=== PATIENT | male | born 1955 | race Caucasian/White ===

== ENCOUNTER 2017-12-26 11:41 | Inpatient (IN) | payer OTHER ==
[~2017-12-26] VITALS: Ht 182.9 cm; Wt 98.4 kg
[2017-12-26] MEDS ORDERED: IV NORMAL SALINE 1000 ML BAG IV ONE (12:15)
[2017-12-26] MEDS ORDERED: ACETAMINOPHEN 325 MG TABLET PO ONE (12:15)
[2017-12-26] MEDS ORDERED: ONDANSETRON 4 MG/2 ML VIAL IV ONE (12:15)
[2017-12-26] MEDS ORDERED: HYDROMORPHONE 1 MG/1 ML DISP.SYRIN IV ONE (12:15)
[2017-12-26] MEDS ORDERED: CARV3.122 PO (12:25)
[2017-12-26] MEDS ORDERED: MIDO5TAB PO (12:25)
[2017-12-26] MEDS ORDERED: ACET325T53 PO (12:25)
[2017-12-26] MEDS ORDERED: LEVO100T10 PO (12:25)
[2017-12-26] MEDS ORDERED: MONT10TA22 PO (12:25)
[2017-12-26] MEDS ORDERED: FURO40TA5 PO (12:25)
[2017-12-26] MEDS ORDERED: DIVA500T2 PO (12:25)
[2017-12-26] MEDS ORDERED: DOCU-141 PO (12:25)
[2017-12-26] MEDS ORDERED: HYDR-3326 PO (12:25)
[2017-12-26] MEDS ORDERED: MUPI22OI2 (12:25)
[2017-12-26] MEDS ORDERED: TAMS-3 PO (12:25)
[2017-12-26] MEDS ORDERED: CLOP75TA33 PO (12:25)
[2017-12-26] MEDS ORDERED: INSU100V28 SQ (12:25)
[2017-12-26] MEDS ORDERED: CRAN450T3 PO (12:25)
[2017-12-26] MEDS ORDERED: BLOO-140 IN (12:25)
[2017-12-26] MEDS ORDERED: ASPI-605 PO (12:25)
[2017-12-26] MEDS ORDERED: PREG100C PO (12:25)
[2017-12-26] MEDS ORDERED: TEMA30CA PO (12:25)
[2017-12-26] MEDS ORDERED: SENN-167 PO (12:25)
[2017-12-26] MEDS ORDERED: ASCO500T10 PO (12:25)
[2017-12-26] MEDS ORDERED: MULT-225 PO (12:25)
[2017-12-26] MEDS ORDERED: NA P133E RC (12:25)
[2017-12-26] MEDS ORDERED: ACETAMINOPHEN 325 MG TABLET ONE (12:28)
[2017-12-26] MEDS ORDERED: HYDROMORPHONE 2 MG/1 ML DISP.SYRIN ONE (12:28)
[2017-12-26] MEDS ORDERED: ONDANSETRON 4 MG/2 ML VIAL ONE (12:28)
[2017-12-26 12:29] LABS: BASOPHILS # (AUTO) 0.1 K/uL (0.0-8.0); BASOPHILS % (AUTO) 0.5 % (0.0-2.0); EOSINOPHILS # (AUTO) 0.1 K/uL (0.0-0.7); HEMOGLOBIN 10.6 g/dL (12.5-16.3); LYMPHOCYTES # (AUTO) 1.4 K/uL (20.0-40.0); LYMPHOCYTES % (AUTO) 13.4 % (20.5-51.5); MEAN CORPUSCULAR HEMOGLOBIN 29.5 uug (23.8-33.4); MEAN CORPUSCULAR HGB CONC 33 g/dL (32.5-36.3); MONOCYTES % (AUTO) 9.1 % (0.0-11.0); NEUTROPHILS # (AUTO) 8.1 K/uL (1.8-8.9); PLATELET COUNT (AUTO) 211 K/uL (152-348); WHITE BLOOD COUNT (AUTO) 10.6 K/uL (3.6-10.2)
[2017-12-26 12:40] LABS: CREATININE 1.7 mg/dL (0.6-1.3); POTASSIUM 4.3 mmol/L (3.5-5.1)
[2017-12-26 12:46] LABS: BILIRUBIN,DIRECT 0.1 mg/dL (0.0-0.2); BILIRUBIN,TOTAL 0.4 mg/dL (0.2-1.0); TOTAL PROTEIN, SERUM 7.8 g/dL (6.4-8.2)
[2017-12-26] MEDS ORDERED: VANCOMYCIN IV 1,000 MG in IV DEXTROSE 5% 250 ML IV ONE (13:15)
[2017-12-26] MEDS ORDERED: CEFTRIAXONE 2 G in IV DEXTROSE 5% 100 ML IV ONE (13:15)
[2017-12-26] MEDS ORDERED: CEFTRIAXONE 1 G VIAL ONE (13:21)
[2017-12-26] MEDS ORDERED: MAGNESIUM HYDROXIDE 30 ML LIQUID UDC PO PRN (13:45)
[2017-12-26] MEDS ORDERED: ONDANSETRON 4 MG/2 ML VIAL IV PRN (13:45)
[2017-12-26] MEDS ORDERED: ACETAMINOPHEN 325 MG TABLET PO PRN (13:45)
[2017-12-26] MEDS ORDERED: HYDROCODONE/APAP 10-325 MG TABLET PO PRN (13:45)
[2017-12-26] MEDS ORDERED: TEMAZEPAM 15 MG CAPSULE PO PRN (13:45)
[2017-12-26] MEDS ORDERED: PIPERACILLIN/TAZOBACTAM/D5W 2.25 G in PREMIXED 1 EACH IV SCH (14:00)
[2017-12-26] MEDS ORDERED: DEXTROSE 50% 50 ML DISP.SYRIN IV PRN (14:15)
[2017-12-26 14:58] VITALS: BP 99/61
[2017-12-26] MEDS ORDERED: VANCOMYCIN IV 1,500 MG in IV DEXTROSE 5% 500 ML IV ONE (15:30)
[2017-12-26] MEDS: SENNOSIDES 1 TABLET PO SCH (17:36)
[2017-12-26] MEDS: PREGABALIN 100 MG CAPSULE PO SCH (17:36)
[2017-12-26] MEDS: DIVALPROEX 500 MG TABLET.DR PO SCH (17:36)
[2017-12-26] MEDS: DOCUSATE SODIUM 100 MG CAPSULE PO SCH (17:36)
[2017-12-26] MEDS: CARVEDILOL 3.125 MG TABLET PO SCH (17:38)
[2017-12-26] MEDS: MIDODRINE HCL 5 MG TABLET PO SCH (17:38)
[2017-12-26] MEDS: INSULIN REGULAR, HUMAN 300 UNIT/3 ML VIAL SQ PRN ×2 (17:40→20:34)
[2017-12-26] MEDS: BLOOD SUGAR DIAGNOSTIC 1 EACH STRIP VI SCH ×2 (17:45→20:24)
[2017-12-26] MEDS: PIPERACILLIN/TAZOBACTAM/D5W 3.375 G in PREMIXED 1 EACH IV SCH ×2 (17:45→21:28)
[2017-12-26 18:17] LABS: *BILIRUBIN,URIN NEGATIVE (NEGATIVE); *BLOOD, URINE NEGATIVE (NEGATIVE); *CLARITY,URINE SLIGHTLY CLOUDY (CLEAR); *COLOR,URINE YELLOW (YELLOW); *KETONES,URINE NEGATIVE (NEGATIVE); *PROTEIN,URINE NEGATIVE (NEGATIVE); *UROBILINOGEN,URINE 0.2 E.U./dl (NORMAL); LEUKOCYTE ESTERASE ,URINE NEGATIVE (NEGATIVE); NITRITE, URINE NEGATIVE (NEGATIVE); PH,URINE 5.5 (5.0-8.0); UGLUCOSE NEGATIVE (NEGATIVE)
[2017-12-26 18:30] LABS: BACTERIA,URINE NONE SEEN /HPF (NONE SEEN); RBC,URINE 0-3 /HPF (0-3); WBC,URINE 0-3 /HPF (0-3)
[2017-12-26 18:31] LABS: SQUAMOUS EPITHELIAL CELL,UR NONE SEEN /HPF (NONE SEEN)
[2017-12-26 20:28] LABS: *CREATININE,URINE 53.1 mg/dL (30-125); *CREATININE,URINE 53.5 mg/dL (30-125)
[2017-12-26 20:41] VITALS: BP 107/64
[2017-12-26] MEDS: HYDROCODONE/APAP 5-325MG TABLET PO PRN (21:45)
[2017-12-26] MEDS: TEMAZEPAM 15 MG CAPSULE PO PRN (22:59)
[2017-12-27 04:58] VITALS: BP 118/63
[2017-12-27] MEDS: PIPERACILLIN/TAZOBACTAM/D5W 3.375 G in PREMIXED 1 EACH IV SCH ×3 (05:15→21:18)
[2017-12-27] MEDS: HYDROCODONE/APAP 5-325MG TABLET PO PRN (05:26)
[2017-12-27] MEDS: LEVOTHYROXINE SODIUM 100 MCG TABLET PO SCH (06:11)
[2017-12-27] MEDS: PANTOPRAZOLE SODIUM 40 MG TABLET.DR PO SCH (06:11)
[2017-12-27] MEDS: BLOOD SUGAR DIAGNOSTIC 1 EACH STRIP VI SCH ×4 (06:12→21:01)
[2017-12-27 06:39] LABS: BILIRUBIN,TOTAL 0.4 mg/dL (0.2-1.0); CREATININE 1.8 mg/dL (0.6-1.3); MAGNESIUM 2.2 mg/dL (1.8-2.4); PHOSPHOROUS 3.9 mg/dL (2.5-4.9); POTASSIUM 4.1 mmol/L (3.5-5.1); TOTAL PROTEIN, SERUM 7.2 g/dL (6.4-8.2)
[2017-12-27 06:42] LABS: BASOPHILS # (AUTO) 0.1 K/uL (0.0-8.0); BASOPHILS % (AUTO) 0.9 % (0.0-2.0); EOSINOPHILS # (AUTO) 0.2 K/uL (0.0-0.7); EOSINOPHILS % (AUTO) 2.6 % (0.0-7.0); HEMATOCRIT 29.9 % (36.7-47.1); LYMPHOCYTES # (AUTO) 1.6 K/uL (20.0-40.0); MEAN CORPUSCULAR HEMOGLOBIN 29.4 uug (23.8-33.4); MEAN CORPUSCULAR HGB CONC 33 g/dL (32.5-36.3); MONOCYTES # (AUTO) 0.5 K/uL (2.0-10.0); MONOCYTES % (AUTO) 8.1 % (0.0-11.0); NEUTROPHILS # (AUTO) 3.9 K/uL (1.8-8.9); NEUTROPHILS % (AUTO) 62.4 % (38.5-71.5); PLATELET COUNT (AUTO) 196 K/uL (152-348); RED BLOOD CELL COUNT(AUTO) 3.39 MIL/uL (4.06-5.63)
[2017-12-27 06:59] LABS: VANCOMYCIN,RANDOM 12.2 ug/mL (18.0-26.0)
[2017-12-27 07:05] LABS: WHITE BLOOD COUNT (AUTO) 6.2 K/uL (3.6-10.2)
[2017-12-27] MEDS: DOCUSATE SODIUM 100 MG CAPSULE PO SCH ×2 (08:05→17:44)
[2017-12-27] MEDS: PREGABALIN 100 MG CAPSULE PO SCH ×3 (08:05→17:44)
[2017-12-27] MEDS: MONTELUKAST SODIUM 10 MG TABLET PO SCH (08:05)
[2017-12-27] MEDS: SENNOSIDES 1 TABLET PO SCH ×2 (08:05→17:44)
[2017-12-27] MEDS: DIVALPROEX 500 MG TABLET.DR PO SCH ×3 (08:05→17:44)
[2017-12-27] MEDS: MULTIVITAMINS,THERAPEUTIC TABLET PO SCH (08:05)
[2017-12-27] MEDS: ASCORBIC ACID 500 MG TABLET PO SCH (08:05)
[2017-12-27] MEDS: TAMSULOSIN HCL 0.4 MG CAP.SR.24H PO SCH (08:05)
[2017-12-27] MEDS: CARVEDILOL 3.125 MG TABLET PO SCH ×2 (08:06→17:44)
[2017-12-27] MEDS: CLOPIDOGREL 75 MG TABLET PO SCH (08:06)
[2017-12-27] MEDS: ASPIRIN EC 81 MG TABLET.DR PO SCH (08:06)
[2017-12-27] MEDS: MIDODRINE HCL 5 MG TABLET PO SCH ×4 (08:08→17:46)
[2017-12-27] MEDS: INSULIN REGULAR, HUMAN 300 UNIT/3 ML VIAL SQ PRN ×4 (08:10→21:04)
[2017-12-27] MEDS ORDERED: VANCOMYCIN IV 1,500 MG in IV DEXTROSE 5% 500 ML IV ONE (09:00)
[2017-12-27] MEDS ORDERED: HYDROMORPHONE 2 MG/1 ML DISP.SYRIN IV PRN (10:00)
[2017-12-27] MEDS ORDERED: HYDROCODONE/APAP 10-325 MG TABLET PO PRN (10:00)
[2017-12-27 11:04] VITALS: BP 121/60
[2017-12-27] MEDS: ACETAMINOPHEN 325 MG TABLET PO SCH ×3 (12:34→23:07)
[2017-12-27] MEDS ORDERED: Z GUARD REMEDY PASTE 57 GM TUBE TOP PRN (14:30)
[2017-12-27 15:09] VITALS: BP 130/64
[2017-12-27] MEDS: CLOTRIMAZOLE 1% CREAM 30 GM TUBE TOP SCH (17:43)
[2017-12-27] MEDS: Z GUARD REMEDY PASTE 57 GM TUBE TOP SCH ×2 (17:43→21:01)
[2017-12-27] MEDS: HYDROMORPHONE 2 MG/1 ML DISP.SYRIN IV PRN (19:44)
[2017-12-27 20:00] VITALS: BP 121/66
[2017-12-27] MEDS ORDERED: INSULIN GLARGINE,HUM 300 UNITS/3 ML CARTRIDGE SQ SCH (21:00)
[2017-12-27] MEDS: LACTOBACILLUS RHAMNOSUS GG 1 EACH CAPSULE PO SCH (21:00)
[2017-12-28 04:00] VITALS: BP 102/51
[2017-12-28] MEDS: ACETAMINOPHEN 325 MG TABLET PO SCH ×4 (05:38→23:21)
[2017-12-28] MEDS: PIPERACILLIN/TAZOBACTAM/D5W 3.375 G in PREMIXED 1 EACH IV SCH ×3 (05:38→21:22)
[2017-12-28] MEDS: LEVOTHYROXINE SODIUM 100 MCG TABLET PO SCH (06:05)
[2017-12-28] MEDS: PANTOPRAZOLE SODIUM 40 MG TABLET.DR PO SCH (06:05)
[2017-12-28 06:39] LABS: BASOPHILS # (AUTO) 0.1 K/uL (0.0-8.0); BASOPHILS % (AUTO) 0.9 % (0.0-2.0); EOSINOPHILS # (AUTO) 0.5 K/uL (0.0-0.7); HEMATOCRIT 30.8 % (36.7-47.1); HEMOGLOBIN 10.5 g/dL (12.5-16.3); LYMPHOCYTES # (AUTO) 2.9 K/uL (20.0-40.0); LYMPHOCYTES % (AUTO) 38.3 % (20.5-51.5); MEAN CORPUSCULAR HEMOGLOBIN 30.3 uug (23.8-33.4); MEAN CORPUSCULAR HGB CONC 34 g/dL (32.5-36.3); MEAN CORPUSCULAR VOLUME 88.8 fL (73.0-96.2); MONOCYTES # (AUTO) 0.8 K/uL (2.0-10.0); MONOCYTES % (AUTO) 11.1 % (0.0-11.0); NEUTROPHILS # (AUTO) 3.3 K/uL (1.8-8.9); NEUTROPHILS % (AUTO) 43.7 % (38.5-71.5); PLATELET COUNT (AUTO) 186 K/uL (152-348); RED BLOOD CELL COUNT(AUTO) 3.47 MIL/uL (4.06-5.63); WHITE BLOOD COUNT (AUTO) 7.6 K/uL (3.6-10.2)
[2017-12-28 06:52] LABS: CREATININE 1.7 mg/dL (0.6-1.3)
[2017-12-28] MEDS: BLOOD SUGAR DIAGNOSTIC 1 EACH STRIP VI SCH ×3 (07:21→20:29)
[2017-12-28] MEDS: INSULIN REGULAR, HUMAN 300 UNIT/3 ML VIAL SQ PRN ×3 (07:57→16:42)
[2017-12-28] MEDS: LACTOBACILLUS RHAMNOSUS GG 1 EACH CAPSULE PO SCH ×2 (08:02→20:29)
[2017-12-28] MEDS: DIVALPROEX 500 MG TABLET.DR PO SCH ×3 (08:02→16:42)
[2017-12-28] MEDS: PREGABALIN 100 MG CAPSULE PO SCH ×3 (08:02→16:42)
[2017-12-28] MEDS: ASCORBIC ACID 500 MG TABLET PO SCH (08:02)
[2017-12-28] MEDS: TAMSULOSIN HCL 0.4 MG CAP.SR.24H PO SCH (08:03)
[2017-12-28] MEDS: DOCUSATE SODIUM 100 MG CAPSULE PO SCH ×2 (08:03→16:44)
[2017-12-28] MEDS: SENNOSIDES 1 TABLET PO SCH ×2 (08:03→16:44)
[2017-12-28] MEDS: ASPIRIN EC 81 MG TABLET.DR PO SCH (08:03)
[2017-12-28] MEDS: MULTIVITAMINS,THERAPEUTIC TABLET PO SCH (08:03)
[2017-12-28] MEDS: MONTELUKAST SODIUM 10 MG TABLET PO SCH (08:03)
[2017-12-28] MEDS: CLOTRIMAZOLE 1% CREAM 30 GM TUBE TOP SCH ×2 (08:05→16:44)
[2017-12-28] MEDS: CLOPIDOGREL 75 MG TABLET PO SCH (08:05)
[2017-12-28] MEDS: Z GUARD REMEDY PASTE 57 GM TUBE TOP SCH ×2 (08:05→20:29)
[2017-12-28] MEDS: MIDODRINE HCL 5 MG TABLET PO SCH ×3 (08:09→16:43)
[2017-12-28] MEDS: CARVEDILOL 3.125 MG TABLET PO SCH ×2 (08:09→18:09)
[2017-12-28] MEDS ORDERED: VANCOMYCIN IV 1,500 MG in IV DEXTROSE 5% 500 ML IV ONE (09:00)
[2017-12-28] MEDS: HYDROMORPHONE 2 MG/1 ML DISP.SYRIN IV PRN (10:27)
[2017-12-28 11:45] VITALS: BP 109/59
[2017-12-28] MEDS ORDERED: DEXTROSE 50% 50 ML DISP.SYRIN IV PRN (12:00)
[2017-12-28 15:15] VITALS: BP 110/64
[2017-12-28] MEDS: OXYCODONE HCL 5 MG TABLET PO PRN ×2 (17:03→23:24)
[2017-12-28 20:00] VITALS: BP 100/55
[2017-12-28] MEDS: INSULIN GLARGINE,HUM 300 UNITS/3 ML CARTRIDGE SQ SCH (20:34)
[2017-12-28] MEDS: INSULIN REGULAR, HUMAN 300 UNITS/3 ML VIAL SQ PRN (20:36)
[2017-12-29 04:00] VITALS: BP 110/61
[2017-12-29] MEDS: PIPERACILLIN/TAZOBACTAM/D5W 3.375 G in PREMIXED 1 EACH IV SCH ×2 (05:25→13:32)
[2017-12-29] MEDS: ACETAMINOPHEN 325 MG TABLET PO SCH ×4 (05:26→23:59)
[2017-12-29] MEDS: OXYCODONE HCL 5 MG TABLET PO PRN ×3 (05:27→18:06)
[2017-12-29] MEDS: PANTOPRAZOLE SODIUM 40 MG TABLET.DR PO SCH (06:52)
[2017-12-29] MEDS: LEVOTHYROXINE SODIUM 100 MCG TABLET PO SCH (06:52)
[2017-12-29] MEDS: BLOOD SUGAR DIAGNOSTIC 1 EACH STRIP VI SCH ×4 (06:53→20:28)
[2017-12-29] MEDS: CARVEDILOL 3.125 MG TABLET PO SCH ×2 (08:00→17:09)
[2017-12-29] MEDS: DIVALPROEX 500 MG TABLET.DR PO SCH ×3 (08:03→16:21)
[2017-12-29] MEDS: LACTOBACILLUS RHAMNOSUS GG 1 EACH CAPSULE PO SCH ×2 (08:03→21:15)
[2017-12-29] MEDS: CLOPIDOGREL 75 MG TABLET PO SCH (08:03)
[2017-12-29] MEDS: MULTIVITAMINS,THERAPEUTIC TABLET PO SCH (08:03)
[2017-12-29] MEDS: ASPIRIN EC 81 MG TABLET.DR PO SCH (08:03)
[2017-12-29] MEDS: PREGABALIN 100 MG CAPSULE PO SCH ×3 (08:03→16:21)
[2017-12-29] MEDS: MONTELUKAST SODIUM 10 MG TABLET PO SCH (08:03)
[2017-12-29] MEDS: ASCORBIC ACID 500 MG TABLET PO SCH (08:03)
[2017-12-29] MEDS: MIDODRINE HCL 5 MG TABLET PO SCH ×3 (08:03→16:21)
[2017-12-29] MEDS: TAMSULOSIN HCL 0.4 MG CAP.SR.24H PO SCH (08:03)
[2017-12-29] MEDS: DOCUSATE SODIUM 100 MG CAPSULE PO SCH ×2 (08:04→16:19)
[2017-12-29] MEDS: SENNOSIDES 1 TABLET PO SCH ×2 (08:04→16:19)
[2017-12-29] MEDS: CLOTRIMAZOLE 1% CREAM 30 GM TUBE TOP SCH ×2 (09:09→16:58)
[2017-12-29] MEDS: Z GUARD REMEDY PASTE 57 GM TUBE TOP SCH ×2 (09:10→21:15)
[2017-12-29 11:25] VITALS: BP 106/56
[2017-12-29] MEDS: INSULIN REGULAR, HUMAN 300 UNIT/3 ML VIAL SQ PRN ×2 (11:38→16:28)
[2017-12-29 15:49] VITALS: BP 111/65
[2017-12-29] MEDS ORDERED: MEROPENEM 1 G in IV NORMAL SALINE 100 ML IV SCH ×4 (16:30)
[2017-12-29] MEDS ORDERED: LINEZOLID IV 600 MG in PREMIXED 1 EACH IV SCH ×4 (17:30)
[2017-12-29 20:00] VITALS: BP 106/48
[2017-12-29] MEDS: INSULIN REGULAR, HUMAN 300 UNITS/3 ML VIAL SQ PRN (20:27)
[2017-12-29] MEDS: INSULIN GLARGINE,HUM 300 UNITS/3 ML CARTRIDGE SQ SCH (20:28)
[2017-12-29] MEDS ORDERED: LEVOFLOXACIN 500 MG TABLET PO ONE (21:00)
[2017-12-29] MEDS ORDERED: LEVOFLOXACIN 500 MG TABLET PO SCH (21:00)
[2017-12-29] MEDS ORDERED: AMPICILLIN 1 G VIAL ONE (23:01)
[2017-12-29] MEDS: AMPICILLIN IV 1 G in IV NORMAL SALINE 50 ML IV SCH (23:13)
[2017-12-30] MEDS: OXYCODONE HCL 5 MG TABLET PO PRN ×4 (00:02→20:03)
[2017-12-30 04:24] VITALS: BP 108/66
[2017-12-30] MEDS: AMPICILLIN IV 1 G in IV NORMAL SALINE 50 ML IV SCH ×3 (05:13→22:08)
[2017-12-30] MEDS: ACETAMINOPHEN 325 MG TABLET PO SCH ×4 (05:59→23:15)
[2017-12-30] MEDS: PANTOPRAZOLE SODIUM 40 MG TABLET.DR PO SCH (06:24)
[2017-12-30] MEDS: LEVOTHYROXINE SODIUM 100 MCG TABLET PO SCH (06:24)
[2017-12-30] MEDS: CARVEDILOL 3.125 MG TABLET PO SCH ×2 (08:39→17:31)
[2017-12-30] MEDS: INSULIN REGULAR, HUMAN 300 UNIT/3 ML VIAL SQ PRN ×3 (08:44→17:25)
[2017-12-30] MEDS: BLOOD SUGAR DIAGNOSTIC 1 EACH STRIP VI SCH ×4 (09:39→22:07)
[2017-12-30] MEDS: DOCUSATE SODIUM 100 MG CAPSULE PO SCH ×2 (09:39→17:00)
[2017-12-30] MEDS: LACTOBACILLUS RHAMNOSUS GG 1 EACH CAPSULE PO SCH ×2 (09:39→22:00)
[2017-12-30] MEDS: MONTELUKAST SODIUM 10 MG TABLET PO SCH (09:39)
[2017-12-30] MEDS: TAMSULOSIN HCL 0.4 MG CAP.SR.24H PO SCH (09:39)
[2017-12-30] MEDS: SENNOSIDES 1 TABLET PO SCH ×2 (09:39→17:00)
[2017-12-30] MEDS: ASCORBIC ACID 500 MG TABLET PO SCH (09:40)
[2017-12-30] MEDS: ASPIRIN EC 81 MG TABLET.DR PO SCH (09:40)
[2017-12-30] MEDS: DIVALPROEX 500 MG TABLET.DR PO SCH ×3 (09:40→17:25)
[2017-12-30] MEDS: MULTIVITAMINS,THERAPEUTIC TABLET PO SCH (09:40)
[2017-12-30] MEDS: MIDODRINE HCL 5 MG TABLET PO SCH ×3 (09:40→17:31)
[2017-12-30] MEDS: PREGABALIN 100 MG CAPSULE PO SCH ×3 (09:40→17:25)
[2017-12-30] MEDS: Z GUARD REMEDY PASTE 57 GM TUBE TOP SCH ×2 (09:41→22:00)
[2017-12-30] MEDS: CLOPIDOGREL 75 MG TABLET PO SCH (09:41)
[2017-12-30] MEDS: CLOTRIMAZOLE 1% CREAM 30 GM TUBE TOP SCH ×2 (09:42→17:40)
[2017-12-30 11:54] VITALS: BP 110/58
[2017-12-30 16:16] VITALS: BP 129/66
[2017-12-30 17:32] LABS: BASOPHILS % (AUTO) 0.6 % (0.0-2.0); EOSINOPHILS # (AUTO) 0.3 K/uL (0.0-0.7); EOSINOPHILS % (AUTO) 5.4 % (0.0-7.0); HEMATOCRIT 31.8 % (36.7-47.1); HEMOGLOBIN 10.7 g/dL (12.5-16.3); LYMPHOCYTES # (AUTO) 1.4 K/uL (20.0-40.0); LYMPHOCYTES % (AUTO) 26.2 % (20.5-51.5); MEAN CORPUSCULAR HEMOGLOBIN 29.6 uug (23.8-33.4); MEAN CORPUSCULAR HGB CONC 34 g/dL (32.5-36.3); MEAN CORPUSCULAR VOLUME 88.2 fL (73.0-96.2); MONOCYTES # (AUTO) 0.3 K/uL (2.0-10.0); MONOCYTES % (AUTO) 5.9 % (0.0-11.0); NEUTROPHILS # (AUTO) 3.4 K/uL (1.8-8.9); NEUTROPHILS % (AUTO) 61.9 % (38.5-71.5); PLATELET COUNT (AUTO) 233 K/uL (152-348); WHITE BLOOD COUNT (AUTO) 5.5 K/uL (3.6-10.2)
[2017-12-30 17:40] LABS: CREATININE 1.7 mg/dL (0.6-1.3); POTASSIUM 5.1 mmol/L (3.5-5.1)
[2017-12-30 20:00] VITALS: BP 124/65
[2017-12-30] MEDS ORDERED: LEVOFLOXACIN 250 MG TABLET PO SCH (21:00)
[2017-12-30] MEDS: LEVOFLOXACIN 500 MG TABLET PO SCH (22:00)
[2017-12-30] MEDS: INSULIN GLARGINE,HUM 300 UNITS/3 ML CARTRIDGE SQ SCH (22:13)
[2017-12-30] MEDS: INSULIN REGULAR, HUMAN 300 UNITS/3 ML VIAL SQ PRN (22:15)
[2017-12-30] MEDS: TEMAZEPAM 15 MG CAPSULE PO PRN (23:14)
[2017-12-31 04:00] VITALS: BP 106/59
[2017-12-31] MEDS: ACETAMINOPHEN 325 MG TABLET PO SCH ×3 (06:00→18:59)
[2017-12-31] MEDS: PANTOPRAZOLE SODIUM 40 MG TABLET.DR PO SCH (06:21)
[2017-12-31] MEDS: LEVOTHYROXINE SODIUM 100 MCG TABLET PO SCH (06:21)
[2017-12-31] MEDS: AMPICILLIN IV 1 G in IV NORMAL SALINE 50 ML IV SCH ×3 (06:21→21:12)
[2017-12-31] MEDS: BLOOD SUGAR DIAGNOSTIC 1 EACH STRIP VI SCH ×4 (06:28→20:32)
[2017-12-31] MEDS: CARVEDILOL 3.125 MG TABLET PO SCH ×2 (08:00→19:00)
[2017-12-31] MEDS: SENNOSIDES 1 TABLET PO SCH ×2 (09:00→16:59)
[2017-12-31] MEDS: DOCUSATE SODIUM 100 MG CAPSULE PO SCH ×2 (09:00→16:58)
[2017-12-31] MEDS: LACTOBACILLUS RHAMNOSUS GG 1 EACH CAPSULE PO SCH ×2 (09:42→20:32)
[2017-12-31] MEDS: ASPIRIN EC 81 MG TABLET.DR PO SCH (09:42)
[2017-12-31] MEDS: MIDODRINE HCL 5 MG TABLET PO SCH ×3 (09:42→16:58)
[2017-12-31] MEDS: MONTELUKAST SODIUM 10 MG TABLET PO SCH (09:42)
[2017-12-31] MEDS: PREGABALIN 100 MG CAPSULE PO SCH ×3 (09:42→16:58)
[2017-12-31] MEDS: DIVALPROEX 500 MG TABLET.DR PO SCH ×3 (09:43→16:58)
[2017-12-31] MEDS: TAMSULOSIN HCL 0.4 MG CAP.SR.24H PO SCH (09:43)
[2017-12-31] MEDS: MULTIVITAMINS,THERAPEUTIC TABLET PO SCH (09:43)
[2017-12-31] MEDS: ASCORBIC ACID 500 MG TABLET PO SCH (09:43)
[2017-12-31] MEDS: CLOPIDOGREL 75 MG TABLET PO SCH (09:44)
[2017-12-31] MEDS: Z GUARD REMEDY PASTE 57 GM TUBE TOP SCH ×2 (09:44→20:33)
[2017-12-31] MEDS: CLOTRIMAZOLE 1% CREAM 30 GM TUBE TOP SCH ×2 (09:46→16:59)
[2017-12-31] MEDS: SODIUM HYPOCHLORITE 0.125% 473 ML BOTTLE TP SCH (09:48)
[2017-12-31] MEDS: OXYCODONE HCL 5 MG TABLET PO PRN ×2 (10:31→16:57)
[2017-12-31 11:12] VITALS: BP 105/64
[2017-12-31] MEDS: INSULIN REGULAR, HUMAN 300 UNIT/3 ML VIAL SQ PRN (12:34)
[2017-12-31 15:45] VITALS: BP 113/62
[2017-12-31] MEDS ORDERED: VITAMIN E CREAM 56.7 GM JAR TP PRN (17:15)
[2017-12-31 20:00] VITALS: BP 109/69
[2017-12-31] MEDS: LEVOFLOXACIN 500 MG TABLET PO SCH (20:32)
[2017-12-31] MEDS: INSULIN GLARGINE,HUM 300 UNITS/3 ML CARTRIDGE SQ SCH (20:38)
[2017-12-31] MEDS: INSULIN REGULAR, HUMAN 300 UNITS/3 ML VIAL SQ PRN (20:39)
[2018-01-01 06:00] VITALS: BP_SYST 109; BP_SYST 90; BP_DIAS 49; BP_DIAS 61
[2018-01-01] MEDS: PANTOPRAZOLE SODIUM 40 MG TABLET.DR PO SCH (06:13)
[2018-01-01] MEDS: LEVOTHYROXINE SODIUM 100 MCG TABLET PO SCH (06:13)
[2018-01-01] MEDS: BLOOD SUGAR DIAGNOSTIC 1 EACH STRIP VI SCH ×3 (06:13→17:39)
[2018-01-01] MEDS: ACETAMINOPHEN 325 MG TABLET PO SCH ×4 (06:14→17:22)
[2018-01-01] MEDS: AMPICILLIN IV 1 G in IV NORMAL SALINE 50 ML IV SCH ×2 (06:14→17:12)
[2018-01-01] MEDS: PREGABALIN 100 MG CAPSULE PO SCH ×3 (08:56→17:12)
[2018-01-01] MEDS: LACTOBACILLUS RHAMNOSUS GG 1 EACH CAPSULE PO SCH (08:56)
[2018-01-01] MEDS: ASCORBIC ACID 500 MG TABLET PO SCH (08:56)
[2018-01-01] MEDS: TAMSULOSIN HCL 0.4 MG CAP.SR.24H PO SCH ×2 (08:56→09:04)
[2018-01-01] MEDS: DIVALPROEX 500 MG TABLET.DR PO SCH ×3 (08:57→17:16)
[2018-01-01] MEDS: MULTIVITAMINS,THERAPEUTIC TABLET PO SCH (08:57)
[2018-01-01] MEDS: MIDODRINE HCL 5 MG TABLET PO SCH ×5 (09:00→17:15)
[2018-01-01] MEDS: MONTELUKAST SODIUM 10 MG TABLET PO SCH (09:04)
[2018-01-01] MEDS: DOCUSATE SODIUM 100 MG CAPSULE PO SCH ×2 (09:08→17:16)
[2018-01-01] MEDS: CARVEDILOL 3.125 MG TABLET PO SCH ×2 (09:08→17:23)
[2018-01-01] MEDS: SENNOSIDES 1 TABLET PO SCH ×2 (09:08→17:17)
[2018-01-01] MEDS: Z GUARD REMEDY PASTE 57 GM TUBE TOP SCH (09:09)
[2018-01-01] MEDS: CLOTRIMAZOLE 1% CREAM 30 GM TUBE TOP SCH ×2 (09:11→17:21)
[2018-01-01] MEDS: SODIUM HYPOCHLORITE 0.125% 473 ML BOTTLE TP SCH (09:12)
[2018-01-01] MEDS: CLOPIDOGREL 75 MG TABLET PO SCH (09:12)
[2018-01-01] MEDS: ASPIRIN EC 81 MG TABLET.DR PO SCH (09:15)
[2018-01-01 11:43] VITALS: BP 107/60
[2018-01-01] MEDS: INSULIN REGULAR, HUMAN 300 UNIT/3 ML VIAL SQ PRN ×2 (12:51→17:41)
[2018-01-01] MEDS: LEVOFLOXACIN 500 MG TABLET PO SCH (12:52)
[2018-01-01] MEDS: OXYCODONE HCL 5 MG TABLET PO PRN (12:53)
[2018-01-01 13:06] LABS: VIT D, 25-HYDROXY 21.6 ng/mL (30.0-100.0)
[2018-01-01 15:35] VITALS: BP 124/68
[2018-01-01 17:23] VITALS: BP 112/69
[2018-01-03 11:09] LABS: CALCITRIOL VIT D,1,25 DIHYDROX 8.7 pg/mL (19.9-79.3)
[2018-01-19] MEDS ORDERED: LACT1TAB20 PO (18:34)
[2018-01-19] MEDS ORDERED: LEVO500T2 PO (18:34)
[2018-01-19] MEDS ORDERED: GEL100GE TOP (18:34)
[2018-01-19] MEDS ORDERED: PROT946L PO (18:34)
[2018-01-19] MEDS ORDERED: HYDR-3326 PO (18:34)
[2018-01-19] MEDS ORDERED: AMPICILLIN IV (18:34)
[2018-01-19] MEDS ORDERED: OXYC20TA58 PO (18:34)
[2018-01-24] MEDS ORDERED: LEVO500T2 PO (13:37)
[2018-01-24] MEDS ORDERED: CADE40GE2 TOP (13:37)
[2018-01-24] MEDS ORDERED: NYST5ORA PO (13:37)
[2018-01-24] MEDS ORDERED: MUPI22OI2 NS (13:37)
[2018-01-24] MEDS ORDERED: PANT40TA2 PO ×2 (13:37)
[2018-01-24] MEDS ORDERED: VALA10002 PO (13:37)
[2018-01-24] MEDS ORDERED: HYDR20CR3 TOP (13:37)
[2018-01-24] MEDS ORDERED: CHOL10002 PO (13:37)
[2018-01-24] MEDS ORDERED: PROT30LI PO (13:37)
[2018-01-24] MEDS ORDERED: PRIM50TA10 PO (13:37)
[2018-01-24] MEDS ORDERED: NUT.237L28 PO (13:37)
[2018-01-24] MEDS ORDERED: AMPI1VIA IM (13:37)
[2018-01-24] MEDS ORDERED: INSU100V28 SQ (13:37)
[2018-01-24] MEDS ORDERED: MECL-102 PO (13:37)
[2018-01-24] MEDS ORDERED: FERR325T28 PO (13:40)
[2018-01-24] MEDS ORDERED: AMPI1VIA IV (17:16)
== END 2018-01-01 18:34 | DRG 317 ==
LOC: ER 11:41 → MED 14:20
PROVIDERS: ADMIT Nurse Practitioner Acute Care; ATTEND Nurse Practitioner Acute Care
PROC: B548ZZA Ultrasonography of Superior Vena Cava, Guidance (ICD-10-PCS; principal; 2017-12-30)
PROC: 0KBT0ZZ Excision of Left Lower Leg Muscle, Open Approach (ICD-10-PCS; principal; 2017-12-30)
PROC: 02HV33Z Insertion of Infusion Device into Superior Vena Cava, Percutaneous Approach (ICD-10-PCS; principal; 2017-12-30)
DX: T87.44 Infection of amputation stump, left lower extremity (principal); A41.51 Sepsis due to Escherichia coli [E. coli]; A41.52 Sepsis due to Pseudomonas; A41.81 Sepsis due to Enterococcus; N17.9 Acute kidney failure, unspecified; F11.20 Opioid dependence, uncomplicated; E11.22 Type 2 diabetes mellitus with diabetic chronic kidney disease; I50.9 Heart failure, unspecified; L03.116 Cellulitis of left lower limb; E11.69 Type 2 diabetes mellitus with other specified complication; B95.2 Enterococcus as the cause of diseases classified elsewhere; Z16.21 Resistance to vancomycin; M86.8X6 Other osteomyelitis, lower leg; L89.610 Pressure ulcer of right heel, unstageable; G89.4 Chronic pain syndrome; G40.909 Epilepsy, unspecified, not intractable, without status epilepticus; F95.2 Tourette's disorder; G54.6 Phantom limb syndrome with pain; Z89.512 Acquired absence of left leg below knee; I25.10 Atherosclerotic heart disease of native coronary artery without angina pectoris; Z95.5 Presence of coronary angioplasty implant and graft; E11.65 Type 2 diabetes mellitus with hyperglycemia; N18.9 Chronic kidney disease, unspecified; Z79.4 Long term (current) use of insulin; N40.0 Benign prostatic hyperplasia without lower urinary tract symptoms; F90.9 Attention-deficit hyperactivity disorder, unspecified type; D63.8 Anemia in other chronic diseases classified elsewhere; E11.51 Type 2 diabetes mellitus with diabetic peripheral angiopathy without gangrene; Z86.14 Personal history of Methicillin resistant Staphylococcus aureus infection; Z79.899 Other long term (current) drug therapy; Z79.891 Long term (current) use of opiate analgesic; Z79.82 Long term (current) use of aspirin; Z79.02 Long term (current) use of antithrombotics/antiplatelets; J44.9 Chronic obstructive pulmonary disease, unspecified; K21.9 Gastro-esophageal reflux disease without esophagitis; E78.5 Hyperlipidemia, unspecified; E03.9 Hypothyroidism, unspecified; E11.42 Type 2 diabetes mellitus with diabetic polyneuropathy; Z68.29 Body mass index [BMI] 29.0-29.9, adult; E66.9 Obesity, unspecified; H40.9 Unspecified glaucoma; T87.81 Dehiscence of amputation stump; F32.9 Major depressive disorder, single episode, unspecified; L03.115 Cellulitis of right lower limb; I13.0 Hypertensive heart and chronic kidney disease with heart failure and stage 1 through stage 4 chronic kidney disease, or unspecified chronic kidney disease; E44.0 Moderate protein-calorie malnutrition
CPT/HCPCS: 36415; 36569; 70030-TC; 71045; 76770; 82306; 82652; 83605; 83690; 83735; 83970; 84100; 84156; 84300; 84520; 85025; 85730; 87040; 87070; 87077; 87086; 93005; 93307; 97110; 97112; 97530; A4663; C1751; J0290; J0696; J1170; J1815; J2020; J2185; J2405; J2543; J3370; J3490; J7030; J7040; J7050; J7060

== ENCOUNTER 2018-05-24 12:18 | Inpatient (IN) | payer MEDICARE, MEDICAID ==
[~2018-05-24] VITALS: Ht 182.9 cm; Wt 104.3 kg
[~2018-05-24 12:18] MED LIST: ACET325T53 PO; AMPI1VIA IV; ASCO500T10 PO; ASPI-605 PO; BLOO-140 IN; CADE40GE2 TOP; CARV3.122 PO; CHOL10002 PO; CLOP75TA33 PO; CRAN450T3 PO; DIVA500T2 PO; DOCU-141 PO; FERR325T28 PO; GEL100GE TOP; HYDR20CR3 TOP; INSU100V28 SQ; LACT1TAB20 PO; LEVO100T10 PO; LEVO500T2 PO; MECL-102 PO; MIDO5TAB PO; MONT10TA22 PO; MULT-225 PO; MUPI22OI2 NS; NA P133E RC; NUT.237L28 PO; NYST5ORA PO; OXYC20TA58 PO; PANT40TA2 PO; PREG100C PO; PRIM50TA10 PO; PROT30LI PO; PROT946L PO; SENN-167 PO; TAMS-3 PO; TEMA30CA PO; VALA10002 PO
--- NOTE | 2018-05-24 12:47 | NUR ---
NICOLAS NOVAK at the bedside for MSE.
--- NOTE | 2018-05-24 13:16 | NUR ---
Patient is resting comfortably in bed with eyes closed, NAD noted.
[2018-05-24] MEDS ORDERED: OXYCODONE HCL 5 MG TABLET PO ONE (13:45)
[2018-05-24] MEDS ORDERED: OXYCODONE HCL 5 MG TABLET ONE (13:48)
[2018-05-24 14:00] LABS: BASOPHILS # (AUTO) 0.1 K/uL (0.0-8.0); BASOPHILS % (AUTO) 0.4 % (0.0-2.0); EOSINOPHILS # (AUTO) 0.1 K/uL (0.0-0.7); EOSINOPHILS % (AUTO) 0.7 % (0.0-7.0); HEMATOCRIT 32.6 % (36.7-47.1); HEMOGLOBIN 10.6 g/dL (12.5-16.3); LYMPHOCYTES # (AUTO) 0.7 K/uL (20.0-40.0); LYMPHOCYTES % (AUTO) 5.2 % (20.5-51.5); MEAN CORPUSCULAR HEMOGLOBIN 29.4 uug (23.8-33.4); MEAN CORPUSCULAR HGB CONC 33 g/dL (32.5-36.3); MEAN CORPUSCULAR VOLUME 90.3 fL (73.0-96.2); MONOCYTES % (AUTO) 7.4 % (0.0-11.0); NEUTROPHILS # (AUTO) 11.1 K/uL (1.8-8.9); NEUTROPHILS % (AUTO) 86.3 % (38.5-71.5); PLATELET COUNT (AUTO) 218 K/uL (152-348); RED BLOOD CELL COUNT(AUTO) 3.61 MIL/uL (4.06-5.63); WHITE BLOOD COUNT (AUTO) 12.9 K/uL (3.6-10.2)
[2018-05-24 14:04] LABS: CREATININE 1.6 mg/dL (0.6-1.3)
[2018-05-24 14:16] LABS: BILIRUBIN,DIRECT 0.1 mg/dL (0.0-0.2); BILIRUBIN,TOTAL 0.6 mg/dL (0.2-1.0); TOTAL PROTEIN, SERUM 8.1 g/dL (6.4-8.2)
[2018-05-24] MEDS ORDERED: TRAZ-182 PO (14:38)
[2018-05-24] MEDS ORDERED: OXYC10TA49 PO (14:38)
[2018-05-24] MEDS ORDERED: ATOR40TA PO (14:38)
[2018-05-24] MEDS ORDERED: FURO-152 PO (14:38)
[2018-05-24] MEDS ORDERED: DIPH25CA83 PO (14:38)
[2018-05-24] MEDS ORDERED: GLIM1TAB PO (14:38)
--- NOTE | 2018-05-24 14:56 | NUR ---
Patient is resting comfortably in bed with eyes closed, NAD noted.
[2018-05-24] MEDS ORDERED: CEFEPIME HCL 1 G in IV DEXTROSE 5% 50 ML IV ONE (16:15)
[2018-05-24] MEDS ORDERED: VANCOMYCIN IV 1,000 MG in IV DEXTROSE 5% 250 ML IV ONE (16:15)
[2018-05-24] MEDS ORDERED: CEFEPIME HCL 1 G VIAL ONE (16:16)
[2018-05-24] MEDS ORDERED: VANCOMYCIN IV 200 ML ONE (16:17)
[2018-05-24] MEDS ORDERED: Z GUARD REMEDY PASTE 57 GM TUBE TOP PRN (16:45)
[2018-05-24] MEDS ORDERED: HYDROCODONE/APAP 5-325MG TABLET PO PRN (16:45)
[2018-05-24] MEDS ORDERED: IV NS 1000 ML 1,000 ML IV SCH (16:45)
[2018-05-24] MEDS ORDERED: ACETAMINOPHEN 325 MG TABLET PO PRN ×2 (16:45→17:00)
[2018-05-24] MEDS ORDERED: ONDANSETRON 4 MG/2 ML VIAL IV PRN (16:45)
[2018-05-24] MEDS ORDERED: MAGNESIUM HYDROXIDE 30 ML LIQUID UDC PO PRN (16:45)
[2018-05-24] MEDS ORDERED: MECLIZINE HCL 25 MG TABLET PO PRN (17:00)
[2018-05-24] MEDS ORDERED: FLEET ENEMA 133 ML BOTTLE RC PRN (17:00)
[2018-05-24] MEDS ORDERED: DEXTROSE 50% 50 ML DISP.SYRIN IV PRN (17:00)
[2018-05-24] MEDS ORDERED: Medication Not On Formulary EA (Diphenhydramine Hcl (Benadryl) 25 MG) PO SCH (17:00)
[2018-05-24] MEDS ORDERED: INSULIN REGULAR, HUMAN 300 UNIT/3 ML VIAL SQ PRN (17:00)
[2018-05-24 17:10] LABS: *BILIRUBIN,URIN NEGATIVE (NEGATIVE); *BLOOD, URINE NEGATIVE (NEGATIVE); *CLARITY,URINE CLEAR (CLEAR); *COLOR,URINE DARK YELLOW (YELLOW); *KETONES,URINE 1+ (NEGATIVE); *PROTEIN,URINE 1+ (NEGATIVE); *UROBILINOGEN,URINE 0.2 E.U./dl (NORMAL); LEUKOCYTE ESTERASE ,URINE NEGATIVE (NEGATIVE); NITRITE, URINE NEGATIVE (NEGATIVE); PH,URINE 6.5 (5.0-8.0); UGLUCOSE NEGATIVE (NEGATIVE)
[2018-05-24 17:22] LABS: MUCUS,URINE MODERATE /LPF (0-FEW); RBC,URINE 0-3 /HPF (0-3); WBC,URINE 0-3 /HPF (0-3)
--- NOTE | 2018-05-24 17:41 | NUR ---
CLINICAL PHARMACY NOTE:VANCOMYCIN DOSING Request for vancomycin dosing on 63 y/o male 182.88cm 104.32Kg for pneumonia Temp 98.1 BUN 19 Scr 1.6 WBC 12.9 also receiving cefepime Vancomycin 1gm given in ER. Continue vancomycin 1500mg ivpb q20h estimate trough 14. Will order trough level prior to 4th dose will continue to monitor
[2018-05-24 17:50] VITALS: BP 113/68
[2018-05-24] MEDS: DOCUSATE SODIUM 100 MG CAPSULE PO SCH (18:02)
[2018-05-24] MEDS: SENNOSIDES 1 TABLET PO SCH (18:02)
[2018-05-24] MEDS: DIVALPROEX 500 MG TABLET.DR PO SCH (18:02)
[2018-05-24] MEDS: CARVEDILOL 3.125 MG TABLET PO SCH (18:02)
[2018-05-24] MEDS: OXYCODONE HCL 5 MG TABLET PO PRN (18:17)
[2018-05-24] MEDS: INSULIN REGULAR, HUMAN 300 UNIT/3 ML VIAL SQ PRN ×2 (18:19→21:05)
--- NOTE | 2018-05-24 18:48 | NUR ---
admitted patient a/a/ox4, admission protocol followed, photos taken and in chart. iv in left wrist #20 NS running at 50cc/hr. pain medication given for back pain, dinner provided, call light in reach
[2018-05-24 19:00] VITALS: BP 109/72
--- NOTE | 2018-05-24 20:00 | NUR ---
PT'S ON BED REST,SCRATCHING HIMSELF,STATED THAT"IT'S ITCHING"PT ATE DINNER 100%,C/O PAIN AT HIS BACK AND NECK,PT SAID"I NECK PAIN MEDICATION THAT'S STRONGER THAN THE ONE THAT I TOOK IT EARLIER".ON IVF MD'S ORDER. 20:25:CALLED AND LEFT THE MESSAGE W/EXCHANGE SERVICE. 20:55, CALLED BACK,DISCUSSED W/MD ABOUT PT'S SYMPTOMS AND HIS COMPLAINT.NEW ORDER'S GIVEN TO PT:CARRIED IT OUT AND DISCUSSED THE PLAN OF CARE TO PT;HE VERBALIZED UNDERSTANDING BUT HE STATED THAT"LET'S SEE HOW IT WORK".
[2018-05-24] MEDS: TRAZODONE 50 MG TABLET PO SCH (20:58)
[2018-05-24] MEDS: TAMSULOSIN HCL 0.4 MG CAP.SR.24H PO SCH (20:58)
[2018-05-24] MEDS: ATORVASTATIN 40 MG TABLET PO SCH (20:58)
[2018-05-24] MEDS: BLOOD SUGAR DIAGNOSTIC 1 EACH STRIP VI SCH (21:03)
[2018-05-24] MEDS: diphenhydrAMINE 25 MG CAP PO PRN (21:21)
[2018-05-24] MEDS ORDERED: MORPHINE SULFATE 2 MG/1 ML DISP.SYRIN IV ONE ×2 (21:45→22:45)
[2018-05-24] MEDS ORDERED: CEFEPIME HCL 1 G in IV DEXTROSE 5% 50 ML IV SCH (22:00)
[2018-05-24] MEDS ORDERED: MORPHINE SULFATE 4 MG/1 ML DISP.SYRIN IV ONE (23:00)
[2018-05-25] VITALS: BP 99/57
--- NOTE | 2018-05-25 | NUR ---
PT'S COMFORTABLE ON BED,DENIED OF ANY DISCOMFORT.TELEMETRY'S SR 80/MIN.KEPT CALL-LIGHT WITHIN REACH.MAINTAINED IVF.
[2018-05-25 04:00] VITALS: BP 90/60
[2018-05-25] MEDS: CEFEPIME HCL 1 G in IV DEXTROSE 5% 50 ML IV SCH ×2 (04:25→17:14)
[2018-05-25] MEDS ORDERED: VANCOMYCIN IV 1,500 MG in IV DEXTROSE 5% 500 ML IV SCH (05:00)
--- NOTE | 2018-05-25 05:30 | NUR ---
PER [employer] SPECIALIST REPORTED TO ME,PT REFUSED TO GET BLOOD TEST AT THIS TIME,STATED TO HER THAT"COME BACK LATER ABOUT 8AM,LET'S ME SLEEP".PT DENIED OF PAIN.
[2018-05-25] MEDS: PANTOPRAZOLE SODIUM 40 MG TABLET.DR PO SCH (06:25)
[2018-05-25] MEDS: LEVOTHYROXINE SODIUM 100 MCG TABLET PO SCH (06:25)
[2018-05-25] MEDS: BLOOD SUGAR DIAGNOSTIC 1 EACH STRIP VI SCH ×4 (06:38→20:28)
--- NOTE | 2018-05-25 06:40 | NUR ---
ACCUCHECK 'S PERFORMED AT THIS TIME,PT STATED THAT"YOU GUYS BOTHER ME A LOT,I WANT TO SLEEP.HURRY UP",PT REQUESTED TO GET WARM BLANKET AND REFUSED TO GET AM CARE AT THIS TIME,STATED THAT"I'M CLOD.LEAVE ME ALONE".KEPT COMFORT.CALL-LIGHT WITHIN REACH. NO DISTRESS NOTED IN THE SHIFT.PT'S COMFORTABLE,DENIED OF PAIN AT THIS TIME,TOLERATED WELL WITH TREATMENTS MD'S ORDER.
[2018-05-25] MEDS ORDERED: INSULIN REGULAR, HUMAN 1,000 UNITS/10 ML VIAL SUBCUT SCH (07:30)
--- NOTE | 2018-05-25 08:15 | NUR ---
PT.SLEEPY NAILAOOR APNIKITAE,NO S/S OF DISTRESS.,WAS SEEN BY .
[2018-05-25] MEDS ORDERED: MORPHINE SULFATE 2 MG/1 ML DISP.SYRIN IV PRN (08:30)
[2018-05-25] MEDS: INSULIN REGULAR, HUMAN 300 UNIT/3 ML VIAL SQ SCH ×3 (08:30→17:06)
[2018-05-25] MEDS: INSULIN REGULAR, HUMAN 300 UNIT/3 ML VIAL SQ PRN ×3 (08:32→17:08)
[2018-05-25] MEDS: ASCORBIC ACID 500 MG TABLET PO SCH (08:33)
[2018-05-25] MEDS: SENNOSIDES 1 TABLET PO SCH ×2 (08:33→17:09)
[2018-05-25] MEDS: CLOPIDOGREL 75 MG TABLET PO SCH (08:33)
[2018-05-25] MEDS: DOCUSATE SODIUM 100 MG CAPSULE PO SCH ×2 (08:33→17:10)
[2018-05-25] MEDS: FUROSEMIDE 20 MG TABLET PO SCH (08:34)
[2018-05-25] MEDS: DIVALPROEX 500 MG TABLET.DR PO SCH ×3 (08:34→17:10)
[2018-05-25] MEDS: MULTIVITAMINS,THERAPEUTIC TABLET PO SCH (08:34)
[2018-05-25] MEDS: ASPIRIN EC 81 MG TABLET.DR PO SCH (08:34)
[2018-05-25] MEDS: CHOLECALCIFEROL 1,000 UNIT TABLET PO SCH (08:34)
[2018-05-25] MEDS: MONTELUKAST SODIUM 10 MG TABLET PO SCH (08:34)
[2018-05-25] MEDS: GLIMEPIRIDE 2 MG TABLET PO SCH (08:34)
[2018-05-25] MEDS: PROTEIN SUPPLEMENT (PROSTAT) 30 ML LIQUID PO SCH (08:35)
[2018-05-25] MEDS ORDERED: MORPHINE SULFATE 4 MG/1 ML DISP.SYRIN IV ONE (08:45)
[2018-05-25] MEDS: CARVEDILOL 3.125 MG TABLET PO SCH ×2 (08:46→17:14)
[2018-05-25] MEDS ORDERED: Medication Not On Formulary EA (Multivitamins (Multiple Vitamin) 1 EACH) PO SCH (09:00)
[2018-05-25] MEDS ORDERED: Medication Not On Formulary EA (Glimepiride (Amaryl) 2 MG) PO SCH (09:00)
[2018-05-25] MEDS ORDERED: Medication Not On Formulary EA (Cranberry Extract (Cranberry) 450 MG) PO SCH (09:00)
[2018-05-25] MEDS ORDERED: Medication Not On Formulary EA (Protein Supplement (Promod) 30 ML) PO SCH (09:00)
--- NOTE | 2018-05-25 09:40 | NUR ---
PT.WAS SEEN BY TANVIR HOBSON MD
[2018-05-25] MEDS ORDERED: FUROSEMIDE 40 MG/4 ML VIAL IV ONE (09:45)
[2018-05-25 11:36] LABS: BASOPHILS % (AUTO) 0.2 % (0.0-2.0); EOSINOPHILS # (AUTO) 0.1 K/uL (0.0-0.7); EOSINOPHILS % (AUTO) 1.3 % (0.0-7.0); HEMATOCRIT 28.5 % (36.7-47.1); HEMOGLOBIN 9.4 g/dL (12.5-16.3); LYMPHOCYTES # (AUTO) 0.7 K/uL (20.0-40.0); LYMPHOCYTES % (AUTO) 7.8 % (20.5-51.5); MEAN CORPUSCULAR HEMOGLOBIN 29.9 uug (23.8-33.4); MEAN CORPUSCULAR HGB CONC 33 g/dL (32.5-36.3); MEAN CORPUSCULAR VOLUME 90.3 fL (73.0-96.2); MONOCYTES # (AUTO) 0.7 K/uL (2.0-10.0); NEUTROPHILS # (AUTO) 7.8 K/uL (1.8-8.9); NEUTROPHILS % (AUTO) 82.7 % (38.5-71.5); PLATELET COUNT (AUTO) 179 K/uL (152-348); RED BLOOD CELL COUNT(AUTO) 3.15 MIL/uL (4.06-5.63); WHITE BLOOD COUNT (AUTO) 9.4 K/uL (3.6-10.2)
[2018-05-25 11:49] LABS: CREATININE 2.3 mg/dL (0.6-1.3); MAGNESIUM 1.7 mg/dL (1.8-2.4); PHOSPHOROUS 3.3 mg/dL (2.5-4.9)
[2018-05-25 11:52] VITALS: BP 122/67
--- NOTE | 2018-05-25 12:40 | NUR ---
PT.TEMP WAS REPORTED 101.1 AND Mg+ 1.7,WAS REPORTED TO ,CARE OUT NEW ORDERS.
--- NOTE | 2018-05-25 13:12 | NUR ---
CLINICAL PHARMACY NOTE:VANCOMYCIN DOSING S:Conitnue vancomycin dosing on 63 y/o male 182.88cm 104.32Kg for pneumonia O:Temp 101.1 BUN 33 Scr 2.3 WBC 9.4 also receiving cefepime. A/P:Since renal function changed significantly (scr 2.3 vs 1.6), will discontinue current dose and start dosing by level. Last dose was given today at 0501. Will check random in am for further dosing. Will follow daily.
[2018-05-25] MEDS ORDERED: MAGNESIUM SULFATE 2 GM in IV DEXTROSE 5% 100 ML IV ONE (13:15)
[2018-05-25] MEDS: MAGNESIUM SULFATE/D5W 100 ML IV SCH ×2 (13:28→14:36)
--- NOTE | 2018-05-25 13:45 | NUR ---
Received pt AAO times 4, pt is noted to have the US of kidneys being done at this time.Pt is requesting pain medication and refused both Tylenol and Oxyir, pt states they are like TIC-TACs and is request Morphine IV or Dilaudid PO
--- NOTE | 2018-05-25 14:31 | NUR ---
Per Dr Wilson, pain management contacted for consultation. No morphine IV at this time. AM nurse took over care
--- NOTE | 2018-05-25 15:43 | NUR ---
PT.WATCHING TV,NO S/S OF DISTRESS.
[2018-05-25 15:54] VITALS: BP 97/53
[2018-05-25] MEDS: METHADONE HCL 10 MG TABLET PO SCH (17:09)
[2018-05-25] MEDS: diphenhydrAMINE 25 MG CAP PO PRN (17:43)
[2018-05-25 20:14] VITALS: BP 110/53
[2018-05-25] MEDS: TRAZODONE 50 MG TABLET PO SCH ×2 (20:21→21:35)
[2018-05-25] MEDS: LACTOBACILLUS RHAMNOSUS GG 1 EACH CAPSULE PO SCH (20:21)
[2018-05-25] MEDS: ATORVASTATIN 40 MG TABLET PO SCH (20:21)
[2018-05-25] MEDS: TAMSULOSIN HCL 0.4 MG CAP.SR.24H PO SCH (20:21)
--- NOTE | 2018-05-25 20:30 | NUR ---
Pt observed to be alert and oriented x 3, in no acute distress, but complaining of pruritus throughout the entire body. Pt provided with bed bath and states relief at this time. Safe environment implemented. Call light within reach.
[2018-05-26] MEDS: CEFEPIME HCL 1 G in IV DEXTROSE 5% 50 ML IV SCH ×2 (04:34→17:02)
[2018-05-26 05:00] VITALS: BP 120/65
[2018-05-26] MEDS: PANTOPRAZOLE SODIUM 40 MG TABLET.DR PO SCH (06:33)
[2018-05-26] MEDS: LEVOTHYROXINE SODIUM 100 MCG TABLET PO SCH (06:33)
--- NOTE | 2018-05-26 06:45 | NUR ---
Pt provided with bed bath x 2 to alleviate with pruritus. Per pt, he is unable to void at this time because he is "dry." Bladder scanner done and pt noted to have 250 ml. Per pt, he will be able to void later "when he feels like it because he knows his body more" Made aware of plan of care. Safe environment implemented. Call light within reach.
[2018-05-26] MEDS: BLOOD SUGAR DIAGNOSTIC 1 EACH STRIP VI SCH ×4 (06:47→21:04)
--- NOTE | 2018-05-26 07:15 | NUR ---
received patient on bed no acute distress notedaaox4, no SOB, O2 sat wnl on room air. on contact isolation. IV access on left wrist #20 intact and patent. no pain/discomfort at this time. comfort measures provided. will continue to monitor closely.
[2018-05-26] MEDS: INSULIN REGULAR, HUMAN 300 UNIT/3 ML VIAL SQ SCH ×3 (07:56→16:56)
[2018-05-26] MEDS: CARVEDILOL 3.125 MG TABLET PO SCH ×2 (08:00→17:31)
[2018-05-26] MEDS: SENNOSIDES 1 TABLET PO SCH ×2 (08:01→17:01)
[2018-05-26] MEDS: MULTIVITAMINS,THERAPEUTIC TABLET PO SCH (08:01)
[2018-05-26] MEDS: CHOLECALCIFEROL 1,000 UNIT TABLET PO SCH (08:01)
[2018-05-26] MEDS: MONTELUKAST SODIUM 10 MG TABLET PO SCH (08:01)
[2018-05-26] MEDS: DIVALPROEX 500 MG TABLET.DR PO SCH ×3 (08:01→17:02)
[2018-05-26] MEDS: GLIMEPIRIDE 2 MG TABLET PO SCH (08:01)
[2018-05-26] MEDS: CLOPIDOGREL 75 MG TABLET PO SCH (08:01)
[2018-05-26] MEDS: LACTOBACILLUS RHAMNOSUS GG 1 EACH CAPSULE PO SCH ×2 (08:01→21:00)
[2018-05-26] MEDS: ASCORBIC ACID 500 MG TABLET PO SCH (08:01)
[2018-05-26] MEDS: DOCUSATE SODIUM 100 MG CAPSULE PO SCH ×2 (08:02→17:02)
[2018-05-26] MEDS: ASPIRIN EC 81 MG TABLET.DR PO SCH (08:02)
[2018-05-26] MEDS: FUROSEMIDE 20 MG TABLET PO SCH (08:02)
[2018-05-26] MEDS: METHADONE HCL 10 MG TABLET PO SCH ×2 (08:08→17:02)
[2018-05-26] MEDS: PROTEIN SUPPLEMENT (PROSTAT) 30 ML LIQUID PO SCH (08:09)
[2018-05-26 08:52] LABS: BASOPHILS # (AUTO) 0.1 K/uL (0.0-8.0); BASOPHILS % (AUTO) 0.5 % (0.0-2.0); EOSINOPHILS # (AUTO) 0.4 K/uL (0.0-0.7); EOSINOPHILS % (AUTO) 4.2 % (0.0-7.0); HEMATOCRIT 27.2 % (36.7-47.1); HEMOGLOBIN 9.1 g/dL (12.5-16.3); LYMPHOCYTES # (AUTO) 1.2 K/uL (20.0-40.0); LYMPHOCYTES % (AUTO) 11.3 % (20.5-51.5); MEAN CORPUSCULAR HEMOGLOBIN 30.2 uug (23.8-33.4); MEAN CORPUSCULAR HGB CONC 34 g/dL (32.5-36.3); MEAN CORPUSCULAR VOLUME 90.1 fL (73.0-96.2); MONOCYTES # (AUTO) 0.9 K/uL (2.0-10.0); MONOCYTES % (AUTO) 8.7 % (0.0-11.0); NEUTROPHILS # (AUTO) 7.8 K/uL (1.8-8.9); NEUTROPHILS % (AUTO) 75.3 % (38.5-71.5); PLATELET COUNT (AUTO) 192 K/uL (152-348); RED BLOOD CELL COUNT(AUTO) 3.02 MIL/uL (4.06-5.63); WHITE BLOOD COUNT (AUTO) 10.4 K/uL (3.6-10.2)
[2018-05-26 09:01] LABS: BILIRUBIN,TOTAL 0.7 mg/dL (0.2-1.0); CREATININE 2.7 mg/dL (0.6-1.3); MAGNESIUM 2.4 mg/dL (1.8-2.4); POTASSIUM 4.5 mmol/L (3.5-5.1); TOTAL PROTEIN, SERUM 7.5 g/dL (6.4-8.2); VANCOMYCIN,RANDOM 18.9 ug/mL (18.0-26.0)
--- NOTE | 2018-05-26 09:55 | NUR ---
CLINICAL PHARMACY NOTE:VANCOMYCIN DOSING S:Conitnue vancomycin dosing on 63 y/o male 182.88cm 104.32Kg for pneumonia O:Temp 98.2 BUN 41 Scr 2.7 WBC 10.4 vancomycin random 18.9 today at 0600 Also receiving cefepime. A/P:Since renal function continues to decrease (not on HD yet), will continue to dose by fall-off random level. Will administer Vancomycin 1500mg IV x1 today at 1200 and draw random tomorrow at 1600(on order). Will follow the level tomorrow for further dosing.
[2018-05-26 11:34] VITALS: BP 95/40
[2018-05-26] MEDS ORDERED: VANCOMYCIN IV 1,500 MG in IV DEXTROSE 5% 500 ML IV ONE (12:00)
[2018-05-26 15:02] VITALS: BP 104/50
--- NOTE | 2018-05-26 16:00 | NUR ---
CALLED [facility] SEVERAL TIMES REGARDING IF PATIENT;S MRSA WAS TREATED AND WAS RECEIVING MUPIRUCIN OINTMENT PER ELLEN NOVAK'S REQUEST. BUT UNABLE TO GET HOLD OF THEM
[2018-05-26 16:16] LABS: *BILIRUBIN,URIN NEGATIVE (NEGATIVE); *BLOOD, URINE Trace-lysed (NEGATIVE); *CLARITY,URINE SLIGHTLY CLOUDY (CLEAR); *COLOR,URINE YELLOW (YELLOW); *KETONES,URINE 1+ (NEGATIVE); *PROTEIN,URINE NEGATIVE (NEGATIVE); *UROBILINOGEN,URINE 0.2 E.U./dl (NORMAL); LEUKOCYTE ESTERASE ,URINE TRACE (NEGATIVE); NITRITE, URINE NEGATIVE (NEGATIVE); UGLUCOSE NEGATIVE (NEGATIVE)
[2018-05-26] MEDS ORDERED: diphenhydrAMINE/ZINC ACET CREAM 28 GM TUBE TOP PRN (17:00)
[2018-05-26 17:19] LABS: *CREATININE,URINE 241.7 mg/dL (30-125); *URINE TOTAL PROTEIN RANDOM 37.7 mg/dL (<150/24HR)
[2018-05-26 17:20] LABS: BACTERIA,URINE FEW /HPF (NONE SEEN); SQUAMOUS EPITHELIAL CELL,UR FEW /HPF (NONE SEEN)
--- NOTE | 2018-05-26 18:18 | NUR ---
PATIENT IN BED AWAKE. STABLE CONDITION. W/ NEW ORDERS OF BENADRYL ITCHING CREAM PRN. SCHEDULED COREG HELD TWICE DUE TO DECREASED BLOOD PRESSURE. IV ACCESS ON RIGHT AC #22 INTACT AND PATENT. ALL NEEDS ATTENDED AND ANTICIPATED CALL LIGHT WITHIN REACH
--- NOTE | 2018-05-26 19:25 | NUR ---
RECEIVED PT AWAKE, ALERT AND ORIENTEDX2. PT SHOWS NO SIGNS OF DISTRESS.PT COMPLAINT OF ITCHINESS. PT DOESN'T WANT HIS GOWN. IV INTACT AND PATENT. SAFETY AND COMFORT PROVIDED. WILL CONTINUE TO MONITOR.
[2018-05-26 20:33] VITALS: BP 119/63
[2018-05-26] MEDS: ATORVASTATIN 40 MG TABLET PO SCH (21:00)
[2018-05-26] MEDS: TAMSULOSIN HCL 0.4 MG CAP.SR.24H PO SCH (21:00)
[2018-05-26] MEDS: TRAZODONE 50 MG TABLET PO SCH (21:00)
[2018-05-26] MEDS: OXYCODONE HCL 5 MG TABLET PO PRN (21:10)
[2018-05-27] MEDS ORDERED: diphenhydrAMINE 1% CREAM 28.3 GM TUBE TP ONE (00:13)
[2018-05-27 04:00] VITALS: BP 114/56
[2018-05-27] MEDS: CEFEPIME HCL 1 G in IV DEXTROSE 5% 50 ML IV SCH ×2 (04:24→17:12)
[2018-05-27] MEDS: diphenhydrAMINE/ZINC ACET CREAM 28 GM TUBE TOP PRN ×2 (04:54→20:52)
[2018-05-27] MEDS: LEVOTHYROXINE SODIUM 100 MCG TABLET PO SCH (06:07)
[2018-05-27] MEDS: PANTOPRAZOLE SODIUM 40 MG TABLET.DR PO SCH (06:07)
[2018-05-27] MEDS: BLOOD SUGAR DIAGNOSTIC 1 EACH STRIP VI SCH ×4 (06:30→20:33)
--- NOTE | 2018-05-27 06:34 | NUR ---
PT SLEPT THROUGHOUT THE SHIFT. PT SHOWS NO SIGNS OF DISTRESS. IV INTACT AND PATENT.PRESCRIBED MEDICATION GIVEN AND PT TOLERATED IT WELL.PT REFUSE HIS PAIN MEDICATION OXYIR. CHARGE NURSE AWARE. WASTED THE MEDICATION WITH CHARGE NURSE. PT TURNED AND REPOSITIONED.PT DOESN'T WANT HIS GOWN ON. PT DOESN'T WANT OXYIR AND WANT METHADONE PRN. PT DOESN'T WANT BENADRYL PO BECAUSE HE SAID IT DOESN'T WORK ON HIM. SAFETY AND COMFORT PROVIDED. ALL NEEDS ARE MET. WILL ENDORSE ACCORDINGLY TO INCOMING NURSE FOR CONTINUITY OF CARE.
[2018-05-27 06:45] LABS: BASOPHILS % (AUTO) 0.5 % (0.0-2.0); EOSINOPHILS # (AUTO) 0.6 K/uL (0.0-0.7); EOSINOPHILS % (AUTO) 8.4 % (0.0-7.0); HEMATOCRIT 23.9 % (36.7-47.1); HEMOGLOBIN 8.1 g/dL (12.5-16.3); LYMPHOCYTES # (AUTO) 1.1 K/uL (20.0-40.0); MEAN CORPUSCULAR HEMOGLOBIN 29.9 uug (23.8-33.4); MEAN CORPUSCULAR HGB CONC 34 g/dL (32.5-36.3); MEAN CORPUSCULAR VOLUME 88.6 fL (73.0-96.2); MONOCYTES # (AUTO) 0.6 K/uL (2.0-10.0); MONOCYTES % (AUTO) 9.6 % (0.0-11.0); NEUTROPHILS # (AUTO) 4.2 K/uL (1.8-8.9); NEUTROPHILS % (AUTO) 64.5 % (38.5-71.5); PLATELET COUNT (AUTO) 197 K/uL (152-348); WHITE BLOOD COUNT (AUTO) 6.6 K/uL (3.6-10.2)
--- NOTE | 2018-05-27 07:00 | NUR ---
RN notes: Received patient in bed, awake, alert and oriented x3, in no acute distress. O2 on at 2LPM via NC. IV site on RAC patent, saline locked. Patient noted with generalized rashes, c/o itching, medicated with Benadryl Cream. Fall precaution in place. Will continue to monitor
[2018-05-27 07:23] LABS: CREATININE 2.9 mg/dL (0.6-1.3); POTASSIUM 4.1 mmol/L (3.5-5.1)
[2018-05-27] MEDS: PROTEIN SUPPLEMENT (PROSTAT) 30 ML LIQUID PO SCH (08:00)
--- NOTE | 2018-05-27 08:00 | NUR ---
RN notes: Patient c/o back pain at this time, rate of 10/10, asking for his Methadone. Medicated accordingly. Novolog insulin 10 units SQ was also given at this time. Dr. Wilson here to see patient, per MD, to continue with Benadryl cream and PO Benadryl for itching. Patient made aware. Will continue to monitor
[2018-05-27] MEDS: DOCUSATE SODIUM 100 MG CAPSULE PO SCH ×2 (08:14→17:13)
[2018-05-27] MEDS: CARVEDILOL 3.125 MG TABLET PO SCH ×2 (08:14→17:25)
[2018-05-27] MEDS: INSULIN REGULAR, HUMAN 300 UNIT/3 ML VIAL SQ SCH ×3 (08:14→17:11)
[2018-05-27] MEDS: CHOLECALCIFEROL 1,000 UNIT TABLET PO SCH (08:15)
[2018-05-27] MEDS: LACTOBACILLUS RHAMNOSUS GG 1 EACH CAPSULE PO SCH ×2 (08:15→20:00)
[2018-05-27] MEDS: CLOPIDOGREL 75 MG TABLET PO SCH (08:15)
[2018-05-27] MEDS: FUROSEMIDE 20 MG TABLET PO SCH (08:15)
[2018-05-27] MEDS: ASCORBIC ACID 500 MG TABLET PO SCH (08:15)
[2018-05-27] MEDS: DIVALPROEX 500 MG TABLET.DR PO SCH ×3 (08:15→17:13)
[2018-05-27] MEDS: ASPIRIN EC 81 MG TABLET.DR PO SCH (08:15)
[2018-05-27] MEDS: METHADONE HCL 10 MG TABLET PO SCH ×2 (08:15→17:24)
[2018-05-27] MEDS: GLIMEPIRIDE 2 MG TABLET PO SCH (08:15)
[2018-05-27] MEDS: MONTELUKAST SODIUM 10 MG TABLET PO SCH (08:15)
[2018-05-27] MEDS: MULTIVITAMINS,THERAPEUTIC TABLET PO SCH (08:15)
[2018-05-27] MEDS: SENNOSIDES 1 TABLET PO SCH ×2 (08:15→17:13)
[2018-05-27] MEDS: IV 1/2NS 1000 ML 1,000 ML IV PRN ×2 (10:17→22:15)
--- NOTE | 2018-05-27 10:30 | NUR ---
RN notes: patient c/o pressure on his chest, verbalized, "its like an elephant is sitting on my chest, and I have a hard time breathing". Vital signs were checked, noted WNL. O2 on at 2LPM via NC, saturating at 95-98%. No way sign noted. Skin is warm and dry to touch. Placed a call to Dr. Wilson, received order to do STAT Troponin, noted and carried out. Patient made aware. Will continue to monitor.
--- NOTE | 2018-05-27 10:48 | NUR ---
RN notes: Troponin level noted at 0.020, patient made aware. Dr. Wilson made aware. Patient resting in bed at this time. Will continue to monitor
[2018-05-27 11:22] VITALS: BP 90/58
[2018-05-27] MEDS ORDERED: LORAZEPAM 0.5 MG TABLET PO ONE (12:15)
--- NOTE | 2018-05-27 16:57 | NUR ---
CLINICAL PHARMACY NOTE:VANCOMYCIN DOSING S:Continue vancomycin dosing on 63 y/o male 182.88cm 104.32Kg for pneumonia O:Temp 97.7 BUN 52 Scr 2.9 WBC 6.6 vancomycin random level: pending (ordered for 1600 today) A/P: Since renal function continues to decrease (not on HD yet), will continue to dose by fall-off random level. Pharmacy shall review vanco random level today (pending result) & dose further if appropriate. Will follow daily Addendum: 05/27/18 at 1723 by PETER CARPENTER VANCO RANDOM LEVEL: 25.2 AT 1600 TODAY NO DOSE ANTOINE BE GIVEN SINCE VANCO RANDOM LEVEL IS ABOVE 20 MCG/ML WILL RE-CHECK VANCO RANDOM LEVEL TOMORROW WITH LABS
--- NOTE | 2018-05-27 17:10 | NUR ---
RN notes: Dr. Hendrix here to see patient, notified of patient's low BP at 9167 NE of 80. Per MD, discontinue Coreg, noted and carried out. Patient made aware.
--- NOTE | 2018-05-27 18:32 | NUR ---
RN notes: Patient is alert and oriented x3, in no acute distress. Remains on O2 at 2LPM via NC. Denies chest pain or SOB at this time. Medicated for pain accordingly. Benadryl cream administered as ordered. Iv site on RAC patent, IV 1/2 NS running at 100cc/hr, able to tolerate well. No s/s of hypoglycemia noted. Novolog insulin administered as ordered. All needs attended and met. Will continue to monitor
--- NOTE | 2018-05-27 19:20 | NUR ---
RECEIVED PT AWAKE, ALERT AND ORIENTEDX3. PT SHOWS NO SIGNS OF ACUTE DISTRESS. PT COMPLAINT 0F ITCHINESS. SAFETY AND COMFORT PROVIDED. WILL CONTINUE TO MONITOR.
[2018-05-27] MEDS: ATORVASTATIN 40 MG TABLET PO SCH (20:00)
[2018-05-27] MEDS: TRAZODONE 50 MG TABLET PO SCH (20:00)
[2018-05-27] MEDS: TAMSULOSIN HCL 0.4 MG CAP.SR.24H PO SCH (20:00)
[2018-05-27 21:01] VITALS: BP 101/55
[2018-05-28] MEDS: diphenhydrAMINE 25 MG CAP PO PRN ×2 (00:14→21:53)
[2018-05-28 05:13] VITALS: BP 90/50
[2018-05-28] MEDS: CEFEPIME HCL 1 G in IV DEXTROSE 5% 50 ML IV SCH ×2 (05:22→17:09)
[2018-05-28] MEDS: PANTOPRAZOLE SODIUM 40 MG TABLET.DR PO SCH (06:06)
[2018-05-28] MEDS: LEVOTHYROXINE SODIUM 100 MCG TABLET PO SCH (06:06)
[2018-05-28] MEDS: BLOOD SUGAR DIAGNOSTIC 1 EACH STRIP VI SCH ×4 (06:43→21:46)
--- NOTE | 2018-05-28 06:47 | NUR ---
NOTIFY DR. OLIVARES PT RETAINING URINE. HAS NOT VOIDED FOR THE WHOLE SHIFT. BLADDER SCAN DONE AND NOTED WITH 552ML OF URINE. DR. OLIVARES WITH ORDER TO INSERT SHAH CATH. INFORMED PT OF ORDER TO INSERT SHAH CATH. PT REFUSING STATING " I DON'T WANT SHAH CATHETER, I WILL VOID ON MY OWN WHEN I'M READY FOR IT.I KNOW MY BODY."EDUCATION PROVIDED BUT PT REFUSING TO DECLINE. PT STABLE. NO ACUTE DISTRESS. PRESCRIBED MED GIVEN AND PT TOLERATED IT WELL. SAFETY AND COMFORT PROVIDED. ALL NEEDS ARE MET. PT TURNED AND REPOSITIONED.WILL ENDORSE TO DAYSLAFT NURSE FOR CONTINUITY OF CARE.
[2018-05-28 06:51] LABS: BILIRUBIN,TOTAL 0.4 mg/dL (0.2-1.0); CREATININE 2.8 mg/dL (0.6-1.3); MAGNESIUM 2.6 mg/dL (1.8-2.4); PHOSPHOROUS 5.1 mg/dL (2.5-4.9); POTASSIUM 4.9 mmol/L (3.5-5.1); TOTAL PROTEIN, SERUM 7.3 g/dL (6.4-8.2); VANCOMYCIN,RANDOM 23.4 ug/mL (18.0-26.0)
--- NOTE | 2018-05-28 08:24 | NUR ---
CLINICAL PHARMACY NOTE:VANCOMYCIN DOSING S:Continue vancomycin dosing on 63 y/o male 182.88cm 104.32Kg for pneumonia O:Temp 97.6 BUN 57 Scr 2.8 WBC 6.6 (05/27) vancomycin random level: 23.4 today at 0600 A/P: Since renal function continues to be unstable (not on HD yet), will continue to dose by fall-off random level. No givens will be given today. Pharmacy shall review vanco random level tomorrow at 6am & dose further if appropriate. Will follow daily
[2018-05-28] MEDS: DIVALPROEX 500 MG TABLET.DR PO SCH ×3 (08:30→17:10)
[2018-05-28] MEDS: CLOPIDOGREL 75 MG TABLET PO SCH (08:30)
[2018-05-28] MEDS: LACTOBACILLUS RHAMNOSUS GG 1 EACH CAPSULE PO SCH ×2 (08:30→21:31)
[2018-05-28] MEDS: MONTELUKAST SODIUM 10 MG TABLET PO SCH (08:30)
[2018-05-28] MEDS: INSULIN REGULAR, HUMAN 300 UNIT/3 ML VIAL SQ SCH ×3 (08:30→17:09)
[2018-05-28] MEDS: GLIMEPIRIDE 2 MG TABLET PO SCH (08:30)
[2018-05-28] MEDS: CHOLECALCIFEROL 1,000 UNIT TABLET PO SCH (08:30)
[2018-05-28] MEDS: MULTIVITAMINS,THERAPEUTIC TABLET PO SCH (08:30)
[2018-05-28] MEDS: SENNOSIDES 1 TABLET PO SCH ×2 (08:31→17:10)
[2018-05-28] MEDS: DOCUSATE SODIUM 100 MG CAPSULE PO SCH ×2 (08:31→17:10)
[2018-05-28] MEDS: ASCORBIC ACID 500 MG TABLET PO SCH (08:31)
[2018-05-28] MEDS: ASPIRIN EC 81 MG TABLET.DR PO SCH (08:31)
[2018-05-28] MEDS: METHADONE HCL 10 MG TABLET PO SCH ×2 (08:32→17:12)
[2018-05-28] MEDS: PROTEIN SUPPLEMENT (PROSTAT) 30 ML LIQUID PO SCH (08:51)
--- NOTE | 2018-05-28 09:42 | NUR ---
Patient noted resting in bed, complains back pain 06/06, scheduled methadone given, complaints of generalized itching, scratches noted to all areas of the body, patient washed with wash cloth and benadryl cream applied to entire body, linens changed at this time, call light placed in reach, bed locked and in lowest position, x2 bed rails in place, atook all AM medications, all needs met at this time
[2018-05-28 10:33] LABS: BASOPHILS # (AUTO) 0.1 K/uL (0.0-8.0); BASOPHILS % (AUTO) 0.8 % (0.0-2.0); EOSINOPHILS # (AUTO) 0.8 K/uL (0.0-0.7); EOSINOPHILS % (AUTO) 8.3 % (0.0-7.0); HEMATOCRIT 24.8 % (36.7-47.1); HEMOGLOBIN 8.4 g/dL (12.5-16.3); LYMPHOCYTES # (AUTO) 1.5 K/uL (20.0-40.0); MEAN CORPUSCULAR HEMOGLOBIN 30.6 uug (23.8-33.4); MEAN CORPUSCULAR HGB CONC 34 g/dL (32.5-36.3); MEAN CORPUSCULAR VOLUME 90.2 fL (73.0-96.2); MONOCYTES # (AUTO) 1.1 K/uL (2.0-10.0); MONOCYTES % (AUTO) 10.8 % (0.0-11.0); NEUTROPHILS # (AUTO) 6.4 K/uL (1.8-8.9); NEUTROPHILS % (AUTO) 65.1 % (38.5-71.5); RED BLOOD CELL COUNT(AUTO) 2.75 MIL/uL (4.06-5.63)
[2018-05-28 10:53] LABS: PLATELET COUNT (AUTO) 197 K/uL (152-348)
[2018-05-28 10:56] LABS: WHITE BLOOD COUNT (AUTO) 5.5 K/uL (3.6-10.2)
[2018-05-28 11:09] LABS: EOSINOPHILS % (MANUAL) 7 % (0-8); LYMPHOCYTES % (MANUAL) 18 % (20-40); MONOCYTES % (MANUAL) 13 % (2-10); NEUTROPHILS % (MANUAL) 62 % (42-75)
[2018-05-28 11:39] VITALS: BP 123/60
[2018-05-28 15:10] VITALS: BP 128/64
[2018-05-28 20:18] VITALS: BP 115/55
--- NOTE | 2018-05-28 21:00 | NUR ---
RECEIVED PT AWAKE, ALERT, AND ORIENTEDX2.PT SHOWS NO SIGNS OF DISTRESS. PT IV INTACT. CALL LIGHT WITHIN REACH. SAFETY AND COMFORT PROVIDED..SAFETY AND COMFORT PROVIDED. WILL CONTINUE TO MONITOR.
[2018-05-28] MEDS: TAMSULOSIN HCL 0.4 MG CAP.SR.24H PO SCH (21:31)
[2018-05-28] MEDS: ATORVASTATIN 40 MG TABLET PO SCH (21:31)
[2018-05-28] MEDS: TRAZODONE 50 MG TABLET PO SCH (21:32)
[2018-05-28] MEDS: diphenhydrAMINE/ZINC ACET CREAM 28 GM TUBE TOP PRN (22:24)
[2018-05-29] MEDS: CEFEPIME HCL 1 G in IV DEXTROSE 5% 50 ML IV SCH ×2 (04:53→17:32)
[2018-05-29 06:03] VITALS: BP 165/60
[2018-05-29] MEDS: BLOOD SUGAR DIAGNOSTIC 1 EACH STRIP VI SCH ×4 (06:19→21:11)
[2018-05-29] MEDS: PANTOPRAZOLE SODIUM 40 MG TABLET.DR PO SCH (06:19)
[2018-05-29] MEDS: LEVOTHYROXINE SODIUM 100 MCG TABLET PO SCH (06:19)
--- NOTE | 2018-05-29 06:20 | NUR ---
PT SLEPT THROUGHOUT THE SHIFT. PT SHOWS NO SIGNS OF DISTRESS. PRESCRIBED MEDICATION GIVEN AND PT TOLERATED IT WELL. SAFETY AND COMFORT PROVIDED. PT COMPLAINING OF ITCHINESS. PT IV AND INTACT. WILL ENDORSE TO DAYSHIFT NURSE FOR CONTINUITY OF CARE.
[2018-05-29 06:51] VITALS: BP 138/75
[2018-05-29] MEDS: INSULIN REGULAR, HUMAN 300 UNIT/3 ML VIAL SQ SCH ×3 (07:50→16:57)
[2018-05-29] MEDS: LACTOBACILLUS RHAMNOSUS GG 1 EACH CAPSULE PO SCH ×2 (08:18→20:54)
[2018-05-29] MEDS: SENNOSIDES 1 TABLET PO SCH ×2 (08:18→17:29)
[2018-05-29] MEDS: DIVALPROEX 500 MG TABLET.DR PO SCH ×3 (08:18→17:29)
[2018-05-29] MEDS: DOCUSATE SODIUM 100 MG CAPSULE PO SCH ×2 (08:19→17:29)
[2018-05-29] MEDS: CLOPIDOGREL 75 MG TABLET PO SCH (08:19)
[2018-05-29] MEDS: ASPIRIN EC 81 MG TABLET.DR PO SCH (08:19)
[2018-05-29] MEDS: PROTEIN SUPPLEMENT (PROSTAT) 30 ML LIQUID PO SCH (08:19)
[2018-05-29] MEDS: MULTIVITAMINS,THERAPEUTIC TABLET PO SCH (08:19)
[2018-05-29] MEDS: GLIMEPIRIDE 2 MG TABLET PO SCH (08:19)
[2018-05-29] MEDS: MONTELUKAST SODIUM 10 MG TABLET PO SCH (08:19)
[2018-05-29] MEDS: ASCORBIC ACID 500 MG TABLET PO SCH (08:19)
[2018-05-29] MEDS: CHOLECALCIFEROL 1,000 UNIT TABLET PO SCH (08:19)
[2018-05-29] MEDS: METHADONE HCL 10 MG TABLET PO SCH (08:20)
[2018-05-29] MEDS: INSULIN REGULAR, HUMAN 300 UNIT/3 ML VIAL SQ PRN ×3 (08:26→21:15)
--- NOTE | 2018-05-29 09:00 | NUR ---
Received patient, awake, alert x3. No in any form of distress. No SOB or chest pains noted. On room sating well. Intact G 22 intact patent. With scratches all over body. No itching noted at the moment.
[2018-05-29] MEDS ORDERED: LORAZEPAM 0.5 MG TABLET PO PRN (09:15)
[2018-05-29] MEDS ORDERED: IV NS 1000 ML 1,000 ML IV ONE (09:30)
[2018-05-29 10:50] LABS: BASOPHILS % (AUTO) 0.4 % (0.0-2.0); EOSINOPHILS # (AUTO) 0.3 K/uL (0.0-0.7); HEMATOCRIT 23.3 % (36.7-47.1); HEMOGLOBIN 7.7 g/dL (12.5-16.3); LYMPHOCYTES # (AUTO) 0.8 K/uL (20.0-40.0); LYMPHOCYTES % (AUTO) 13.5 % (20.5-51.5); MEAN CORPUSCULAR HEMOGLOBIN 29.9 uug (23.8-33.4); MEAN CORPUSCULAR HGB CONC 33 g/dL (32.5-36.3); MONOCYTES # (AUTO) 0.5 K/uL (2.0-10.0); MONOCYTES % (AUTO) 9.6 % (0.0-11.0); NEUTROPHILS % (AUTO) 71.5 % (38.5-71.5); PLATELET COUNT (AUTO) 239 K/uL (152-348); RED BLOOD CELL COUNT(AUTO) 2.59 MIL/uL (4.06-5.63); WHITE BLOOD COUNT (AUTO) 5.6 K/uL (3.6-10.2)
[2018-05-29 11:20] VITALS: BP 130/48
[2018-05-29] MEDS ORDERED: FUROSEMIDE 40 MG/4 ML VIAL IV ONE (12:15)
[2018-05-29 12:28] LABS: BILIRUBIN,TOTAL 0.4 mg/dL (0.2-1.0); CREATININE 2.3 mg/dL (0.6-1.3); MAGNESIUM 2.6 mg/dL (1.8-2.4); PHOSPHOROUS 3.4 mg/dL (2.5-4.9); POTASSIUM 4.9 mmol/L (3.5-5.1); TOTAL PROTEIN, SERUM 7.3 g/dL (6.4-8.2); VANCOMYCIN,RANDOM 15.5 ug/mL (18.0-26.0)
--- NOTE | 2018-05-29 13:39 | NUR ---
CLINICAL PHARMACY NOTE:VANCOMYCIN DOSING S:Continue vancomycin dosing on 63 y/o male 182.88cm 104.32Kg for pneumonia O:Temp 98.6 BUN 57 Scr 2.3 WBC 6.6 (05/27) vancomycin random level: 15.5 today (lab released result at 1248) A/P: Since renal function continues to be unstable (not on HD yet), will continue to dose by fall-off random level. Since vanco random level is 15.5 mcg/ml, will give vanco 1500mg IVPB today at 1430. Pharmacy shall review renal function in am & decide when to order next random level for further dosing. Will follow daily
[2018-05-29] MEDS ORDERED: VANCOMYCIN IV 1,500 MG in IV DEXTROSE 5% 500 ML IV ONE (14:30)
[2018-05-29 15:01] VITALS: BP 129/72
[2018-05-29] MEDS ORDERED: HYDROMORPHONE HCL 2 MG TABLET PO PRN (16:00)
[2018-05-29] MEDS: diphenhydrAMINE 25 MG CAP PO PRN ×2 (16:25→23:16)
--- NOTE | 2018-05-29 16:37 | NUR ---
Offered Benadryl PO for itching, patient refused. Said it does note work. Discussed benefits, but patient still refused
[2018-05-29] MEDS ORDERED: HYDROMORPHONE 1 MG/1 ML DISP.SYRIN IV PRN (16:45)
[2018-05-29] MEDS: CARVEDILOL 3.125 MG TABLET PO SCH (17:30)
[2018-05-29] MEDS: diphenhydrAMINE/ZINC ACET CREAM 28 GM TUBE TOP PRN (18:51)
[2018-05-29 20:12] VITALS: BP 126/64
[2018-05-29] MEDS: TRAZODONE 50 MG TABLET PO SCH (20:54)
[2018-05-29] MEDS: TAMSULOSIN HCL 0.4 MG CAP.SR.24H PO SCH (20:54)
[2018-05-29] MEDS: ATORVASTATIN 40 MG TABLET PO SCH (20:54)
[2018-05-30 04:00] VITALS: BP 142/69
[2018-05-30] MEDS: CEFEPIME HCL 1 G in IV DEXTROSE 5% 50 ML IV SCH (04:26)
--- NOTE | 2018-05-30 06:39 | NUR ---
patient received bed bath. Refused protonix and synthroid. States he wants it with is breakfast. Will endorse to AM nurse. pt refusing blood sugar check at this time as well.
[2018-05-30] MEDS: PANTOPRAZOLE SODIUM 40 MG TABLET.DR PO SCH (08:30)
[2018-05-30] MEDS: LEVOTHYROXINE SODIUM 100 MCG TABLET PO SCH (08:30)
--- NOTE | 2018-05-30 08:30 | NUR ---
Synthroid and Protonix given as requested by the patient per orienting RN. Pt had originally refused these meds at regular scheduled time.
[2018-05-30] MEDS: BLOOD SUGAR DIAGNOSTIC 1 EACH STRIP VI SCH ×2 (08:31→11:08)
[2018-05-30] MEDS: GLIMEPIRIDE 2 MG TABLET PO SCH (08:32)
[2018-05-30] MEDS: CARVEDILOL 3.125 MG TABLET PO SCH (08:32)
[2018-05-30] MEDS: PROTEIN SUPPLEMENT (PROSTAT) 30 ML LIQUID PO SCH (08:33)
[2018-05-30] MEDS: INSULIN REGULAR, HUMAN 300 UNIT/3 ML VIAL SQ SCH ×2 (08:34→11:11)
[2018-05-30 08:59] LABS: BASOPHILS # (AUTO) 0.1 K/uL (0.0-8.0); BASOPHILS % (AUTO) 0.8 % (0.0-2.0); EOSINOPHILS # (AUTO) 0.4 K/uL (0.0-0.7); EOSINOPHILS % (AUTO) 5.8 % (0.0-7.0); HEMOGLOBIN 7.7 g/dL (12.5-16.3); LYMPHOCYTES # (AUTO) 0.9 K/uL (20.0-40.0); LYMPHOCYTES % (AUTO) 12.6 % (20.5-51.5); MEAN CORPUSCULAR HEMOGLOBIN 30.4 uug (23.8-33.4); MEAN CORPUSCULAR HGB CONC 34 g/dL (32.5-36.3); MEAN CORPUSCULAR VOLUME 90.4 fL (73.0-96.2); MONOCYTES # (AUTO) 0.8 K/uL (2.0-10.0); MONOCYTES % (AUTO) 11.5 % (0.0-11.0); NEUTROPHILS # (AUTO) 5.1 K/uL (1.8-8.9); NEUTROPHILS % (AUTO) 69.3 % (38.5-71.5); PLATELET COUNT (AUTO) 254 K/uL (152-348); RED BLOOD CELL COUNT(AUTO) 2.55 MIL/uL (4.06-5.63); WHITE BLOOD COUNT (AUTO) 7.3 K/uL (3.6-10.2)
--- NOTE | 2018-05-30 09:00 | NUR ---
Pt was compliant with mornings meds per orienting RN
[2018-05-30 09:05] LABS: BILIRUBIN,TOTAL 0.4 mg/dL (0.2-1.0); CREATININE 2.1 mg/dL (0.6-1.3); MAGNESIUM 2.7 mg/dL (1.8-2.4); PHOSPHOROUS 3.5 mg/dL (2.5-4.9); POTASSIUM 5.1 mmol/L (3.5-5.1); TOTAL PROTEIN, SERUM 7.3 g/dL (6.4-8.2)
[2018-05-30] MEDS: DIVALPROEX 500 MG TABLET.DR PO SCH ×2 (09:19→12:40)
[2018-05-30] MEDS: MONTELUKAST SODIUM 10 MG TABLET PO SCH (09:19)
[2018-05-30] MEDS: LACTOBACILLUS RHAMNOSUS GG 1 EACH CAPSULE PO SCH (09:19)
[2018-05-30] MEDS: CHOLECALCIFEROL 1,000 UNIT TABLET PO SCH (09:20)
[2018-05-30] MEDS: ASCORBIC ACID 500 MG TABLET PO SCH (09:20)
[2018-05-30] MEDS: ASPIRIN EC 81 MG TABLET.DR PO SCH (09:20)
[2018-05-30] MEDS: MULTIVITAMINS,THERAPEUTIC TABLET PO SCH (09:20)
[2018-05-30] MEDS: CLOPIDOGREL 75 MG TABLET PO SCH (09:20)
[2018-05-30] MEDS: SENNOSIDES 1 TABLET PO SCH (09:20)
[2018-05-30] MEDS: DOCUSATE SODIUM 100 MG CAPSULE PO SCH (09:20)
[2018-05-30] MEDS ORDERED: FUROSEMIDE 20 MG TABLET PO SCH (09:45)
[2018-05-30] MEDS ORDERED: FUROSEMIDE 40 MG/4 ML VIAL IV ONE (10:15)
[2018-05-30] MEDS ORDERED: INSU100V7 SQ (10:41)
[2018-05-30 11:01] VITALS: BP 106/70
[2018-05-30] MEDS: INSULIN REGULAR, HUMAN 300 UNIT/3 ML VIAL SQ PRN (11:13)
--- NOTE | 2018-05-30 12:04 | NUR ---
CLINICAL PHARMACY NOTE:VANCOMYCIN DOSING S:Continue vancomycin dosing on 63 y/o male 182.88cm 104.32Kg for pneumonia O:Temp 97.8 BUN 54 Scr 2.1 WBC 7.3 A/P: Since renal function continues to be unstable (not on HD yet), will continue to dose by fall-off random level. vanco 1500mg IVPB X1 was given yesterday at 1430. Next Vancomycin random is on order for tomorrow at 0600. Will follow the level for further dosing.
--- NOTE | 2018-05-30 13:50 | NUR ---
Pt was discharge orders from [employer]IC[employer] back to [facility], report given to Camilla. IV line and ID band removed per orienting RN. Personal belongings accounted for and signed by the patient, discharge paper read and signed by the patient. No immediate s/sx of SOB, pain, distress or discomfort. All documents given to the alto singer. Pt did not want pictures taken
[2018-05-30 14:27] VITALS: BP 79/46
[2018-05-30] MEDS ORDERED: INSULIN GLARGINE,HUM 300 UNITS/3 ML CARTRIDGE SQ SCH (21:00)
[2018-05-31] MEDS ORDERED: FUROSEMIDE 20 MG TABLET PO SCH (09:00)
== END 2018-05-30 13:45 | DRG 177 ==
LOC: ER 12:20 → TELE 16:54 → MED 05-25 09:00
PROVIDERS: ADMIT Family Medicine; ATTEND Family Medicine
DX: J15.6 Pneumonia due to other Gram-negative bacteria (principal); I50.33 Acute on chronic diastolic (congestive) heart failure; N17.0 Acute kidney failure with tubular necrosis; F11.20 Opioid dependence, uncomplicated; J44.0 Chronic obstructive pulmonary disease with (acute) lower respiratory infection; M48.54XA Collapsed vertebra, not elsewhere classified, thoracic region, initial encounter for fracture; I13.0 Hypertensive heart and chronic kidney disease with heart failure and stage 1 through stage 4 chronic kidney disease, or unspecified chronic kidney disease; G93.49 Other encephalopathy; J98.11 Atelectasis; J15.9 Unspecified bacterial pneumonia; Z22.322 Carrier or suspected carrier of Methicillin resistant Staphylococcus aureus; G89.21 Chronic pain due to trauma; F95.2 Tourette's disorder; F90.9 Attention-deficit hyperactivity disorder, unspecified type; Z89.512 Acquired absence of left leg below knee; I25.10 Atherosclerotic heart disease of native coronary artery without angina pectoris; Z95.5 Presence of coronary angioplasty implant and graft; Z79.4 Long term (current) use of insulin; M47.812 Spondylosis without myelopathy or radiculopathy, cervical region; M47.816 Spondylosis without myelopathy or radiculopathy, lumbar region; Z79.891 Long term (current) use of opiate analgesic; E03.9 Hypothyroidism, unspecified; B00.9 Herpesviral infection, unspecified; E78.5 Hyperlipidemia, unspecified; E11.42 Type 2 diabetes mellitus with diabetic polyneuropathy; D63.8 Anemia in other chronic diseases classified elsewhere; G40.909 Epilepsy, unspecified, not intractable, without status epilepticus; I25.2 Old myocardial infarction; E11.22 Type 2 diabetes mellitus with diabetic chronic kidney disease; E11.65 Type 2 diabetes mellitus with hyperglycemia; N18.9 Chronic kidney disease, unspecified; E11.51 Type 2 diabetes mellitus with diabetic peripheral angiopathy without gangrene; I70.1 Atherosclerosis of renal artery; I70.0 Atherosclerosis of aorta; G47.00 Insomnia, unspecified; L21.9 Seborrheic dermatitis, unspecified; G25.0 Essential tremor; M25.78 Osteophyte, vertebrae; L89.619 Pressure ulcer of right heel, unspecified stage; M77.9 Enthesopathy, unspecified; N40.0 Benign prostatic hyperplasia without lower urinary tract symptoms; Z59.0 Homelessness; M48.05 Spinal stenosis, thoracolumbar region; K21.9 Gastro-esophageal reflux disease without esophagitis
CPT/HCPCS: 36415; 70030-TC; 71045; 72125; 72131; 76770; 83605; 83735; 84100; 84156; 84300; 85025; 85651; 85730; 87040; 87086; 93005; A4663; J0692; J1815; J1940; J2270; J2405; J3370; J3475; J3490; J7030; J7060; Q0163

== ENCOUNTER 2018-12-27 16:03 | Inpatient (IN) | payer MEDICAID, MEDICARE ==
[~2018-12-27] VITALS: Ht 182.9 cm; Wt 90.7 kg
[~2018-12-27 16:03] MED LIST changes: -AMPI1VIA IV; +ATOR40TA PO; -CADE40GE2 TOP; +DIPH25CA83 PO; +FURO-152 PO; -GEL100GE TOP; +GLIM1TAB PO; -HYDR20CR3 TOP; +INSU100V7 SQ; -LACT1TAB20 PO; -LEVO500T2 PO; -MIDO5TAB PO; -MUPI22OI2 NS; -NUT.237L28 PO; -NYST5ORA PO; +OXYC10TA49 PO; -OXYC20TA58 PO; -PREG100C PO; -PRIM50TA10 PO; -PROT30LI PO; -SENN-167 PO; +SENN-168 PO; -TEMA30CA PO; +TRAZ-182 PO; -VALA10002 PO
--- NOTE | 2018-12-27 16:10 | NUR ---
Dr Beaulieu at [facility] for MSE.
[2018-12-27] MEDS ORDERED: HYDROMORPHONE 1 MG/1 ML DISP.SYRIN IV ONE (16:15)
[2018-12-27] MEDS ORDERED: IV NORMAL SALINE 1000 ML BAG IV ONE ×2 (16:15→17:00)
[2018-12-27] MEDS ORDERED: ONDANSETRON 4 MG/2 ML VIAL IV ONE (16:15)
--- NOTE | 2018-12-27 16:20 | NUR ---
Wound cx collected and sent to LAB.
[2018-12-27] MEDS ORDERED: HYDROMORPHONE 1 MG/1 ML DISP.SYRIN ONE (16:26)
[2018-12-27] MEDS ORDERED: ONDANSETRON 4 MG/2 ML VIAL ONE (16:26)
[2018-12-27] MEDS ORDERED: ISOS60TA4 PO (16:37)
[2018-12-27] MEDS ORDERED: AMIO200T4 PO (16:37)
[2018-12-27] MEDS ORDERED: POTA10TA15 PO (16:37)
[2018-12-27] MEDS ORDERED: APIX2.5T PO (16:37)
[2018-12-27] MEDS ORDERED: DEXT38GE12 PO (16:37)
[2018-12-27] MEDS ORDERED: HYDR4TAB4 PO (16:37)
[2018-12-27] MEDS ORDERED: CERA453C TP (16:37)
[2018-12-27] MEDS ORDERED: NITR0.4T48 SL (16:37)
[2018-12-27] MEDS ORDERED: CALC-494 PO (16:37)
[2018-12-27] MEDS ORDERED: POLY17PO4 PO (16:37)
[2018-12-27] MEDS ORDERED: HYDR2TAB4 PO (16:37)
[2018-12-27] MEDS ORDERED: GABA-534 PO (16:37)
[2018-12-27] MEDS ORDERED: ALBU8.5H8 IH (16:37)
[2018-12-27] MEDS ORDERED: INSU100V28 SQ (16:37)
[2018-12-27] MEDS ORDERED: ZINC220C8 PO (16:37)
[2018-12-27] MEDS ORDERED: BACL5TAB PO (16:37)
[2018-12-27] MEDS ORDERED: INSU100I19 SQ (16:37)
[2018-12-27] MEDS ORDERED: LOPE2CAP40 PO (16:37)
[2018-12-27] MEDS ORDERED: GLUC1KIT IM (16:37)
[2018-12-27 16:40] LABS: *BILIRUBIN,URIN NEGATIVE (NEGATIVE); *CLARITY,URINE CLOUDY (CLEAR); *COLOR,URINE YELLOW (YELLOW); *KETONES,URINE NEGATIVE (NEGATIVE); *UROBILINOGEN,URINE 0.2 E.U./dl (NORMAL); LEUKOCYTE ESTERASE ,URINE 2+ (NEGATIVE); NITRITE, URINE NEGATIVE (NEGATIVE); PH,URINE 5.5 (5.0-8.0); UGLUCOSE 2+ (NEGATIVE)
[2018-12-27 16:48] LABS: BASOPHILS % (AUTO) 0.4 % (0.0-2.0); CREATININE 1.8 mg/dL (0.6-1.3); EOSINOPHILS # (AUTO) 0.3 K/uL (0.0-0.7); EOSINOPHILS % (AUTO) 2.8 % (0.0-7.0); HEMATOCRIT 26.7 % (36.7-47.1); HEMOGLOBIN 8.7 g/dL (12.5-16.3); LYMPHOCYTES # (AUTO) 1.6 K/uL (20.0-40.0); LYMPHOCYTES % (AUTO) 17.5 % (20.5-51.5); MEAN CORPUSCULAR HEMOGLOBIN 29.2 uug (23.8-33.4); MEAN CORPUSCULAR HGB CONC 33 g/dL (32.5-36.3); MEAN CORPUSCULAR VOLUME 89.9 fL (73.0-96.2); MONOCYTES # (AUTO) 0.6 K/uL (2.0-10.0); NEUTROPHILS # (AUTO) 6.7 K/uL (1.8-8.9); NEUTROPHILS % (AUTO) 72.3 % (38.5-71.5); PLATELET COUNT (AUTO) 281 K/uL (152-348); POTASSIUM 5.3 mmol/L (3.5-5.1); RED BLOOD CELL COUNT(AUTO) 2.97 MIL/uL (4.06-5.63); WHITE BLOOD COUNT (AUTO) 9.3 K/uL (3.6-10.2)
[2018-12-27 16:54] LABS: BILIRUBIN,DIRECT 0.1 mg/dL (0.0-0.2); BILIRUBIN,TOTAL 0.3 mg/dL (0.2-1.0)
[2018-12-27] MEDS ORDERED: VANCOMYCIN IV 1,000 MG in IV DEXTROSE 5% 250 ML IV ONE (17:00)
[2018-12-27] MEDS ORDERED: INSULIN REGULAR, HUMAN 300 UNIT/3 ML VIAL IV ONE (17:00)
[2018-12-27 17:01] LABS: *BLOOD, URINE TRACE (NEGATIVE)
[2018-12-27] MEDS ORDERED: INSULIN REGULAR, HUMAN 300 UNIT/3 ML VIAL ONE (17:01)
[2018-12-27] MEDS ORDERED: VANCOMYCIN IV 200 ML ONE (17:02)
[2018-12-27 17:03] LABS: BACTERIA,URINE MANY /HPF (NONE SEEN); SQUAMOUS EPITHELIAL CELL,UR FEW /HPF (NONE SEEN); WBC,URINE 80-100 /HPF (0-3)
--- NOTE | 2018-12-27 17:10 | NUR ---
Cleaned and redress wound of RT heel.
--- NOTE | 2018-12-27 17:21 | NUR ---
Nurse Notes: report from Emergency Room nurse Samina Sánchez RN.
--- NOTE | 2018-12-27 17:46 | NUR ---
Diabetic dinner provided, Pt ate 100% of tray. Denies pain at this time.
[2018-12-27 18:54] VITALS: BP 115/68
--- NOTE | 2018-12-27 18:54 | NUR ---
Nurse Notes: received patient from emergency room, vital signs were taken, afebrile, BP 115/68, hr 75, surveillance system monitor sinus rhythm, patient was concern with the TV not working and phone not working. Nurse attached the new phone to wall connector, TV repaired by [employer]. right leg with swelling. vancomcycin is finishing, IV bolus from ER is completing.
--- NOTE | 2018-12-27 19:30 | NUR ---
PATIENT RECEIVED LYING IN BED. A/OX3. NO SIGNS OF ACUTE DISTRESS. COMFORT MEASURES PROVIDED. BED IN LOWEST POSITION. SIDE RAILS UP X2.
[2018-12-27] MEDS ORDERED: ONDANSETRON 4 MG/2 ML VIAL IV PRN (20:00)
[2018-12-27] MEDS ORDERED: Medication Not On Formulary EA (Diphenhydramine Hcl (Benadryl) 25 MG) PO SCH (20:00)
[2018-12-27] MEDS ORDERED: MECLIZINE HCL 25 MG TABLET PO PRN (20:00)
[2018-12-27] MEDS ORDERED: MIRALAX 17 GM POWD.PACK PO PRN (20:00)
[2018-12-27] MEDS ORDERED: NITROGLYCERIN 0.4 MG/TAB BOTTLE SL SCH (20:00)
[2018-12-27] MEDS ORDERED: ALBUTEROL SULFATE 2.5 MG/3 ML NEBU NEB PRN (20:00)
[2018-12-27] MEDS ORDERED: HYDROMORPHONE HCL 2 MG TABLET PO PRN (20:00)
[2018-12-27 20:03] VITALS: BP 115/69
[2018-12-27] MEDS ORDERED: diphenhydrAMINE/ZINC ACET CREAM 28 GM TUBE TOP PRN (20:45)
[2018-12-27] MEDS ORDERED: VANCOMYCIN IV 1 G in PREMIXED 0 EACH IV ONE (21:00)
[2018-12-27] MEDS ORDERED: ATORVASTATIN 40 MG TABLET PO SCH (21:00)
[2018-12-27] MEDS ORDERED: INSULIN GLARGINE,HUM 300 UNITS/3 ML CARTRIDGE SQ SCH (21:00)
[2018-12-27] MEDS ORDERED: NITROGLYCERIN 0.4 MG/TAB BOTTLE SL PRN (21:00)
[2018-12-27] MEDS ORDERED: INSULIN DETEMIR 300 UNIT/3 ML CARTRIDGE SQ SCH (21:00)
--- NOTE | 2018-12-27 21:12 | NUR ---
CLINICAL PHARMACY NOTE: VANCOMYCIN PHARMACY TO DOSE SUBJECTIVE: TO START VANCO IN THIS 63 Y/O MALE FOR INDICATION OF SI (NO MD NOTE YET) OBJECTIVE: WEIGHT 90 KG HEIGHT 182CM BUN/SCR 40/1.8 WBC 9.3 TEMP 98.4 RANDOM TOMORROW AT 0600 DOSED 1500MG X 1 VANCOMYCIN TONIGHT AT 2200 D/T RENAL FUNCTION. WILL CHECK RANDOM TOMORROW AND ADJUST NEEDED. WILL FOLLOW
[2018-12-27] MEDS: MONTELUKAST SODIUM 10 MG TABLET PO SCH (21:25)
[2018-12-27] MEDS: TAMSULOSIN HCL 0.4 MG CAP.SR.24H PO SCH (21:25)
--- NOTE | 2018-12-27 21:37 | NUR ---
Vancomycin not given scheduled for 2200; pt had vanco at 1700H; off site pharmacist was asked and agreed not to administer.
[2018-12-27] MEDS ORDERED: VANCOMYCIN IV 1,500 MG in IV DEXTROSE 5% 500 ML IV ONE (22:00)
[2018-12-27] MEDS: PIPERACILLIN/TAZOBACTAM/D5W 2.25 G in PREMIXED 1 EACH IV SCH (23:25)
[2018-12-27] MEDS: IV NS 1000 ML 1,000 ML IV PRN (23:46)
[2018-12-28] MEDS ORDERED: PIPERACILLIN/TAZOBACTAM/D5W 2.25 G in PREMIXED 1 EACH IV SCH ×2
[2018-12-28 00:01] VITALS: BP 103/45
[2018-12-28 04:00] VITALS: BP 118/50
[2018-12-28] MEDS: PANTOPRAZOLE SODIUM 40 MG TABLET.DR PO SCH (06:09)
[2018-12-28] MEDS: LEVOTHYROXINE SODIUM 100 MCG TABLET PO SCH (06:09)
[2018-12-28] MEDS: PIPERACILLIN/TAZOBACTAM/D5W 2.25 G in PREMIXED 1 EACH IV SCH (06:09)
[2018-12-28 06:56] LABS: IRON, SERUM 28 ug/dL (50-175)
[2018-12-28 07:05] LABS: THYROID STIMULATING HORMONE 4.334 mIU/mL (0.358-3.740)
[2018-12-28 07:09] LABS: ALANINE AMINOTRANSFERASE 7 U/L (16-63); ALKALINE PHOSPHATASE 57 U/L (50-136); ASPARTATE AMINOTRANSFERASE < 5 U/L (15-37); BILIRUBIN,TOTAL 0.3 mg/dL (0.2-1.0); CARBON DIOXIDE 28 mmol/L (21-32); CHLORIDE 102 mmol/L (98-107); CREATININE 1.9 mg/dL (0.6-1.3); GLUCOSE 277 mg/dL (74-106); MAGNESIUM 1.6 mg/dL (1.8-2.4); PHOSPHOROUS 3.9 mg/dL (2.5-4.9); TOTAL PROTEIN, SERUM 7.3 g/dL (6.4-8.2); UREA NITROGEN, BLOOD 37 mg/dL (7-18); VANCOMYCIN,RANDOM 10.7 ug/mL (18.0-26.0)
--- NOTE | 2018-12-28 07:24 | NUR ---
SHIFT REPORT GIVEN TO AM SHIFT. PATIENT INTERMITTENTLY SLEEPING. A/O X3. NO SIGNS OF ACUTE DISTRESS. COMFORT MEASURES PROVIDED. BED IN LOWEST POSITION. SIDE RAILS UP X2. DR. CARREON CONTACTED FOR BLOOD GLUCOSE 259 AND INSULIN SLIDING SCALE ORDERED.
[2018-12-28 07:26] LABS: CHOLESTEROL 87 mg/dL (<200); HDL CHOLESTEROL 26 mg/dL (40-60); TRIGLYCERIDES 116 MG/DL (30-150)
[2018-12-28 07:27] LABS: BASOPHILS % (AUTO) 0.5 % (0.0-2.0); EOSINOPHILS # (AUTO) 0.2 K/uL (0.0-0.7); EOSINOPHILS % (AUTO) 2.9 % (0.0-7.0); HEMATOCRIT 25.1 % (36.7-47.1); HEMOGLOBIN 8.3 g/dL (12.5-16.3); LYMPHOCYTES # (AUTO) 1.9 K/uL (20.0-40.0); LYMPHOCYTES % (AUTO) 23.1 % (20.5-51.5); MEAN CORPUSCULAR HEMOGLOBIN 29.5 uug (23.8-33.4); MEAN CORPUSCULAR HGB CONC 33 g/dL (32.5-36.3); MEAN CORPUSCULAR VOLUME 89.2 fL (73.0-96.2); MONOCYTES # (AUTO) 0.6 K/uL (2.0-10.0); MONOCYTES % (AUTO) 7.1 % (0.0-11.0); NEUTROPHILS # (AUTO) 5.5 K/uL (1.8-8.9); NEUTROPHILS % (AUTO) 66.4 % (38.5-71.5); PLATELET COUNT (AUTO) 247 K/uL (152-348); RED BLOOD CELL COUNT(AUTO) 2.81 MIL/uL (4.06-5.63); WHITE BLOOD COUNT (AUTO) 8.2 K/uL (3.6-10.2)
[2018-12-28] MEDS ORDERED: diphenhydrAMINE 25 MG CAP PO PRN (07:30)
[2018-12-28] MEDS ORDERED: BLOOD SUGAR DIAGNOSTIC 1 EACH STRIP VI SCH (07:30)
--- NOTE | 2018-12-28 07:52 | NUR ---
Sleeping, appears comfortable. IVF infusing
[2018-12-28] MEDS: PROTEIN SUPPLEMENT (PROSTAT) 30 ML LIQUID PO SCH ×3 (08:00→17:00)
[2018-12-28] MEDS ORDERED: DEXTROSE 50% 50 ML DISP.SYRIN IV PRN (08:15)
[2018-12-28] MEDS ORDERED: HYDROMORPHONE 1 MG/1 ML DISP.SYRIN IV PRN (08:15)
[2018-12-28] MEDS ORDERED: VANCOMYCIN IV 1,250 MG in IV DEXTROSE 5% 500 ML IV ONE (09:00)
[2018-12-28] MEDS ORDERED: Medication Not On Formulary EA (Protein Supplement (Promod) 30 ML) PO SCH (09:00)
[2018-12-28] MEDS ORDERED: Medication Not On Formulary EA (Multivitamins (Multiple Vitamin) 1 EACH) PO SCH (09:00)
[2018-12-28] MEDS: CARVEDILOL 3.125 MG TABLET PO SCH ×2 (09:06→17:39)
[2018-12-28] MEDS: DOCUSATE SODIUM 100 MG CAPSULE PO SCH ×2 (09:07→17:37)
[2018-12-28] MEDS: AMIODARONE HCL 200 MG TABLET PO SCH (09:08)
[2018-12-28] MEDS: FERROUS SULFATE 325 MG TABEC PO SCH (09:09)
[2018-12-28] MEDS: DIVALPROEX 500 MG TABLET.DR PO SCH ×3 (09:09→17:37)
[2018-12-28] MEDS: MULTIVITAMINS,THERAPEUTIC TABLET PO SCH (09:10)
[2018-12-28] MEDS: BACLOFEN 10 MG TABLET PO SCH ×3 (09:10→17:38)
[2018-12-28] MEDS: ISOSORBIDE MONONITRATE 60 MG TAB.SR.24H PO SCH (09:10)
[2018-12-28] MEDS: GABAPENTIN 300 MG CAPSULE PO SCH ×2 (09:10→17:38)
[2018-12-28] MEDS: CHOLECALCIFEROL 1,000 UNIT TABLET PO SCH (09:11)
[2018-12-28] MEDS: ZINC SULFATE 220 MG CAPSULE PO SCH (09:11)
[2018-12-28] MEDS: ASCORBIC ACID 500 MG TABLET PO SCH (09:11)
[2018-12-28] MEDS: HYDROMORPHONE 1 MG/1 ML DISP.SYRIN IV PRN ×3 (09:19→21:07)
[2018-12-28] MEDS: APIXABAN 5 MG TABLET PO SCH ×2 (09:23→17:44)
[2018-12-28 11:09] VITALS: BP 122/65
--- NOTE | 2018-12-28 11:21 | NUR ---
WOUND CARE CONSULT WOUND CARE RECEIVED CONSULT FOR RIGHT FIRST AND SECOND TOES, AND RIGHT HEEL. WOUND CARE WILL DEFER CONSULT AND TREATMENT PLANS TO PLASTIC SURGICAL TEAM INCLUDING DPM DR CASON WHO HAVE BOTH BEEN NOTIFIED OF THIS CONSULT. PATIENT WITH ADELAIDE AT 15, ALL PRESSURE ULCER PREVENTION MEASURES ARE NOTED TO BE IN PLACE AT THIS TIME. WILL SEE PRN.
[2018-12-28] MEDS ORDERED: PIPERACILLIN/TAZOBACTAM/D5W 3.375 G in PREMIXED 1 EACH IV SCH (12:00)
[2018-12-28] MEDS: PIPERACILLIN/TAZOBACTAM/D5W 3.375 G in PREMIXED 1 EACH IV SCH ×2 (12:01→20:30)
[2018-12-28] MEDS: BLOOD SUGAR DIAGNOSTIC 1 EACH STRIP VI SCH ×3 (12:03→20:31)
[2018-12-28] MEDS: INSULIN REGULAR, HUMAN 300 UNIT/3 ML VIAL SQ PRN ×3 (12:06→20:34)
[2018-12-28] MEDS: MAGNESIUM SULFATE/D5W 100 ML IV SCH ×2 (12:13→13:17)
--- NOTE | 2018-12-28 12:30 | NUR ---
Dr. Phillips seen and examined patient, with orders for wound care. Change of dressing to right heel.
--- NOTE | 2018-12-28 12:54 | NUR ---
Clinical Pharmacy Note: Vancomycin Dosing per Pharmacy Subjective: Vancomycin IV to start on this63 yo male patient for cellulitis Objective: BUN 37/Scr 1.9 WBC 8.2 Temperature 98.6 Vanco random level: 10.7 (with am labs) ht 182.8 cm wt 90.7 kg Assessment/Plan: Patient had vanco 1gm IVPB in ED on 01/06 at 1700. Due to elevated srcr will dose by level. Since vanco random level this am is 10.7, Will give vanco 1250 mg IVPB x1 today at 0900. Will check vanco random level tomorrow with am labs for further dosing. Will monitor renal function and dose routinely, if srcr stabilizes. Will follow daily.
[2018-12-28 15:09] VITALS: BP 120/52
[2018-12-28] MEDS ORDERED: INSULIN REGULAR, HUMAN 300 UNIT/3 ML VIAL SQ ONE (17:30)
--- NOTE | 2018-12-28 18:00 | NUR ---
Noted blood glucose above 400, informed Dr. Barker with orders for extra 10 units of Regular insulin.
--- NOTE | 2018-12-28 18:31 | NUR ---
Placed on air mattress. Repositioned comfortably
--- NOTE | 2018-12-28 19:20 | NUR ---
Received patient lying in bed. AAOX4. In no acute distress. Denies any pain or SOB at this time. IV site on right FA and left wrist intact and patent. IVF infusing. NSR on tele at 90/min. Both LE kept floated with pillows. Dressing on right heel intact. Safety measure initiated and call cortez within reach.
[2018-12-28] MEDS: ATORVASTATIN 10 MG TABLET PO SCH (20:30)
[2018-12-28] MEDS: MONTELUKAST SODIUM 10 MG TABLET PO SCH (20:30)
[2018-12-28] MEDS: TAMSULOSIN HCL 0.4 MG CAP.SR.24H PO SCH (20:30)
[2018-12-28] MEDS: IV NS 1000 ML 1,000 ML IV PRN (20:31)
[2018-12-28] MEDS: INSULIN GLARGINE,HUM 300 UNITS/3 ML CARTRIDGE SQ SCH (20:35)
[2018-12-28 20:58] VITALS: BP 115/57
[2018-12-29 00:25] VITALS: BP 106/46
[2018-12-29] MEDS: PIPERACILLIN/TAZOBACTAM/D5W 3.375 G in PREMIXED 1 EACH IV SCH ×2 (03:07→12:22)
[2018-12-29 05:42] VITALS: BP 109/52
[2018-12-29] MEDS ORDERED: HYDROMORPHONE 1 MG/1 ML DISP.SYRIN ONE (05:50)
[2018-12-29 06:14] LABS: BASOPHILS % (AUTO) 0.6 % (0.0-2.0); EOSINOPHILS # (AUTO) 0.3 K/uL (0.0-0.7); EOSINOPHILS % (AUTO) 3.7 % (0.0-7.0); HEMATOCRIT 23.9 % (36.7-47.1); HEMOGLOBIN 7.8 g/dL (12.5-16.3); LYMPHOCYTES # (AUTO) 1.9 K/uL (20.0-40.0); LYMPHOCYTES % (AUTO) 24.3 % (20.5-51.5); MEAN CORPUSCULAR HEMOGLOBIN 29.1 uug (23.8-33.4); MEAN CORPUSCULAR HGB CONC 33 g/dL (32.5-36.3); MEAN CORPUSCULAR VOLUME 89.6 fL (73.0-96.2); MONOCYTES # (AUTO) 0.6 K/uL (2.0-10.0); MONOCYTES % (AUTO) 7.4 % (0.0-11.0); PLATELET COUNT (AUTO) 222 K/uL (152-348); RED BLOOD CELL COUNT(AUTO) 2.66 MIL/uL (4.06-5.63); WHITE BLOOD COUNT (AUTO) 7.8 K/uL (3.6-10.2)
[2018-12-29] MEDS: LEVOTHYROXINE SODIUM 100 MCG TABLET PO SCH (06:15)
[2018-12-29] MEDS: PANTOPRAZOLE SODIUM 40 MG TABLET.DR PO SCH (06:15)
[2018-12-29] MEDS: HYDROMORPHONE 1 MG/1 ML DISP.SYRIN IV PRN ×3 (06:18→18:57)
--- NOTE | 2018-12-29 06:25 | NUR ---
AAOX4. In no acute distress. Denies any SOB. Hydromorphone 0.5mg IV PRN per order given for complain of generalized pain and with help. IV site on right FA and left wrist intact and patent. IVF infusing. No adverse reaction noted from IV ABX. NSR on tele at 68/min. Both LE kept floated with pillows. Dressing on right heel remains intact. Safety measure maintained and call cortez within reach.
[2018-12-29 06:28] LABS: CREATININE 1.9 mg/dL (0.6-1.3); MAGNESIUM 2.1 mg/dL (1.8-2.4); PHOSPHOROUS 3.5 mg/dL (2.5-4.9); POTASSIUM 4.8 mmol/L (3.5-5.1); VANCOMYCIN,RANDOM 15.6 ug/mL (18.0-26.0)
[2018-12-29] MEDS: BLOOD SUGAR DIAGNOSTIC 1 EACH STRIP VI SCH ×4 (06:31→20:36)
[2018-12-29 08:00] VITALS: BP 121/60
[2018-12-29] MEDS: PROTEIN SUPPLEMENT (PROSTAT) 30 ML LIQUID PO SCH ×2 (08:00→17:00)
--- NOTE | 2018-12-29 08:04 | NUR ---
Sleeping, on moderate high back rest. RLE elevated over pillow, off load. IVF infusing.
[2018-12-29] MEDS ORDERED: VANCOMYCIN IV 1,250 MG in IV DEXTROSE 5% 500 ML IV ONE (09:00)
[2018-12-29] MEDS: DOCUSATE SODIUM 100 MG CAPSULE PO SCH ×2 (09:33→17:10)
[2018-12-29] MEDS: CARVEDILOL 3.125 MG TABLET PO SCH ×2 (09:33→17:14)
[2018-12-29] MEDS: DIVALPROEX 500 MG TABLET.DR PO SCH ×3 (09:34→17:10)
[2018-12-29] MEDS: AMIODARONE HCL 200 MG TABLET PO SCH (09:34)
[2018-12-29] MEDS: APIXABAN 5 MG TABLET PO SCH ×2 (09:35→17:12)
[2018-12-29] MEDS: ISOSORBIDE MONONITRATE 60 MG TAB.SR.24H PO SCH (09:36)
[2018-12-29] MEDS: FERROUS SULFATE 325 MG TABEC PO SCH (09:36)
[2018-12-29] MEDS: MULTIVITAMINS,THERAPEUTIC TABLET PO SCH (09:37)
[2018-12-29] MEDS: CHOLECALCIFEROL 1,000 UNIT TABLET PO SCH (09:37)
[2018-12-29] MEDS: GABAPENTIN 300 MG CAPSULE PO SCH ×2 (09:37→17:14)
[2018-12-29] MEDS: ASCORBIC ACID 500 MG TABLET PO SCH (09:37)
[2018-12-29] MEDS: ZINC SULFATE 220 MG CAPSULE PO SCH (09:37)
[2018-12-29] MEDS: BACLOFEN 10 MG TABLET PO SCH ×3 (09:37→17:14)
[2018-12-29] MEDS: INSULIN REGULAR, HUMAN 300 UNIT/3 ML VIAL SQ PRN ×4 (09:39→20:39)
--- NOTE | 2018-12-29 11:00 | NUR ---
Patient seen by Jeannine Cummings, examined wounds, with orders.
[2018-12-29 12:00] VITALS: BP 109/55
[2018-12-29] MEDS ORDERED: EPOETIN ALFA 20,000 UNIT/ML ML SQ ONE (12:45)
--- NOTE | 2018-12-29 12:52 | NUR ---
Clinical Pharmacy Note: Vancomycin Dosing per Pharmacy Subjective: Vancomycin IV to continue on this63 yo male patient for cellulitis Objective: BUN 29/Scr 1.9 WBC 7.8 Temperature 98.9 Vanco random level: 15.6 (with am labs) ht 182.8 cm wt 90.7 kg Assessment/Plan: Patient had vanco 1gm IVPB yesterday at 0900. Due to elevated srcr will dose by level. Since vanco random level this am is 15.6, Will give vanco 1250 mg IVPB x1 today at 0900. Will check vanco random level tomorrow with am labs for further dosing. Will monitor renal function and dose routinely, if srcr stabilizes. Will follow daily.
--- NOTE | 2018-12-29 15:00 | NUR ---
Sponge bath given. Wound care done as ordered.
[2018-12-29 16:00] VITALS: BP 110/53
[2018-12-29] MEDS: HYDROCORTISONE 2.5% CREAM 20 GM TUBE TOP PRN (17:19)
[2018-12-29] MEDS ORDERED: MEROPENEM 500 MG in IV NORMAL SALINE 50 ML IV SCH (17:30)
--- NOTE | 2018-12-29 18:35 | NUR ---
Noted Wound CS and Urine CS report of ESBL. Contact precaution initiated, will call for cart.
[2018-12-29] MEDS: MONTELUKAST SODIUM 10 MG TABLET PO SCH (20:06)
[2018-12-29] MEDS: ATORVASTATIN 10 MG TABLET PO SCH (20:06)
[2018-12-29] MEDS: TAMSULOSIN HCL 0.4 MG CAP.SR.24H PO SCH (20:06)
[2018-12-29] MEDS: MEROPENEM 0.5 G in IV NORMAL SALINE 50 ML IV SCH (20:06)
[2018-12-29] MEDS: INSULIN GLARGINE,HUM 300 UNITS/3 ML CARTRIDGE SQ SCH (20:40)
[2018-12-29 20:50] VITALS: BP 124/54
--- NOTE | 2018-12-29 21:00 | NUR ---
Received patient awake in bed. AAOx4. No acute distress noted. No SOB. Denies pain. IV on L wrist and R forearm intact and patent. NS running at 70mls/hr. Continue contact precautions. Dressing on right heel noted and intact. Complains of generalized itchiness on body. Hydrocortisone applied. Repositioned. Bilateral lower extremities offloaded. Safety and comfort measures implemented. All needs met. Call light within reach. Will continue to monitor throughout shift.
[2018-12-30] MEDS: HYDROMORPHONE 1 MG/1 ML DISP.SYRIN IV PRN ×4 (00:57→19:49)
[2018-12-30] MEDS: IV NS 1000 ML 1,000 ML IV PRN (01:25)
[2018-12-30] MEDS: HYDROCORTISONE 2.5% CREAM 20 GM TUBE TOP PRN (01:27)
[2018-12-30 04:50] VITALS: BP 117/56
--- NOTE | 2018-12-30 05:52 | NUR ---
Patient received PRN Dilaudid at 0100 for pain of 10/10. Rested well in between care. Comfort and safety measures implemented and effective. No change in status. Call light within reach. COntinue plan of care.
[2018-12-30] MEDS: LEVOTHYROXINE SODIUM 100 MCG TABLET PO SCH (06:41)
[2018-12-30] MEDS: PANTOPRAZOLE SODIUM 40 MG TABLET.DR PO SCH (06:41)
[2018-12-30] MEDS: BLOOD SUGAR DIAGNOSTIC 1 EACH STRIP VI SCH ×4 (06:55→20:01)
--- NOTE | 2018-12-30 07:15 | NUR ---
Received report from electric golf cart repairer nurse, patient in bed awake, no distress noted at this time, bed in low position, side rails up x2, call light in reach.
[2018-12-30] MEDS: PROTEIN SUPPLEMENT (PROSTAT) 30 ML LIQUID PO SCH ×2 (08:00→16:54)
[2018-12-30] MEDS ORDERED: VANCOMYCIN IV 1,250 MG in IV DEXTROSE 5% 500 ML IV ONE (09:00)
[2018-12-30] MEDS: MULTIVITAMINS,THERAPEUTIC TABLET PO SCH (09:19)
[2018-12-30] MEDS: CHOLECALCIFEROL 1,000 UNIT TABLET PO SCH (09:19)
[2018-12-30] MEDS: ZINC SULFATE 220 MG CAPSULE PO SCH (09:19)
[2018-12-30] MEDS: FERROUS SULFATE 325 MG TABEC PO SCH (09:19)
[2018-12-30] MEDS: ISOSORBIDE MONONITRATE 60 MG TAB.SR.24H PO SCH (09:20)
[2018-12-30] MEDS: BACLOFEN 10 MG TABLET PO SCH ×3 (09:20→16:53)
[2018-12-30] MEDS: ASCORBIC ACID 500 MG TABLET PO SCH (09:20)
[2018-12-30] MEDS: DIVALPROEX 500 MG TABLET.DR PO SCH ×3 (09:20→16:53)
[2018-12-30] MEDS: AMIODARONE HCL 200 MG TABLET PO SCH (09:20)
[2018-12-30] MEDS: CARVEDILOL 3.125 MG TABLET PO SCH ×2 (09:20→17:11)
[2018-12-30] MEDS: GABAPENTIN 300 MG CAPSULE PO SCH ×2 (09:20→16:53)
[2018-12-30] MEDS: DOCUSATE SODIUM 100 MG CAPSULE PO SCH ×2 (09:21→16:52)
[2018-12-30] MEDS: MEROPENEM 0.5 G in IV NORMAL SALINE 50 ML IV SCH ×2 (09:23→20:01)
[2018-12-30] MEDS: APIXABAN 5 MG TABLET PO SCH ×2 (09:33→16:58)
[2018-12-30 11:35] VITALS: BP 126/62
[2018-12-30] MEDS: INSULIN REGULAR, HUMAN 300 UNIT/3 ML VIAL SQ PRN ×3 (12:24→20:37)
--- NOTE | 2018-12-30 15:16 | NUR ---
Clinical Pharmacy Note: Vancomycin Dosing per Pharmacy Subjective: Vancomycin IV to continue on this63 yo male patient for cellulitis Objective: BUN 29/Scr 1.9 (12/29) WBC 7.8 (12/29) Temperature 98 Vanco random level: 18.4 (with am labs) ht 182.8 cm wt 90.7 kg Assessment/Plan: Will dose another 1250mg x 1 vanco today at 0900 per random level. Next random ordered with am labs tomorrow. Will check level at that time and re-dose as needed. If renal function were to stabilize will consider scheduled regimen, otherwise will continue per random levels. Will follow
[2018-12-30 16:00] VITALS: BP 116/53
[2018-12-30] MEDS: LOPERAMIDE HCL 2 MG CAPSULE PO PRN ×2 (16:53→21:27)
--- NOTE | 2018-12-30 18:05 | NUR ---
Patient appears to be extremely confused and forgetful as he states that he has called multiple times and has had multiple bowel movements of diarrhea but has not. Patient uses vulgar words and profanity at times, and insists that he has asked for things that he hasn't. Currently patient is in bed, eating dinner, and no distress noted at this time. Bed in low position, side rails up x2, call light in reach.
[2018-12-30] MEDS: TAMSULOSIN HCL 0.4 MG CAP.SR.24H PO SCH (20:01)
[2018-12-30] MEDS: ATORVASTATIN 10 MG TABLET PO SCH (20:01)
[2018-12-30] MEDS: MONTELUKAST SODIUM 10 MG TABLET PO SCH (20:01)
[2018-12-30 20:41] VITALS: BP 120/62
[2018-12-30] MEDS ORDERED: INSULIN GLARGINE,HUM 300 UNITS/3 ML CARTRIDGE SQ SCH (21:00)
[2018-12-31] MEDS: HYDROMORPHONE 1 MG/1 ML DISP.SYRIN IV PRN ×5 (01:20→17:52)
[2018-12-31 05:47] VITALS: BP 115/56
--- NOTE | 2018-12-31 05:48 | NUR ---
Patient slept intermittently throughout the night. VSS. No SOB. Midline GORDON intact and patent. Dressing on RLE intact and offloaded. Benadryl cream applied on upper extremities for itchiness. Patient received PRN Imodium and had one soft and brown BM during my shift. Complains of generalized pain of 10/10. PRN Dilaudid administered. Patient currently sleeping. No acute distress noted at this time. All needs met. Safety and comfort measure implemented and effective. Continue plan of care.
[2018-12-31] MEDS: PANTOPRAZOLE SODIUM 40 MG TABLET.DR PO SCH (06:15)
[2018-12-31] MEDS: LEVOTHYROXINE SODIUM 100 MCG TABLET PO SCH (06:16)
[2018-12-31 06:27] LABS: BASOPHILS # (AUTO) 0.1 K/uL (0.0-8.0); BASOPHILS % (AUTO) 1.1 % (0.0-2.0); EOSINOPHILS # (AUTO) 0.2 K/uL (0.0-0.7); EOSINOPHILS % (AUTO) 3.6 % (0.0-7.0); HEMATOCRIT 24.4 % (36.7-47.1); HEMOGLOBIN 7.9 g/dL (12.5-16.3); LYMPHOCYTES # (AUTO) 1.9 K/uL (20.0-40.0); LYMPHOCYTES % (AUTO) 34.8 % (20.5-51.5); MEAN CORPUSCULAR HGB CONC 33 g/dL (32.5-36.3); MEAN CORPUSCULAR VOLUME 89.1 fL (73.0-96.2); MONOCYTES # (AUTO) 0.4 K/uL (2.0-10.0); MONOCYTES % (AUTO) 8.1 % (0.0-11.0); NEUTROPHILS # (AUTO) 2.9 K/uL (1.8-8.9); NEUTROPHILS % (AUTO) 52.4 % (38.5-71.5); PLATELET COUNT (AUTO) 254 K/uL (152-348); RED BLOOD CELL COUNT(AUTO) 2.74 MIL/uL (4.06-5.63); WHITE BLOOD COUNT (AUTO) 5.5 K/uL (3.6-10.2)
[2018-12-31] MEDS: BLOOD SUGAR DIAGNOSTIC 1 EACH STRIP VI SCH ×3 (06:30→17:46)
[2018-12-31 06:46] LABS: BILIRUBIN,TOTAL 0.3 mg/dL (0.2-1.0); CREATININE 1.8 mg/dL (0.6-1.3); PHOSPHOROUS 3.3 mg/dL (2.5-4.9); POTASSIUM 4.9 mmol/L (3.5-5.1); TOTAL PROTEIN, SERUM 6.9 g/dL (6.4-8.2); VANCOMYCIN,RANDOM 21.3 ug/mL (18.0-26.0)
--- NOTE | 2018-12-31 07:51 | NUR ---
Awake, alert, oriented x 4. Repositioned in bed comfortably.
[2018-12-31] MEDS: PROTEIN SUPPLEMENT (PROSTAT) 30 ML LIQUID PO SCH ×2 (08:00→17:00)
[2018-12-31] MEDS: DOCUSATE SODIUM 100 MG CAPSULE PO SCH ×2 (09:00→17:00)
[2018-12-31] MEDS ORDERED: EPOETIN ALFA 20,000 UNIT/ML ML SQ ONE (09:30)
[2018-12-31] MEDS: REPAGLINIDE 1 MG TABLET PO SCH ×2 (09:33→17:48)
[2018-12-31] MEDS: CARVEDILOL 3.125 MG TABLET PO SCH ×2 (09:33→17:48)
[2018-12-31] MEDS: MEROPENEM 0.5 G in IV NORMAL SALINE 50 ML IV SCH (09:34)
[2018-12-31] MEDS: AMIODARONE HCL 200 MG TABLET PO SCH (09:36)
[2018-12-31] MEDS: DIVALPROEX 500 MG TABLET.DR PO SCH ×3 (09:36→17:46)
[2018-12-31] MEDS: APIXABAN 5 MG TABLET PO SCH ×2 (09:37→17:51)
[2018-12-31] MEDS: ISOSORBIDE MONONITRATE 60 MG TAB.SR.24H PO SCH (09:38)
[2018-12-31] MEDS: FERROUS SULFATE 325 MG TABEC PO SCH (09:38)
[2018-12-31] MEDS: BACLOFEN 10 MG TABLET PO SCH ×3 (09:38→17:47)
[2018-12-31] MEDS: ZINC SULFATE 220 MG CAPSULE PO SCH (09:39)
[2018-12-31] MEDS: CHOLECALCIFEROL 1,000 UNIT TABLET PO SCH (09:39)
[2018-12-31] MEDS: MULTIVITAMINS,THERAPEUTIC TABLET PO SCH (09:39)
[2018-12-31] MEDS: ASCORBIC ACID 500 MG TABLET PO SCH (09:39)
[2018-12-31] MEDS: GABAPENTIN 300 MG CAPSULE PO SCH ×2 (09:39→17:47)
[2018-12-31] MEDS: INSULIN REGULAR, HUMAN 300 UNIT/3 ML VIAL SQ PRN ×3 (09:43→17:50)
[2018-12-31 12:17] VITALS: BP 117/55
[2018-12-31] MEDS ORDERED: HYDROCORTISONE 1% OINT 28.35 GM TUBE TOP SCH (13:00)
[2018-12-31] MEDS ORDERED: HYDR4TAB4 PO (13:33)
[2018-12-31] MEDS ORDERED: HYDR2TAB4 PO (13:33)
[2018-12-31] MEDS ORDERED: HYDR28.34 TOP (13:33)
[2018-12-31] MEDS ORDERED: Insulin Glargine,Hum SQ (13:33)
[2018-12-31] MEDS ORDERED: RXVAN XX (13:33)
[2018-12-31] MEDS ORDERED: MERO500V IV (13:33)
[2018-12-31] MEDS ORDERED: GABA-534 PO (13:33)
[2018-12-31] MEDS ORDERED: REPA1TAB PO (13:33)
[2018-12-31] MEDS ORDERED: ATOR10TA PO (13:33)
[2018-12-31] MEDS ORDERED: DIPH28CR3 TOP (13:33)
[2018-12-31] MEDS ORDERED: FURO-152 PO (13:33)
[2018-12-31] MEDS ORDERED: DEXT50DI8 IV (13:33)
[2018-12-31] MEDS ORDERED: INSU100V28 SQ (13:33)
[2018-12-31 16:00] VITALS: BP 110/62
[2018-12-31] MEDS ORDERED: VANCOMYCIN IV 1,250 MG in IV DEXTROSE 5% 500 ML IV ONE (17:00)
[2018-12-31 17:48] VITALS: BP 110/62
--- NOTE | 2018-12-31 19:30 | NUR ---
With discharge order to SNF. Isolation discontinued. Report given to Jeannie. Discharged with Midline RUE intact and patent, in fair condition, not in distress, afebrile.
== END 2018-12-31 20:45 | DRG 602 ==
LOC: ER 16:03 → MEDSURG3 18:22 → TELE3 18:44 → MEDSURG3 12-29 10:05
PROVIDERS: ADMIT Internal Medicine; ATTEND Internal Medicine
PROC: 05HY33Z Insertion of Infusion Device into Upper Vein, Percutaneous Approach (ICD-10-PCS; principal; 2018-12-30)
DX: L03.115 Cellulitis of right lower limb (principal); N17.0 Acute kidney failure with tubular necrosis; E43 Unspecified severe protein-calorie malnutrition; I13.0 Hypertensive heart and chronic kidney disease with heart failure and stage 1 through stage 4 chronic kidney disease, or unspecified chronic kidney disease; N39.0 Urinary tract infection, site not specified; L97.518 Non-pressure chronic ulcer of other part of right foot with other specified severity; I50.30 Unspecified diastolic (congestive) heart failure; J98.11 Atelectasis; D68.59 Other primary thrombophilia; E87.1 Hypo-osmolality and hyponatremia; J96.11 Chronic respiratory failure with hypoxia; L97.418 Non-pressure chronic ulcer of right heel and midfoot with other specified severity; E11.65 Type 2 diabetes mellitus with hyperglycemia; I70.235 Atherosclerosis of native arteries of right leg with ulceration of other part of foot; E11.51 Type 2 diabetes mellitus with diabetic peripheral angiopathy without gangrene; E11.42 Type 2 diabetes mellitus with diabetic polyneuropathy; L21.9 Seborrheic dermatitis, unspecified; S92.351A Displaced fracture of fifth metatarsal bone, right foot, initial encounter for closed fracture; X58.XXXA Exposure to other specified factors, initial encounter; Y92.129 Unspecified place in nursing home as the place of occurrence of the external cause; B96.20 Unspecified Escherichia coli [E. coli] as the cause of diseases classified elsewhere; B95.1 Streptococcus, group B, as the cause of diseases classified elsewhere; B95.62 Methicillin resistant Staphylococcus aureus infection as the cause of diseases classified elsewhere; G40.909 Epilepsy, unspecified, not intractable, without status epilepticus; I25.10 Atherosclerotic heart disease of native coronary artery without angina pectoris; Z95.5 Presence of coronary angioplasty implant and graft; K21.9 Gastro-esophageal reflux disease without esophagitis; G89.4 Chronic pain syndrome; L72.3 Sebaceous cyst; J44.9 Chronic obstructive pulmonary disease, unspecified; F95.2 Tourette's disorder; F90.9 Attention-deficit hyperactivity disorder, unspecified type; E03.9 Hypothyroidism, unspecified; E11.22 Type 2 diabetes mellitus with diabetic chronic kidney disease; N18.9 Chronic kidney disease, unspecified; D63.1 Anemia in chronic kidney disease; R13.10 Dysphagia, unspecified; E78.5 Hyperlipidemia, unspecified; F32.9 Major depressive disorder, single episode, unspecified; G25.0 Essential tremor; Z16.12 Extended spectrum beta lactamase (ESBL) resistance; E87.5 Hyperkalemia; Z16.11 Resistance to penicillins; Z16.23 Resistance to quinolones and fluoroquinolones; Z89.512 Acquired absence of left leg below knee; H40.9 Unspecified glaucoma; Z79.01 Long term (current) use of anticoagulants; Z79.02 Long term (current) use of antithrombotics/antiplatelets; Z79.890 Hormone replacement therapy; Z79.4 Long term (current) use of insulin; Z79.891 Long term (current) use of opiate analgesic; Z99.3 Dependence on wheelchair; N40.0 Benign prostatic hyperplasia without lower urinary tract symptoms; Z79.899 Other long term (current) drug therapy; M54.10 Radiculopathy, site unspecified
CPT/HCPCS: 36415; 70030-TC; 71045; 73630; 80164; 83550; 83605; 83735; 84100; 84443; 85025; 85730; 87040; 87070; 87077; 87086; 93005; A4663; G0378; J0885; J1170; J1815; J2185; J2405; J2543; J3370; J3475; J3490; J7030; J7060

== ENCOUNTER 2019-01-22 12:59 | Inpatient (IN) | payer MEDICARE, OTHER ==
[~2019-01-22] VITALS: Ht 182.9 cm; Wt 90.7 kg
[~2019-01-22 12:59] MED LIST changes: -ACET325T53 PO; +ALBU8.5H8 IH; +AMIO200T4 PO; +APIX2.5T PO; -ASPI-605 PO; +ATOR10TA PO; -ATOR40TA PO; +BACL5TAB PO; -BLOO-140 IN; +CALC-494 PO; +CERA453C TP; -CLOP75TA33 PO; +DEXT38GE12 PO; +DEXT50DI8 IV; +DIPH28CR3 TOP; -DOCU-141 PO; +GABA-534 PO; -GLIM1TAB PO; +GLUC1KIT IM; +HYDR28.34 TOP; +HYDR2TAB4 PO; +HYDR4TAB4 PO; -INSU100V7 SQ; +ISOS60TA4 PO; +Insulin Glargine,Hum SQ; +LOPE2CAP40 PO; +MERO500V IV; +NITR0.4T48 SL; -OXYC10TA49 PO; +POLY17PO4 PO; +REPA1TAB PO; +RXVAN XX; -SENN-168 PO; -TRAZ-182 PO; +ZINC220C8 PO
[2019-01-22] MEDS ORDERED: HYDROMORPHONE 1 MG/1 ML DISP.SYRIN ONE (13:28)
[2019-01-22] MEDS ORDERED: GENTAMICIN SULFATE 80 MG/2 ML VIAL ONE (13:28)
[2019-01-22] MEDS ORDERED: VANCOMYCIN IV 200 ML ONE (13:29)
[2019-01-22] MEDS ORDERED: HYDROMORPHONE 1 MG/1 ML DISP.SYRIN IV ONE (13:30)
[2019-01-22] MEDS ORDERED: GENTAMICIN SULFATE INJ 80 MG in IV DEXTROSE 5% 100 ML IV ONE (13:30)
[2019-01-22] MEDS ORDERED: VANCOMYCIN IV 1,000 MG in IV DEXTROSE 5% 250 ML IV ONE (13:30)
[2019-01-22 13:46] LABS: BASOPHILS % (AUTO) 0.7 % (0.0-2.0); EOSINOPHILS # (AUTO) 0.4 K/uL (0.0-0.7); EOSINOPHILS % (AUTO) 6.8 % (0.0-7.0); HEMATOCRIT 28.3 % (36.7-47.1); HEMOGLOBIN 9.1 g/dL (12.5-16.3); LYMPHOCYTES # (AUTO) 1.5 K/uL (20.0-40.0); LYMPHOCYTES % (AUTO) 27.6 % (20.5-51.5); MEAN CORPUSCULAR HGB CONC 32 g/dL (32.5-36.3); MONOCYTES # (AUTO) 0.3 K/uL (2.0-10.0); MONOCYTES % (AUTO) 5.7 % (0.0-11.0); NEUTROPHILS # (AUTO) 3.3 K/uL (1.8-8.9); NEUTROPHILS % (AUTO) 59.2 % (38.5-71.5); PLATELET COUNT (AUTO) 267 K/uL (152-348); RED BLOOD CELL COUNT(AUTO) 3.25 MIL/uL (4.06-5.63); WHITE BLOOD COUNT (AUTO) 5.6 K/uL (3.6-10.2)
[2019-01-22 14:05] LABS: CREATININE 1.5 mg/dL (0.6-1.3); POTASSIUM 4.5 mmol/L (3.5-5.1)
[2019-01-22 14:09] LABS: BILIRUBIN,DIRECT 0.1 mg/dL (0.0-0.2); BILIRUBIN,TOTAL 0.4 mg/dL (0.2-1.0); TOTAL PROTEIN, SERUM 8.1 g/dL (6.4-8.2)
[2019-01-22] MEDS ORDERED: DIPH25CA83 PO (15:03)
[2019-01-22] MEDS ORDERED: NITR0.4T48 SL (15:03)
[2019-01-22] MEDS ORDERED: INSU100V7 SQ (15:03)
[2019-01-22] MEDS ORDERED: GABA-534 PO (15:03)
[2019-01-22] MEDS ORDERED: AMIO100T4 PO (15:03)
[2019-01-22] MEDS ORDERED: DIVA-78 PO (15:03)
[2019-01-22] MEDS ORDERED: CRAN450C PO (15:03)
[2019-01-22] MEDS ORDERED: ASCO500C18 PO (15:03)
[2019-01-22] MEDS ORDERED: ZINC220T PO (15:03)
[2019-01-22] MEDS ORDERED: REPA1TAB PO (15:03)
[2019-01-22] MEDS ORDERED: FENT1PAT4 TD (15:03)
[2019-01-22] MEDS ORDERED: BACL5TAB PO (15:03)
[2019-01-22] MEDS ORDERED: PANT40TA4 PO (15:03)
[2019-01-22] MEDS ORDERED: LEVO100T10 PO (15:03)
[2019-01-22] MEDS ORDERED: POLY17PO4 PO (15:03)
[2019-01-22] MEDS ORDERED: BLOO-140 IN (15:03)
[2019-01-22] MEDS ORDERED: DIPH35CR TP (15:03)
[2019-01-22] MEDS ORDERED: CHOL10002 PO (15:03)
[2019-01-22] MEDS ORDERED: LOPE2TAB25 PO (15:03)
[2019-01-22] MEDS ORDERED: MULT1TAB73 PO (15:03)
[2019-01-22] MEDS ORDERED: FURO-152 PO (15:03)
[2019-01-22] MEDS ORDERED: ATOR10TA PO (15:03)
[2019-01-22] MEDS ORDERED: MONT10TA22 PO (15:03)
[2019-01-22] MEDS ORDERED: CARV3.122 PO (15:03)
[2019-01-22] MEDS ORDERED: TAMS-3 PO (15:03)
[2019-01-22] MEDS ORDERED: APIX2.5T PO (15:03)
[2019-01-22] MEDS ORDERED: PROT946L PO (15:03)
[2019-01-22] MEDS ORDERED: MECL-102 PO (15:03)
[2019-01-22] MEDS ORDERED: NA P133E RC (15:03)
[2019-01-22] MEDS ORDERED: ISOS60TA4 PO (15:03)
[2019-01-22] MEDS ORDERED: GLUC1KIT IJ (15:03)
[2019-01-22] MEDS ORDERED: HYDR2TAB4 PO ×2 (15:03)
[2019-01-22 15:59] VITALS: BP 109/55
[2019-01-22 19:39] VITALS: BP 123/60
[2019-01-22] MEDS ORDERED: MIRALAX 17 GM POWD.PACK PO PRN (20:30)
[2019-01-22] MEDS ORDERED: Medication Not On Formulary EA (Diphenhydramine Hcl (Benadryl) 25 MG) PO PRN (20:30)
[2019-01-22] MEDS ORDERED: NITROGLYCERIN 0.4 MG/TAB BOTTLE SL PRN (20:30)
[2019-01-22] MEDS ORDERED: DEXTROSE 50% 50 ML DISP.SYRIN IV PRN (20:45)
[2019-01-22] MEDS ORDERED: diphenhydrAMINE 25 MG CAP PO PRN (21:00)
[2019-01-22] MEDS: HYDROMORPHONE 1 MG/1 ML DISP.SYRIN IV PRN (21:10)
[2019-01-22] MEDS: TAMSULOSIN HCL 0.4 MG CAP.SR.24H PO SCH (21:30)
[2019-01-22] MEDS: MONTELUKAST SODIUM 10 MG TABLET PO SCH (21:31)
[2019-01-22] MEDS: ATORVASTATIN 10 MG TABLET PO SCH (21:31)
[2019-01-22] MEDS: INSULIN GLARGINE,HUM 300 UNITS/3 ML CARTRIDGE SQ SCH (21:33)
[2019-01-22] MEDS: INSULIN REGULAR, HUMAN 300 UNIT/3 ML VIAL SQ PRN (21:35)
[2019-01-22] MEDS: IV D5/ 0.9% NACL 1,000 ML IV PRN (21:36)
[2019-01-22] MEDS: PIPERACILLIN/TAZOBACTAM/D5W 3.375 G in PREMIXED 1 EACH IV SCH (21:42)
[2019-01-22] MEDS: DIVALPROEX 500 MG TABLET.DR PO SCH (22:11)
[2019-01-22 23:53] VITALS: BP 116/50
[2019-01-23 00:53] LABS: *BILIRUBIN,URIN NEGATIVE (NEGATIVE); *BLOOD, URINE NEGATIVE (NEGATIVE); *CLARITY,URINE CLEAR (CLEAR); *COLOR,URINE YELLOW (YELLOW); *KETONES,URINE NEGATIVE (NEGATIVE); *UROBILINOGEN,URINE 0.2 E.U./dl (NORMAL); LEUKOCYTE ESTERASE ,URINE NEGATIVE (NEGATIVE); NITRITE, URINE NEGATIVE (NEGATIVE); PH,URINE 5.5 (5.0-8.0); UGLUCOSE NEGATIVE (NEGATIVE)
[2019-01-23] MEDS: HYDROMORPHONE 1 MG/1 ML DISP.SYRIN IV PRN ×6 (01:13→22:24)
[2019-01-23 01:21] LABS: BACTERIA,URINE NONE SEEN /HPF (NONE SEEN); MUCUS,URINE FEW /LPF (0-FEW); SQUAMOUS EPITHELIAL CELL,UR FEW /HPF (NONE SEEN)
[2019-01-23] MEDS: VANCOMYCIN IV 1,250 MG in IV NORMAL SALINE 500 ML IV SCH ×2 (01:21→19:53)
[2019-01-23 03:41] VITALS: BP 105/54
[2019-01-23] MEDS: PIPERACILLIN/TAZOBACTAM/D5W 3.375 G in PREMIXED 1 EACH IV SCH ×2 (05:13→13:18)
[2019-01-23] MEDS: BLOOD SUGAR DIAGNOSTIC 1 EACH STRIP VI SCH ×5 (05:14→20:17)
[2019-01-23] MEDS: LEVOTHYROXINE SODIUM 100 MCG TABLET PO SCH (06:45)
[2019-01-23 07:09] LABS: EOSINOPHILS # (AUTO) 0.3 K/uL (0.0-0.7); EOSINOPHILS % (AUTO) 8.5 % (0.0-7.0); HEMATOCRIT 26.6 % (36.7-47.1); HEMOGLOBIN 8.7 g/dL (12.5-16.3); LYMPHOCYTES # (AUTO) 1.4 K/uL (20.0-40.0); LYMPHOCYTES % (AUTO) 37.1 % (20.5-51.5); MEAN CORPUSCULAR HEMOGLOBIN 28.2 uug (23.8-33.4); MEAN CORPUSCULAR HGB CONC 33 g/dL (32.5-36.3); MEAN CORPUSCULAR VOLUME 86.4 fL (73.0-96.2); MONOCYTES # (AUTO) 0.3 K/uL (2.0-10.0); MONOCYTES % (AUTO) 8.7 % (0.0-11.0); NEUTROPHILS # (AUTO) 1.7 K/uL (1.8-8.9); NEUTROPHILS % (AUTO) 44.7 % (38.5-71.5); PLATELET COUNT (AUTO) 249 K/uL (152-348); RED BLOOD CELL COUNT(AUTO) 3.08 MIL/uL (4.06-5.63); WHITE BLOOD COUNT (AUTO) 3.8 K/uL (3.6-10.2)
[2019-01-23 07:24] LABS: BILIRUBIN,TOTAL 0.5 mg/dL (0.2-1.0); CREATININE 1.4 mg/dL (0.6-1.3); MAGNESIUM 1.7 mg/dL (1.8-2.4); PHOSPHOROUS 3.9 mg/dL (2.5-4.9); POTASSIUM 4.5 mmol/L (3.5-5.1); TOTAL PROTEIN, SERUM 7.5 g/dL (6.4-8.2)
[2019-01-23] MEDS ORDERED: LIDOCAINE HCL 1% 20 ML VIAL IJ PRN (08:15)
[2019-01-23] MEDS: REPAGLINIDE 1 MG TABLET PO SCH ×2 (08:21→17:05)
[2019-01-23] MEDS: ASCORBIC ACID 500 MG TABLET PO SCH (08:21)
[2019-01-23] MEDS: AMIODARONE HCL 200 MG TABLET PO SCH (08:22)
[2019-01-23] MEDS: BACLOFEN 10 MG TABLET PO SCH ×3 (08:23→17:05)
[2019-01-23] MEDS: ISOSORBIDE MONONITRATE 60 MG TAB.SR.24H PO SCH (08:24)
[2019-01-23] MEDS: CHOLECALCIFEROL 1,000 UNIT TABLET PO SCH (08:24)
[2019-01-23] MEDS: ZINC SULFATE 220 MG CAPSULE PO SCH (08:24)
[2019-01-23] MEDS: CARVEDILOL 3.125 MG TABLET PO SCH ×2 (08:25→17:20)
[2019-01-23] MEDS: PANTOPRAZOLE SODIUM 40 MG TABLET.DR PO SCH (08:25)
[2019-01-23] MEDS: MULTIVITAMINS,THERAPEUTIC TABLET PO SCH (08:25)
[2019-01-23] MEDS: DIVALPROEX 500 MG TABLET.DR PO SCH ×3 (08:25→17:06)
[2019-01-23] MEDS: GABAPENTIN 300 MG CAPSULE PO SCH ×2 (08:32→17:06)
[2019-01-23] MEDS: PROTEIN SUPPLEMENT (PROSTAT) 30 ML LIQUID PO SCH ×2 (08:32→17:06)
[2019-01-23] MEDS ORDERED: Medication Not On Formulary EA (Multivitamins (Multivitamin) 1 EACH) PO SCH (09:00)
[2019-01-23] MEDS ORDERED: Medication Not On Formulary EA (Protein Supplement (Promod) 30 ML) PO SCH (09:00)
[2019-01-23] MEDS ORDERED: BACLOFEN 5 MG PO SCH (09:00)
[2019-01-23] MEDS ORDERED: DIVALPROEX 500 MG TABLET.DR PO SCH (09:00)
[2019-01-23] MEDS ORDERED: Medication Not On Formulary EA (Ascorbic Acid (Vitamin C) 500 MG) PO SCH (09:00)
[2019-01-23 12:07] VITALS: BP 114/57
[2019-01-23] MEDS: INSULIN REGULAR, HUMAN 300 UNIT/3 ML VIAL SQ PRN ×3 (12:11→20:28)
[2019-01-23] MEDS: MAGNESIUM SULFATE/D5W 100 ML IV SCH ×2 (14:34→16:17)
[2019-01-23 16:23] VITALS: BP 118/55
[2019-01-23] MEDS: MECLIZINE HCL 25 MG TABLET PO PRN (17:06)
[2019-01-23] MEDS: diphenhydrAMINE/ZINC ACET CREAM 28 GM TUBE TP PRN (17:06)
[2019-01-23] MEDS: ONDANSETRON 4 MG/2 ML VIAL IV PRN (17:06)
[2019-01-23] MEDS: IV D5/ 0.9% NACL 1,000 ML IV PRN (18:18)
[2019-01-23] MEDS ORDERED: diphenhydrAMINE 1% CREAM 28.3 GM TUBE TP PRN (18:45)
[2019-01-23] MEDS ORDERED: CLOTRIMAZOLE 1% CREAM 30 GM TUBE TOP SCH (18:45)
[2019-01-23] MEDS: Z GUARD REMEDY PASTE 57 GM TUBE TOP SCH ×2 (19:03→20:18)
[2019-01-23] MEDS ORDERED: DEXTROSE 50% 50 ML DISP.SYRIN IV PRN (19:15)
[2019-01-23 19:24] VITALS: BP 121/63
[2019-01-23] MEDS: ATORVASTATIN 10 MG TABLET PO SCH (20:04)
[2019-01-23] MEDS: MONTELUKAST SODIUM 10 MG TABLET PO SCH (20:04)
[2019-01-23] MEDS: CULTURELLE CAPSULE PO SCH (20:04)
[2019-01-23] MEDS: TAMSULOSIN HCL 0.4 MG CAP.SR.24H PO SCH (20:04)
[2019-01-23] MEDS: INSULIN GLARGINE,HUM 300 UNITS/3 ML CARTRIDGE SQ SCH (20:27)
[2019-01-23] MEDS: MEROPENEM 0.5 G in IV NORMAL SALINE 50 ML IV SCH (22:13)
[2019-01-23 23:51] VITALS: BP 103/52
[2019-01-24 03:25] VITALS: BP 118/58
[2019-01-24] MEDS: LEVOTHYROXINE SODIUM 100 MCG TABLET PO SCH (06:02)
[2019-01-24] MEDS: MEROPENEM 0.5 G in IV NORMAL SALINE 50 ML IV SCH ×3 (06:02→22:54)
[2019-01-24] MEDS: BLOOD SUGAR DIAGNOSTIC 1 EACH STRIP VI SCH ×4 (06:20→21:02)
[2019-01-24] MEDS: PROTEIN SUPPLEMENT (PROSTAT) 30 ML LIQUID PO SCH ×2 (09:00→16:51)
[2019-01-24] MEDS: Z GUARD REMEDY PASTE 57 GM TUBE TOP SCH ×2 (09:00→23:10)
[2019-01-24] MEDS: GABAPENTIN 300 MG CAPSULE PO SCH ×2 (09:56→16:44)
[2019-01-24] MEDS: CHOLECALCIFEROL 1,000 UNIT TABLET PO SCH (09:56)
[2019-01-24] MEDS: AMIODARONE HCL 200 MG TABLET PO SCH (09:57)
[2019-01-24] MEDS: CARVEDILOL 3.125 MG TABLET PO SCH ×2 (09:58→18:38)
[2019-01-24] MEDS: ISOSORBIDE MONONITRATE 60 MG TAB.SR.24H PO SCH (09:58)
[2019-01-24] MEDS: BACLOFEN 10 MG TABLET PO SCH ×3 (09:59→16:45)
[2019-01-24] MEDS: ASCORBIC ACID 500 MG TABLET PO SCH (09:59)
[2019-01-24] MEDS: DIVALPROEX 500 MG TABLET.DR PO SCH ×3 (09:59→16:45)
[2019-01-24] MEDS: MULTIVITAMINS,THERAPEUTIC TABLET PO SCH (10:00)
[2019-01-24] MEDS: REPAGLINIDE 1 MG TABLET PO SCH ×2 (10:01→16:45)
[2019-01-24] MEDS: PANTOPRAZOLE SODIUM 40 MG TABLET.DR PO SCH (10:07)
[2019-01-24] MEDS: INSULIN REGULAR, HUMAN 300 UNIT/3 ML VIAL SQ PRN ×3 (10:07→16:50)
[2019-01-24] MEDS: ZINC SULFATE 220 MG CAPSULE PO SCH (10:07)
[2019-01-24] MEDS: CULTURELLE CAPSULE PO SCH ×2 (10:22→20:47)
[2019-01-24] MEDS: HYDROMORPHONE 1 MG/1 ML DISP.SYRIN IV PRN ×4 (10:25→23:09)
[2019-01-24 10:36] LABS: CREATININE 1.5 mg/dL (0.6-1.3); MAGNESIUM 2.2 mg/dL (1.8-2.4); POTASSIUM 4.9 mmol/L (3.5-5.1)
[2019-01-24 11:22] VITALS: BP 133/61
[2019-01-24] MEDS: VANCOMYCIN IV 1,250 MG in IV NORMAL SALINE 500 ML IV SCH (14:48)
[2019-01-24 15:38] VITALS: BP 122/60
[2019-01-24] MEDS ORDERED: BISACODYL 10 MG SUPP.RECT RC PRN (16:45)
[2019-01-24] MEDS: diphenhydrAMINE/ZINC ACET CREAM 28 GM TUBE TP PRN (16:53)
[2019-01-24] MEDS: MUPIROCIN 2% OINT 22 GM TUBE NS SCH ×2 (16:53→20:49)
[2019-01-24 19:28] VITALS: BP 127/63
[2019-01-24] MEDS: MONTELUKAST SODIUM 10 MG TABLET PO SCH (20:47)
[2019-01-24] MEDS: TAMSULOSIN HCL 0.4 MG CAP.SR.24H PO SCH (20:47)
[2019-01-24] MEDS: ATORVASTATIN 10 MG TABLET PO SCH (20:47)
[2019-01-24] MEDS: INSULIN GLARGINE,HUM 300 UNITS/3 ML CARTRIDGE SQ SCH (20:56)
[2019-01-25] MEDS: HYDROMORPHONE 1 MG/1 ML DISP.SYRIN IV PRN ×4 (03:19→18:32)
[2019-01-25 03:25] VITALS: BP 126/62
[2019-01-25] MEDS: MEROPENEM 0.5 G in IV NORMAL SALINE 50 ML IV SCH ×2 (05:10→15:12)
[2019-01-25] MEDS: BLOOD SUGAR DIAGNOSTIC 1 EACH STRIP VI SCH ×4 (05:44→22:45)
[2019-01-25] MEDS: LEVOTHYROXINE SODIUM 100 MCG TABLET PO SCH (05:44)
[2019-01-25] MEDS: FENTANYL 25 MCG/HR PATCH EACH TD SCH (09:00)
[2019-01-25] MEDS: BACLOFEN 10 MG TABLET PO SCH ×3 (09:09→16:54)
[2019-01-25] MEDS: MULTIVITAMINS,THERAPEUTIC TABLET PO SCH (09:10)
[2019-01-25] MEDS: AMIODARONE HCL 200 MG TABLET PO SCH (09:12)
[2019-01-25] MEDS: CHOLECALCIFEROL 1,000 UNIT TABLET PO SCH (09:12)
[2019-01-25] MEDS: ZINC SULFATE 220 MG CAPSULE PO SCH (09:12)
[2019-01-25] MEDS: PANTOPRAZOLE SODIUM 40 MG TABLET.DR PO SCH (09:12)
[2019-01-25] MEDS: ASCORBIC ACID 500 MG TABLET PO SCH (09:14)
[2019-01-25] MEDS: CULTURELLE CAPSULE PO SCH ×2 (09:14→21:32)
[2019-01-25] MEDS: DIVALPROEX 500 MG TABLET.DR PO SCH ×3 (09:14→16:51)
[2019-01-25] MEDS: ISOSORBIDE MONONITRATE 60 MG TAB.SR.24H PO SCH (09:14)
[2019-01-25] MEDS: GABAPENTIN 300 MG CAPSULE PO SCH ×2 (09:14→16:52)
[2019-01-25] MEDS: CARVEDILOL 3.125 MG TABLET PO SCH ×2 (09:16→17:01)
[2019-01-25] MEDS: REPAGLINIDE 1 MG TABLET PO SCH ×2 (09:16→16:53)
[2019-01-25] MEDS: PROTEIN SUPPLEMENT (PROSTAT) 30 ML LIQUID PO SCH ×2 (09:20→16:54)
[2019-01-25] MEDS: MUPIROCIN 2% OINT 22 GM TUBE NS SCH ×2 (09:22→21:31)
[2019-01-25] MEDS: Z GUARD REMEDY PASTE 57 GM TUBE TOP SCH ×2 (09:22→22:40)
[2019-01-25 11:04] VITALS: BP 117/58
[2019-01-25] MEDS: INSULIN REGULAR, HUMAN 300 UNIT/3 ML VIAL SQ PRN ×3 (12:15→22:54)
[2019-01-25 15:00] VITALS: BP 140/61
[2019-01-25] MEDS ORDERED: VANCOMYCIN IV 1,250 MG in IV DEXTROSE 5% 500 ML IV SCH (15:00)
[2019-01-25 20:00] VITALS: BP 111/51
[2019-01-25] MEDS: ATORVASTATIN 10 MG TABLET PO SCH (21:32)
[2019-01-25] MEDS: FERROUS SULFATE 325 MG TABEC PO SCH (21:32)
[2019-01-25] MEDS: TAMSULOSIN HCL 0.4 MG CAP.SR.24H PO SCH (21:32)
[2019-01-25] MEDS: MONTELUKAST SODIUM 10 MG TABLET PO SCH (21:32)
[2019-01-25] MEDS: INSULIN GLARGINE,HUM 300 UNITS/3 ML CARTRIDGE SQ SCH (22:53)
[2019-01-25] MEDS ORDERED: DEXTROSE 5% IV SCH (23:00)
[2019-01-25] MEDS ORDERED: GENTAMICIN SULFATE IV SCH (23:00)
[2019-01-26] MEDS: LINEZOLID 600 MG TABLET PO SCH ×3 (00:30→20:33)
[2019-01-26] MEDS ORDERED: GENTAMICIN SULFATE 80 MG/2 ML VIAL ONE (00:51)
[2019-01-26 05:24] VITALS: BP 145/76
[2019-01-26] MEDS: MECLIZINE HCL 25 MG TABLET PO PRN (05:46)
[2019-01-26] MEDS: LEVOTHYROXINE SODIUM 100 MCG TABLET PO SCH (06:42)
[2019-01-26] MEDS: BLOOD SUGAR DIAGNOSTIC 1 EACH STRIP VI SCH ×4 (07:03→21:33)
[2019-01-26 07:04] LABS: BASOPHILS % (AUTO) 0.6 % (0.0-2.0); EOSINOPHILS # (AUTO) 0.3 K/uL (0.0-0.7); EOSINOPHILS % (AUTO) 5.3 % (0.0-7.0); HEMATOCRIT 26.2 % (36.7-47.1); HEMOGLOBIN 8.5 g/dL (12.5-16.3); LYMPHOCYTES # (AUTO) 1.3 K/uL (20.0-40.0); LYMPHOCYTES % (AUTO) 21.3 % (20.5-51.5); MEAN CORPUSCULAR HEMOGLOBIN 27.9 uug (23.8-33.4); MEAN CORPUSCULAR HGB CONC 32 g/dL (32.5-36.3); MEAN CORPUSCULAR VOLUME 86.1 fL (73.0-96.2); MONOCYTES # (AUTO) 0.6 K/uL (2.0-10.0); MONOCYTES % (AUTO) 8.9 % (0.0-11.0); NEUTROPHILS % (AUTO) 63.9 % (38.5-71.5); PLATELET COUNT (AUTO) 230 K/uL (152-348); RED BLOOD CELL COUNT(AUTO) 3.05 MIL/uL (4.06-5.63); WHITE BLOOD COUNT (AUTO) 6.3 K/uL (3.6-10.2)
[2019-01-26 07:23] LABS: BILIRUBIN,TOTAL 0.3 mg/dL (0.2-1.0); CREATININE 1.4 mg/dL (0.6-1.3); MAGNESIUM 1.9 mg/dL (1.8-2.4); PHOSPHOROUS 2.6 mg/dL (2.5-4.9); POTASSIUM 5.4 mmol/L (3.5-5.1); TOTAL PROTEIN, SERUM 6.9 g/dL (6.4-8.2)
[2019-01-26 07:55] VITALS: BP 142/64
[2019-01-26] MEDS: MUPIROCIN 2% OINT 22 GM TUBE NS SCH ×2 (09:00→20:34)
[2019-01-26] MEDS: PROTEIN SUPPLEMENT (PROSTAT) 30 ML LIQUID PO SCH ×2 (09:00→17:00)
[2019-01-26] MEDS: INSULIN REGULAR, HUMAN 300 UNIT/3 ML VIAL SQ PRN ×3 (09:14→21:47)
[2019-01-26] MEDS: ASCORBIC ACID 500 MG TABLET PO SCH (09:27)
[2019-01-26] MEDS: PANTOPRAZOLE SODIUM 40 MG TABLET.DR PO SCH (09:28)
[2019-01-26] MEDS: CHOLECALCIFEROL 1,000 UNIT TABLET PO SCH (09:29)
[2019-01-26] MEDS: MULTIVITAMINS,THERAPEUTIC TABLET PO SCH (09:29)
[2019-01-26] MEDS: ISOSORBIDE MONONITRATE 60 MG TAB.SR.24H PO SCH (09:29)
[2019-01-26] MEDS: ZINC SULFATE 220 MG CAPSULE PO SCH (09:30)
[2019-01-26] MEDS: AMIODARONE HCL 200 MG TABLET PO SCH (09:30)
[2019-01-26] MEDS: CULTURELLE CAPSULE PO SCH ×2 (09:30→20:33)
[2019-01-26] MEDS: DIVALPROEX 500 MG TABLET.DR PO SCH ×3 (09:31→18:03)
[2019-01-26] MEDS: GABAPENTIN 300 MG CAPSULE PO SCH ×2 (09:31→18:02)
[2019-01-26] MEDS: FERROUS SULFATE 325 MG TABEC PO SCH ×2 (09:31→20:32)
[2019-01-26] MEDS: CARVEDILOL 3.125 MG TABLET PO SCH ×2 (09:54→18:00)
[2019-01-26] MEDS: REPAGLINIDE 1 MG TABLET PO SCH ×2 (09:54→17:43)
[2019-01-26] MEDS: RIFAMPIN 300 MG CAPSULE PO SCH (10:30)
[2019-01-26] MEDS: BACLOFEN 10 MG TABLET PO SCH ×3 (10:31→18:02)
[2019-01-26] MEDS: Z GUARD REMEDY PASTE 57 GM TUBE TOP SCH ×2 (10:35→20:35)
[2019-01-26] MEDS ORDERED: SODIUM POLYSTYRENE SULF POWDER 15 GM UDC PO ONE (11:00)
[2019-01-26 11:34] VITALS: BP 128/59
[2019-01-26 15:06] VITALS: BP 119/56
[2019-01-26] MEDS: HYDROMORPHONE 1 MG/1 ML DISP.SYRIN IV PRN ×2 (16:12→20:41)
[2019-01-26 18:38] VITALS: BP 108/64
[2019-01-26] MEDS ORDERED: FLEET ENEMA 133 ML BOTTLE RC PRN (19:00)
[2019-01-26 20:19] VITALS: BP 115/59
[2019-01-26] MEDS: MONTELUKAST SODIUM 10 MG TABLET PO SCH (20:28)
[2019-01-26] MEDS: ATORVASTATIN 10 MG TABLET PO SCH (20:33)
[2019-01-26] MEDS: TAMSULOSIN HCL 0.4 MG CAP.SR.24H PO SCH (20:33)
[2019-01-26] MEDS: INSULIN GLARGINE,HUM 300 UNITS/3 ML CARTRIDGE SQ SCH (21:46)
[2019-01-27] MEDS: HYDROMORPHONE 1 MG/1 ML DISP.SYRIN IV PRN ×4 (00:57→13:04)
[2019-01-27] MEDS: DEXTROSE 5% IV SCH (01:13)
[2019-01-27] MEDS: GENTAMICIN SULFATE IV SCH (01:13)
[2019-01-27 04:05] VITALS: BP 125/50
[2019-01-27] MEDS: ONDANSETRON 4 MG/2 ML VIAL IV PRN (04:21)
[2019-01-27] MEDS: LEVOTHYROXINE SODIUM 100 MCG TABLET PO SCH (06:33)
[2019-01-27] MEDS: BLOOD SUGAR DIAGNOSTIC 1 EACH STRIP VI SCH ×4 (06:43→21:59)
[2019-01-27] MEDS: CHOLECALCIFEROL 1,000 UNIT TABLET PO SCH (08:54)
[2019-01-27] MEDS: GABAPENTIN 300 MG CAPSULE PO SCH ×2 (08:54→17:14)
[2019-01-27] MEDS: MUPIROCIN 2% OINT 22 GM TUBE NS SCH ×2 (08:54→21:36)
[2019-01-27] MEDS: CARVEDILOL 3.125 MG TABLET PO SCH ×2 (08:54→18:23)
[2019-01-27] MEDS: DIVALPROEX 500 MG TABLET.DR PO SCH ×3 (08:54→17:14)
[2019-01-27] MEDS: ASCORBIC ACID 500 MG TABLET PO SCH (08:54)
[2019-01-27] MEDS: CULTURELLE CAPSULE PO SCH ×2 (08:55→21:38)
[2019-01-27] MEDS: AMIODARONE HCL 200 MG TABLET PO SCH (08:55)
[2019-01-27] MEDS: BACLOFEN 10 MG TABLET PO SCH ×3 (08:55→17:14)
[2019-01-27] MEDS: ISOSORBIDE MONONITRATE 60 MG TAB.SR.24H PO SCH (08:55)
[2019-01-27] MEDS: ZINC SULFATE 220 MG CAPSULE PO SCH (08:56)
[2019-01-27] MEDS: REPAGLINIDE 1 MG TABLET PO SCH ×2 (08:56→17:14)
[2019-01-27] MEDS: FERROUS SULFATE 325 MG TABEC PO SCH ×2 (08:56→21:38)
[2019-01-27] MEDS: MULTIVITAMINS,THERAPEUTIC TABLET PO SCH (08:56)
[2019-01-27] MEDS: RIFAMPIN 300 MG CAPSULE PO SCH (08:57)
[2019-01-27] MEDS: PROTEIN SUPPLEMENT (PROSTAT) 30 ML LIQUID PO SCH ×2 (08:57→17:19)
[2019-01-27] MEDS: LINEZOLID 600 MG TABLET PO SCH ×2 (08:57→21:39)
[2019-01-27] MEDS: PANTOPRAZOLE SODIUM 40 MG TABLET.DR PO SCH (08:57)
[2019-01-27] MEDS: Z GUARD REMEDY PASTE 57 GM TUBE TOP SCH ×2 (08:58→22:00)
[2019-01-27] MEDS ORDERED: SODIUM POLYSTYRENE SULFONATE 15 G/60 ML LIQUID UDC PO ONE (11:30)
[2019-01-27] MEDS: INSULIN REGULAR, HUMAN 300 UNIT/3 ML VIAL SQ PRN ×2 (12:48→21:42)
[2019-01-27 12:55] VITALS: BP 112/75
[2019-01-27 13:04] VITALS: BP 104/55
[2019-01-27 16:45] VITALS: BP 115/61
[2019-01-27] MEDS: HYDROMORPHONE 2 MG/1 ML DISP.SYRIN IV PRN ×2 (17:14→21:08)
[2019-01-27 20:21] VITALS: BP 108/50
[2019-01-27] MEDS: MONTELUKAST SODIUM 10 MG TABLET PO SCH (21:38)
[2019-01-27] MEDS: TAMSULOSIN HCL 0.4 MG CAP.SR.24H PO SCH (21:38)
[2019-01-27] MEDS: ATORVASTATIN 10 MG TABLET PO SCH (21:38)
[2019-01-27] MEDS: INSULIN GLARGINE,HUM 300 UNITS/3 ML CARTRIDGE SQ SCH (21:41)
[2019-01-28] MEDS: DEXTROSE 5% IV SCH (01:28)
[2019-01-28] MEDS: GENTAMICIN SULFATE IV SCH (01:28)
[2019-01-28 06:20] VITALS: BP 110/52
[2019-01-28] MEDS: LEVOTHYROXINE SODIUM 100 MCG TABLET PO SCH ×2 (06:35→06:49)
[2019-01-28 06:39] LABS: BASOPHILS % (AUTO) 0.7 % (0.0-2.0); EOSINOPHILS # (AUTO) 0.3 K/uL (0.0-0.7); EOSINOPHILS % (AUTO) 7.4 % (0.0-7.0); HEMATOCRIT 25.1 % (36.7-47.1); LYMPHOCYTES # (AUTO) 1.4 K/uL (20.0-40.0); LYMPHOCYTES % (AUTO) 30.9 % (20.5-51.5); MEAN CORPUSCULAR HEMOGLOBIN 27.7 uug (23.8-33.4); MEAN CORPUSCULAR HGB CONC 32 g/dL (32.5-36.3); MEAN CORPUSCULAR VOLUME 86.6 fL (73.0-96.2); MONOCYTES # (AUTO) 0.4 K/uL (2.0-10.0); MONOCYTES % (AUTO) 9.2 % (0.0-11.0); NEUTROPHILS # (AUTO) 2.3 K/uL (1.8-8.9); NEUTROPHILS % (AUTO) 51.8 % (38.5-71.5); PLATELET COUNT (AUTO) 230 K/uL (152-348); WHITE BLOOD COUNT (AUTO) 4.5 K/uL (3.6-10.2)
[2019-01-28] MEDS: BLOOD SUGAR DIAGNOSTIC 1 EACH STRIP VI SCH ×4 (07:30→21:41)
[2019-01-28 08:09] LABS: BILIRUBIN,TOTAL 0.5 mg/dL (0.2-1.0); CREATININE 1.4 mg/dL (0.6-1.3); MAGNESIUM 1.9 mg/dL (1.8-2.4); PHOSPHOROUS 4.6 mg/dL (2.5-4.9); POTASSIUM 4.6 mmol/L (3.5-5.1); TOTAL PROTEIN, SERUM 6.8 g/dL (6.4-8.2)
[2019-01-28] MEDS: CARVEDILOL 3.125 MG TABLET PO SCH ×2 (08:53→17:46)
[2019-01-28] MEDS: DIVALPROEX 500 MG TABLET.DR PO SCH ×3 (08:53→17:33)
[2019-01-28] MEDS: CHOLECALCIFEROL 1,000 UNIT TABLET PO SCH (08:53)
[2019-01-28] MEDS: GABAPENTIN 300 MG CAPSULE PO SCH ×2 (08:53→17:33)
[2019-01-28] MEDS: PANTOPRAZOLE SODIUM 40 MG TABLET.DR PO SCH (08:54)
[2019-01-28] MEDS: ZINC SULFATE 220 MG CAPSULE PO SCH (08:54)
[2019-01-28] MEDS: ASCORBIC ACID 500 MG TABLET PO SCH (08:54)
[2019-01-28] MEDS: FERROUS SULFATE 325 MG TABEC PO SCH ×2 (08:54→21:44)
[2019-01-28] MEDS: CULTURELLE CAPSULE PO SCH ×2 (08:54→21:43)
[2019-01-28] MEDS: AMIODARONE HCL 200 MG TABLET PO SCH (08:54)
[2019-01-28] MEDS: RIFAMPIN 300 MG CAPSULE PO SCH (08:55)
[2019-01-28] MEDS: MULTIVITAMINS,THERAPEUTIC TABLET PO SCH (08:55)
[2019-01-28] MEDS: ISOSORBIDE MONONITRATE 60 MG TAB.SR.24H PO SCH (08:55)
[2019-01-28] MEDS: REPAGLINIDE 1 MG TABLET PO SCH ×2 (08:56→17:42)
[2019-01-28] MEDS: FENTANYL 25 MCG/HR PATCH EACH TD SCH (08:56)
[2019-01-28] MEDS: LINEZOLID 600 MG TABLET PO SCH ×2 (08:56→21:44)
[2019-01-28] MEDS: Z GUARD REMEDY PASTE 57 GM TUBE TOP SCH ×2 (08:57→21:45)
[2019-01-28] MEDS: MUPIROCIN 2% OINT 22 GM TUBE NS SCH ×2 (09:02→21:44)
[2019-01-28] MEDS: PROTEIN SUPPLEMENT (PROSTAT) 30 ML LIQUID PO SCH ×2 (09:02→17:42)
[2019-01-28] MEDS: BACLOFEN 10 MG TABLET PO SCH ×3 (09:02→17:33)
[2019-01-28] MEDS: ONDANSETRON 4 MG/2 ML VIAL IV PRN ×2 (11:08→23:18)
[2019-01-28 11:57] VITALS: BP 158/78
[2019-01-28] MEDS ORDERED: RIFA300C2 PO (12:34)
[2019-01-28] MEDS ORDERED: LACT1CAP57 PO (12:34)
[2019-01-28] MEDS: HYDROMORPHONE 2 MG/1 ML DISP.SYRIN IV PRN ×3 (14:54→23:19)
[2019-01-28 16:18] VITALS: BP 105/59
[2019-01-28] MEDS: INSULIN REGULAR, HUMAN 300 UNIT/3 ML VIAL SQ PRN ×2 (17:38→21:46)
[2019-01-28 20:00] VITALS: BP 115/59
[2019-01-28] MEDS: ATORVASTATIN 10 MG TABLET PO SCH (21:43)
[2019-01-28] MEDS: MONTELUKAST SODIUM 10 MG TABLET PO SCH (21:43)
[2019-01-28] MEDS: TAMSULOSIN HCL 0.4 MG CAP.SR.24H PO SCH (21:43)
[2019-01-28] MEDS: INSULIN GLARGINE,HUM 300 UNITS/3 ML CARTRIDGE SQ SCH (21:45)
[2019-01-29] MEDS: GENTAMICIN SULFATE IV SCH (01:51)
[2019-01-29] MEDS: DEXTROSE 5% IV SCH (01:51)
[2019-01-29] MEDS: MECLIZINE HCL 25 MG TABLET PO PRN ×2 (03:26→12:53)
[2019-01-29] MEDS: HYDROMORPHONE 2 MG/1 ML DISP.SYRIN IV PRN ×3 (03:27→12:45)
[2019-01-29] MEDS: ONDANSETRON 4 MG/2 ML VIAL IV PRN ×3 (05:15→15:50)
[2019-01-29 06:27] VITALS: BP 132/60
[2019-01-29] MEDS: LEVOTHYROXINE SODIUM 100 MCG TABLET PO SCH (06:42)
[2019-01-29] MEDS: BLOOD SUGAR DIAGNOSTIC 1 EACH STRIP VI SCH ×3 (06:42→16:30)
[2019-01-29] MEDS: INSULIN REGULAR, HUMAN 300 UNIT/3 ML VIAL SQ PRN ×2 (08:38→12:03)
[2019-01-29] MEDS: ZINC SULFATE 220 MG CAPSULE PO SCH (08:39)
[2019-01-29] MEDS: DIVALPROEX 500 MG TABLET.DR PO SCH ×3 (08:39→17:09)
[2019-01-29] MEDS: GABAPENTIN 300 MG CAPSULE PO SCH ×2 (08:41→17:09)
[2019-01-29] MEDS: BACLOFEN 10 MG TABLET PO SCH ×3 (08:41→17:09)
[2019-01-29] MEDS: ISOSORBIDE MONONITRATE 60 MG TAB.SR.24H PO SCH (08:42)
[2019-01-29] MEDS: ASCORBIC ACID 500 MG TABLET PO SCH (08:42)
[2019-01-29] MEDS: FERROUS SULFATE 325 MG TABEC PO SCH (08:42)
[2019-01-29] MEDS: CHOLECALCIFEROL 1,000 UNIT TABLET PO SCH (08:42)
[2019-01-29] MEDS: CULTURELLE CAPSULE PO SCH (08:42)
[2019-01-29] MEDS: REPAGLINIDE 1 MG TABLET PO SCH ×2 (08:43→17:10)
[2019-01-29] MEDS: MULTIVITAMINS,THERAPEUTIC TABLET PO SCH (08:43)
[2019-01-29] MEDS: AMIODARONE HCL 200 MG TABLET PO SCH (08:43)
[2019-01-29] MEDS: PANTOPRAZOLE SODIUM 40 MG TABLET.DR PO SCH (08:43)
[2019-01-29] MEDS: CARVEDILOL 3.125 MG TABLET PO SCH (08:43)
[2019-01-29] MEDS: PROTEIN SUPPLEMENT (PROSTAT) 30 ML LIQUID PO SCH ×2 (08:44→17:10)
[2019-01-29] MEDS: RIFAMPIN 300 MG CAPSULE PO SCH (08:44)
[2019-01-29] MEDS: MUPIROCIN 2% OINT 22 GM TUBE NS SCH (08:44)
[2019-01-29] MEDS: Z GUARD REMEDY PASTE 57 GM TUBE TOP SCH (08:44)
[2019-01-29] MEDS: LINEZOLID 600 MG TABLET PO SCH (08:44)
[2019-01-29 11:02] VITALS: BP 118/59
[2019-01-29 14:39] VITALS: BP 121/54
[2019-01-29 17:58] VITALS: BP 142/66
== END 2019-01-29 18:08 | DRG 981 ==
LOC: ER 12:59 → TELE3 15:00 → MEDSURG3 01-24 13:15
PROVIDERS: ADMIT Internal Medicine; ATTEND Internal Medicine
PROC: 0QBQ0ZZ Excision of Right Toe Phalanx, Open Approach (ICD-10-PCS; principal; 2019-01-23)
PROC: 02HV33Z Insertion of Infusion Device into Superior Vena Cava, Percutaneous Approach (ICD-10-PCS; 2019-01-28)
PROC: B548ZZA Ultrasonography of Superior Vena Cava, Guidance (ICD-10-PCS; 2019-01-28)
DX: L03.115 Cellulitis of right lower limb (principal); N17.0 Acute kidney failure with tubular necrosis; E43 Unspecified severe protein-calorie malnutrition; M00.071 Staphylococcal arthritis, right ankle and foot; I13.0 Hypertensive heart and chronic kidney disease with heart failure and stage 1 through stage 4 chronic kidney disease, or unspecified chronic kidney disease; M86.8X7 Other osteomyelitis, ankle and foot; I50.32 Chronic diastolic (congestive) heart failure; M00.871 Arthritis due to other bacteria, right ankle and foot; M00.9 Pyogenic arthritis, unspecified; E87.1 Hypo-osmolality and hyponatremia; D68.59 Other primary thrombophilia; J98.11 Atelectasis; M86.9 Osteomyelitis, unspecified; E11.51 Type 2 diabetes mellitus with diabetic peripheral angiopathy without gangrene; E11.42 Type 2 diabetes mellitus with diabetic polyneuropathy; L97.514 Non-pressure chronic ulcer of other part of right foot with necrosis of bone; I70.235 Atherosclerosis of native arteries of right leg with ulceration of other part of foot; L08.9 Local infection of the skin and subcutaneous tissue, unspecified; I12.9 Hypertensive chronic kidney disease with stage 1 through stage 4 chronic kidney disease, or unspecified chronic kidney disease; E11.22 Type 2 diabetes mellitus with diabetic chronic kidney disease; N18.9 Chronic kidney disease, unspecified; Z79.4 Long term (current) use of insulin; G40.909 Epilepsy, unspecified, not intractable, without status epilepticus; I25.10 Atherosclerotic heart disease of native coronary artery without angina pectoris; Z95.5 Presence of coronary angioplasty implant and graft; Z89.512 Acquired absence of left leg below knee; E78.5 Hyperlipidemia, unspecified; K21.9 Gastro-esophageal reflux disease without esophagitis; E11.69 Type 2 diabetes mellitus with other specified complication; B95.62 Methicillin resistant Staphylococcus aureus infection as the cause of diseases classified elsewhere; Z16.24 Resistance to multiple antibiotics; B96.89 Other specified bacterial agents as the cause of diseases classified elsewhere; I48.0 Paroxysmal atrial fibrillation; L30.4 Erythema intertrigo; L21.9 Seborrheic dermatitis, unspecified; J44.9 Chronic obstructive pulmonary disease, unspecified; E11.65 Type 2 diabetes mellitus with hyperglycemia; Z68.27 Body mass index [BMI] 27.0-27.9, adult; E87.5 Hyperkalemia; E11.621 Type 2 diabetes mellitus with foot ulcer; E03.9 Hypothyroidism, unspecified; D63.8 Anemia in other chronic diseases classified elsewhere; D50.9 Iron deficiency anemia, unspecified; F32.9 Major depressive disorder, single episode, unspecified; F95.2 Tourette's disorder; F90.9 Attention-deficit hyperactivity disorder, unspecified type; G25.0 Essential tremor; H40.9 Unspecified glaucoma; G89.4 Chronic pain syndrome; K59.00 Constipation, unspecified; L03.039 Cellulitis of unspecified toe; M89.8X9 Other specified disorders of bone, unspecified site; M54.10 Radiculopathy, site unspecified; M19.071 Primary osteoarthritis, right ankle and foot; N40.0 Benign prostatic hyperplasia without lower urinary tract symptoms; Z79.899 Other long term (current) drug therapy; Z79.891 Long term (current) use of opiate analgesic; Z79.890 Hormone replacement therapy; Z79.01 Long term (current) use of anticoagulants; Z99.3 Dependence on wheelchair
CPT/HCPCS: 36415; 36569; 70030-TC; 71045; 73630; 80164; 83605; 83735; 84100; 85025; 85730; 87040; 87070; 87077; 87086; 93005; A4217; A4663; C1751; G0378; J1170; J1580; J1815; J2185; J2405; J2543; J3370; J3475; J3490; J7040; J7042; J7050; J7060; J8597

== ENCOUNTER 2019-02-20 21:22 | Inpatient (IN) | payer MEDICARE, OTHER ==
[~2019-02-20] VITALS: Ht 180.3 cm; Wt 107.0 kg
[~2019-02-20 21:22] MED LIST changes: -ALBU8.5H8 IH; +AMIO100T4 PO; -AMIO200T4 PO; +ASCO500C18 PO; -ASCO500T10 PO; +BLOO-140 IN; -CALC-494 PO; -CERA453C TP; +CRAN450C PO; -CRAN450T3 PO; -DEXT38GE12 PO; -DEXT50DI8 IV; -DIPH28CR3 TOP; +DIPH35CR TP; +DIVA-78 PO; -DIVA500T2 PO; +FENT1PAT4 TD; -FERR325T28 PO; +GLUC1KIT IJ; -GLUC1KIT IM; -HYDR28.34 TOP; -HYDR4TAB4 PO; -INSU100V28 SQ; +INSU100V7 SQ; -Insulin Glargine,Hum SQ; +LACT1CAP57 PO; -LOPE2CAP40 PO; +LOPE2TAB25 PO; -MERO500V IV; -MULT-225 PO; +MULT1TAB73 PO; -PANT40TA2 PO; +PANT40TA4 PO; +RIFA300C2 PO; -RXVAN XX; -ZINC220C8 PO; +ZINC220T PO
--- NOTE | 2019-02-20 22:00 | NUR ---
Patient bib pvt ambulance from [facility]. Sent by Dr. Blake. Patient came for c/o generalized weakness. Respiratory even and labored, no cough no sob. 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 No GI/ distress. Patient in bed at lowest position, sr upx2, call light within reach. Fall precautions implemented per protocol.
[2019-02-20] MEDS ORDERED: SODIUM CHLORIDE 0.45% (22:21)
[2019-02-20] MEDS ORDERED: BENZ1LOZ58 MM (22:21)
[2019-02-20] MEDS ORDERED: ONDA4TAB5 PO (22:21)
[2019-02-20] MEDS ORDERED: GUAI200T5 PO (22:21)
[2019-02-20] MEDS ORDERED: MELA3TAB PO (22:21)
[2019-02-20] MEDS ORDERED: ALBU6.7H IH (22:21)
[2019-02-20] MEDS ORDERED: INSU100V7 SQ (22:21)
[2019-02-20] MEDS ORDERED: ISOS60TA4 PO (22:21)
[2019-02-20] MEDS ORDERED: CARVEDILOL 6.25 MG (22:21)
[2019-02-20] MEDS ORDERED: HYDR2TAB8 PO (22:21)
[2019-02-20] MEDS ORDERED: COLL30OI TOP (22:21)
[2019-02-20] MEDS ORDERED: LINE600T PO (22:21)
[2019-02-20] MEDS ORDERED: IV NORMAL SALINE 1000 ML BAG IV ONE (22:45)
--- NOTE | 2019-02-20 23:03 | NUR ---
PATIENT OUT OF UNIT FOR CT SCAN VIA GURNY
[2019-02-20 23:07] LABS: BASOPHILS % (AUTO) 0.3 % (0.0-2.0); EOSINOPHILS # (AUTO) 0.6 K/uL (0.0-0.7); EOSINOPHILS % (AUTO) 9.9 % (0.0-7.0); HEMATOCRIT 22.8 % (36.7-47.1); LYMPHOCYTES % (AUTO) 15.8 % (20.5-51.5); MEAN CORPUSCULAR HEMOGLOBIN 27.2 uug (23.8-33.4); MEAN CORPUSCULAR HGB CONC 32 g/dL (32.5-36.3); MEAN CORPUSCULAR VOLUME 85.4 fL (73.0-96.2); MONOCYTES # (AUTO) 0.2 K/uL (2.0-10.0); MONOCYTES % (AUTO) 3.5 % (0.0-11.0); NEUTROPHILS # (AUTO) 4.6 K/uL (1.8-8.9); NEUTROPHILS % (AUTO) 70.5 % (38.5-71.5); PLATELET COUNT (AUTO) 67 K/uL (152-348); RED BLOOD CELL COUNT(AUTO) 2.67 MIL/uL (4.06-5.63); WHITE BLOOD COUNT (AUTO) 6.5 K/uL (3.6-10.2)
[2019-02-20 23:13] LABS: CARBON DIOXIDE 22 mmol/L (21-32); CHLORIDE 101 mmol/L (98-107); CREATININE 4.3 mg/dL (0.6-1.3); GLUCOSE 104 mg/dL (74-106); POTASSIUM 5.4 mmol/L (3.5-5.1); UREA NITROGEN, BLOOD 52 mg/dL (7-18)
--- NOTE | 2019-02-20 23:18 | NUR ---
patient returned back from CT scan
[2019-02-20 23:23] LABS: HEMOGLOBIN 7.3 g/dL (12.5-16.3)
[2019-02-20 23:26] LABS: ALANINE AMINOTRANSFERASE 9 U/L (16-63); ALKALINE PHOSPHATASE 64 U/L (50-136); ASPARTATE AMINOTRANSFERASE 12 U/L (15-37); BILIRUBIN,DIRECT 0.1 mg/dL (0.0-0.2); BILIRUBIN,TOTAL 0.3 mg/dL (0.2-1.0); THYROID STIMULATING HORMONE 4.842 mIU/mL (0.358-3.740); TOTAL PROTEIN, SERUM 7.3 g/dL (6.4-8.2)
[2019-02-20 23:29] LABS: ACETAMINOPHEN < 2.0 ug/mL (10-30)
[2019-02-20 23:42] LABS: ETHANOL 4 MG/DL (0-0)
[2019-02-21] VITALS (9 sets, daily range): BP systolic 97–139; BP diastolic 50–68
[2019-02-21 00:12] LABS: *BILIRUBIN,URIN NEGATIVE (NEGATIVE); *CLARITY,URINE CLEAR (CLEAR); *COLOR,URINE YELLOW (YELLOW); *KETONES,URINE NEGATIVE (NEGATIVE); *UROBILINOGEN,URINE 0.2 E.U./dl (NORMAL); LEUKOCYTE ESTERASE ,URINE NEGATIVE (NEGATIVE); NITRITE, URINE NEGATIVE (NEGATIVE); PH,URINE 5.5 (5.0-8.0); UGLUCOSE NEGATIVE (NEGATIVE)
[2019-02-21 00:13] LABS: *AMPHETAMINE, URINE NEGATIVE (NEGATIVE); *BARBITURATE, URINE NEGATIVE (NEGATIVE); *CANNABINOID, URINE NEGATIVE (NEGATIVE); *COCCAINE, URINE NEGATIVE (NEGATIVE); *OPIATE, URINE POSITIVE (NEGATIVE); *PHENCYCLIDINE SCREEN,URINE NEGATIVE (NEGATIVE)
[2019-02-21] MEDS ORDERED: MAGNESIUM HYDROXIDE 30 ML LIQUID UDC PO PRN (00:15)
[2019-02-21] MEDS ORDERED: ALBUTEROL SULFATE 8 GM HFA.AER.AD IH SCH (00:15)
[2019-02-21] MEDS ORDERED: MECLIZINE HCL 25 MG TABLET PO PRN (00:15)
[2019-02-21] MEDS ORDERED: Z GUARD REMEDY PASTE 57 GM TUBE TOP PRN ×2 (00:15→17:50)
--- NOTE | 2019-02-21 00:15 | NUR ---
report called to Lata STARKEY.
[2019-02-21 00:20] LABS: EOSINOPHILS % (MANUAL) 9 % (0-8); LYMPHOCYTES % (MANUAL) 16 % (20-40); MONOCYTES % (MANUAL) 4 % (2-10); NEUTROPHILS % (MANUAL) 71 % (42-75)
[2019-02-21 00:24] LABS: *BLOOD, URINE TRACE (NEGATIVE)
[2019-02-21 00:27] LABS: BACTERIA,URINE NONE SEEN /HPF (NONE SEEN); RBC,URINE 0-3 /HPF (0-3); SQUAMOUS EPITHELIAL CELL,UR FEW /HPF (NONE SEEN); WBC,URINE 0-3 /HPF (0-3)
--- NOTE | 2019-02-21 00:28 | NUR ---
Received the patient from ER via [facility]. A/O x 4. In no acute distress. Oriented patient safely in his room. Patient is TELE NSR. In room air. PICC like on the right upper arm double lumen. Patient is bed bound with multiple skin issues. Sacral redness, diabetic ulcers on the right toes and heel. Wound care provided.Noted BKA on the left leg. Safety initiated. Call light within reach. Will continue to monitor.
[2019-02-21] MEDS ORDERED: ONDANSETRON 4 MG/2 ML VIAL IV PRN (00:30)
[2019-02-21] MEDS ORDERED: HYDROMORPHONE 1 MG/1 ML DISP.SYRIN IV PRN (00:30)
[2019-02-21] MEDS ORDERED: ONDANSETRON 4 MG/2 ML VIAL ONE (00:34)
[2019-02-21] MEDS ORDERED: HYDROMORPHONE 1 MG/1 ML DISP.SYRIN ONE (00:34)
--- NOTE | 2019-02-21 00:50 | NUR ---
patient transferred to telemetry via [facility]
[2019-02-21] MEDS: MELATONIN 3 MG TABLET PO SCH ×2 (00:55→20:27)
[2019-02-21] MEDS: ISOSORBIDE MONONITRATE 60 MG TAB.SR.24H PO SCH ×2 (00:56→08:36)
[2019-02-21] MEDS: IV NS 1000 ML 1,000 ML IV PRN (03:46)
[2019-02-21] MEDS: HYDROMORPHONE 1 MG/1 ML DISP.SYRIN IV PRN ×6 (03:51→23:49)
[2019-02-21 06:58] LABS: BASOPHILS % (AUTO) 0.4 % (0.0-2.0); EOSINOPHILS # (AUTO) 0.5 K/uL (0.0-0.7); EOSINOPHILS % (AUTO) 10.5 % (0.0-7.0); LYMPHOCYTES # (AUTO) 1.1 K/uL (20.0-40.0); LYMPHOCYTES % (AUTO) 21.3 % (20.5-51.5); MEAN CORPUSCULAR HEMOGLOBIN 27.8 uug (23.8-33.4); MEAN CORPUSCULAR HGB CONC 33 g/dL (32.5-36.3); MEAN CORPUSCULAR VOLUME 85.4 fL (73.0-96.2); MONOCYTES # (AUTO) 0.2 K/uL (2.0-10.0); MONOCYTES % (AUTO) 4.2 % (0.0-11.0); NEUTROPHILS # (AUTO) 3.2 K/uL (1.8-8.9); NEUTROPHILS % (AUTO) 63.6 % (38.5-71.5)
[2019-02-21 07:21] LABS: RED BLOOD CELL COUNT(AUTO) 2.44 MIL/uL (4.06-5.63)
[2019-02-21 07:22] LABS: BILIRUBIN,TOTAL 0.3 mg/dL (0.2-1.0); CREATININE 4.4 mg/dL (0.6-1.3); HEMATOCRIT 20.8 % (36.7-47.1); HEMOGLOBIN 6.8 g/dL (12.5-16.3); PLATELET COUNT (AUTO) 57 K/uL (152-348); POTASSIUM 5.5 mmol/L (3.5-5.1); TOTAL PROTEIN, SERUM 6.8 g/dL (6.4-8.2)
[2019-02-21] MEDS: LEVOTHYROXINE SODIUM 100 MCG TABLET PO SCH (07:50)
[2019-02-21] MEDS: REPAGLINIDE 1 MG TABLET PO SCH ×2 (08:26→17:17)
[2019-02-21] MEDS: AMIODARONE HCL 200 MG TABLET PO SCH (08:28)
[2019-02-21] MEDS: DIVALPROEX 500 MG TABLET.DR PO SCH ×3 (08:28→17:17)
[2019-02-21] MEDS: GABAPENTIN 300 MG CAPSULE PO SCH ×2 (08:29→17:17)
[2019-02-21] MEDS: CHOLECALCIFEROL 1,000 UNIT TABLET PO SCH (08:29)
[2019-02-21] MEDS: TAMSULOSIN HCL 0.4 MG CAP.SR.24H PO SCH (08:36)
[2019-02-21] MEDS ORDERED: Medication Not On Formulary EA (Apixaban (Eliquis) 2.5 MG) PO SCH (09:00)
[2019-02-21] MEDS: LINEZOLID 600 MG TABLET PO SCH ×2 (09:58→20:27)
[2019-02-21] MEDS ORDERED: ALBUTEROL SULFATE 2.5 MG/3 ML NEBU NEB PRN (10:15)
[2019-02-21] MEDS: ONDANSETRON 4 MG/2 ML VIAL IV PRN (11:05)
[2019-02-21] MEDS ORDERED: diphenhydrAMINE 1% CREAM 28.3 GM TUBE TP PRN (16:45)
[2019-02-21 17:36] LABS: *BILIRUBIN,URIN NEGATIVE (NEGATIVE); *BLOOD, URINE 1+ (NEGATIVE); *COLOR,URINE YELLOW (YELLOW); *KETONES,URINE NEGATIVE (NEGATIVE); *UROBILINOGEN,URINE 0.2 E.U./dl (NORMAL); LEUKOCYTE ESTERASE ,URINE 1+ (NEGATIVE); NITRITE, URINE NEGATIVE (NEGATIVE); PH,URINE 5.5 (5.0-8.0); UGLUCOSE NEGATIVE (NEGATIVE)
[2019-02-21 18:18] LABS: *CREATININE,URINE 58.5 mg/dL (30-125); *URINE TOTAL PROTEIN RANDOM 73.2 mg/dL (<150/24HR)
[2019-02-21 18:19] LABS: *CLARITY,URINE HAZY (CLEAR)
[2019-02-21 18:29] LABS: MUCUS,URINE FEW /LPF (0-FEW); SQUAMOUS EPITHELIAL CELL,UR MODERATE /HPF (NONE SEEN)
--- NOTE | 2019-02-21 20:00 | NUR ---
RECEIVED PT. AAO X3. C/O TONGUE PAIN WHEN DRINKING & EATING, WILL NOTIFY DR GALVAN. IVF NS @ 75CC/HR VIA PICC LINE ON GORDON. ON RM AIR W/ O2 SAT OF 98%. R HEEL DRSG DRY & INTACT. AFEBRILE. V/S STABLE.
[2019-02-21] MEDS: ATORVASTATIN 10 MG TABLET PO SCH (20:26)
[2019-02-21] MEDS: MONTELUKAST SODIUM 10 MG TABLET PO SCH (20:26)
[2019-02-21] MEDS: CLOTRIMAZOLE/BETAMET DIPROP CREAM 15 GM TUBE TOP SCH (20:28)
--- NOTE | 2019-02-21 20:50 | NUR ---
DR GALVAN WAS HERE & NOTIFIED RE: TONGUE PAIN W/ ORDER.
[2019-02-21] MEDS ORDERED: INSULIN GLARGINE,HUM 300 UNITS/3 ML CARTRIDGE SQ SCH ×2 (21:00)
[2019-02-21] MEDS: NYSTATIN SUSPENSION 5 ML LIQUID UDC PO SCH ×2 (21:10→23:45)
[2019-02-22 00:03] VITALS: BP 128/60
[2019-02-22] MEDS: ONDANSETRON 4 MG/2 ML VIAL IV PRN (00:52)
--- NOTE | 2019-02-22 01:00 | NUR ---
PT. C/O SHAKING ONLY THE UPPER BODY INTERMITTENTLY, DR OLIVARES NOTIFIED, WILL MONITOR PT.
--- NOTE | 2019-02-22 01:14 | NUR ---
PT IS SLEEPING THIS TIME.
[2019-02-22] MEDS: HYDROMORPHONE 1 MG/1 ML DISP.SYRIN IV PRN ×5 (04:22→23:46)
[2019-02-22 04:33] VITALS: BP 126/53
--- NOTE | 2019-02-22 05:00 | NUR ---
sleeping after medicated w/ dilaudid 1mg ivp for pain.
[2019-02-22] MEDS: NYSTATIN SUSPENSION 5 ML LIQUID UDC PO SCH ×4 (05:56→23:12)
[2019-02-22] MEDS: IV NS 1000 ML 1,000 ML IV PRN ×2 (06:01→15:56)
[2019-02-22 06:53] LABS: BASOPHILS % (AUTO) 0.5 % (0.0-2.0); EOSINOPHILS # (AUTO) 0.5 K/uL (0.0-0.7); EOSINOPHILS % (AUTO) 10.2 % (0.0-7.0); LYMPHOCYTES # (AUTO) 0.9 K/uL (20.0-40.0); LYMPHOCYTES % (AUTO) 18.5 % (20.5-51.5); MEAN CORPUSCULAR HEMOGLOBIN 28.1 uug (23.8-33.4); MEAN CORPUSCULAR HGB CONC 33 g/dL (32.5-36.3); MEAN CORPUSCULAR VOLUME 85.2 fL (73.0-96.2); MONOCYTES # (AUTO) 0.2 K/uL (2.0-10.0); MONOCYTES % (AUTO) 4.7 % (0.0-11.0); NEUTROPHILS # (AUTO) 3.3 K/uL (1.8-8.9); NEUTROPHILS % (AUTO) 66.1 % (38.5-71.5); RED BLOOD CELL COUNT(AUTO) 2.69 MIL/uL (4.06-5.63); WHITE BLOOD COUNT (AUTO) 4.9 K/uL (3.6-10.2)
[2019-02-22 07:00] LABS: HEMATOCRIT 22.9 % (36.7-47.1); HEMOGLOBIN 7.5 g/dL (12.5-16.3); PLATELET COUNT (AUTO) 49 K/uL (152-348)
[2019-02-22 07:02] LABS: BILIRUBIN,TOTAL 0.3 mg/dL (0.2-1.0); CREATININE 4.2 mg/dL (0.6-1.3); MAGNESIUM 2.1 mg/dL (1.8-2.4); PHOSPHOROUS 4.1 mg/dL (2.5-4.9); POTASSIUM 5.4 mmol/L (3.5-5.1); TOTAL PROTEIN, SERUM 6.6 g/dL (6.4-8.2)
--- NOTE | 2019-02-22 07:10 | NUR ---
Received patient laying in bed, awake and alert, no s/s of distress. Bed in lowest position, side rails up x2, call light within reach. Will continue to monitor.
--- NOTE | 2019-02-22 07:14 | NUR ---
CALLED DR GALVAN FOR BS-45. ORANGE JUICE 120CC GIVEN, ALSO FOR PLATELET COUNT-[id number], WILL CALL BACK.
--- NOTE | 2019-02-22 07:19 | NUR ---
DR GALVAN CALLED BACK W/ ORDER TO GIVE OJ & RECHECK BS AFTER 1HR.
[2019-02-22] MEDS: REPAGLINIDE 1 MG TABLET PO SCH ×2 (08:16→16:53)
[2019-02-22] MEDS: LEVOTHYROXINE SODIUM 100 MCG TABLET PO SCH (08:17)
[2019-02-22] MEDS: TAMSULOSIN HCL 0.4 MG CAP.SR.24H PO SCH (08:19)
[2019-02-22] MEDS: AMIODARONE HCL 200 MG TABLET PO SCH (08:19)
[2019-02-22] MEDS: DIVALPROEX 500 MG TABLET.DR PO SCH ×3 (08:19→16:53)
[2019-02-22] MEDS: GABAPENTIN 300 MG CAPSULE PO SCH ×2 (08:21→16:53)
[2019-02-22] MEDS: ISOSORBIDE MONONITRATE 60 MG TAB.SR.24H PO SCH (08:21)
[2019-02-22] MEDS: CHOLECALCIFEROL 1,000 UNIT TABLET PO SCH (08:22)
[2019-02-22] MEDS: ZINC SULFATE 220 MG CAPSULE PO SCH (08:22)
[2019-02-22] MEDS: LINEZOLID 600 MG TABLET PO SCH ×2 (08:22→21:24)
[2019-02-22] MEDS: CLOTRIMAZOLE/BETAMET DIPROP CREAM 15 GM TUBE TOP SCH ×2 (08:22→21:29)
[2019-02-22 08:49] LABS: BAND % (MANUAL) 2 % (0-10); EOSINOPHILS % (MANUAL) 13 % (0-8); LYMPHOCYTES % (MANUAL) 19 % (20-40); MONOCYTES % (MANUAL) 5 % (2-10); NEUTROPHILS % (MANUAL) 61 % (42-75)
[2019-02-22] MEDS ORDERED: FENTANYL 25 MCG/HR PATCH EACH TD SCH (09:00)
--- NOTE | 2019-02-22 09:52 | NUR ---
WOUND CARE CONSULT WOUND CARE RECEIVED CONSULT FOR CELLULITIS ON THE RIGHT TOE AND HEEL. WOUND CARE WILL DEFER CONSULT AND TREATMENT PLANS TO PLASTIC SURGICAL TEAM INCLUDING DPM DR CASON WHO ARE ALL CURRENTLY FOLLOWING THIS PATIENT. PATIENT WITH ADELAIDE AT 15, ALL PRESSURE ULCER PREVENTION MEASURES ARE NOTED TO BE IN PLACE AT THIS TIME. WILL SEE PRN.
[2019-02-22 11:30] VITALS: BP 114/59
[2019-02-22 15:55] VITALS: BP 123/56
--- NOTE | 2019-02-22 18:43 | NUR ---
PATIENT RESTED THROUGHOUT DAY, ALERT AND ORIENTED X4. IV FLUIDS RUNNING THROUGH PICC LINE IN RIGHT UPPER ARM. PAIN MANAGEMENT PROVIDED Q4 HRS. NO DISTRESS NOTED. SAFETY MEASURES PROVIDED. WOUND CARE TREATMENT DONE. BED IN LOWEST POSITION, SIDE RAILS UP X2, CALL LIGHT WITHIN REACH.
[2019-02-22 20:37] VITALS: BP 142/75
[2019-02-22] MEDS: ATORVASTATIN 10 MG TABLET PO SCH (21:24)
[2019-02-22] MEDS: MELATONIN 3 MG TABLET PO SCH (21:28)
[2019-02-22] MEDS: MONTELUKAST SODIUM 10 MG TABLET PO SCH (21:28)
[2019-02-22] MEDS ORDERED: CEFEPIME HCL 1 G in IV DEXTROSE 5% 50 ML IV SCH ×2 (21:30→23:00)
[2019-02-22] MEDS ORDERED: CEFEPIME HCL 1 G VIAL ONE (22:33)
[2019-02-23] VITALS (9 sets, daily range): BP systolic 133–153; BP diastolic 64–77
[2019-02-23] MEDS: IV NS 1000 ML 1,000 ML IV PRN ×2 (06:32→21:14)
[2019-02-23] MEDS: LEVOTHYROXINE SODIUM 100 MCG TABLET PO SCH (06:36)
[2019-02-23] MEDS: NYSTATIN SUSPENSION 5 ML LIQUID UDC PO SCH ×4 (06:36→23:02)
[2019-02-23 07:56] LABS: BASOPHILS % (AUTO) 0.2 % (0.0-2.0); EOSINOPHILS # (AUTO) 0.1 K/uL (0.0-0.7); HEMOGLOBIN 7.5 g/dL (12.5-16.3); LYMPHOCYTES # (AUTO) 0.5 K/uL (20.0-40.0); MONOCYTES # (AUTO) 0.1 K/uL (2.0-10.0)
[2019-02-23 07:58] LABS: EOSINOPHILS % (AUTO) 1.1 % (0.0-7.0); HEMATOCRIT 22.8 % (36.7-47.1); LYMPHOCYTES % (AUTO) 10.2 % (20.5-51.5); MEAN CORPUSCULAR HGB CONC 33 g/dL (32.5-36.3); MEAN CORPUSCULAR VOLUME 84.9 fL (73.0-96.2); MONOCYTES % (AUTO) 1.8 % (0.0-11.0); NEUTROPHILS # (AUTO) 4.5 K/uL (1.8-8.9); NEUTROPHILS % (AUTO) 86.7 % (38.5-71.5); RED BLOOD CELL COUNT(AUTO) 2.68 MIL/uL (4.06-5.63); WHITE BLOOD COUNT (AUTO) 5.2 K/uL (3.6-10.2)
[2019-02-23 08:39] LABS: CREATININE 4.2 mg/dL (0.6-1.3); MAGNESIUM 2.1 mg/dL (1.8-2.4); PHOSPHOROUS 3.9 mg/dL (2.5-4.9)
[2019-02-23 08:56] LABS: POTASSIUM 6.5 mmol/L (3.5-5.1)
[2019-02-23 08:57] LABS: PLATELET COUNT (AUTO) 45 K/uL (152-348)
[2019-02-23] MEDS: REPAGLINIDE 1 MG TABLET PO SCH ×2 (09:05→17:20)
[2019-02-23] MEDS: DIVALPROEX 500 MG TABLET.DR PO SCH ×3 (09:06→17:20)
[2019-02-23] MEDS: AMIODARONE HCL 200 MG TABLET PO SCH (09:06)
[2019-02-23] MEDS: ISOSORBIDE MONONITRATE 60 MG TAB.SR.24H PO SCH (09:07)
[2019-02-23] MEDS: GABAPENTIN 300 MG CAPSULE PO SCH ×2 (09:07→17:21)
[2019-02-23] MEDS: LINEZOLID 600 MG TABLET PO SCH ×2 (09:07→20:53)
[2019-02-23] MEDS: CHOLECALCIFEROL 1,000 UNIT TABLET PO SCH (09:07)
[2019-02-23] MEDS: TAMSULOSIN HCL 0.4 MG CAP.SR.24H PO SCH (09:07)
[2019-02-23] MEDS: ZINC SULFATE 220 MG CAPSULE PO SCH (09:07)
[2019-02-23] MEDS: CLOTRIMAZOLE/BETAMET DIPROP CREAM 15 GM TUBE TOP SCH ×2 (09:12→20:56)
[2019-02-23] MEDS ORDERED: SODIUM POLYSTYRENE SULF POWDER 15 GM UDC PO ONE (09:45)
[2019-02-23] MEDS ORDERED: FUROSEMIDE 40 MG/4 ML VIAL IV ONE (09:45)
[2019-02-23 09:58] LABS: CREATININE 3.8 mg/dL (0.6-1.3); POTASSIUM 5.8 mmol/L (3.5-5.1)
[2019-02-23] MEDS: ONDANSETRON 4 MG/2 ML VIAL IV PRN (12:07)
[2019-02-23] MEDS: HYDROMORPHONE 1 MG/1 ML DISP.SYRIN IV PRN ×3 (12:16→21:11)
[2019-02-23 17:30] LABS: CREATININE 3.8 mg/dL (0.6-1.3); POTASSIUM 5.3 mmol/L (3.5-5.1)
[2019-02-23] MEDS: CEFEPIME HCL 1 G in IV DEXTROSE 5% 50 ML IV SCH (20:53)
[2019-02-23] MEDS: MONTELUKAST SODIUM 10 MG TABLET PO SCH (20:54)
[2019-02-23] MEDS: MELATONIN 3 MG TABLET PO SCH (20:54)
[2019-02-23] MEDS: ATORVASTATIN 10 MG TABLET PO SCH (20:54)
--- NOTE | 2019-02-23 23:10 | NUR ---
Started a transfusion of 1 unit PRBC. patient has stable vitals, denies pain or SOB. AOx4, no distress noted.
[2019-02-24] VITALS (8 sets, daily range): BP systolic 151–162; BP diastolic 77–85
[2019-02-24] MEDS: HYDROMORPHONE 1 MG/1 ML DISP.SYRIN IV PRN ×7 (01:12→20:22)
--- NOTE | 2019-02-24 01:40 | NUR ---
Transfusion of PRBC is complete. patient was comfortable during the transfusion, did not report any pain or discomfort. Vitals were stable with BP trending up gradually. Wound care on the left foot was done with minimal bleeding. Patient reported pain in the right foot 9/10, Dilaudid given. BP at the end of the transfusion is 157/79.
[2019-02-24] MEDS: NYSTATIN SUSPENSION 5 ML LIQUID UDC PO SCH ×4 (05:38→23:58)
[2019-02-24] MEDS: LEVOTHYROXINE SODIUM 100 MCG TABLET PO SCH (06:39)
[2019-02-24] MEDS: REPAGLINIDE 1 MG TABLET PO SCH ×3 (08:30→16:21)
[2019-02-24] MEDS: CLOTRIMAZOLE/BETAMET DIPROP CREAM 15 GM TUBE TOP SCH ×2 (09:00→20:41)
[2019-02-24] MEDS: ISOSORBIDE MONONITRATE 60 MG TAB.SR.24H PO SCH (09:00)
[2019-02-24] MEDS: TAMSULOSIN HCL 0.4 MG CAP.SR.24H PO SCH (09:07)
[2019-02-24] MEDS: CHOLECALCIFEROL 1,000 UNIT TABLET PO SCH (09:07)
[2019-02-24] MEDS: DIVALPROEX 500 MG TABLET.DR PO SCH ×3 (09:07→16:21)
[2019-02-24] MEDS: AMIODARONE HCL 200 MG TABLET PO SCH (09:07)
[2019-02-24] MEDS: ZINC SULFATE 220 MG CAPSULE PO SCH (09:07)
[2019-02-24] MEDS: LINEZOLID 600 MG TABLET PO SCH ×2 (09:07→20:19)
[2019-02-24] MEDS: GABAPENTIN 300 MG CAPSULE PO SCH ×2 (09:07→16:21)
[2019-02-24] MEDS: ONDANSETRON 4 MG/2 ML VIAL IV PRN ×2 (10:35→13:01)
[2019-02-24 12:10] LABS: BASOPHILS % (AUTO) 0.3 % (0.0-2.0); EOSINOPHILS # (AUTO) 0.3 K/uL (0.0-0.7); EOSINOPHILS % (AUTO) 4.2 % (0.0-7.0); LYMPHOCYTES # (AUTO) 1.1 K/uL (20.0-40.0); LYMPHOCYTES % (AUTO) 15.3 % (20.5-51.5); MEAN CORPUSCULAR HGB CONC 33 g/dL (32.5-36.3); MONOCYTES # (AUTO) 0.3 K/uL (2.0-10.0); MONOCYTES % (AUTO) 4.6 % (0.0-11.0); NEUTROPHILS # (AUTO) 5.4 K/uL (1.8-8.9); NEUTROPHILS % (AUTO) 75.6 % (38.5-71.5); WHITE BLOOD COUNT (AUTO) 7.1 K/uL (3.6-10.2)
[2019-02-24 12:25] LABS: HEMATOCRIT 27.1 % (36.7-47.1); MEAN CORPUSCULAR HEMOGLOBIN 27.8 uug (23.8-33.4); MEAN CORPUSCULAR VOLUME 85.3 fL (73.0-96.2); RED BLOOD CELL COUNT(AUTO) 3.17 MIL/uL (4.06-5.63)
[2019-02-24 12:26] LABS: HEMOGLOBIN 8.8 g/dL (12.5-16.3)
[2019-02-24 12:30] LABS: PLATELET COUNT (AUTO) 46 K/uL (152-348)
[2019-02-24 12:31] LABS: BILIRUBIN,TOTAL 0.3 mg/dL (0.2-1.0); MAGNESIUM 1.8 mg/dL (1.8-2.4); PHOSPHOROUS 3.6 mg/dL (2.5-4.9); POTASSIUM 5.1 mmol/L (3.5-5.1); TOTAL PROTEIN, SERUM 7.1 g/dL (6.4-8.2)
[2019-02-24 14:18] LABS: BAND % (MANUAL) 6 % (0-10); EOSINOPHILS % (MANUAL) 5 % (0-8); LYMPHOCYTES % (MANUAL) 16 % (20-40); MONOCYTES % (MANUAL) 4 % (2-10); NEUTROPHILS % (MANUAL) 69 % (42-75)
[2019-02-24] MEDS: IV NS 1000 ML 1,000 ML IV PRN (20:09)
[2019-02-24] MEDS: CEFEPIME HCL 1 G in IV DEXTROSE 5% 50 ML IV SCH (20:19)
[2019-02-24] MEDS: MONTELUKAST SODIUM 10 MG TABLET PO SCH (20:19)
[2019-02-24] MEDS: ATORVASTATIN 10 MG TABLET PO SCH (20:20)
[2019-02-24] MEDS: MELATONIN 3 MG TABLET PO SCH (20:20)
[2019-02-25] MEDS: HYDROMORPHONE 1 MG/1 ML DISP.SYRIN IV PRN ×3 (01:37→12:46)
[2019-02-25 04:31] VITALS: BP 146/75
[2019-02-25] MEDS: NYSTATIN SUSPENSION 5 ML LIQUID UDC PO SCH ×2 (06:03→12:45)
[2019-02-25] MEDS: LEVOTHYROXINE SODIUM 100 MCG TABLET PO SCH (06:32)
[2019-02-25] MEDS: AMIODARONE HCL 200 MG TABLET PO SCH (08:11)
[2019-02-25] MEDS: REPAGLINIDE 1 MG TABLET PO SCH (08:11)
[2019-02-25] MEDS: ISOSORBIDE MONONITRATE 60 MG TAB.SR.24H PO SCH (08:12)
[2019-02-25] MEDS: GABAPENTIN 300 MG CAPSULE PO SCH (08:12)
[2019-02-25] MEDS: ZINC SULFATE 220 MG CAPSULE PO SCH (08:12)
[2019-02-25] MEDS: DIVALPROEX 500 MG TABLET.DR PO SCH ×2 (08:12→12:47)
[2019-02-25] MEDS: TAMSULOSIN HCL 0.4 MG CAP.SR.24H PO SCH (08:12)
[2019-02-25] MEDS: CHOLECALCIFEROL 1,000 UNIT TABLET PO SCH (08:12)
[2019-02-25] MEDS: LINEZOLID 600 MG TABLET PO SCH (08:13)
[2019-02-25] MEDS: CLOTRIMAZOLE/BETAMET DIPROP CREAM 15 GM TUBE TOP SCH (08:14)
[2019-02-25] MEDS: IV NS 1000 ML 1,000 ML IV PRN (09:17)
[2019-02-25 11:40] VITALS: BP 134/71
[2019-02-25] MEDS ORDERED: GUAI5SYR4 PO (14:18)
[2019-02-25] MEDS ORDERED: RXVAN IV (14:18)
[2019-02-25] MEDS ORDERED: FENT1PAT6 TD (14:18)
[2019-02-25] MEDS ORDERED: CARV3.12 PO (14:18)
[2019-02-25] MEDS ORDERED: LACT1CAP57 PO (14:18)
[2019-02-25] MEDS ORDERED: TAMS-3 PO (14:18)
[2019-02-25] MEDS ORDERED: CEFE1PIG3 IV (14:18)
[2019-02-25] MEDS ORDERED: INSU100V7 SQ (14:18)
[2019-02-25] MEDS ORDERED: DIVA500T2 PO (14:18)
[2019-02-25 16:06] VITALS: BP 146/80
--- NOTE | 2019-02-25 16:10 | NUR ---
DISCHARGE PATIENT TO [facility] VIA AMBULANCE, DISCHARGE INSTRUCTION GIVEN TO PATIENT , WITH NEW PRESCRIBE MEDICATION, NO PAIN NOTED AT THIS TIME, IV REMAINS DUE TO CONTINUE IV MEDICATION AT THE FACILITY. BELONGINGS ACCOUNTED FOR AND SIGNED, ID BAND REMOVED, QUESTIONS AND CONCERNS ADDRESSED.
== END 2019-02-25 16:10 | DRG 673 ==
LOC: ER 21:24 → TELE3 23:59 → MEDSURG3 02-23 16:20
PROVIDERS: ADMIT Internal Medicine; ATTEND Internal Medicine
PROC: 0JBQ0ZZ Excision of Right Foot Subcutaneous Tissue and Fascia, Open Approach (ICD-10-PCS; principal; 2019-02-21)
PROC: 30233N1 Transfusion of Nonautologous Red Blood Cells into Peripheral Vein, Percutaneous Approach (ICD-10-PCS; 2019-02-21)
DX: N17.0 Acute kidney failure with tubular necrosis (principal); G92 Toxic encephalopathy; E43 Unspecified severe protein-calorie malnutrition; I13.0 Hypertensive heart and chronic kidney disease with heart failure and stage 1 through stage 4 chronic kidney disease, or unspecified chronic kidney disease; L97.411 Non-pressure chronic ulcer of right heel and midfoot limited to breakdown of skin; J96.11 Chronic respiratory failure with hypoxia; N39.0 Urinary tract infection, site not specified; J98.11 Atelectasis; D68.59 Other primary thrombophilia; I50.32 Chronic diastolic (congestive) heart failure; M86.8X7 Other osteomyelitis, ankle and foot; B37.0 Candidal stomatitis; T36.5X5A Adverse effect of aminoglycosides, initial encounter; Y92.129 Unspecified place in nursing home as the place of occurrence of the external cause; E11.22 Type 2 diabetes mellitus with diabetic chronic kidney disease; N18.3 Chronic kidney disease, stage 3 (moderate); Z79.4 Long term (current) use of insulin; G89.4 Chronic pain syndrome; I25.10 Atherosclerotic heart disease of native coronary artery without angina pectoris; Z95.5 Presence of coronary angioplasty implant and graft; E03.9 Hypothyroidism, unspecified; Z89.512 Acquired absence of left leg below knee; L30.4 Erythema intertrigo; E11.42 Type 2 diabetes mellitus with diabetic polyneuropathy; E11.51 Type 2 diabetes mellitus with diabetic peripheral angiopathy without gangrene; I70.235 Atherosclerosis of native arteries of right leg with ulceration of other part of foot; L97.512 Non-pressure chronic ulcer of other part of right foot with fat layer exposed; I70.234 Atherosclerosis of native arteries of right leg with ulceration of heel and midfoot; L90.5 Scar conditions and fibrosis of skin; L29.9 Pruritus, unspecified; F95.2 Tourette's disorder; R25.3 Fasciculation; J44.9 Chronic obstructive pulmonary disease, unspecified; Z68.32 Body mass index [BMI] 32.0-32.9, adult; L21.9 Seborrheic dermatitis, unspecified; G47.00 Insomnia, unspecified; B96.89 Other specified bacterial agents as the cause of diseases classified elsewhere; Z79.01 Long term (current) use of anticoagulants; Z79.891 Long term (current) use of opiate analgesic; Z86.14 Personal history of Methicillin resistant Staphylococcus aureus infection; Z79.899 Other long term (current) drug therapy; N40.0 Benign prostatic hyperplasia without lower urinary tract symptoms; K21.9 Gastro-esophageal reflux disease without esophagitis; G25.0 Essential tremor; F90.9 Attention-deficit hyperactivity disorder, unspecified type; F32.9 Major depressive disorder, single episode, unspecified; E87.5 Hyperkalemia; G40.909 Epilepsy, unspecified, not intractable, without status epilepticus; E78.5 Hyperlipidemia, unspecified; E66.9 Obesity, unspecified; H40.9 Unspecified glaucoma; D69.6 Thrombocytopenia, unspecified; Z74.09 Other reduced mobility; E11.621 Type 2 diabetes mellitus with foot ulcer; E11.69 Type 2 diabetes mellitus with other specified complication; D64.9 Anemia, unspecified; M54.10 Radiculopathy, site unspecified; K14.0 Glossitis; K05.10 Chronic gingivitis, plaque induced
CPT/HCPCS: 36415; 70030-TC; 70450; 71045; 76770; 80164; 80307; 83605; 83735; 84100; 84156; 84300; 84443; 85025; 85651; 85730; 86850; 86900; 86901; 86920; 87040; 87077; 87086; 93005; A4663; G0378; G0480; G0480-TC; J0692; J1170; J1815; J1940; J2405; J7030; J7040; J7050; J7060; P9016-BL; P9021

== ENCOUNTER 2019-04-30 03:29 | Inpatient (IN) | payer MEDICARE, OTHER ==
[~2019-04-30] VITALS: Ht 182.9 cm; Wt 91.6 kg
[2019-04-30] VITALS (11 sets, daily range): BP systolic 104–144; BP diastolic 50–66
[~2019-04-30 03:29] MED LIST changes: +ALBU6.7H IH; -ATOR10TA PO; -BACL5TAB PO; +CARV3.12 PO; -CARV3.122 PO; +CEFE1PIG3 IV; +COLL30OI TOP; -CRAN450C PO; -DIPH25CA83 PO; -DIPH35CR TP; -DIVA-78 PO; +DIVA500T2 PO; -FENT1PAT4 TD; +FENT1PAT6 TD; -FURO-152 PO; -GLUC1KIT IJ; +GUAI5SYR4 PO; -LOPE2TAB25 PO; +MELA3TAB PO; -NA P133E RC; -PROT946L PO; -RIFA300C2 PO; +RXVAN IV; -ZINC220T PO; +ZINC220T4 PO
--- NOTE | 2019-04-30 03:40 | NUR ---
Pt bib [id number] from [facility] with c/o constant chest pain x 4 hrs. :t was given 1 spray of nitro SL & 325mg aspirin, with no relief. Pt appears in no apparent distress. Vital signs stable. Respirations even + unlabored. Pt placed on monitor technician. Pt has 20 g to right forearm present prior to arrival. AAOX4. Pt has left BKA.
[2019-04-30] MEDS ORDERED: NITROGLYCERIN OINT 1 GM PACKET TP ONE ×2 (03:45→03:46)
[2019-04-30] MEDS ORDERED: IV NORMAL SALINE 500 ML BAG IV ONE (03:45)
[2019-04-30 03:51] LABS: BASOPHILS # (AUTO) 0.1 K/uL (0.0-8.0); BASOPHILS % (AUTO) 1.1 % (0.0-2.0); EOSINOPHILS # (AUTO) 0.4 K/uL (0.0-0.7); EOSINOPHILS % (AUTO) 8.1 % (0.0-7.0); LYMPHOCYTES # (AUTO) 1.2 K/uL (20.0-40.0); LYMPHOCYTES % (AUTO) 26.5 % (20.5-51.5); MEAN CORPUSCULAR HEMOGLOBIN 29.3 uug (23.8-33.4); MEAN CORPUSCULAR HGB CONC 33 g/dL (32.5-36.3); MEAN CORPUSCULAR VOLUME 89.3 fL (73.0-96.2); MONOCYTES # (AUTO) 0.4 K/uL (2.0-10.0); NEUTROPHILS # (AUTO) 2.6 K/uL (1.8-8.9); NEUTROPHILS % (AUTO) 56.3 % (38.5-71.5); PLATELET COUNT (AUTO) 164 K/uL (152-348); WHITE BLOOD COUNT (AUTO) 4.7 K/uL (3.6-10.2)
[2019-04-30 03:56] LABS: CREATININE 2.8 mg/dL (0.6-1.3); POTASSIUM 4.9 mmol/L (3.5-5.1)
[2019-04-30] MEDS ORDERED: MORPHINE SULFATE 4 MG/1 ML DISP.SYRIN IV ONE (04:00)
[2019-04-30] MEDS ORDERED: MORPHINE SULFATE 4 MG/1 ML DISP.SYRIN ONE (04:03)
[2019-04-30 04:08] LABS: BILIRUBIN,DIRECT 0.1 mg/dL (0.0-0.2); BILIRUBIN,TOTAL 0.3 mg/dL (0.2-1.0); RED BLOOD CELL COUNT(AUTO) 2.34 MIL/uL (4.06-5.63); TOTAL PROTEIN, SERUM 6.7 g/dL (6.4-8.2)
[2019-04-30 04:10] LABS: HEMATOCRIT 20.9 % (36.7-47.1); HEMOGLOBIN 6.9 g/dL (12.5-16.3)
[2019-04-30] MEDS ORDERED: FUROSEMIDE 20 MG/2 ML VIAL IV ONE (04:15)
[2019-04-30] MEDS ORDERED: FUROSEMIDE 40 MG/4 ML VIAL ONE (04:21)
--- NOTE | 2019-04-30 04:28 | NUR ---
Pt. admitted to Telemetry under care of Dr. Wilson. Diagnosis: Chest Pain/CHF Belongs List completed. MRSA swab done.
[2019-04-30] MEDS ORDERED: RANO500T3 PO (04:34)
[2019-04-30] MEDS ORDERED: INSULIN GLARGINE SUBCUT (04:34)
[2019-04-30] MEDS ORDERED: DIVA-78 PO (04:34)
[2019-04-30] MEDS ORDERED: METO-295 PO (04:34)
[2019-04-30] MEDS ORDERED: OXYC5TAB3 PO (04:34)
[2019-04-30] MEDS ORDERED: LACT1CAP57 PO (04:34)
[2019-04-30] MEDS ORDERED: CARV6.252 PO (04:34)
[2019-04-30] MEDS ORDERED: DULO20CA PO (04:34)
[2019-04-30] MEDS ORDERED: ATOR40TA PO (04:34)
[2019-04-30] MEDS ORDERED: BISA10SU61 RC (04:34)
[2019-04-30] MEDS ORDERED: MAGN400O6 PO (04:34)
[2019-04-30] MEDS ORDERED: NYST15CR2 TP (04:34)
[2019-04-30] MEDS ORDERED: NA P133E RC (04:34)
[2019-04-30] MEDS ORDERED: ONDA4TAB10 PO (04:34)
[2019-04-30] MEDS ORDERED: NALO4SPR NS (04:34)
[2019-04-30 04:40] LABS: EOSINOPHILS % (MANUAL) 10 % (0-8); LYMPHOCYTES % (MANUAL) 36 % (20-40); METAMYELOCYTES % 1 % (0-1); MONOCYTES % (MANUAL) 5 % (2-10); NEUTROPHILS % (MANUAL) 48 % (42-75)
[2019-04-30] MEDS ORDERED: Z GUARD REMEDY PASTE 57 GM TUBE TOP PRN (04:45)
[2019-04-30] MEDS ORDERED: GUAIFENESIN/CODEINE 5 ML LIQUID UDC PO PRN (04:45)
[2019-04-30] MEDS ORDERED: ACETAMINOPHEN 325 MG TABLET PO PRN (04:45)
[2019-04-30] MEDS ORDERED: DEXTROSE 50% 50 ML DISP.SYRIN IV PRN (04:45)
[2019-04-30] MEDS ORDERED: HYDROCODONE/APAP 5-325MG TABLET PO PRN (04:45)
[2019-04-30] MEDS ORDERED: NITROGLYCERIN 0.4 MG/TAB BOTTLE SL PRN (04:45)
[2019-04-30] MEDS ORDERED: ALBUTEROL SULFATE 8 GM HFA.AER.AD IH PRN (04:45)
[2019-04-30] MEDS ORDERED: BISACODYL 10 MG SUPP.RECT RC PRN (04:45)
[2019-04-30] MEDS ORDERED: METOCLOPRAMIDE HCL 10 MG TABLET PO PRN (04:45)
[2019-04-30] MEDS ORDERED: ZOLPIDEM 5 MG TABLET PO PRN (04:45)
[2019-04-30] MEDS ORDERED: MIRALAX 17 GM POWD.PACK PO PRN (04:45)
[2019-04-30] MEDS ORDERED: MAGNESIUM HYDROXIDE 30 ML LIQUID UDC PO PRN ×2 (04:45)
[2019-04-30] MEDS ORDERED: FLEET ENEMA 133 ML BOTTLE RC PRN (04:45)
[2019-04-30] MEDS ORDERED: MECLIZINE HCL 25 MG TABLET PO PRN (04:45)
--- NOTE | 2019-04-30 05:00 | NUR ---
RECEIVED PT FROM ER VIA [facility]. DX: CHEST PAIN. UNDER THE CARE OF DR. AMINTA HUGHES. PT SHOWS NO SIGNS OF ACUTE DISTRESS. BELONGING LIST DONE. IV INTACT. [facility] ASSESSMENT DONE. ADMISSION PROCESS AND CARE PLAN INITIATED. SAFETY AND COMFORT PROVIDED. WILL CONTINUE TO MONITOR.
--- NOTE | 2019-04-30 07:05 | NUR ---
DR. HOBSON SAW THE PT . ORDERED CARDIAC RENAL DIET FOR THE PT. PT STABLE AND IN NO ACUTE DISTRESS. WILL ENDORSE TO INCOMING NURSE.
--- NOTE | 2019-04-30 07:30 | NUR ---
RECEIVED PT RESTING IN BED. PT AWAKE A+O X 3. NO SIGNS OF ACUTE DISTRESS OR SOB. PT'S CALL LIGHT WITHIN REACH. BED IN LOW POSITION. PT REFUSED RAIL PADDING PRECAUTIONS FOR HX OF SEIZURES, CHARGE NURSE AWARE. AWAITING CALL FROM LAB REGARDING BLOOD TO BE TRANSFUSED TO PT. PT ON TELE MONITOR SINUS RHYTHM. WILL CONTINUE TO MONITOR.
[2019-04-30] MEDS ORDERED: ALBUTEROL SULFATE 2.5 MG/3 ML NEBU NEB PRN (07:45)
[2019-04-30] MEDS: BLOOD SUGAR DIAGNOSTIC 1 EACH STRIP VI SCH ×4 (08:21→20:31)
[2019-04-30] MEDS ORDERED: Medication Not On Formulary EA (Multivitamins (Multivitamin) 1 EACH) PO SCH (09:00)
[2019-04-30] MEDS ORDERED: COLLAGENASE OINT 30 GM TUBE TOP SCH (09:00)
[2019-04-30] MEDS ORDERED: Medication Not On Formulary EA (Ascorbic Acid (Vitamin C) 500 MG) PO SCH (09:00)
[2019-04-30] MEDS: PANTOPRAZOLE SODIUM 40 MG TABLET.DR PO SCH (09:50)
[2019-04-30] MEDS: CHOLECALCIFEROL 1,000 UNIT TABLET PO SCH (09:50)
[2019-04-30] MEDS: RANOLAZINE 500 MG TAB.ER.12H PO SCH ×2 (09:50→17:50)
[2019-04-30] MEDS: DULOXETINE 20 MG CAPSULE.DR PO SCH (09:50)
[2019-04-30] MEDS: ZINC SULFATE 220 MG CAPSULE PO SCH (09:50)
[2019-04-30] MEDS: ASCORBIC ACID 500 MG TABLET PO SCH (09:50)
[2019-04-30] MEDS: MULTIVITAMINS,THERAPEUTIC TABLET PO SCH (09:50)
[2019-04-30] MEDS: CULTURELLE CAPSULE PO SCH (09:50)
[2019-04-30] MEDS: ISOSORBIDE MONONITRATE 60 MG TAB.SR.24H PO SCH (09:51)
[2019-04-30] MEDS: DIVALPROEX 500 MG TABLET.DR PO SCH ×3 (09:51→17:50)
[2019-04-30] MEDS: LEVOTHYROXINE SODIUM 100 MCG TABLET PO SCH (09:51)
[2019-04-30] MEDS: CARVEDILOL 6.25 MG TABLET PO SCH ×2 (09:51→17:55)
[2019-04-30] MEDS: AMIODARONE HCL 200 MG TABLET PO SCH (09:54)
--- NOTE | 2019-04-30 10:15 | NUR ---
PT STATED HAVING PAIN. PRN PAIN MEDICATION GIVEN. PT'S PAIN TO 3 FROM 7
[2019-04-30] MEDS: OXYCODONE HCL 5 MG TABLET PO PRN (10:20)
[2019-04-30] MEDS ORDERED: METOCLOPRAMIDE HCL 5 MG TABLET PO PRN (10:30)
[2019-04-30 11:09] LABS: EOSINOPHILS # (AUTO) 0.4 K/uL (0.0-0.7); LYMPHOCYTES # (AUTO) 1.6 K/uL (20.0-40.0); LYMPHOCYTES % (AUTO) 36.6 % (20.5-51.5); MEAN CORPUSCULAR HEMOGLOBIN 29.7 uug (23.8-33.4); MEAN CORPUSCULAR HGB CONC 33 g/dL (32.5-36.3); MEAN CORPUSCULAR VOLUME 89.6 fL (73.0-96.2); MONOCYTES # (AUTO) 0.3 K/uL (2.0-10.0); MONOCYTES % (AUTO) 7.4 % (0.0-11.0); PLATELET COUNT (AUTO) 148 K/uL (152-348); WHITE BLOOD COUNT (AUTO) 4.5 K/uL (3.6-10.2)
[2019-04-30 11:20] LABS: HEMATOCRIT 19.5 % (36.7-47.1); HEMOGLOBIN 6.5 g/dL (12.5-16.3); RED BLOOD CELL COUNT(AUTO) 2.18 MIL/uL (4.06-5.63)
[2019-04-30] MEDS: ASPIRIN 81 MG TAB.CHEW PO SCH (12:00)
[2019-04-30] MEDS: INSULIN REGULAR, HUMAN 300 UNIT/3 ML VIAL SQ PRN (12:02)
--- NOTE | 2019-04-30 12:40 | NUR ---
PT'S BLOOD TRANSFUSION STARTED. VS STABLE. NO SIGNS OF ACUTE ADVERSE REACTION. NO SIGNS OF SOB NOTED. TELE MONITORING SINUS RHYTHM. WILL CONTINUE TO MONITOR.
--- NOTE | 2019-04-30 13:05 | NUR ---
PT IS TOLERATING BLOOD TRANSFUSION WELL. VS STABLE. NO SIGNS OF ACUTE ADVERSE REACTION. NO SIGNS OF SOB NOTED. TELE MONITORING SINUS RHYTHM. WILL CONTINUE TO MONITOR.
--- NOTE | 2019-04-30 13:40 | NUR ---
PT IS TOLERATING BLOOD TRANSFUSION WELL. VS STABLE. BS CLEAR T/O. NO SIGNS OF ACUTE ADVERSE REACTION. NO SIGNS OF SOB NOTED. TELE MONITORING SINUS RHYTHM. WILL CONTINUE TO MONITOR.
[2019-04-30 14:11] LABS: IRON, SERUM 75 ug/dL (50-175)
--- NOTE | 2019-04-30 16:20 | NUR ---
PT TOLERATED BLOOD TRANSFUSION WELL. VS STABLE. BS CLEAR T/O. NO SIGNS OF ACUTE ADVERSE REACTION. NO SIGNS OF SOB NOTED. TELE MONITORING SINUS RHYTHM. WILL CONTINUE TO MONITOR.
[2019-04-30] MEDS: NYSTATIN/TRIAMCINOLONE CREAM 15 GM TUBE TP SCH ×2 (17:50→20:41)
[2019-04-30] MEDS: REPAGLINIDE 1 MG TABLET PO SCH (17:50)
[2019-04-30] MEDS: MONTELUKAST SODIUM 10 MG TABLET PO SCH (17:55)
--- NOTE | 2019-04-30 18:00 | NUR ---
PT RESTING COMFORTABLY IN BED. NO ACUTE DISTRESS NOTED. NO SOB NOTED. BS CLEAR T/O. ORDER FO OB, FERRITIN AND IRON PANEL RECEIVED. ORDER FOR MORPHINE RECEIVED. WILL GIVE REPORT ACCORDINGLY.
[2019-04-30] MEDS ORDERED: MORPHINE SULFATE 2 MG/1 ML DISP.SYRIN IV ONE (20:00)
--- NOTE | 2019-04-30 20:00 | NUR ---
Received patient laying comfortably in bed. No acute distress noted. Patient is A/O x 4. In room air. Denies chest pain at the moment. On air mattress. TELE SR at 65. Non ambulatory. BKA on the left leg. Patient has a history of seizures but refuse to pad rails. Healed pressure wound on the right heel. Right toe dried wound, left open to air. Right second toe wound, appears swollen. Wound care consult ordered. Safety initiated. Call light within reach. Will closely monitor.
[2019-04-30] MEDS: ATORVASTATIN 40 MG TABLET PO SCH (20:30)
[2019-04-30] MEDS: TAMSULOSIN HCL 0.4 MG CAP.SR.24H PO SCH (20:30)
[2019-04-30] MEDS: MELATONIN 3 MG TABLET PO SCH (20:30)
--- NOTE | 2019-04-30 20:30 | NUR ---
C/O pain in his back. 06/06. Morphine 2 mg given, will continue to monitor.
[2019-04-30] MEDS ORDERED: INSULIN GLARGINE,HUM 300 UNITS/3 ML CARTRIDGE SQ SCH (21:00)
[2019-04-30] MEDS ORDERED: INSULIN GLARGINE 12 UNIT SUBCUT SCH (21:00)
--- NOTE | 2019-04-30 21:05 | NUR ---
Report received. Patient sleeping, easily arouses to name. Able to make needs known. NAD.
[2019-04-30] MEDS: ONDANSETRON 4 MG/2 ML VIAL IV PRN (22:50)
--- NOTE | 2019-04-30 22:50 | NUR ---
Ate some pudding and vomited thereafter. Medicated with Zofran IV.
--- NOTE | 2019-04-30 23:30 | NUR ---
Sleeping after Zofran IV.
[2019-05-01 00:36] VITALS: BP 125/64
[2019-05-01] MEDS ORDERED: METOCLOPRAMIDE HCL 10 MG/2 ML VIAL IV ONE (02:00)
--- NOTE | 2019-05-01 02:00 | NUR ---
Woke up and vomited partially digested food. Nick Perez MOLDED CANDLES WICKER notified; Reglan IV ordered; dose given. R leg with immobilizer/boots; wound to R foot toes cleaned with NS, patted dry. Leg with dry and scaly skin. Lotion applied.
--- NOTE | 2019-05-01 02:45 | NUR ---
Reglan effective; no further vomiting.
[2019-05-01 04:00] VITALS: BP 119/64
[2019-05-01 06:32] LABS: BASOPHILS % (AUTO) 0.9 % (0.0-2.0); EOSINOPHILS # (AUTO) 0.5 K/uL (0.0-0.7); HEMATOCRIT 27.9 % (36.7-47.1); HEMOGLOBIN 9.4 g/dL (12.5-16.3); LYMPHOCYTES # (AUTO) 1.7 K/uL (20.0-40.0); LYMPHOCYTES % (AUTO) 31.3 % (20.5-51.5); MEAN CORPUSCULAR HEMOGLOBIN 29.9 uug (23.8-33.4); MEAN CORPUSCULAR HGB CONC 34 g/dL (32.5-36.3); MEAN CORPUSCULAR VOLUME 88.3 fL (73.0-96.2); MONOCYTES # (AUTO) 0.4 K/uL (2.0-10.0); MONOCYTES % (AUTO) 8.3 % (0.0-11.0); NEUTROPHILS # (AUTO) 2.7 K/uL (1.8-8.9); NEUTROPHILS % (AUTO) 50.5 % (38.5-71.5); PLATELET COUNT (AUTO) 170 K/uL (152-348); RED BLOOD CELL COUNT(AUTO) 3.15 MIL/uL (4.06-5.63); WHITE BLOOD COUNT (AUTO) 5.4 K/uL (3.6-10.2)
[2019-05-01 06:38] LABS: IRON, SERUM 139 ug/dL (50-175)
[2019-05-01 06:44] LABS: CREATININE 2.7 mg/dL (0.6-1.3); MAGNESIUM 1.9 mg/dL (1.8-2.4); PHOSPHOROUS 4.5 mg/dL (2.5-4.9); POTASSIUM 5.3 mmol/L (3.5-5.1)
[2019-05-01] MEDS: PANTOPRAZOLE SODIUM 40 MG TABLET.DR PO SCH (06:44)
[2019-05-01] MEDS: LEVOTHYROXINE SODIUM 100 MCG TABLET PO SCH (06:44)
[2019-05-01] MEDS: BLOOD SUGAR DIAGNOSTIC 1 EACH STRIP VI SCH ×4 (06:45→20:55)
--- NOTE | 2019-05-01 06:45 | NUR ---
Accucheck=51; patient asymptomatic. Doesn't want to be awakened. Leave me alone. Patient advised appropriately. Took half a cup of OJ with 2 packs of sugar. Will monitor.
[2019-05-01 06:54] LABS: FERRITIN 302 ng/mL (26-388)
--- NOTE | 2019-05-01 07:32 | NUR ---
Repeat accucheck=68. Patient sleeping but easily arouses to name. Report given to Gardner.
--- NOTE | 2019-05-01 08:00 | NUR ---
Pt is in no acute distress distress. Call light is within reach. IV patent. Tele SNR. pt is [facility]. Discussed plan of care with patient re: proper pain management and to notify nursing for any chest pain or SOB. Pt agreeable with plan of care.
[2019-05-01] MEDS: ZINC SULFATE 220 MG CAPSULE PO SCH (08:16)
[2019-05-01] MEDS: CULTURELLE CAPSULE PO SCH (08:16)
[2019-05-01] MEDS: DIVALPROEX 500 MG TABLET.DR PO SCH ×3 (08:16→17:21)
[2019-05-01] MEDS: ASCORBIC ACID 500 MG TABLET PO SCH (08:16)
[2019-05-01] MEDS: CHOLECALCIFEROL 1,000 UNIT TABLET PO SCH (08:16)
[2019-05-01] MEDS: DULOXETINE 20 MG CAPSULE.DR PO SCH (08:17)
[2019-05-01] MEDS: RANOLAZINE 500 MG TAB.ER.12H PO SCH ×2 (08:17→17:21)
[2019-05-01] MEDS: CARVEDILOL 6.25 MG TABLET PO SCH ×2 (08:21→17:21)
[2019-05-01] MEDS: AMIODARONE HCL 200 MG TABLET PO SCH (08:21)
[2019-05-01] MEDS: NYSTATIN/TRIAMCINOLONE CREAM 15 GM TUBE TP SCH ×2 (08:22→20:52)
[2019-05-01] MEDS: ISOSORBIDE MONONITRATE 60 MG TAB.SR.24H PO SCH (08:22)
[2019-05-01] MEDS: MULTIVITAMINS,THERAPEUTIC TABLET PO SCH (08:27)
[2019-05-01 11:30] VITALS: BP 158/81
--- NOTE | 2019-05-01 11:30 | NUR ---
Pt BS 56. D50 given per sliding scale. Pt not safe to take anything oral. Pt too lethargic but easily arousable to verbal communications but high risk for aspiration. Will monitor patient blood sugar. Spoke with dr kuhn earlier re: low bs and adjusted lantus 12 units at hs to lantus 8 units per hs.
--- NOTE | 2019-05-01 12:30 | NUR ---
bs 110 pt more awake and alert. Pt has good appetite for lunch. Call light is within reach.
[2019-05-01] MEDS: ASPIRIN 81 MG TAB.CHEW PO SCH (12:31)
[2019-05-01] MEDS: THERAHONEY GEL 1.5 OZ TUBE TOP SCH (12:31)
--- NOTE | 2019-05-01 14:30 | NUR ---
[place] wound BLASTING COAL MINER here to see pt and evaluated right toe wound. [place] ok with mepilex on heels -changed. and nystatin cream on wound. No drainage or discharge noted on wound. Multipodus device on right leg. Groin redness noted - reapply Z guard. Call light is within reach.
[2019-05-01 15:30] VITALS: BP 127/79
--- NOTE | 2019-05-01 16:37 | NUR ---
Spoke with Ivette Durham from [facility] Pt is positive for MRSA nareS. Notified DR MILIAN new orders received and put pt on isolation. Call light is within reach.
[2019-05-01] MEDS: MONTELUKAST SODIUM 10 MG TABLET PO SCH (17:21)
[2019-05-01] MEDS: REPAGLINIDE 1 MG TABLET PO SCH (17:24)
--- NOTE | 2019-05-01 18:30 | NUR ---
Dr josé saw pt for GI eval secondary to low h/h. Put pt on clear liquid. Awaiting further orders from DR josé for EGD plan for tomorrow. Pt is in no acute distress. Call light is within reach.
[2019-05-01 20:00] VITALS: BP 158/74
[2019-05-01] MEDS: MUPIROCIN 2% OINT 22 GM TUBE NS SCH (20:43)
[2019-05-01] MEDS: TAMSULOSIN HCL 0.4 MG CAP.SR.24H PO SCH (20:43)
[2019-05-01] MEDS: MELATONIN 3 MG TABLET PO SCH (20:43)
[2019-05-01] MEDS: ATORVASTATIN 40 MG TABLET PO SCH (20:43)
[2019-05-01] MEDS: NYSTATIN POWDER 15 GM BOTTLE TOP SCH (20:43)
[2019-05-01] MEDS ORDERED: GOLYTELY 4000 ML BOTTLE PO ONE (20:45)
[2019-05-01] MEDS ORDERED: INSULIN GLARGINE,HUM 300 UNITS/3 ML CARTRIDGE SQ SCH (21:00)
--- NOTE | 2019-05-01 21:57 | NUR ---
patient refusing to take PM medications as well as having procedure tomorrow for colonoscopy and EGD. Dr. Ryan contacted and procedure cancelled.
[2019-05-01] MEDS: OXYCODONE HCL 5 MG TABLET PO PRN (23:36)
--- NOTE | 2019-05-01 23:49 | NUR ---
patient was educated again and all medication prescribed for my shift was administered. patient tolerated well. no adverse effects. Lantus held due due to history of hypoglycemia, low BS, and only liquids starting dinner tonight.
--- NOTE | 2019-05-02 04:58 | NUR ---
patient slept intermittently. no signs of acute distress. v/s stable. wound treatment provided 1st and 2nd toe, right heel wound, abdominal and inguinal folds, and Mepilex applied to sacrum. all medications prescribed administered and tolerated well. will endorse care to morning nurse. Addendum: 05/02/19 at 0459 by AYLIN ELY RN one oxycodone administered on my shift.
--- NOTE | 2019-05-02 05:02 | NUR ---
sorbitol not administered due to cancelled colonoscopy procedure.
[2019-05-02 05:24] VITALS: BP 132/61
[2019-05-02] MEDS ORDERED: SORBITOL 70% SOLUTION 30 ML UDC PO ONE (06:00)
[2019-05-02] MEDS: PANTOPRAZOLE SODIUM 40 MG TABLET.DR PO SCH (06:05)
[2019-05-02] MEDS: LEVOTHYROXINE SODIUM 100 MCG TABLET PO SCH (06:05)
[2019-05-02 06:30] LABS: BASOPHILS % (AUTO) 1.1 % (0.0-2.0); EOSINOPHILS # (AUTO) 0.5 K/uL (0.0-0.7); EOSINOPHILS % (AUTO) 10.2 % (0.0-7.0); HEMATOCRIT 26.1 % (36.7-47.1); HEMOGLOBIN 8.9 g/dL (12.5-16.3); LYMPHOCYTES # (AUTO) 1.3 K/uL (20.0-40.0); LYMPHOCYTES % (AUTO) 28.9 % (20.5-51.5); MEAN CORPUSCULAR HGB CONC 34 g/dL (32.5-36.3); MEAN CORPUSCULAR VOLUME 88.5 fL (73.0-96.2); MONOCYTES # (AUTO) 0.3 K/uL (2.0-10.0); MONOCYTES % (AUTO) 6.7 % (0.0-11.0); NEUTROPHILS # (AUTO) 2.5 K/uL (1.8-8.9); NEUTROPHILS % (AUTO) 53.1 % (38.5-71.5); PLATELET COUNT (AUTO) 173 K/uL (152-348); RED BLOOD CELL COUNT(AUTO) 2.95 MIL/uL (4.06-5.63); WHITE BLOOD COUNT (AUTO) 4.7 K/uL (3.6-10.2)
[2019-05-02] MEDS: BLOOD SUGAR DIAGNOSTIC 1 EACH STRIP VI SCH ×2 (06:31→12:14)
[2019-05-02 06:42] LABS: CREATININE 2.7 mg/dL (0.6-1.3); MAGNESIUM 1.9 mg/dL (1.8-2.4); PHOSPHOROUS 4.1 mg/dL (2.5-4.9); POTASSIUM 5.5 mmol/L (3.5-5.1)
--- NOTE | 2019-05-02 07:30 | NUR ---
Received a call from Dr. Escalona, Clarified that patient EGD was Cancelled and may Change Diet to Cardiac Diet. Dietary made aware.
[2019-05-02] MEDS: ASPIRIN 81 MG TAB.CHEW PO SCH (08:20)
[2019-05-02] MEDS: MUPIROCIN 2% OINT 22 GM TUBE NS SCH (08:20)
[2019-05-02] MEDS: CARVEDILOL 6.25 MG TABLET PO SCH (08:20)
[2019-05-02] MEDS: DIVALPROEX 500 MG TABLET.DR PO SCH ×2 (08:21→13:04)
[2019-05-02] MEDS: AMIODARONE HCL 200 MG TABLET PO SCH (08:21)
[2019-05-02] MEDS: DULOXETINE 20 MG CAPSULE.DR PO SCH (08:21)
[2019-05-02] MEDS: CULTURELLE CAPSULE PO SCH (08:21)
[2019-05-02] MEDS: MULTIVITAMINS,THERAPEUTIC TABLET PO SCH (08:22)
[2019-05-02] MEDS: ZINC SULFATE 220 MG CAPSULE PO SCH (08:22)
[2019-05-02] MEDS: CHOLECALCIFEROL 1,000 UNIT TABLET PO SCH (08:22)
[2019-05-02] MEDS: ASCORBIC ACID 500 MG TABLET PO SCH (08:22)
[2019-05-02] MEDS: NYSTATIN POWDER 15 GM BOTTLE TOP SCH (08:22)
[2019-05-02] MEDS: ISOSORBIDE MONONITRATE 60 MG TAB.SR.24H PO SCH (08:22)
[2019-05-02] MEDS: THERAHONEY GEL 1.5 OZ TUBE TOP SCH (08:22)
[2019-05-02] MEDS: RANOLAZINE 500 MG TAB.ER.12H PO SCH (08:22)
[2019-05-02] MEDS: NYSTATIN/TRIAMCINOLONE CREAM 15 GM TUBE TP SCH (08:23)
[2019-05-02] MEDS: INSULIN REGULAR, HUMAN 300 UNIT/3 ML VIAL SQ PRN ×2 (08:32→12:37)
--- NOTE | 2019-05-02 09:53 | NUR ---
patien in bed, awake and verbally responsive. Able to make needs known. On contact isolation for MRSA Nares, Proper PPE strictly Observed at all times. Kept the call light within easy reach. All needs attended and met.
--- NOTE | 2019-05-02 10:00 | NUR ---
patient in bed, awake and verbally responsive. No signs of Respiratory distress, No SOB. All needs attended and met, complains of generalized Body pain, Offered Oxycodone PRN as ordered, but refused to take. Dr. Escalona is aware,and No New Order at this time. Will continue to monitor.
--- NOTE | 2019-05-02 11:00 | NUR ---
Patient with [facility], patient made aware, but patient wasn't happy and insist to have EGD today, that he refused yesterday. Dr. Escalona made aware with order to have EGD Outpatient/ Non emergent once discharge. Patient made aware of Discharge Order, Explained all discharge Instructions. But patient refusing to be discharge, Called wastewater project manager and made aware.
[2019-05-02] MEDS: ONDANSETRON 4 MG/2 ML VIAL IV PRN (11:16)
[2019-05-02 12:16] VITALS: BP 140/70
[2019-05-02 15:15] VITALS: BP 161/73
[2019-05-02] MEDS: OXYCODONE HCL 5 MG TABLET PO PRN (15:44)
--- NOTE | 2019-05-02 15:48 | NUR ---
patient in Bed, awake and verbally responsive. No signs of Respiratory distress noted. No SOB. Denies Chest Pain. Pain medication Oxycodone 10 mg given as ordered for PRN Pain. Patient was Picked up by 2 EMT in stable condition. gave report to Ayaka STARKEY from [facility], All discharge Instructions explained to patient. Patient refused to sign the Discharge Order. Removed IV access site and Wrist band.
[2019-05-03 08:06] LABS: *IMMUNOGLOBULIN G, SERUM 1411 mg/dL (700-1600); IMMUNOGLOBULIN A, SERUM 210 mg/dL (61-437); IMMUNOGLOBULIN M, SERUM 73 mg/dL (20-172)
[2019-05-06 06:07] LABS: ALPHA-1-GLOBULIN 0.2 g/dL (0.0-0.4); ALPHA-2-GLOBULIN 0.8 g/dL (0.4-1.0); BETA GLOBULIN 0.8 g/dL (0.7-1.3); GAMMA GLOBULIN 1.3 g/dL (0.4-1.8); GLOBULIN, TOTAL 3.1 g/dL (2.2-3.9); M-SPIKE Not Observed g/dL (Not Observed)
== END 2019-05-02 16:00 | DRG 812 ==
LOC: ER 03:33 → TELE3 04:16 → MEDSURG3 05-01 14:35
PROVIDERS: ADMIT Family Medicine
PROC: 30233N1 Transfusion of Nonautologous Red Blood Cells into Peripheral Vein, Percutaneous Approach (ICD-10-PCS; principal; 2019-04-30)
DX: D64.9 Anemia, unspecified (principal); M86.8X6 Other osteomyelitis, lower leg; L97.411 Non-pressure chronic ulcer of right heel and midfoot limited to breakdown of skin; S29.011A Strain of muscle and tendon of front wall of thorax, initial encounter; X58.XXXA Exposure to other specified factors, initial encounter; Y92.122 Bedroom in nursing home as the place of occurrence of the external cause; Y93.89 Activity, other specified; E11.51 Type 2 diabetes mellitus with diabetic peripheral angiopathy without gangrene; Z89.512 Acquired absence of left leg below knee; I25.10 Atherosclerotic heart disease of native coronary artery without angina pectoris; Z95.5 Presence of coronary angioplasty implant and graft; Y99.8 Other external cause status; E11.22 Type 2 diabetes mellitus with diabetic chronic kidney disease; I12.9 Hypertensive chronic kidney disease with stage 1 through stage 4 chronic kidney disease, or unspecified chronic kidney disease; N18.3 Chronic kidney disease, stage 3 (moderate); G40.909 Epilepsy, unspecified, not intractable, without status epilepticus; G47.00 Insomnia, unspecified; E11.69 Type 2 diabetes mellitus with other specified complication; Z79.4 Long term (current) use of insulin; F95.2 Tourette's disorder; Z22.322 Carrier or suspected carrier of Methicillin resistant Staphylococcus aureus; L30.4 Erythema intertrigo; I70.234 Atherosclerosis of native arteries of right leg with ulceration of heel and midfoot; I70.235 Atherosclerosis of native arteries of right leg with ulceration of other part of foot; L97.511 Non-pressure chronic ulcer of other part of right foot limited to breakdown of skin; E11.42 Type 2 diabetes mellitus with diabetic polyneuropathy; G89.4 Chronic pain syndrome; F90.9 Attention-deficit hyperactivity disorder, unspecified type; K21.9 Gastro-esophageal reflux disease without esophagitis; J44.9 Chronic obstructive pulmonary disease, unspecified; N40.0 Benign prostatic hyperplasia without lower urinary tract symptoms; Z76.5 Malingerer [conscious simulation]; Z79.01 Long term (current) use of anticoagulants; Z79.890 Hormone replacement therapy; Z79.899 Other long term (current) drug therapy; E11.621 Type 2 diabetes mellitus with foot ulcer; R07.89 Other chest pain
CPT/HCPCS: 36415; 70030-TC; 71045; 82784; 83550; 83735; 84100; 84155; 84165; 84443; 85025; 85730; 86334; 86850; 86900; 86901; 86920; 93005; 93307; G0378; J1815; J1940; J2270; J2405; J2765; J3490; J7040; J7050; P9016-BL; P9021

== ENCOUNTER 2019-05-26 13:47 | Inpatient (IN) | payer MEDICARE, OTHER ==
[~2019-05-26] VITALS: Ht 167.6 cm; Wt 68.0 kg
[~2019-05-26 13:47] MED LIST changes: +ATOR40TA PO; +BISA10SU61 RC; -CARV3.12 PO; +CARV6.252 PO; -CEFE1PIG3 IV; +DIVA-78 PO; -DIVA500T2 PO; +DULO20CA PO; -FENT1PAT6 TD; -GABA-534 PO; -HYDR2TAB4 PO; -INSU100V7 SQ; +INSULIN GLARGINE SUBCUT; +MAGN400O6 PO; +METO-295 PO; +NA P133E RC; +NALO4SPR NS; +NYST15CR2 TP; +ONDA4TAB10 PO; +OXYC5TAB3 PO; +RANO500T3 PO; -RXVAN IV
[2019-05-26] MEDS ORDERED: REPA0.5T4 PO (14:25)
[2019-05-26] MEDS ORDERED: INSU100V7 SQ (14:25)
[2019-05-26] MEDS ORDERED: OXYC5TAB3 PO (14:25)
[2019-05-26] MEDS ORDERED: GLUC1KIT IJ (14:25)
[2019-05-26] MEDS ORDERED: CLON0.1T PO (14:25)
[2019-05-26] MEDS ORDERED: ASPI81TA31 PO (14:25)
[2019-05-26] MEDS ORDERED: ALBU2.5V38 IH (14:25)
[2019-05-26 14:40] LABS: BASOPHILS % (AUTO) 0.3 % (0.0-2.0); EOSINOPHILS # (AUTO) 0.1 K/uL (0.0-0.7); EOSINOPHILS % (AUTO) 1.2 % (0.0-7.0); LYMPHOCYTES # (AUTO) 0.8 K/uL (20.0-40.0); MEAN CORPUSCULAR HEMOGLOBIN 31.6 uug (23.8-33.4); MEAN CORPUSCULAR HGB CONC 34 g/dL (32.5-36.3); MEAN CORPUSCULAR VOLUME 94.3 fL (73.0-96.2); MONOCYTES # (AUTO) 0.8 K/uL (2.0-10.0); MONOCYTES % (AUTO) 7.4 % (0.0-11.0); NEUTROPHILS # (AUTO) 9.1 K/uL (1.8-8.9); NEUTROPHILS % (AUTO) 84.1 % (38.5-71.5); PLATELET COUNT (AUTO) 189 K/uL (152-348); WHITE BLOOD COUNT (AUTO) 10.8 K/uL (3.6-10.2)
[2019-05-26 14:42] LABS: RED BLOOD CELL COUNT(AUTO) 1.99 MIL/uL (4.06-5.63)
[2019-05-26 14:45] LABS: HEMATOCRIT 18.7 % (36.7-47.1); HEMOGLOBIN 6.3 g/dL (12.5-16.3)
[2019-05-26 14:55] LABS: CARBON DIOXIDE 23 mmol/L (21-32); CHLORIDE 94 mmol/L (98-107); GLUCOSE 114 mg/dL (74-106); POTASSIUM 4.8 mmol/L (3.5-5.1); UREA NITROGEN, BLOOD 64 mg/dL (7-18)
[2019-05-26 15:06] LABS: ETHANOL < 3 MG/DL (0-0)
[2019-05-26 15:14] LABS: ALANINE AMINOTRANSFERASE 13 U/L (16-63); ALKALINE PHOSPHATASE 56 U/L (50-136); ASPARTATE AMINOTRANSFERASE 35 U/L (15-37); BILIRUBIN,DIRECT 0.2 mg/dL (0.0-0.2); BILIRUBIN,TOTAL 0.5 mg/dL (0.2-1.0)
[2019-05-26 15:16] LABS: ACETAMINOPHEN < 2.0 ug/mL (10-30)
[2019-05-26] MEDS ORDERED: HYDROMORPHONE 1 MG/1 ML DISP.SYRIN IV ONE (15:45)
[2019-05-26 15:48] LABS: BAND % (MANUAL) 5 % (0-10); EOSINOPHILS % (MANUAL) 2 % (0-8); LYMPHOCYTES % (MANUAL) 9 % (20-40); MONOCYTES % (MANUAL) 7 % (2-10); NEUTROPHILS % (MANUAL) 77 % (42-75)
[2019-05-26] MEDS ORDERED: HYDROMORPHONE 1 MG/1 ML DISP.SYRIN ONE (15:48)
[2019-05-26 16:34] VITALS: BP 108/45
[2019-05-26] MEDS ORDERED: NYSTATIN/TRIAMCINOLONE CREAM 15 GM TUBE TP SCH (17:30)
[2019-05-26] MEDS ORDERED: MIRALAX 17 GM POWD.PACK PO PRN (17:30)
[2019-05-26] MEDS ORDERED: CLONIDINE HCL 0.1 MG TABLET PO PRN (17:30)
[2019-05-26] MEDS ORDERED: ALBUTEROL SULFATE 2.5 MG/3 ML NEBU IH PRN (17:30)
[2019-05-26] MEDS ORDERED: NITROGLYCERIN 0.4 MG/TAB BOTTLE SL PRN (17:30)
[2019-05-26] MEDS ORDERED: BISACODYL 10 MG SUPP.RECT RC PRN (17:30)
[2019-05-26] MEDS ORDERED: GUAIFENESIN/CODEINE 5 ML LIQUID UDC PO PRN (17:30)
[2019-05-26] MEDS ORDERED: FLEET ENEMA 133 ML BOTTLE RC PRN (17:30)
[2019-05-26] MEDS ORDERED: DEXTROSE 50% 50 ML DISP.SYRIN IV PRN (17:45)
[2019-05-26] MEDS ORDERED: ACETAMINOPHEN 325 MG TABLET PO PRN (17:45)
[2019-05-26 17:49] LABS: IRON, SERUM 19 ug/dL (50-175)
[2019-05-26 19:39] VITALS: BP 99/43
[2019-05-26] MEDS: MONTELUKAST SODIUM 10 MG TABLET PO SCH (20:51)
[2019-05-26] MEDS: ATORVASTATIN 40 MG TABLET PO SCH (20:51)
[2019-05-26] MEDS: MELATONIN 3 MG TABLET PO SCH (20:51)
[2019-05-26] MEDS: TAMSULOSIN HCL 0.4 MG CAP.SR.24H PO SCH (20:51)
[2019-05-26] MEDS: BLOOD SUGAR DIAGNOSTIC 1 EACH STRIP VI SCH (21:03)
[2019-05-26] MEDS: HYDROMORPHONE 1 MG/1 ML DISP.SYRIN IV PRN (21:09)
[2019-05-26 23:06] VITALS: BP 98/44
[2019-05-26 23:21] VITALS: BP 104/42
[2019-05-26 23:39] VITALS: BP 109/44
[2019-05-27] VITALS (14 sets, daily range): BP systolic 96–145; BP diastolic 41–57
[2019-05-27] MEDS: LEVOTHYROXINE SODIUM 100 MCG TABLET PO SCH (06:01)
[2019-05-27] MEDS: PANTOPRAZOLE SODIUM 40 MG TABLET.DR PO SCH ×2 (06:01→16:43)
[2019-05-27] MEDS: BLOOD SUGAR DIAGNOSTIC 1 EACH STRIP VI SCH ×4 (06:02→21:08)
[2019-05-27 07:27] LABS: BASOPHILS % (AUTO) 0.1 % (0.0-2.0); EOSINOPHILS # (AUTO) 0.1 K/uL (0.0-0.7); EOSINOPHILS % (AUTO) 0.6 % (0.0-7.0); LYMPHOCYTES # (AUTO) 0.3 K/uL (20.0-40.0); LYMPHOCYTES % (AUTO) 2.5 % (20.5-51.5); MEAN CORPUSCULAR HEMOGLOBIN 31.2 uug (23.8-33.4); MEAN CORPUSCULAR HGB CONC 34 g/dL (32.5-36.3); MEAN CORPUSCULAR VOLUME 92.2 fL (73.0-96.2); MONOCYTES # (AUTO) 0.5 K/uL (2.0-10.0); MONOCYTES % (AUTO) 4.5 % (0.0-11.0); NEUTROPHILS % (AUTO) 92.3 % (38.5-71.5); WHITE BLOOD COUNT (AUTO) 11.9 K/uL (3.6-10.2)
[2019-05-27 07:34] LABS: HEMATOCRIT 22.1 % (36.7-47.1); HEMOGLOBIN 7.5 g/dL (12.5-16.3); RED BLOOD CELL COUNT(AUTO) 2.39 MIL/uL (4.06-5.63)
[2019-05-27 07:35] LABS: PLATELET COUNT (AUTO) 240 K/uL (152-348)
[2019-05-27 07:39] LABS: BILIRUBIN,TOTAL 0.8 mg/dL (0.2-1.0); CREATININE 3.8 mg/dL (0.6-1.3); MAGNESIUM 1.9 mg/dL (1.8-2.4); PHOSPHOROUS 4.3 mg/dL (2.5-4.9); POTASSIUM 5.2 mmol/L (3.5-5.1)
[2019-05-27] MEDS: HYDROMORPHONE 1 MG/1 ML DISP.SYRIN IV PRN ×4 (08:30→21:26)
[2019-05-27] MEDS: REPAGLINIDE 1 MG TABLET PO SCH (08:35)
[2019-05-27] MEDS: CULTURELLE CAPSULE PO SCH (08:36)
[2019-05-27] MEDS: DULOXETINE 20 MG CAPSULE.DR PO SCH (08:36)
[2019-05-27] MEDS: DIVALPROEX 500 MG TABLET.DR PO SCH ×3 (08:36→16:43)
[2019-05-27] MEDS: AMIODARONE HCL 200 MG TABLET PO SCH (08:36)
[2019-05-27] MEDS: ISOSORBIDE MONONITRATE 60 MG TAB.SR.24H PO SCH (08:37)
[2019-05-27] MEDS: CHOLECALCIFEROL 1,000 UNIT TABLET PO SCH (08:37)
[2019-05-27] MEDS: RANOLAZINE 500 MG TAB.ER.12H PO SCH ×2 (08:37→16:43)
[2019-05-27] MEDS ORDERED: REPAGLINIDE 0.5 MG PO SCH (09:00)
[2019-05-27] MEDS ORDERED: EPOETIN ALFA 10,000 UNITS/ML VIAL SQ ONE (11:45)
[2019-05-27] MEDS: INSULIN REGULAR, HUMAN 300 UNIT/3 ML VIAL SQ PRN ×2 (12:36→21:12)
[2019-05-27] MEDS: CARVEDILOL 6.25 MG TABLET PO SCH (17:16)
[2019-05-27] MEDS: MELATONIN 3 MG TABLET PO SCH (20:58)
[2019-05-27] MEDS: MONTELUKAST SODIUM 10 MG TABLET PO SCH (20:58)
[2019-05-27] MEDS: TAMSULOSIN HCL 0.4 MG CAP.SR.24H PO SCH (20:58)
[2019-05-27] MEDS: ATORVASTATIN 40 MG TABLET PO SCH (20:58)
[2019-05-28 04:54] VITALS: BP 96/42
[2019-05-28] MEDS: LEVOTHYROXINE SODIUM 100 MCG TABLET PO SCH (06:38)
[2019-05-28] MEDS: PANTOPRAZOLE SODIUM 40 MG TABLET.DR PO SCH ×2 (06:38→19:26)
[2019-05-28] MEDS: REPAGLINIDE 1 MG TABLET PO SCH (06:38)
[2019-05-28 06:42] LABS: BASOPHILS % (AUTO) 0.3 % (0.0-2.0); EOSINOPHILS # (AUTO) 0.3 K/uL (0.0-0.7); EOSINOPHILS % (AUTO) 1.9 % (0.0-7.0); LYMPHOCYTES # (AUTO) 1.4 K/uL (20.0-40.0); LYMPHOCYTES % (AUTO) 10.1 % (20.5-51.5); MEAN CORPUSCULAR HEMOGLOBIN 30.4 uug (23.8-33.4); MEAN CORPUSCULAR HGB CONC 34 g/dL (32.5-36.3); MEAN CORPUSCULAR VOLUME 89.9 fL (73.0-96.2); MONOCYTES % (AUTO) 7.4 % (0.0-11.0); NEUTROPHILS # (AUTO) 11.1 K/uL (1.8-8.9); NEUTROPHILS % (AUTO) 80.3 % (38.5-71.5); PLATELET COUNT (AUTO) 246 K/uL (152-348); WHITE BLOOD COUNT (AUTO) 13.9 K/uL (3.6-10.2)
[2019-05-28 06:43] LABS: CREATININE 3.6 mg/dL (0.6-1.3); MAGNESIUM 1.9 mg/dL (1.8-2.4); PHOSPHOROUS 4.1 mg/dL (2.5-4.9); POTASSIUM 4.5 mmol/L (3.5-5.1)
[2019-05-28] MEDS: BLOOD SUGAR DIAGNOSTIC 1 EACH STRIP VI SCH ×4 (06:43→22:00)
[2019-05-28 07:22] LABS: HEMOGLOBIN 6.4 g/dL (12.5-16.3); RED BLOOD CELL COUNT(AUTO) 2.11 MIL/uL (4.06-5.63)
[2019-05-28 07:32] LABS: *BILIRUBIN,URIN NEGATIVE (NEGATIVE); *BLOOD, URINE NEGATIVE (NEGATIVE); *CLARITY,URINE CLEAR (CLEAR); *COLOR,URINE YELLOW (YELLOW); *KETONES,URINE NEGATIVE (NEGATIVE); *UROBILINOGEN,URINE 0.2 E.U./dl (NORMAL); LEUKOCYTE ESTERASE ,URINE NEGATIVE (NEGATIVE); NITRITE, URINE NEGATIVE (NEGATIVE); PH,URINE 5.5 (5.0-8.0); UGLUCOSE NEGATIVE (NEGATIVE)
[2019-05-28 07:59] LABS: BAND % (MANUAL) 3 % (0-10); EOSINOPHILS % (MANUAL) 1 % (0-8); LYMPHOCYTES % (MANUAL) 15 % (20-40); MONOCYTES % (MANUAL) 5 % (2-10); NEUTROPHILS % (MANUAL) 76 % (42-75)
[2019-05-28] MEDS: CARVEDILOL 6.25 MG TABLET PO SCH ×2 (08:00→18:00)
[2019-05-28 08:01] LABS: BACTERIA,URINE FEW /HPF (NONE SEEN); RBC,URINE 0-3 /HPF (0-3); SQUAMOUS EPITHELIAL CELL,UR FEW /HPF (NONE SEEN); WBC,URINE 0-3 /HPF (0-3)
[2019-05-28] MEDS: DULOXETINE 20 MG CAPSULE.DR PO SCH (09:01)
[2019-05-28] MEDS: CULTURELLE CAPSULE PO SCH (09:01)
[2019-05-28] MEDS: DIVALPROEX 500 MG TABLET.DR PO SCH ×3 (09:02→19:26)
[2019-05-28] MEDS: CHOLECALCIFEROL 1,000 UNIT TABLET PO SCH (09:02)
[2019-05-28] MEDS: RANOLAZINE 500 MG TAB.ER.12H PO SCH ×2 (09:02→17:00)
[2019-05-28] MEDS: MUPIROCIN 2% OINT 22 GM TUBE TP SCH ×2 (09:37→22:05)
[2019-05-28] MEDS: ISOSORBIDE MONONITRATE 60 MG TAB.SR.24H PO SCH (10:07)
[2019-05-28] MEDS: AMIODARONE HCL 200 MG TABLET PO SCH (10:08)
[2019-05-28 12:00] VITALS: BP 96/46
[2019-05-28 15:52] VITALS: BP 103/48
[2019-05-28] MEDS: HYDROMORPHONE 1 MG/1 ML DISP.SYRIN IV PRN (18:50)
[2019-05-28] MEDS ORDERED: CEFEPIME HCL 1 G in IV DEXTROSE 5% 50 ML IV SCH (19:30)
[2019-05-28 20:00] VITALS: BP 122/55
[2019-05-28] MEDS: CEFEPIME HCL 1 G in IV DEXTROSE 5% 50 ML IV SCH (20:51)
[2019-05-28] MEDS: MONTELUKAST SODIUM 10 MG TABLET PO SCH (21:55)
[2019-05-28] MEDS: TAMSULOSIN HCL 0.4 MG CAP.SR.24H PO SCH (21:55)
[2019-05-28] MEDS: ATORVASTATIN 40 MG TABLET PO SCH (21:55)
[2019-05-28] MEDS: DOXYCYCLINE HYCLATE IV 100 MG in IV DEXTROSE 5% 100 ML IV SCH (21:55)
[2019-05-28] MEDS: MELATONIN 3 MG TABLET PO SCH (21:55)
[2019-05-29] VITALS (10 sets, daily range): BP systolic 104–131; BP diastolic 47–84
[2019-05-29] MEDS: HYDROMORPHONE 1 MG/1 ML DISP.SYRIN IV PRN ×5 (01:09→22:16)
[2019-05-29] MEDS: BLOOD SUGAR DIAGNOSTIC 1 EACH STRIP VI SCH ×4 (06:05→21:43)
[2019-05-29] MEDS: LEVOTHYROXINE SODIUM 100 MCG TABLET PO SCH (06:05)
[2019-05-29] MEDS: PANTOPRAZOLE SODIUM 40 MG TABLET.DR PO SCH ×2 (06:05→17:40)
[2019-05-29 07:02] LABS: BASOPHILS % (AUTO) 0.3 % (0.0-2.0); EOSINOPHILS # (AUTO) 0.1 K/uL (0.0-0.7); EOSINOPHILS % (AUTO) 0.7 % (0.0-7.0); HEMATOCRIT 25.5 % (36.7-47.1); HEMOGLOBIN 8.8 g/dL (12.5-16.3); LYMPHOCYTES # (AUTO) 0.5 K/uL (20.0-40.0); LYMPHOCYTES % (AUTO) 3.5 % (20.5-51.5); MEAN CORPUSCULAR HEMOGLOBIN 30.8 uug (23.8-33.4); MEAN CORPUSCULAR HGB CONC 35 g/dL (32.5-36.3); MEAN CORPUSCULAR VOLUME 89.3 fL (73.0-96.2); MONOCYTES # (AUTO) 0.5 K/uL (2.0-10.0); MONOCYTES % (AUTO) 3.6 % (0.0-11.0); NEUTROPHILS # (AUTO) 13.4 K/uL (1.8-8.9); NEUTROPHILS % (AUTO) 91.9 % (38.5-71.5); PLATELET COUNT (AUTO) 269 K/uL (152-348); RED BLOOD CELL COUNT(AUTO) 2.85 MIL/uL (4.06-5.63); WHITE BLOOD COUNT (AUTO) 14.5 K/uL (3.6-10.2)
[2019-05-29 07:06] LABS: HEPATITIS A AB, IgM Negative (Negative); HEPATITIS A AB, TOTAL Negative (Negative); HEPATITIS B SURFACE AB Non Reactive (.)
[2019-05-29 07:24] LABS: CREATININE 3.4 mg/dL (0.6-1.3); MAGNESIUM 1.8 mg/dL (1.8-2.4); PHOSPHOROUS 3.8 mg/dL (2.5-4.9); POTASSIUM 5.1 mmol/L (3.5-5.1)
[2019-05-29] MEDS: DIVALPROEX 500 MG TABLET.DR PO SCH ×3 (08:18→17:40)
[2019-05-29] MEDS: DULOXETINE 20 MG CAPSULE.DR PO SCH (08:18)
[2019-05-29] MEDS: CHOLECALCIFEROL 1,000 UNIT TABLET PO SCH (08:19)
[2019-05-29] MEDS: ISOSORBIDE MONONITRATE 60 MG TAB.SR.24H PO SCH (08:19)
[2019-05-29] MEDS: RANOLAZINE 500 MG TAB.ER.12H PO SCH ×2 (08:20→17:40)
[2019-05-29] MEDS: AMIODARONE HCL 200 MG TABLET PO SCH (08:20)
[2019-05-29] MEDS: CULTURELLE CAPSULE PO SCH (08:20)
[2019-05-29] MEDS: CARVEDILOL 6.25 MG TABLET PO SCH ×2 (08:20→17:41)
[2019-05-29] MEDS: MUPIROCIN 2% OINT 22 GM TUBE TP SCH ×2 (09:07→21:37)
[2019-05-29] MEDS: REPAGLINIDE 1 MG TABLET PO SCH (09:07)
[2019-05-29] MEDS: DOXYCYCLINE HYCLATE IV 100 MG in IV DEXTROSE 5% 100 ML IV SCH ×2 (09:07→23:36)
[2019-05-29] MEDS: INSULIN REGULAR, HUMAN 300 UNIT/3 ML VIAL SQ PRN ×2 (13:03→21:45)
[2019-05-29] MEDS: MONTELUKAST SODIUM 10 MG TABLET PO SCH (21:36)
[2019-05-29] MEDS: TAMSULOSIN HCL 0.4 MG CAP.SR.24H PO SCH (21:36)
[2019-05-29] MEDS: MELATONIN 3 MG TABLET PO SCH (21:36)
[2019-05-29] MEDS: CEFEPIME HCL 1 G in IV DEXTROSE 5% 50 ML IV SCH (21:36)
[2019-05-29] MEDS: ATORVASTATIN 40 MG TABLET PO SCH (21:36)
[2019-05-30 00:03] VITALS: BP 98/46
[2019-05-30 05:31] VITALS: BP 106/51
[2019-05-30] MEDS: PANTOPRAZOLE SODIUM 40 MG TABLET.DR PO SCH ×2 (06:11→16:27)
[2019-05-30] MEDS: LEVOTHYROXINE SODIUM 100 MCG TABLET PO SCH (06:11)
[2019-05-30] MEDS: BLOOD SUGAR DIAGNOSTIC 1 EACH STRIP VI SCH ×3 (06:35→17:50)
[2019-05-30 07:37] LABS: BASOPHILS % (AUTO) 0.2 % (0.0-2.0); EOSINOPHILS # (AUTO) 0.4 K/uL (0.0-0.7); EOSINOPHILS % (AUTO) 3.2 % (0.0-7.0); HEMOGLOBIN 8.1 g/dL (12.5-16.3); LYMPHOCYTES # (AUTO) 1.2 K/uL (20.0-40.0); LYMPHOCYTES % (AUTO) 9.5 % (20.5-51.5); MEAN CORPUSCULAR HEMOGLOBIN 30.5 uug (23.8-33.4); MEAN CORPUSCULAR HGB CONC 34 g/dL (32.5-36.3); MEAN CORPUSCULAR VOLUME 90.4 fL (73.0-96.2); MONOCYTES # (AUTO) 0.8 K/uL (2.0-10.0); MONOCYTES % (AUTO) 6.3 % (0.0-11.0); NEUTROPHILS # (AUTO) 9.8 K/uL (1.8-8.9); NEUTROPHILS % (AUTO) 80.8 % (38.5-71.5); PLATELET COUNT (AUTO) 230 K/uL (152-348); RED BLOOD CELL COUNT(AUTO) 2.65 MIL/uL (4.06-5.63); WHITE BLOOD COUNT (AUTO) 12.1 K/uL (3.6-10.2)
[2019-05-30 07:52] LABS: CREATININE 3.5 mg/dL (0.6-1.3); MAGNESIUM 1.8 mg/dL (1.8-2.4); PHOSPHOROUS 3.8 mg/dL (2.5-4.9); POTASSIUM 4.6 mmol/L (3.5-5.1)
[2019-05-30] MEDS: HYDROMORPHONE 1 MG/1 ML DISP.SYRIN IV PRN (08:00)
[2019-05-30] MEDS: CARVEDILOL 6.25 MG TABLET PO SCH ×2 (08:00→17:06)
[2019-05-30] MEDS: AMIODARONE HCL 200 MG TABLET PO SCH (08:12)
[2019-05-30] MEDS: CULTURELLE CAPSULE PO SCH (08:12)
[2019-05-30] MEDS: RANOLAZINE 500 MG TAB.ER.12H PO SCH ×2 (08:12→16:27)
[2019-05-30] MEDS: REPAGLINIDE 1 MG TABLET PO SCH (08:12)
[2019-05-30] MEDS: DULOXETINE 20 MG CAPSULE.DR PO SCH (08:13)
[2019-05-30] MEDS: CHOLECALCIFEROL 1,000 UNIT TABLET PO SCH (08:13)
[2019-05-30] MEDS: ISOSORBIDE MONONITRATE 60 MG TAB.SR.24H PO SCH (08:13)
[2019-05-30] MEDS: DIVALPROEX 500 MG TABLET.DR PO SCH ×3 (08:13→16:27)
[2019-05-30] MEDS: MUPIROCIN 2% OINT 22 GM TUBE TP SCH (08:14)
[2019-05-30] MEDS: DOXYCYCLINE HYCLATE IV 100 MG in IV DEXTROSE 5% 100 ML IV SCH (08:19)
[2019-05-30 11:37] VITALS: BP 110/48
[2019-05-30 15:47] VITALS: BP 150/45
== END 2019-05-30 19:20 | DRG 637 ==
LOC: ER 13:54 → TELE3 15:55
PROVIDERS: ADMIT Internal Medicine; ATTEND Internal Medicine
PROC: 30233N1 Transfusion of Nonautologous Red Blood Cells into Peripheral Vein, Percutaneous Approach (ICD-10-PCS; principal; 2019-05-26)
PROC: 05HY33Z Insertion of Infusion Device into Upper Vein, Percutaneous Approach (ICD-10-PCS; 2019-05-30)
DX: E11.69 Type 2 diabetes mellitus with other specified complication (principal); E43 Unspecified severe protein-calorie malnutrition; M86.171 Other acute osteomyelitis, right ankle and foot; J96.11 Chronic respiratory failure with hypoxia; D62 Acute posthemorrhagic anemia; F11.20 Opioid dependence, uncomplicated; L97.516 Non-pressure chronic ulcer of other part of right foot with bone involvement without evidence of necrosis; L97.418 Non-pressure chronic ulcer of right heel and midfoot with other specified severity; J98.11 Atelectasis; E87.1 Hypo-osmolality and hyponatremia; I13.0 Hypertensive heart and chronic kidney disease with heart failure and stage 1 through stage 4 chronic kidney disease, or unspecified chronic kidney disease; I50.32 Chronic diastolic (congestive) heart failure; D68.59 Other primary thrombophilia; K92.2 Gastrointestinal hemorrhage, unspecified; G92 Toxic encephalopathy; N17.0 Acute kidney failure with tubular necrosis; E11.65 Type 2 diabetes mellitus with hyperglycemia; E11.51 Type 2 diabetes mellitus with diabetic peripheral angiopathy without gangrene; E11.42 Type 2 diabetes mellitus with diabetic polyneuropathy; G40.909 Epilepsy, unspecified, not intractable, without status epilepticus; F95.2 Tourette's disorder; G89.4 Chronic pain syndrome; Z79.4 Long term (current) use of insulin; Z89.512 Acquired absence of left leg below knee; E11.621 Type 2 diabetes mellitus with foot ulcer; Z22.322 Carrier or suspected carrier of Methicillin resistant Staphylococcus aureus; E11.22 Type 2 diabetes mellitus with diabetic chronic kidney disease; I13.10 Hypertensive heart and chronic kidney disease without heart failure, with stage 1 through stage 4 chronic kidney disease, or unspecified chronic kidney disease; N18.3 Chronic kidney disease, stage 3 (moderate); R25.3 Fasciculation; K21.9 Gastro-esophageal reflux disease without esophagitis; L82.1 Other seborrheic keratosis; J44.9 Chronic obstructive pulmonary disease, unspecified; M48.02 Spinal stenosis, cervical region; N40.0 Benign prostatic hyperplasia without lower urinary tract symptoms; Z79.891 Long term (current) use of opiate analgesic; Z79.890 Hormone replacement therapy; Z95.5 Presence of coronary angioplasty implant and graft; I25.10 Atherosclerotic heart disease of native coronary artery without angina pectoris; I67.2 Cerebral atherosclerosis; F32.9 Major depressive disorder, single episode, unspecified; F90.9 Attention-deficit hyperactivity disorder, unspecified type; Z79.899 Other long term (current) drug therapy; E78.5 Hyperlipidemia, unspecified; E86.0 Dehydration; E66.9 Obesity, unspecified; H40.9 Unspecified glaucoma; E03.9 Hypothyroidism, unspecified; Z79.01 Long term (current) use of anticoagulants; G25.0 Essential tremor; M54.10 Radiculopathy, site unspecified; Z87.438 Personal history of other diseases of male genital organs
CPT/HCPCS: 36415; 70030-TC; 70450; 71045; 72125; 73630; 73721; 80164; 83550; 83605; 83735; 84100; 84443; 85025; 85730; 86705; 86706; 86708; 86709; 86803; 86850; 86900; 86901; 86920; 87040; 87086; 93005; A4663; G0378; G0480; G0480-TC; J0692; J0885; J1170; J1815; J3490; J7050; J7060; P9016-BL; P9021

== ENCOUNTER 2019-08-03 00:34 | Inpatient (IN) | payer MEDICARE, OTHER ==
[~2019-08-03] VITALS: Ht 182.9 cm; Wt 97.1 kg
[~2019-08-03 00:34] MED LIST changes: +ALBU2.5V38 IH; -ALBU6.7H IH; -APIX2.5T PO; +ASPI81TA31 PO; +CLON0.1T PO; -COLL30OI TOP; +GLUC1KIT IJ; +INSU100V7 SQ; -INSULIN GLARGINE SUBCUT; -MAGN400O6 PO; -MECL-102 PO; -MELA3TAB PO; +MELA3TAB63 PO; -METO-295 PO; -NALO4SPR NS; -ONDA4TAB10 PO; +REPA0.5T6 PO
[2019-08-03 00:55] LABS: BASOPHILS # (AUTO) 0.1 K/uL (0.0-8.0); BASOPHILS % (AUTO) 0.9 % (0.0-2.0); EOSINOPHILS # (AUTO) 0.4 K/uL (0.0-0.7); EOSINOPHILS % (AUTO) 6.2 % (0.0-7.0); HEMATOCRIT 23.5 % (36.7-47.1); HEMOGLOBIN 7.9 g/dL (12.5-16.3); LYMPHOCYTES # (AUTO) 1.3 K/uL (20.0-40.0); MEAN CORPUSCULAR HEMOGLOBIN 31.8 uug (23.8-33.4); MEAN CORPUSCULAR HGB CONC 34 g/dL (32.5-36.3); MEAN CORPUSCULAR VOLUME 94.9 fL (73.0-96.2); MONOCYTES # (AUTO) 0.5 K/uL (2.0-10.0); NEUTROPHILS # (AUTO) 4.4 K/uL (1.8-8.9); NEUTROPHILS % (AUTO) 65.9 % (38.5-71.5); PLATELET COUNT (AUTO) 234 K/uL (152-348); WHITE BLOOD COUNT (AUTO) 6.6 K/uL (3.6-10.2)
[2019-08-03 01:00] LABS: RED BLOOD CELL COUNT(AUTO) 2.48 MIL/uL (4.06-5.63)
[2019-08-03] MEDS ORDERED: NITROGLYCERIN OINT 1 GM PACKET TP ONE ×2 (01:00)
[2019-08-03] MEDS ORDERED: ASPIRIN 81 MG TAB.CHEW PO ONE (01:00)
[2019-08-03] MEDS ORDERED: ASPIRIN 81 MG TAB.CHEW ONE (01:00)
[2019-08-03] MEDS ORDERED: HYDROMORPHONE HCL 2 MG TABLET PO ONE ×2 (01:00→03:00)
[2019-08-03] MEDS ORDERED: HYDROMORPHONE HCL 2 MG TABLET ONE ×2 (01:01→02:49)
[2019-08-03 01:05] LABS: CREATININE 3.1 mg/dL (0.6-1.3)
[2019-08-03 01:17] LABS: BILIRUBIN,DIRECT 0.1 mg/dL (0.0-0.2); BILIRUBIN,TOTAL 0.4 mg/dL (0.2-1.0); TOTAL PROTEIN, SERUM 7.1 g/dL (6.4-8.2)
[2019-08-03] MEDS ORDERED: CLOP75TA33 PO (01:38)
[2019-08-03] MEDS ORDERED: FURO-152 PO (01:38)
[2019-08-03] MEDS ORDERED: [UNRECOGNIZED DRUG - OTHER] (01:38)
[2019-08-03] MEDS ORDERED: ASCO500C18 PO (01:38)
[2019-08-03] MEDS ORDERED: GABA-534 PO (01:38)
[2019-08-03] MEDS ORDERED: ATOR10TA33 PO (01:49)
[2019-08-03] MEDS ORDERED: CHOL10005 PO (01:49)
[2019-08-03] MEDS ORDERED: APIX5TAB PO (01:49)
[2019-08-03] MEDS ORDERED: DEXT50DI8 IV (01:49)
[2019-08-03] MEDS ORDERED: DULO20CA19 PO (01:49)
[2019-08-03] MEDS ORDERED: GLUC1KIT IJ (01:49)
[2019-08-03] MEDS ORDERED: CARV6.25 PO (01:49)
[2019-08-03] MEDS ORDERED: FOLI0.8T2 PO (01:49)
[2019-08-03] MEDS ORDERED: ZINC1CAP2 PO (01:49)
[2019-08-03] MEDS ORDERED: ALBU2.5V38 IH (01:49)
[2019-08-03] MEDS ORDERED: MONT10TA25 PO (01:49)
[2019-08-03] MEDS ORDERED: TAMS-3 PO (01:49)
[2019-08-03] MEDS ORDERED: ENOXAPARIN SODIUM 100 MG/ML DISP.SYRIN SQ ONE ×2 (02:00→02:06)
--- NOTE | 2019-08-03 02:17 | NUR ---
Pt. admitted to Telemetry, under care of Rula Perez NP. Diagnosis: Chest Pain. Belongs List completed.
[2019-08-03] MEDS ORDERED: HYDROMORPHONE HCL 2 MG TABLET PO PRN (02:30)
[2019-08-03] MEDS ORDERED: DOCUSATE SODIUM 100 MG CAPSULE PO PRN (02:30)
[2019-08-03] MEDS ORDERED: MAG HYDROX/AL HYDROX/SIMETH 30 ML LIQUID UDC PO PRN (02:30)
[2019-08-03] MEDS ORDERED: NITROGLYCERIN 0.4 MG/TAB BOTTLE SL PRN (02:30)
--- NOTE | 2019-08-03 03:45 | NUR ---
dental technician at bedside.
--- NOTE | 2019-08-03 04:39 | NUR ---
Pending results of CT scan prior to inpatient admission. Pt appears in no distress. Pt is resting comfortably in bed reading a book. Vital signs stable. Will continue to montior
--- NOTE | 2019-08-03 05:04 | NUR ---
Pt admitted to Telemetry. All belongings with patient.
[2019-08-03 05:42] VITALS: BP 139/61
[2019-08-03 06:23] LABS: BASOPHILS # (AUTO) 0.1 K/uL (0.0-8.0); EOSINOPHILS # (AUTO) 0.4 K/uL (0.0-0.7); EOSINOPHILS % (AUTO) 5.5 % (0.0-7.0); LYMPHOCYTES # (AUTO) 2.4 K/uL (20.0-40.0); MEAN CORPUSCULAR VOLUME 93.6 fL (73.0-96.2); MONOCYTES # (AUTO) 0.5 K/uL (2.0-10.0)
[2019-08-03 06:26] LABS: HEMATOCRIT 21.4 % (36.7-47.1); LYMPHOCYTES % (AUTO) 29.8 % (20.5-51.5); MEAN CORPUSCULAR HEMOGLOBIN 31.9 uug (23.8-33.4); MEAN CORPUSCULAR HGB CONC 34 g/dL (32.5-36.3); MONOCYTES % (AUTO) 6.8 % (0.0-11.0); NEUTROPHILS # (AUTO) 4.5 K/uL (1.8-8.9); NEUTROPHILS % (AUTO) 56.9 % (38.5-71.5); PLATELET COUNT (AUTO) 249 K/uL (152-348); WHITE BLOOD COUNT (AUTO) 7.9 K/uL (3.6-10.2)
[2019-08-03 06:29] LABS: HEMOGLOBIN 7.3 g/dL (12.5-16.3); RED BLOOD CELL COUNT(AUTO) 2.28 MIL/uL (4.06-5.63)
[2019-08-03 06:52] LABS: THYROID STIMULATING HORMONE 9.039 mIU/mL (0.358-3.740)
[2019-08-03 06:53] LABS: CREATININE 3.1 mg/dL (0.6-1.3); POTASSIUM 4.7 mmol/L (3.5-5.1)
[2019-08-03 06:59] LABS: BILIRUBIN,TOTAL 0.5 mg/dL (0.2-1.0); MAGNESIUM 1.7 mg/dL (1.8-2.4); PHOSPHOROUS 4.2 mg/dL (2.5-4.9); TOTAL PROTEIN, SERUM 6.9 g/dL (6.4-8.2)
--- NOTE | 2019-08-03 07:30 | NUR ---
Patient resting in bed with no signs upon initial assessment ; patient will continue to be monitored.
[2019-08-03] MEDS ORDERED: ENOXAPARIN SODIUM 60 MG/0.6 ML DISP.SYRIN SQ SCH (09:00)
[2019-08-03] MEDS ORDERED: ASPIRIN 325 MG TABLET PO SCH (09:00)
[2019-08-03 11:40] VITALS: BP 124/62
[2019-08-03 16:00] VITALS: BP 149/72
[2019-08-03] MEDS: CARVEDILOL 6.25 MG TABLET PO SCH (18:29)
[2019-08-03] MEDS: HYDROMORPHONE 1 MG/1 ML DISP.SYRIN IV PRN ×2 (18:29→22:15)
--- NOTE | 2019-08-03 18:52 | NUR ---
Patient with stable vital signs through out shift; patient with no signs of distress; patient at baseline mental status; Report given to oncoming nurse.
[2019-08-03 19:53] VITALS: BP 163/81
[2019-08-03] MEDS: MONTELUKAST SODIUM 10 MG TABLET PO SCH (20:11)
[2019-08-03] MEDS: TAMSULOSIN HCL 0.4 MG CAP.SR.24H PO SCH (20:11)
[2019-08-03] MEDS: ATORVASTATIN 10 MG TABLET PO SCH (20:11)
[2019-08-03] MEDS ORDERED: ENOXAPARIN SODIUM 100 MG/ML DISP.SYRIN SQ SCH (21:00)
[2019-08-03] MEDS ORDERED: HYDROCORTISONE 1% CREAM 30 GM TUBE TP PRN (21:00)
[2019-08-03] MEDS ORDERED: SIMVASTATIN 20 MG TABLET PO SCH (21:00)
[2019-08-03] MEDS ORDERED: HYDROCORTISONE 1% CREAM 30 GM TUBE TP ONE (21:07)
[2019-08-04] VITALS: BP 146/73
[2019-08-04] MEDS: HYDROMORPHONE 1 MG/1 ML DISP.SYRIN IV PRN ×6 (02:31→22:11)
[2019-08-04 04:00] VITALS: BP 130/62
[2019-08-04] MEDS ORDERED: HYDROCORTISONE 1% CREAM 30 GM TUBE TP PRN (06:15)
[2019-08-04] MEDS: LEVOTHYROXINE SODIUM 100 MCG TABLET PO SCH (06:15)
[2019-08-04] MEDS: PANTOPRAZOLE SODIUM 40 MG TABLET.DR PO SCH (06:15)
--- NOTE | 2019-08-04 06:29 | NUR ---
Pt rested well in between care; c/o pain and addressed accordingly; needs attended; safety maintained. continue to monitor; continue plan of care.
[2019-08-04] MEDS ORDERED: MAGNESIUM CITRATE 296 ML BOTTLE PO ONE (07:00)
[2019-08-04 08:27] LABS: BASOPHILS # (AUTO) 0.1 K/uL (0.0-8.0); BASOPHILS % (AUTO) 1.3 % (0.0-2.0); EOSINOPHILS # (AUTO) 0.4 K/uL (0.0-0.7); EOSINOPHILS % (AUTO) 7.5 % (0.0-7.0); HEMATOCRIT 23.2 % (36.7-47.1); HEMOGLOBIN 7.8 g/dL (12.5-16.3); LYMPHOCYTES # (AUTO) 1.1 K/uL (20.0-40.0); LYMPHOCYTES % (AUTO) 23.1 % (20.5-51.5); MEAN CORPUSCULAR HEMOGLOBIN 31.6 uug (23.8-33.4); MEAN CORPUSCULAR HGB CONC 34 g/dL (32.5-36.3); MEAN CORPUSCULAR VOLUME 94.1 fL (73.0-96.2); MONOCYTES # (AUTO) 0.3 K/uL (2.0-10.0); MONOCYTES % (AUTO) 6.7 % (0.0-11.0); NEUTROPHILS # (AUTO) 2.9 K/uL (1.8-8.9); NEUTROPHILS % (AUTO) 61.4 % (38.5-71.5); PLATELET COUNT (AUTO) 233 K/uL (152-348); WHITE BLOOD COUNT (AUTO) 4.7 K/uL (3.6-10.2)
[2019-08-04 08:29] LABS: RED BLOOD CELL COUNT(AUTO) 2.47 MIL/uL (4.06-5.63)
[2019-08-04 08:42] LABS: MAGNESIUM 1.8 mg/dL (1.8-2.4); PHOSPHOROUS 4.7 mg/dL (2.5-4.9); POTASSIUM 4.8 mmol/L (3.5-5.1)
[2019-08-04] MEDS ORDERED: Medication Not On Formulary EA (Ascorbic Acid (Vitamin C) 500 MG) PO SCH (09:00)
[2019-08-04] MEDS ORDERED: AMIODARONE HCL 200 MG TABLET PO SCH (09:00)
[2019-08-04] MEDS ORDERED: APIXABAN 5 MG TABLET PO ONE (09:00)
[2019-08-04] MEDS ORDERED: DIVALPROEX 500 MG TABLET.DR PO SCH (09:00)
[2019-08-04] MEDS: DULOXETINE 20 MG CAPSULE.DR PO SCH (09:04)
[2019-08-04] MEDS: CARVEDILOL 6.25 MG TABLET PO SCH ×2 (09:04→17:04)
[2019-08-04] MEDS: ISOSORBIDE MONONITRATE 60 MG TAB.SR.24H PO SCH (09:06)
[2019-08-04] MEDS: CHOLECALCIFEROL 1,000 UNIT TABLET PO SCH (09:06)
[2019-08-04] MEDS: ZINC SULFATE 220 MG CAPSULE PO SCH (09:06)
[2019-08-04] MEDS: ASCORBIC ACID 500 MG TABLET PO SCH (09:06)
[2019-08-04] MEDS: FOLIC ACID/VITAMIN B COMP W-C TABLET PO SCH (09:06)
[2019-08-04] MEDS: RANOLAZINE 500 MG TAB.ER.12H PO SCH ×2 (09:15→16:44)
[2019-08-04] MEDS: GABAPENTIN 300 MG CAPSULE PO SCH ×3 (09:17→16:44)
[2019-08-04] MEDS: DIVALPROEX 500 MG TABLET.DR PO SCH ×3 (10:22→16:44)
[2019-08-04] MEDS ORDERED: FUROSEMIDE 40 MG/4 ML VIAL IV ONE (11:00)
[2019-08-04 11:10] VITALS: BP 130/59
[2019-08-04 15:40] VITALS: BP 123/60
[2019-08-04] MEDS: APIXABAN 5 MG TABLET PO SCH (16:46)
--- NOTE | 2019-08-04 18:58 | NUR ---
Patient awake in bed with HOB elevated watching TV, able to make needs known., No shortness of breath noted, prn pain meds given as ordered. Safety measures maintained, Siderails up with bed alarm on, call light within reach. will continue to monitor
[2019-08-04] MEDS: ACETAMINOPHEN 325 MG TABLET PO PRN (20:01)
[2019-08-04 20:11] VITALS: BP 144/72
[2019-08-04] MEDS: ONDANSETRON 4 MG/2 ML VIAL IV PRN (20:28)
[2019-08-04] MEDS: ATORVASTATIN 10 MG TABLET PO SCH (21:20)
[2019-08-04] MEDS: TAMSULOSIN HCL 0.4 MG CAP.SR.24H PO SCH (21:20)
[2019-08-04] MEDS: MONTELUKAST SODIUM 10 MG TABLET PO SCH (21:20)
[2019-08-04] MEDS: NYSTATIN SUSPENSION 5 ML LIQUID UDC PO SCH (22:54)
[2019-08-05] MEDS: HYDROMORPHONE 1 MG/1 ML DISP.SYRIN IV PRN ×6 (01:43→21:22)
[2019-08-05] MEDS: ACETAMINOPHEN 325 MG TABLET PO PRN ×3 (04:05→22:49)
[2019-08-05 04:30] VITALS: BP 120/60
--- NOTE | 2019-08-05 05:40 | NUR ---
PT RESTED WELL IN BETWEEN CARE; C/O PAIN AND MEDICATED ACCORDINGLY; PT HAS LOW GRADE FEVER AND TYLENOL GIVEN; TEMP 101.5 TYLENOL GIVEN AND COOLING MEASURES DONE AND REFERRED TO CATRINA BLACKMON ; NO NEW ORDERS GIVEN JUST OBSERVE; NO ACUTE DISTRESS. CONTINUE TO MONITOR; CONTINUE PLAN OF CARE.
[2019-08-05 05:45] VITALS: BP 125/65
[2019-08-05] MEDS: LEVOTHYROXINE SODIUM 100 MCG TABLET PO SCH (06:29)
[2019-08-05] MEDS: PANTOPRAZOLE SODIUM 40 MG TABLET.DR PO SCH (06:29)
[2019-08-05 06:38] LABS: BASOPHILS # (AUTO) 0.1 K/uL (0.0-8.0); BASOPHILS % (AUTO) 1.2 % (0.0-2.0); EOSINOPHILS # (AUTO) 0.4 K/uL (0.0-0.7); EOSINOPHILS % (AUTO) 6.9 % (0.0-7.0); HEMATOCRIT 22.1 % (36.7-47.1); HEMOGLOBIN 7.5 g/dL (12.5-16.3); LYMPHOCYTES # (AUTO) 0.9 K/uL (20.0-40.0); LYMPHOCYTES % (AUTO) 18.2 % (20.5-51.5); MEAN CORPUSCULAR HEMOGLOBIN 32.7 uug (23.8-33.4); MEAN CORPUSCULAR HGB CONC 34 g/dL (32.5-36.3); MEAN CORPUSCULAR VOLUME 96.2 fL (73.0-96.2); MONOCYTES # (AUTO) 0.4 K/uL (2.0-10.0); MONOCYTES % (AUTO) 8.4 % (0.0-11.0); NEUTROPHILS # (AUTO) 3.3 K/uL (1.8-8.9); NEUTROPHILS % (AUTO) 65.3 % (38.5-71.5); PLATELET COUNT (AUTO) 210 K/uL (152-348); WHITE BLOOD COUNT (AUTO) 5.1 K/uL (3.6-10.2)
[2019-08-05 06:54] LABS: BILIRUBIN,TOTAL 0.5 mg/dL (0.2-1.0); CREATININE 3.3 mg/dL (0.6-1.3); POTASSIUM 5.7 mmol/L (3.5-5.1); TOTAL PROTEIN, SERUM 6.9 g/dL (6.4-8.2)
[2019-08-05 07:51] LABS: THYROID STIMULATING HORMONE 6.128 mIU/mL (0.358-3.740)
[2019-08-05] MEDS ORDERED: EPOETIN ALFA 20,000 UNIT/ML ML SQ ONE ×2 (08:00→09:00)
[2019-08-05] MEDS: CARVEDILOL 6.25 MG TABLET PO SCH ×2 (08:00→18:00)
[2019-08-05] MEDS ORDERED: SODIUM POLYSTYRENE SULFONATE 15 G/60 ML LIQUID UDC PO ONE (08:15)
[2019-08-05] MEDS: ZINC SULFATE 220 MG CAPSULE PO SCH (08:53)
[2019-08-05] MEDS: GABAPENTIN 300 MG CAPSULE PO SCH (08:53)
[2019-08-05] MEDS: CHOLECALCIFEROL 1,000 UNIT TABLET PO SCH (08:53)
[2019-08-05] MEDS: ASCORBIC ACID 500 MG TABLET PO SCH (08:53)
[2019-08-05] MEDS: FOLIC ACID/VITAMIN B COMP W-C TABLET PO SCH (08:54)
[2019-08-05] MEDS: DIVALPROEX 500 MG TABLET.DR PO SCH ×3 (08:54→16:07)
[2019-08-05] MEDS: RANOLAZINE 500 MG TAB.ER.12H PO SCH ×2 (08:54→16:07)
[2019-08-05] MEDS: DULOXETINE 20 MG CAPSULE.DR PO SCH (08:55)
[2019-08-05] MEDS: NYSTATIN SUSPENSION 5 ML LIQUID UDC PO SCH ×4 (08:57→20:35)
[2019-08-05] MEDS: ISOSORBIDE MONONITRATE 60 MG TAB.SR.24H PO SCH (09:00)
[2019-08-05 09:19] LABS: *BILIRUBIN,URIN NEGATIVE (NEGATIVE); *CLARITY,URINE SLIGHTLY CLOUDY (CLEAR); *COLOR,URINE YELLOW (YELLOW); *KETONES,URINE NEGATIVE (NEGATIVE); *UROBILINOGEN,URINE 0.2 E.U./dl (NORMAL); LEUKOCYTE ESTERASE ,URINE NEGATIVE (NEGATIVE); NITRITE, URINE NEGATIVE (NEGATIVE); UGLUCOSE NEGATIVE (NEGATIVE)
[2019-08-05 09:36] LABS: *BLOOD, URINE TRACE (NEGATIVE)
[2019-08-05 09:40] LABS: BACTERIA,URINE NONE SEEN /HPF (NONE SEEN); SQUAMOUS EPITHELIAL CELL,UR FEW /HPF (NONE SEEN); WBC,URINE 0-3 /HPF (0-3)
[2019-08-05] MEDS: APIXABAN 5 MG TABLET PO SCH ×2 (09:45→16:14)
--- NOTE | 2019-08-05 09:47 | NUR ---
Pt received. AOx3, able to make needs known. Pt c/o pain 05/07. Left AC IV pulled out by Pt. New IV 20 josh insterted to right hand, flushed, patent, and IV PRN pain medication administered along with routine medications. No acute distress. Pt dislodged most recent IV access. Lab called re abnormal UA with protein >3. MD notified. New orders received to begin Rocephin 1 gm IV daily following Midline insertion. Midline insertion approved by supervisor molding and team notified. Tylenol administered PRN for temp of 100.8. Will continue to monitor and follow up accordingly.
[2019-08-05 11:23] VITALS: BP 114/52
[2019-08-05] MEDS ORDERED: CEFTRIAXONE 1 G VIAL IM SCH (11:30)
[2019-08-05] MEDS ORDERED: CEFTRIAXONE 1 G in IV DEXTROSE 5% 50 ML IV SCH (12:00)
[2019-08-05] MEDS ORDERED: CEFTRIAXONE 1 G VIAL IV SCH (12:00)
--- NOTE | 2019-08-05 14:14 | NUR ---
Midline to right upper arm placed. Pt complaint with routine medications. Consult provided. All needs attended to at this time. Will continue to monitor.
[2019-08-05 15:30] VITALS: BP 90/41
[2019-08-05] MEDS: GABAPENTIN 100 MG CAPSULE PO SCH (16:07)
--- NOTE | 2019-08-05 19:00 | NUR ---
RECEIVED PATIENT IN BED RESTING. NO ACUTE DISTRESS AT THE MOMENT. MIDLINE IN [place]ON PATENT AND INTACT, FLUSHING. IMMEDIATE NEEDS ATTENDED. SAFETY PROTOCOLS IN PLACE. WILL CONTINUE TO MONITOR.
[2019-08-05 20:22] VITALS: BP 118/56
[2019-08-05] MEDS: TAMSULOSIN HCL 0.4 MG CAP.SR.24H PO SCH (20:35)
[2019-08-05] MEDS: ATORVASTATIN 10 MG TABLET PO SCH (20:35)
[2019-08-05] MEDS: MONTELUKAST SODIUM 10 MG TABLET PO SCH (20:35)
[2019-08-05] MEDS ORDERED: VANCOMYCIN IV 2,000 MG in IV DEXTROSE 5% 500 ML IV ONE (21:00)
--- NOTE | 2019-08-05 21:00 | NUR ---
PHARMACY CLINICAL NOTES: VANCOMYCIN DOSING S: 64 yo male with dx of sepsis, HCAP. ID ordered Vancomycin and Merrem. O: BUN/SCR: 52/3.3, WBC 5.1, TEMP 101, DOSING WT 215 LBS, T 1/2 = 28.8 HRS A/P: Due to elevated scr will dose Vanco by fall of level. Will administer a Vancomycin dose of 2000 mg IVPB x 1. plan to order a level in 36h if renal fxn remains stable and dose by level. Will continue to monitor and adjust dose as it becomes necessary
[2019-08-05] MEDS: MEROPENEM 500 MG in IV NORMAL SALINE 50 ML IV SCH (21:33)
--- NOTE | 2019-08-05 22:27 | NUR ---
Explained to patient the need for catheterized urine sample, per MD order; however patient refuses to be catheterized.
--- NOTE | 2019-08-05 22:54 | NUR ---
Patient's temperature is 100.4, given Tylenol for fever.
[2019-08-06] VITALS (12 sets, daily range): BP systolic 101–131; BP diastolic 39–74
[2019-08-06] MEDS: HYDROMORPHONE 1 MG/1 ML DISP.SYRIN IV PRN ×6 (01:19→23:09)
[2019-08-06 04:57] LABS: *CREATININE,URINE 54.7 mg/dL (30-125); *URINE TOTAL PROTEIN RANDOM 138.5 mg/dL (<150/24HR)
[2019-08-06] MEDS: ACETAMINOPHEN 325 MG TABLET PO PRN ×2 (04:59→11:36)
[2019-08-06] MEDS: LEVOTHYROXINE SODIUM 100 MCG TABLET PO SCH (06:16)
[2019-08-06] MEDS: PANTOPRAZOLE SODIUM 40 MG TABLET.DR PO SCH (06:16)
[2019-08-06 06:42] LABS: BASOPHILS # (AUTO) 0.1 K/uL (0.0-8.0); BASOPHILS % (AUTO) 0.9 % (0.0-2.0); EOSINOPHILS # (AUTO) 0.3 K/uL (0.0-0.7); EOSINOPHILS % (AUTO) 3.5 % (0.0-7.0); LYMPHOCYTES # (AUTO) 0.8 K/uL (20.0-40.0); LYMPHOCYTES % (AUTO) 11.6 % (20.5-51.5); MEAN CORPUSCULAR HEMOGLOBIN 32.2 uug (23.8-33.4); MEAN CORPUSCULAR HGB CONC 34 g/dL (32.5-36.3); MEAN CORPUSCULAR VOLUME 96.3 fL (73.0-96.2); MONOCYTES # (AUTO) 0.7 K/uL (2.0-10.0); MONOCYTES % (AUTO) 10.5 % (0.0-11.0); NEUTROPHILS # (AUTO) 5.2 K/uL (1.8-8.9); NEUTROPHILS % (AUTO) 73.5 % (38.5-71.5); PLATELET COUNT (AUTO) 167 K/uL (152-348); WHITE BLOOD COUNT (AUTO) 7.1 K/uL (3.6-10.2)
--- NOTE | 2019-08-06 06:49 | NUR ---
Patient slept intermittently. c/o generalized body pain, PRN Dilaudid 1mg IV given. Patient agreed to be catheterized, urine sample sent to lab. Patient still noted w/ elevated Temp 100.8, PRN Tylenol 650mg PO given and cooling measures done. All needs attended. Will endorse accordingly
[2019-08-06 06:52] LABS: MAGNESIUM 2.2 mg/dL (1.8-2.4); PHOSPHOROUS 4.1 mg/dL (2.5-4.9); POTASSIUM 5.8 mmol/L (3.5-5.1)
[2019-08-06 06:54] LABS: RED BLOOD CELL COUNT(AUTO) 2.18 MIL/uL (4.06-5.63)
--- NOTE | 2019-08-06 07:15 | NUR ---
RECEIVED PATIENT AWAKE AND ALERT IN BED. NO ACUTE DISTRESS NOTED, PATIENT REPORTING PAIN. BED IN LOWEST POSITION, SIDE RAILS UP X2, CALL LIGHT WITHIN REACH. WILL CONTINUE TO MONITOR.
[2019-08-06] MEDS: MEROPENEM 500 MG in IV NORMAL SALINE 50 ML IV SCH ×2 (08:36→20:14)
[2019-08-06] MEDS: CARVEDILOL 6.25 MG TABLET PO SCH ×2 (08:36→17:45)
[2019-08-06] MEDS: ISOSORBIDE MONONITRATE 60 MG TAB.SR.24H PO SCH (08:36)
[2019-08-06] MEDS: DIVALPROEX 500 MG TABLET.DR PO SCH ×3 (08:36→17:45)
[2019-08-06] MEDS: DULOXETINE 20 MG CAPSULE.DR PO SCH (08:36)
[2019-08-06] MEDS: NYSTATIN SUSPENSION 5 ML LIQUID UDC PO SCH ×4 (08:37→20:15)
[2019-08-06] MEDS: FOLIC ACID/VITAMIN B COMP W-C TABLET PO SCH (08:37)
[2019-08-06] MEDS: CHOLECALCIFEROL 1,000 UNIT TABLET PO SCH (08:38)
[2019-08-06] MEDS: RANOLAZINE 500 MG TAB.ER.12H PO SCH ×2 (08:38→17:45)
[2019-08-06] MEDS: ZINC SULFATE 220 MG CAPSULE PO SCH (08:38)
[2019-08-06] MEDS: ASCORBIC ACID 500 MG TABLET PO SCH (08:38)
[2019-08-06] MEDS: GABAPENTIN 100 MG CAPSULE PO SCH ×3 (08:38→17:44)
[2019-08-06] MEDS: APIXABAN 5 MG TABLET PO SCH ×2 (08:40→17:44)
[2019-08-06] MEDS: NEOMY/BACITRAC/POLYMI OINT 28.35 GM TUBE TOP SCH (08:41)
[2019-08-06] MEDS ORDERED: SODIUM POLYSTYRENE SULFONATE 15 G/60 ML LIQUID UDC PO ONE (08:45)
--- NOTE | 2019-08-06 11:51 | NUR ---
PHARMACY CLINICAL NOTES: VANCOMYCIN DOSING S: 64 yo male with dx of sepsis, HCAP. ID ordered Vancomycin and Merrem. O: BUN/SCR: 60/4.0, WBC 7.1, TEMP 100.8, DOSING WT 215 LBS, Not on HD yet. A/P: Due to elevated scr will continue to dose Vanco by fall of level. vancomycin 2 grams was given last night at 2200. Will check random level tomorrow am at 0600. RX will follow the level for further dosing.
[2019-08-06 12:06] LABS: A/G RATIO 0.8 (0.7-1.7); ALBUMIN 2.8 g/dL (2.9-4.4); ALPHA-1-GLOBULIN 0.2 g/dL (0.0-0.4); ALPHA-2-GLOBULIN 0.8 g/dL (0.4-1.0); GAMMA GLOBULIN 1.3 g/dL (0.4-1.8); GLOBULIN, TOTAL 3.3 g/dL (2.2-3.9); M-SPIKE Not Observed g/dL (Not Observed)
[2019-08-06] MEDS ORDERED: Z GUARD REMEDY PASTE 57 GM TUBE TOP PRN (12:15)
--- NOTE | 2019-08-06 12:15 | NUR ---
WOUND CARE CONSULT: PT FOLLOWED BY PLASTIC SURGERY AND PODIATRY TEAMS FOR WOUND CARE. DEFER TO SURGICAL TEAMS FOR WOUND TREATMENT PLAN. ALL SKIN PROTECTION RECOMMENDATIONS DISCUSSED WITH NURSING STAFF. WILL SEE PRN.
--- NOTE | 2019-08-06 15:34 | NUR ---
PATIENT RECEIVED 1 UNIT OF PACKED RED BLOOD CELLS. PATIENT TOLERATED TRANSFUSION WELL WITH NO REACTIONS. NO ACUTE DISTRESS NOTED THROUGHOUT TRANSFUSION. WILL CONTINUE TO MONITOR.
--- NOTE | 2019-08-06 18:14 | NUR ---
PATIENT SLEPT FOR MOST PART OF THE DAY. PATIENT RECEIVED BLOOD TRANSFUSION WITHOUT AND COMPLICATIONS OR REACTIONS. PATIENT HAD A LOW GRADE FEVER BEFORE TRANSFUSION, TYLENOL ADMINISTERED AND COOLING MEASURES PROVIDED. PATIENT SEEN BY WOUND CARE NURSE, WOUND TREATMENT PROVIDED. SAFETY MEASURES PROVIDED. WILL ENDORSE TO ONCOMING NURSE.
[2019-08-06] MEDS ORDERED: MIRALAX 17 GM POWD.PACK PO PRN (19:00)
[2019-08-06] MEDS: MONTELUKAST SODIUM 10 MG TABLET PO SCH (20:15)
[2019-08-06] MEDS: TAMSULOSIN HCL 0.4 MG CAP.SR.24H PO SCH (20:16)
[2019-08-06] MEDS: ATORVASTATIN 10 MG TABLET PO SCH (20:16)
[2019-08-07] MEDS: HYDROMORPHONE 1 MG/1 ML DISP.SYRIN IV PRN ×5 (04:34→22:29)
[2019-08-07] MEDS: IV NS 1000 ML 1,000 ML IV PRN ×2 (05:25→19:36)
--- NOTE | 2019-08-07 05:42 | NUR ---
patient received in bed and sleeping. a/o x3. no signs of acute distress and v/s stable throughout shift. continued to monitor for fever, afebrile throughout shift. safety and comfort measures provided at all times. bed in lowest position, side rails up x2, bed alarm on. c/o of pain, Dilaudid administered x2. tolerated well. midline patent and intact. IVF NS running at 75cc/hr. will continue plan of care and endorse care accordingly to morning nurse.
[2019-08-07] MEDS: PANTOPRAZOLE SODIUM 40 MG TABLET.DR PO SCH (06:03)
[2019-08-07] MEDS: LEVOTHYROXINE SODIUM 100 MCG TABLET PO SCH (06:07)
[2019-08-07 06:19] VITALS: BP 128/56
[2019-08-07 06:44] LABS: BASOPHILS % (AUTO) 0.6 % (0.0-2.0); EOSINOPHILS # (AUTO) 0.1 K/uL (0.0-0.7); EOSINOPHILS % (AUTO) 1.8 % (0.0-7.0); LYMPHOCYTES # (AUTO) 1.4 K/uL (20.0-40.0); LYMPHOCYTES % (AUTO) 18.7 % (20.5-51.5); MEAN CORPUSCULAR HEMOGLOBIN 31.9 uug (23.8-33.4); MEAN CORPUSCULAR HGB CONC 34 g/dL (32.5-36.3); MONOCYTES # (AUTO) 0.7 K/uL (2.0-10.0); MONOCYTES % (AUTO) 9.7 % (0.0-11.0); NEUTROPHILS # (AUTO) 5.1 K/uL (1.8-8.9); NEUTROPHILS % (AUTO) 69.2 % (38.5-71.5); PLATELET COUNT (AUTO) 137 K/uL (152-348); WHITE BLOOD COUNT (AUTO) 7.4 K/uL (3.6-10.2)
[2019-08-07 06:51] LABS: HEMATOCRIT 20.8 % (36.7-47.1); HEMOGLOBIN 7.1 g/dL (12.5-16.3); RED BLOOD CELL COUNT(AUTO) 2.21 MIL/uL (4.06-5.63)
[2019-08-07 06:57] LABS: CREATININE 4.6 mg/dL (0.6-1.3); MAGNESIUM 2.2 mg/dL (1.8-2.4); PHOSPHOROUS 4.3 mg/dL (2.5-4.9); POTASSIUM 5.2 mmol/L (3.5-5.1); VANCOMYCIN,RANDOM 19.5 ug/mL (18.0-26.0)
--- NOTE | 2019-08-07 07:30 | NUR ---
Patient calm and comfortable resting in bed with no signs of distress; patient will continue to be monitored.
[2019-08-07] MEDS: DIVALPROEX 500 MG TABLET.DR PO SCH ×3 (08:25→17:44)
[2019-08-07] MEDS: ASCORBIC ACID 500 MG TABLET PO SCH (08:25)
[2019-08-07] MEDS: GABAPENTIN 100 MG CAPSULE PO SCH ×3 (08:25→17:43)
[2019-08-07] MEDS: CHOLECALCIFEROL 1,000 UNIT TABLET PO SCH (08:26)
[2019-08-07] MEDS: DULOXETINE 20 MG CAPSULE.DR PO SCH (08:26)
[2019-08-07] MEDS: ISOSORBIDE MONONITRATE 60 MG TAB.SR.24H PO SCH (08:26)
[2019-08-07] MEDS: CARVEDILOL 6.25 MG TABLET PO SCH ×2 (08:27→17:48)
[2019-08-07] MEDS: APIXABAN 5 MG TABLET PO SCH ×2 (08:30→17:45)
[2019-08-07] MEDS: NYSTATIN SUSPENSION 5 ML LIQUID UDC PO SCH ×4 (08:31→20:17)
[2019-08-07] MEDS: FOLIC ACID/VITAMIN B COMP W-C TABLET PO SCH (08:38)
[2019-08-07] MEDS: RANOLAZINE 500 MG TAB.ER.12H PO SCH ×2 (08:38→17:43)
[2019-08-07] MEDS: ZINC SULFATE 220 MG CAPSULE PO SCH (08:39)
[2019-08-07] MEDS: MEROPENEM 500 MG in IV NORMAL SALINE 50 ML IV SCH ×2 (08:39→20:16)
[2019-08-07] MEDS: NEOMY/BACITRAC/POLYMI OINT 28.35 GM TUBE TOP SCH (08:39)
--- NOTE | 2019-08-07 11:04 | NUR ---
PHARMACY CLINICAL NOTES: VANCOMYCIN DOSING S: 64 yo male with dx of sepsis, HCAP. ID ordered Vancomycin and Merrem. O: BUN/SCR: 68/4.6, WBC 7.4, TEMP 98.8, DOSING WT 215 LBS, Not on HD yet. Random today with am labs: 19.5 A/P: Due to elevated scr will continue to dose Vanco by fall of level. Per today's level, will dose a 1500mg one time vanco for 2100 tonight. Will check renal function in am and decide when to order next random for further dosing. Will continue to follow
[2019-08-07 11:26] VITALS: BP 126/63
[2019-08-07 16:15] VITALS: BP 145/55
--- NOTE | 2019-08-07 18:25 | NUR ---
Patient calm and compliant through out shift; patient with no signs off distress; Patient medication compliant with stable vital sings ; Report given to oncoming shift.
[2019-08-07] MEDS: TAMSULOSIN HCL 0.4 MG CAP.SR.24H PO SCH (20:16)
[2019-08-07] MEDS: MONTELUKAST SODIUM 10 MG TABLET PO SCH (20:17)
[2019-08-07] MEDS: ATORVASTATIN 10 MG TABLET PO SCH (20:17)
[2019-08-07 20:20] VITALS: BP 132/68
[2019-08-07] MEDS ORDERED: VANCOMYCIN IV 1,500 MG in IV DEXTROSE 5% 500 ML IV ONE (21:00)
[2019-08-07] MEDS: ACETAMINOPHEN 325 MG TABLET PO PRN (22:29)
[2019-08-08] VITALS (12 sets, daily range): BP systolic 101–130; BP diastolic 50–68
[2019-08-08] MEDS: LEVOTHYROXINE SODIUM 100 MCG TABLET PO SCH (06:07)
[2019-08-08] MEDS: PANTOPRAZOLE SODIUM 40 MG TABLET.DR PO SCH (06:07)
[2019-08-08 06:38] LABS: BASOPHILS % (AUTO) 0.4 % (0.0-2.0); EOSINOPHILS # (AUTO) 0.1 K/uL (0.0-0.7); LYMPHOCYTES # (AUTO) 0.8 K/uL (20.0-40.0); MEAN CORPUSCULAR HEMOGLOBIN 31.3 uug (23.8-33.4); MONOCYTES # (AUTO) 0.6 K/uL (2.0-10.0)
[2019-08-08 06:40] LABS: EOSINOPHILS % (AUTO) 1.3 % (0.0-7.0); LYMPHOCYTES % (AUTO) 12.3 % (20.5-51.5); MEAN CORPUSCULAR HGB CONC 34 g/dL (32.5-36.3); MEAN CORPUSCULAR VOLUME 92.7 fL (73.0-96.2); MONOCYTES % (AUTO) 9.1 % (0.0-11.0); NEUTROPHILS # (AUTO) 4.8 K/uL (1.8-8.9); NEUTROPHILS % (AUTO) 76.9 % (38.5-71.5); PLATELET COUNT (AUTO) 130 K/uL (152-348); WHITE BLOOD COUNT (AUTO) 6.2 K/uL (3.6-10.2)
[2019-08-08 06:45] LABS: CREATININE 4.7 mg/dL (0.6-1.3); MAGNESIUM 2.2 mg/dL (1.8-2.4); POTASSIUM 5.2 mmol/L (3.5-5.1)
[2019-08-08] MEDS: HYDROMORPHONE 1 MG/1 ML DISP.SYRIN IV PRN ×2 (06:45→23:02)
[2019-08-08 06:55] LABS: RED BLOOD CELL COUNT(AUTO) 2.07 MIL/uL (4.06-5.63)
[2019-08-08 07:00] LABS: HEMATOCRIT 19.2 % (36.7-47.1); HEMOGLOBIN 6.5 g/dL (12.5-16.3)
--- NOTE | 2019-08-08 07:00 | NUR ---
patient received lying in bed and sleeping. no signs of acute distress and v/s stable throughout shift. fever noted at 100.1 and Tylenol administered. rechecked temperature, patient afebrile at 98.7. safety and comfort measure provided at all times, bed in lowest position, side rails upx2, bed alarm on. will continue to monitor and endorse accordingly.
--- NOTE | 2019-08-08 07:04 | NUR ---
critical lab value reported to me for h/h 6.5/19.[address] de la cruz and f/u
--- NOTE | 2019-08-08 07:35 | NUR ---
Dr. Heller ordered 1 unit of blood. will endorse to morning nurse.
--- NOTE | 2019-08-08 08:00 | NUR ---
RECEIVED PT RESTING COMFORTABLY IN BED. NO SIGNS OF ACUTE DISTRESS OR SOB NOTED. CALL LIGHT WITHIN REACH. BED LOCKED AND IN LOW POSITION. ORDER TO GIVE 1 UNIT OF BLOOD RECEIVED. AWAITING FOR LAB TO HAVE BLOOD READY. WILL CONTINUE TO MONITOR FOR COMFORT AND SAFETY.
[2019-08-08] MEDS: RANOLAZINE 500 MG TAB.ER.12H PO SCH ×2 (08:56→17:16)
[2019-08-08] MEDS: ASCORBIC ACID 500 MG TABLET PO SCH (08:56)
[2019-08-08] MEDS: CHOLECALCIFEROL 1,000 UNIT TABLET PO SCH (08:56)
[2019-08-08] MEDS: ZINC SULFATE 220 MG CAPSULE PO SCH (08:56)
[2019-08-08] MEDS: MEROPENEM 500 MG in IV NORMAL SALINE 50 ML IV SCH ×2 (08:56→21:04)
[2019-08-08] MEDS: FOLIC ACID/VITAMIN B COMP W-C TABLET PO SCH (08:59)
[2019-08-08] MEDS: GABAPENTIN 100 MG CAPSULE PO SCH ×3 (08:59→17:16)
[2019-08-08] MEDS: DULOXETINE 20 MG CAPSULE.DR PO SCH (08:59)
[2019-08-08] MEDS: DIVALPROEX 500 MG TABLET.DR PO SCH ×3 (09:00→17:16)
[2019-08-08] MEDS: CARVEDILOL 6.25 MG TABLET PO SCH ×2 (09:01→17:22)
[2019-08-08] MEDS: ISOSORBIDE MONONITRATE 60 MG TAB.SR.24H PO SCH (09:03)
[2019-08-08] MEDS: NYSTATIN SUSPENSION 5 ML LIQUID UDC PO SCH ×4 (09:04→21:04)
[2019-08-08] MEDS: APIXABAN 5 MG TABLET PO SCH ×2 (09:06→17:17)
[2019-08-08] MEDS: NEOMY/BACITRAC/POLYMI OINT 28.35 GM TUBE TOP SCH (09:08)
[2019-08-08] MEDS: ONDANSETRON 4 MG/2 ML VIAL IV PRN (09:41)
--- NOTE | 2019-08-08 09:59 | NUR ---
PHARMACY CLINICAL NOTES: VANCOMYCIN DOSING S: 64 yo male with dx of sepsis, HCAP. ID ordered Vancomycin and Merrem. O: BUN/SCR: 77/4.7, WBC 6.2, TEMP 98, DOSING WT 215 LBS, Not on HD yet. Vancomycin random on 08/07 @0600: 19.5 A/P: Due to elevated scr will continue to dose Vanco by fall of level. Vancomycin 1500mg one time was given last night at 2100 . Next Vancomycin level is on order for tomorrow at 0600. Will follow the level for further dosing.
[2019-08-08] MEDS: ALBUTEROL SULFATE 2.5 MG/3 ML NEBU IH PRN (10:47)
[2019-08-08] MEDS ORDERED: DEXTROSE 50% 50 ML DISP.SYRIN IV PRN (13:30)
[2019-08-08] MEDS ORDERED: EPOETIN ALFA 10,000 UNITS/ML VIAL SQ ONE (14:00)
[2019-08-08] MEDS: BLOOD SUGAR DIAGNOSTIC 1 EACH STRIP VI SCH ×2 (17:06→21:24)
[2019-08-08] MEDS: INSULIN REGULAR, HUMAN 300 UNIT/3 ML VIAL SQ PRN (17:19)
--- NOTE | 2019-08-08 18:00 | NUR ---
PT RESTING IN BED. NO SIGNS OF ACUTE DISTRESS OR SOB NOTED. PT DENIES PAIN AT THIS TIME. BED LOCKED AND IN LOW POSITION. PT IS MEDICATION COMPLIANT. PT REFUSED LUNCH AND DINNER. PT USED URINAL X1. WILL GIVE REPORT ACCORDINGLY.
[2019-08-08] MEDS: MONTELUKAST SODIUM 10 MG TABLET PO SCH (21:04)
[2019-08-08] MEDS: TAMSULOSIN HCL 0.4 MG CAP.SR.24H PO SCH (21:04)
[2019-08-08] MEDS: ATORVASTATIN 10 MG TABLET PO SCH (21:04)
[2019-08-08] MEDS: IV NS 1000 ML 1,000 ML IV PRN (21:24)
[2019-08-09] MEDS: ALBUTEROL SULFATE 2.5 MG/3 ML NEBU IH PRN ×2 (00:14→16:44)
[2019-08-09] MEDS: HYDROMORPHONE 1 MG/1 ML DISP.SYRIN IV PRN ×5 (03:13→23:40)
--- NOTE | 2019-08-09 05:49 | NUR ---
patient received lying in bed. a/o x3. no signs of acute distress and v/s stable throughout shift . safety and comfort measures provided at all times. bed in lowest position, side rails up x2, and bed alarm on. all medications administered and need met. orders to inés gaviria by Rosy vallejo NP. BS ACHS sliding scale not covered at beginning of shift. patient did not have anything to eat for dinner accordingly to report from morning nurse. ACHS sliding scale orders just placed today after 6 days of admission by morning nurse as well. Midline patent and intact. IVF NS running at 75cc/hr. dilaudid administered x2. tolerated well. will continue plan of care and endorse to morning shift accordingly.
[2019-08-09 05:54] VITALS: BP 114/43
[2019-08-09] MEDS: LEVOTHYROXINE SODIUM 100 MCG TABLET PO SCH (06:05)
[2019-08-09] MEDS: PANTOPRAZOLE SODIUM 40 MG TABLET.DR PO SCH (06:05)
[2019-08-09 06:52] LABS: BASOPHILS % (AUTO) 0.3 % (0.0-2.0); EOSINOPHILS # (AUTO) 0.3 K/uL (0.0-0.7); EOSINOPHILS % (AUTO) 6.8 % (0.0-7.0); LYMPHOCYTES % (AUTO) 20.4 % (20.5-51.5); MEAN CORPUSCULAR HEMOGLOBIN 31.6 uug (23.8-33.4); MEAN CORPUSCULAR HGB CONC 34 g/dL (32.5-36.3); MEAN CORPUSCULAR VOLUME 93.4 fL (73.0-96.2); MONOCYTES # (AUTO) 0.4 K/uL (2.0-10.0); NEUTROPHILS % (AUTO) 64.5 % (38.5-71.5); PLATELET COUNT (AUTO) 132 K/uL (152-348); WHITE BLOOD COUNT (AUTO) 4.7 K/uL (3.6-10.2)
[2019-08-09 06:54] LABS: BILIRUBIN,TOTAL 0.5 mg/dL (0.2-1.0); CREATININE 4.4 mg/dL (0.6-1.3); MAGNESIUM 2.4 mg/dL (1.8-2.4); PHOSPHOROUS 5.4 mg/dL (2.5-4.9); POTASSIUM 4.6 mmol/L (3.5-5.1); TOTAL PROTEIN, SERUM 6.2 g/dL (6.4-8.2)
[2019-08-09] MEDS: BLOOD SUGAR DIAGNOSTIC 1 EACH STRIP VI SCH ×4 (06:54→21:32)
[2019-08-09 07:06] LABS: HEMATOCRIT 23.3 % (36.7-47.1); HEMOGLOBIN 7.9 g/dL (12.5-16.3); RED BLOOD CELL COUNT(AUTO) 2.49 MIL/uL (4.06-5.63)
--- NOTE | 2019-08-09 08:00 | NUR ---
Patient received lying in bed. a/o x3. no signs of acute distress or sob. safety and comfort measures provided at all times. bed in lowest position, side rails up x2, and bed alarm on. Midline patent and intact. IVF NS running at 75cc/hr. will continue plan of care and to monitor for safety and comfort.
[2019-08-09] MEDS: MEROPENEM 500 MG in IV NORMAL SALINE 50 ML IV SCH ×2 (08:19→21:31)
[2019-08-09] MEDS: CHOLECALCIFEROL 1,000 UNIT TABLET PO SCH (08:23)
[2019-08-09] MEDS: GABAPENTIN 100 MG CAPSULE PO SCH ×3 (08:23→18:09)
[2019-08-09] MEDS: RANOLAZINE 500 MG TAB.ER.12H PO SCH ×2 (08:23→18:09)
[2019-08-09] MEDS: FOLIC ACID/VITAMIN B COMP W-C TABLET PO SCH (08:24)
[2019-08-09] MEDS: ZINC SULFATE 220 MG CAPSULE PO SCH (08:25)
[2019-08-09] MEDS: NYSTATIN SUSPENSION 5 ML LIQUID UDC PO SCH ×4 (08:25→21:31)
[2019-08-09] MEDS: ASCORBIC ACID 500 MG TABLET PO SCH (08:25)
[2019-08-09] MEDS: DULOXETINE 20 MG CAPSULE.DR PO SCH (08:25)
[2019-08-09] MEDS: DOCUSATE SODIUM 100 MG CAPSULE PO SCH ×2 (08:25→18:09)
[2019-08-09] MEDS: DIVALPROEX 500 MG TABLET.DR PO SCH ×3 (08:25→18:09)
[2019-08-09] MEDS: INSULIN REGULAR, HUMAN 300 UNIT/3 ML VIAL SQ PRN ×4 (08:27→21:34)
[2019-08-09] MEDS: APIXABAN 5 MG TABLET PO SCH ×2 (08:28→18:13)
[2019-08-09] MEDS: CARVEDILOL 6.25 MG TABLET PO SCH ×2 (08:40→18:09)
[2019-08-09] MEDS: ISOSORBIDE MONONITRATE 60 MG TAB.SR.24H PO SCH (08:40)
[2019-08-09] MEDS: NEOMY/BACITRAC/POLYMI OINT 28.35 GM TUBE TOP SCH (09:23)
[2019-08-09 10:40] VITALS: BP 139/58
[2019-08-09] MEDS: IV NS 1000 ML 1,000 ML IV PRN (11:42)
--- NOTE | 2019-08-09 12:00 | NUR ---
PT RESTING COMFORTABLY IN BED. PT IS MEDICATION AND DIET COMPLIANT. NO SIGNS OF ACUTE DISTRESS OR SOB NOTED AT THIS TIME. PT ALERT AND ORIENTED X3. PLEASANT AND COOPERATIVE. BED LOCKED AND IN LOW POSITION. CALL LIGHT WITHIN REACH. PT HAD A BM. SPECIMEN SENT TO LAB FOR OB STUDY. WILL CONTINUE TO MONITOR FOR SAFETY AND COMFORT.
[2019-08-09 13:59] LABS: *OCCULT BLOOD STOOL NEGATIVE (NEGATIVE)
[2019-08-09 15:03] VITALS: BP 115/60
[2019-08-09 16:46] VITALS: BP 112/52
--- NOTE | 2019-08-09 18:01 | NUR ---
PT RESTING COMFORTABLY IN BED. PT IS MEDICATION AND DIET COMPLIANT. NO SIGNS OF ACUTE DISTRESS OR SOB NOTED AT THIS TIME. PT ALERT AND ORIENTED X3. PLEASANT AND COOPERATIVE. BED LOCKED AND IN LOW POSITION. CALL LIGHT WITHIN REACH. PT HAD A BM. SPECIMEN SENT TO LAB FOR OB STUDY. OB STUDY IS NEGATIVE. MD AWARE. WILL GIVE REPORT ACCORDINGLY.
--- NOTE | 2019-08-09 19:30 | NUR ---
Patient received lying in bed. Remains at cognitive baselines level no signs of acute distress or sob. safety and comfort measures provided at all times. bed in lowest position, side rails up x2, and bed alarm on. Midline patent and intact. IVF NS running at 75cc/hr. Pt denies chestpain at this time, but complains of generalized pain of 8/10. Requesting for Dilaudid, will administer.
[2019-08-09 20:10] VITALS: BP 122/78
[2019-08-09] MEDS: ATORVASTATIN 10 MG TABLET PO SCH (21:31)
[2019-08-09] MEDS: TAMSULOSIN HCL 0.4 MG CAP.SR.24H PO SCH (21:31)
[2019-08-09] MEDS: MONTELUKAST SODIUM 10 MG TABLET PO SCH (21:31)
--- NOTE | 2019-08-09 23:30 | NUR ---
Wound care done as ordered. Pt tolerated well, but requesting for Dilaudid due to generalized pain. Will administer and continue to monitor patient.
[2019-08-10] MEDS: IV NS 1000 ML 1,000 ML IV PRN (01:43)
[2019-08-10] MEDS: HYDROMORPHONE 1 MG/1 ML DISP.SYRIN IV PRN ×4 (03:39→20:35)
[2019-08-10 05:08] VITALS: BP 106/59
[2019-08-10 06:42] LABS: BASOPHILS % (AUTO) 0.4 % (0.0-2.0); EOSINOPHILS # (AUTO) 0.7 K/uL (0.0-0.7); EOSINOPHILS % (AUTO) 12.5 % (0.0-7.0); HEMATOCRIT 24.9 % (36.7-47.1); HEMOGLOBIN 8.3 g/dL (12.5-16.3); LYMPHOCYTES # (AUTO) 1.3 K/uL (20.0-40.0); LYMPHOCYTES % (AUTO) 23.1 % (20.5-51.5); MEAN CORPUSCULAR HEMOGLOBIN 31.3 uug (23.8-33.4); MEAN CORPUSCULAR HGB CONC 33 g/dL (32.5-36.3); MEAN CORPUSCULAR VOLUME 94.6 fL (73.0-96.2); MONOCYTES # (AUTO) 0.5 K/uL (2.0-10.0); MONOCYTES % (AUTO) 8.7 % (0.0-11.0); NEUTROPHILS % (AUTO) 55.3 % (38.5-71.5); PLATELET COUNT (AUTO) 160 K/uL (152-348); RED BLOOD CELL COUNT(AUTO) 2.64 MIL/uL (4.06-5.63); WHITE BLOOD COUNT (AUTO) 5.4 K/uL (3.6-10.2)
[2019-08-10] MEDS: PANTOPRAZOLE SODIUM 40 MG TABLET.DR PO SCH (06:57)
[2019-08-10] MEDS: BLOOD SUGAR DIAGNOSTIC 1 EACH STRIP VI SCH ×4 (06:57→21:47)
[2019-08-10] MEDS: LEVOTHYROXINE SODIUM 100 MCG TABLET PO SCH (06:57)
--- NOTE | 2019-08-10 07:32 | NUR ---
No adverse events overnight. Endorsed to charge nurse with notes for incoming nurse. Pt is on a stable condition.
[2019-08-10 08:17] LABS: CREATININE 4.1 mg/dL (0.6-1.3); MAGNESIUM 2.4 mg/dL (1.8-2.4); PHOSPHOROUS 4.9 mg/dL (2.5-4.9); POTASSIUM 4.7 mmol/L (3.5-5.1)
[2019-08-10] MEDS: RANOLAZINE 500 MG TAB.ER.12H PO SCH ×2 (08:41→17:00)
[2019-08-10] MEDS: ZINC SULFATE 220 MG CAPSULE PO SCH (08:41)
[2019-08-10] MEDS: CHOLECALCIFEROL 1,000 UNIT TABLET PO SCH (08:41)
[2019-08-10] MEDS: DULOXETINE 20 MG CAPSULE.DR PO SCH (08:41)
[2019-08-10] MEDS: ASCORBIC ACID 500 MG TABLET PO SCH (08:41)
[2019-08-10] MEDS: ISOSORBIDE MONONITRATE 60 MG TAB.SR.24H PO SCH (08:41)
[2019-08-10] MEDS: FOLIC ACID/VITAMIN B COMP W-C TABLET PO SCH (08:41)
[2019-08-10] MEDS: CARVEDILOL 6.25 MG TABLET PO SCH ×2 (08:42→18:25)
[2019-08-10] MEDS: DOCUSATE SODIUM 100 MG CAPSULE PO SCH ×2 (08:42→17:00)
[2019-08-10] MEDS: DIVALPROEX 500 MG TABLET.DR PO SCH ×3 (08:42→17:00)
[2019-08-10] MEDS: APIXABAN 5 MG TABLET PO SCH ×2 (08:44→17:00)
[2019-08-10] MEDS: NYSTATIN SUSPENSION 5 ML LIQUID UDC PO SCH ×4 (08:46→20:34)
[2019-08-10] MEDS: GABAPENTIN 100 MG CAPSULE PO SCH ×3 (09:42→17:00)
[2019-08-10] MEDS: MEROPENEM 500 MG in IV NORMAL SALINE 50 ML IV SCH ×2 (09:42→20:34)
[2019-08-10] MEDS: NEOMY/BACITRAC/POLYMI OINT 28.35 GM TUBE TOP SCH (09:43)
[2019-08-10 11:05] VITALS: BP 104/57
[2019-08-10 15:05] VITALS: BP 113/58
[2019-08-10 19:45] VITALS: BP 112/61
[2019-08-10] MEDS: ALBUTEROL SULFATE 2.5 MG/3 ML NEBU IH PRN (20:13)
[2019-08-10] MEDS: MONTELUKAST SODIUM 10 MG TABLET PO SCH (20:34)
[2019-08-10] MEDS: ATORVASTATIN 10 MG TABLET PO SCH (20:34)
[2019-08-10] MEDS: TAMSULOSIN HCL 0.4 MG CAP.SR.24H PO SCH (20:34)
[2019-08-10] MEDS: INSULIN REGULAR, HUMAN 300 UNIT/3 ML VIAL SQ PRN (21:51)
[2019-08-11] MEDS: HYDROMORPHONE 1 MG/1 ML DISP.SYRIN IV PRN ×2 (03:28→09:51)
[2019-08-11 05:23] VITALS: BP 122/66
[2019-08-11] MEDS: IV NS 1000 ML 1,000 ML IV PRN (06:20)
[2019-08-11] MEDS: LEVOTHYROXINE SODIUM 100 MCG TABLET PO SCH (06:26)
[2019-08-11] MEDS: PANTOPRAZOLE SODIUM 40 MG TABLET.DR PO SCH (06:26)
[2019-08-11 06:37] LABS: BASOPHILS % (AUTO) 0.6 % (0.0-2.0); EOSINOPHILS # (AUTO) 0.7 K/uL (0.0-0.7); EOSINOPHILS % (AUTO) 15.4 % (0.0-7.0); HEMATOCRIT 24.7 % (36.7-47.1); LYMPHOCYTES # (AUTO) 1.3 K/uL (20.0-40.0); LYMPHOCYTES % (AUTO) 28.5 % (20.5-51.5); MEAN CORPUSCULAR HEMOGLOBIN 30.6 uug (23.8-33.4); MEAN CORPUSCULAR HGB CONC 33 g/dL (32.5-36.3); MONOCYTES # (AUTO) 0.4 K/uL (2.0-10.0); MONOCYTES % (AUTO) 8.2 % (0.0-11.0); NEUTROPHILS # (AUTO) 2.1 K/uL (1.8-8.9); NEUTROPHILS % (AUTO) 47.3 % (38.5-71.5); PLATELET COUNT (AUTO) 188 K/uL (152-348); RED BLOOD CELL COUNT(AUTO) 2.63 MIL/uL (4.06-5.63); WHITE BLOOD COUNT (AUTO) 4.5 K/uL (3.6-10.2)
[2019-08-11 06:53] LABS: CREATININE 3.7 mg/dL (0.6-1.3); MAGNESIUM 2.4 mg/dL (1.8-2.4); PHOSPHOROUS 4.5 mg/dL (2.5-4.9); POTASSIUM 4.6 mmol/L (3.5-5.1)
[2019-08-11] MEDS: BLOOD SUGAR DIAGNOSTIC 1 EACH STRIP VI SCH ×3 (07:12→17:11)
[2019-08-11] MEDS: FOLIC ACID/VITAMIN B COMP W-C TABLET PO SCH (08:49)
[2019-08-11] MEDS: DOCUSATE SODIUM 100 MG CAPSULE PO SCH ×2 (08:49→17:00)
[2019-08-11] MEDS: CHOLECALCIFEROL 1,000 UNIT TABLET PO SCH (08:49)
[2019-08-11] MEDS: DIVALPROEX 500 MG TABLET.DR PO SCH ×3 (08:50→17:00)
[2019-08-11] MEDS: DULOXETINE 20 MG CAPSULE.DR PO SCH (08:50)
[2019-08-11] MEDS: CARVEDILOL 6.25 MG TABLET PO SCH ×2 (08:50→18:21)
[2019-08-11] MEDS: MEROPENEM 500 MG in IV NORMAL SALINE 50 ML IV SCH (08:50)
[2019-08-11] MEDS: ISOSORBIDE MONONITRATE 60 MG TAB.SR.24H PO SCH (08:51)
[2019-08-11] MEDS: ASCORBIC ACID 500 MG TABLET PO SCH (08:51)
[2019-08-11] MEDS: GABAPENTIN 100 MG CAPSULE PO SCH ×3 (08:51→17:13)
[2019-08-11] MEDS: ZINC SULFATE 220 MG CAPSULE PO SCH (08:51)
[2019-08-11] MEDS: RANOLAZINE 500 MG TAB.ER.12H PO SCH ×2 (09:00→17:13)
[2019-08-11] MEDS: NEOMY/BACITRAC/POLYMI OINT 28.35 GM TUBE TOP SCH (09:00)
[2019-08-11] MEDS: NYSTATIN SUSPENSION 5 ML LIQUID UDC PO SCH ×3 (09:00→17:12)
[2019-08-11] MEDS: ALBUTEROL SULFATE 2.5 MG/3 ML NEBU IH PRN ×2 (09:14→13:57)
[2019-08-11] MEDS: APIXABAN 5 MG TABLET PO SCH ×2 (09:53→17:14)
[2019-08-11 10:36] LABS: BAND % (MANUAL) 8 % (0-10); EOSINOPHILS % (MANUAL) 16 % (0-8); LYMPHOCYTES % (MANUAL) 29 % (20-40); METAMYELOCYTES % 1 % (0-1); MONOCYTES % (MANUAL) 8 % (2-10); NEUTROPHILS % (MANUAL) 38 % (42-75)
[2019-08-11 12:04] VITALS: BP 126/83
[2019-08-11] MEDS ORDERED: MERO500V3 IV (13:06)
[2019-08-11 16:30] VITALS: BP 126/65
--- NOTE | 2019-08-11 16:43 | NUR ---
late entry related to medication adminstration of dialuadid 0.5mg at 1330 on 08/10, patient recieved 0.5MG via IV push as ordered the remaining 0.5mg was disposed using disposal system in medication room.
[2019-08-11 18:21] VITALS: BP 126/65
--- NOTE | 2019-08-11 18:21 | NUR ---
[facility], on gurney with 2L per nasal cannula, patient denies pain , wound pictures taken and added to patients chart prior to discharge. discharge teaching and review of flu/ Pnemonia vaccine prior to discharge. patient reports recieving both flu and pnemonia this season.
== END 2019-08-11 18:15 | DRG 871 ==
LOC: ER 00:34 → TELE3 05:18 → MEDSURG3 08-04 19:53
PROVIDERS: ADMIT Registered Nurse; ATTEND Internal Medicine
PROC: 05H933Z Insertion of Infusion Device into Right Brachial Vein, Percutaneous Approach (ICD-10-PCS; principal; 2019-08-05)
PROC: 30233N1 Transfusion of Nonautologous Red Blood Cells into Peripheral Vein, Percutaneous Approach (ICD-10-PCS; 2019-08-06)
DX: A41.9 Sepsis, unspecified organism (principal); E43 Unspecified severe protein-calorie malnutrition; J18.9 Pneumonia, unspecified organism; J96.11 Chronic respiratory failure with hypoxia; L97.418 Non-pressure chronic ulcer of right heel and midfoot with other specified severity; I25.110 Atherosclerotic heart disease of native coronary artery with unstable angina pectoris; D68.59 Other primary thrombophilia; N39.0 Urinary tract infection, site not specified; J98.11 Atelectasis; J44.0 Chronic obstructive pulmonary disease with (acute) lower respiratory infection; I13.0 Hypertensive heart and chronic kidney disease with heart failure and stage 1 through stage 4 chronic kidney disease, or unspecified chronic kidney disease; I50.30 Unspecified diastolic (congestive) heart failure; N17.9 Acute kidney failure, unspecified; B49 Unspecified mycosis; E87.1 Hypo-osmolality and hyponatremia; K21.0 Gastro-esophageal reflux disease with esophagitis; G40.909 Epilepsy, unspecified, not intractable, without status epilepticus; F95.2 Tourette's disorder; E11.42 Type 2 diabetes mellitus with diabetic polyneuropathy; E11.51 Type 2 diabetes mellitus with diabetic peripheral angiopathy without gangrene; I25.10 Atherosclerotic heart disease of native coronary artery without angina pectoris; Z95.5 Presence of coronary angioplasty implant and graft; E11.22 Type 2 diabetes mellitus with diabetic chronic kidney disease; E11.621 Type 2 diabetes mellitus with foot ulcer; L97.511 Non-pressure chronic ulcer of other part of right foot limited to breakdown of skin; Z89.512 Acquired absence of left leg below knee; N18.9 Chronic kidney disease, unspecified; Z59.0 Homelessness; Z79.01 Long term (current) use of anticoagulants; D63.8 Anemia in other chronic diseases classified elsewhere; N40.0 Benign prostatic hyperplasia without lower urinary tract symptoms; G89.4 Chronic pain syndrome; K59.00 Constipation, unspecified; Z74.09 Other reduced mobility; R13.10 Dysphagia, unspecified; E66.9 Obesity, unspecified; Z68.29 Body mass index [BMI] 29.0-29.9, adult; Z79.02 Long term (current) use of antithrombotics/antiplatelets; M54.10 Radiculopathy, site unspecified; Z79.890 Hormone replacement therapy; Z79.899 Other long term (current) drug therapy; Z82.49 Family history of ischemic heart disease and other diseases of the circulatory system; G25.0 Essential tremor; F90.9 Attention-deficit hyperactivity disorder, unspecified type; E78.5 Hyperlipidemia, unspecified; E03.9 Hypothyroidism, unspecified; I48.91 Unspecified atrial fibrillation; Z99.3 Dependence on wheelchair; Z79.4 Long term (current) use of insulin; E87.5 Hyperkalemia; F32.9 Major depressive disorder, single episode, unspecified; M19.90 Unspecified osteoarthritis, unspecified site
CPT/HCPCS: 36415; 70030-TC; 71045; 76770; 80164; 83735; 83970; 84100; 84155; 84156; 84165; 84300; 84443; 85025; 86850; 86900; 86901; 86920; 87040; 87086; 87400; 93005; 94640; 94664; A4663; C1758; G0378; J0696; J0885; J1170; J1650; J1815; J1940; J2185; J2405; J3370; J3490; J7030; J7050; J7060; P9016-BL; P9021

== ENCOUNTER 2019-08-13 09:33 | Inpatient (IN) | payer MEDICARE, OTHER ==
[~2019-08-13] VITALS: Ht 167.6 cm; Wt 98.5 kg
[~2019-08-13 09:33] MED LIST changes: -AMIO100T4 PO; +APIX5TAB PO; -ASPI81TA31 PO; +ATOR10TA33 PO; -ATOR40TA PO; -BISA10SU61 RC; +CARV6.25 PO; +CHOL10005 PO; -CLON0.1T PO; +CLOP75TA33 PO; +DEXT50DI8 IV; +DULO20CA19 PO; +FOLI0.8T2 PO; +FURO-152 PO; +GABA-534 PO; -GUAI5SYR4 PO; -INSU100V7 SQ; -LACT1CAP57 PO; -MELA3TAB63 PO; +MERO500V3 IV; +MONT10TA25 PO; -MULT1TAB73 PO; -NA P133E RC; -NITR0.4T48 SL; -NYST15CR2 TP; -OXYC5TAB3 PO; -POLY17PO4 PO; -REPA0.5T6 PO; -REPA1TAB PO; +ZINC1CAP2 PO; -ZINC220T4 PO; +[UNRECOGNIZED DRUG - OTHER]
--- NOTE | 2019-08-13 09:35 | NUR ---
[facility] with c/o nausea, vomitting and abdomenal pain. Admitted in rm 2A via gurney. Awake, alert and orientedx3. On O2 3lNC, saturation 99%. No respiratory distress.
--- NOTE | 2019-08-13 09:45 | NUR ---
Seen and examined by Dr Ibrahim with new orders.
[2019-08-13 09:54] LABS: BASOPHILS % (AUTO) 0.7 % (0.0-2.0); EOSINOPHILS # (AUTO) 0.6 K/uL (0.0-0.7); EOSINOPHILS % (AUTO) 9.4 % (0.0-7.0); HEMATOCRIT 29.4 % (36.7-47.1); HEMOGLOBIN 9.7 g/dL (12.5-16.3); LYMPHOCYTES # (AUTO) 1.4 K/uL (20.0-40.0); LYMPHOCYTES % (AUTO) 21.7 % (20.5-51.5); MEAN CORPUSCULAR HEMOGLOBIN 30.9 uug (23.8-33.4); MEAN CORPUSCULAR HGB CONC 33 g/dL (32.5-36.3); MEAN CORPUSCULAR VOLUME 93.9 fL (73.0-96.2); MONOCYTES # (AUTO) 0.5 K/uL (2.0-10.0); MONOCYTES % (AUTO) 7.7 % (0.0-11.0); NEUTROPHILS # (AUTO) 3.9 K/uL (1.8-8.9); NEUTROPHILS % (AUTO) 60.5 % (38.5-71.5); PLATELET COUNT (AUTO) 341 K/uL (152-348); RED BLOOD CELL COUNT(AUTO) 3.13 MIL/uL (4.06-5.63); WHITE BLOOD COUNT (AUTO) 6.4 K/uL (3.6-10.2)
[2019-08-13 10:01] LABS: CREATININE 2.8 mg/dL (0.6-1.3); POTASSIUM 4.6 mmol/L (3.5-5.1)
--- NOTE | 2019-08-13 10:05 | NUR ---
Pt has L BKA, dressing on R heel and R 2nd big toe dry and intact, dressing on coccyx area dry and intact.
[2019-08-13] MEDS ORDERED: [UNRECOGNIZED DRUG - OTHER] PO (10:06)
[2019-08-13] MEDS ORDERED: ONDA4TAB5 PO (10:06)
[2019-08-13] MEDS ORDERED: OXYC10TA49 PO (10:06)
[2019-08-13 10:07] LABS: BILIRUBIN,DIRECT 0.2 mg/dL (0.0-0.2); BILIRUBIN,TOTAL 0.6 mg/dL (0.2-1.0); TOTAL PROTEIN, SERUM 7.1 g/dL (6.4-8.2)
[2019-08-13 10:18] LABS: BAND % (MANUAL) 1 % (0-10); EOSINOPHILS % (MANUAL) 8 % (0-8); LYMPHOCYTES % (MANUAL) 31 % (20-40); MONOCYTES % (MANUAL) 6 % (2-10); NEUTROPHILS % (MANUAL) 53 % (42-75)
[2019-08-13 10:19] LABS: REACTIVE LYMPHOCYTES 1 % (0-0)
[2019-08-13] MEDS ORDERED: ONDANSETRON 4 MG/2 ML VIAL IV ONE (10:30)
[2019-08-13] MEDS ORDERED: ONDANSETRON 4 MG/2 ML VIAL ONE (10:34)
--- NOTE | 2019-08-13 10:40 | NUR ---
Medicated with Zofran 4mg slow IVP via R hand g22. for c/o nausea.
--- NOTE | 2019-08-13 10:50 | NUR ---
Pt is beeing admitted to Tele. Report given to Valarie STARKEY.
--- NOTE | 2019-08-13 11:08 | NUR ---
Pt tansferred to 318 via [facility]. Condition is guarded.
--- NOTE | 2019-08-13 11:20 | NUR ---
ADMITTED FROM [facility] A 64 YO MALE WITH EPISTAXIS, TOURETTES SYNDROME, SOB AWAKE ALERT AND ORIENTED X3. RUTINE ADMISSION ASSESSMENT INITIATED. SR ON MONITOR. NOTIFIED FOR ADMISSION ORDERS
--- NOTE | 2019-08-13 11:38 | NUR ---
WOUND CARE CONSULT: PT FOLLOWED BY PLASTIC SURGERY AND PODIATRY TEAMS. DEFER TO SURGICAL TEAMS FOR WOUND TREATMENT PLAN. DISCUSSED SKIN PROTECTION WITH NURSING STAFF. WILL SEE PRN. DR ORTEGA NOTIFIED OF NEW ADMISSION AND NEED FOR SURGICAL/PODIATRY CONSULT.
[2019-08-13 11:51] VITALS: BP 145/76
[2019-08-13] MEDS: FUROSEMIDE 20 MG/2 ML VIAL IV SCH (12:34)
[2019-08-13] MEDS: HYDROMORPHONE 1 MG/1 ML DISP.SYRIN IV PRN ×3 (12:35→22:44)
[2019-08-13 15:33] VITALS: BP 143/83
--- NOTE | 2019-08-13 19:30 | NUR ---
Received patient in bed awake A&Ox3. No SOB noted, on O2 at 2lpm via NC saturating at 97%. Heplock on R wrist intact and patent. No complaints of pain at this time. Safety measures observed. Call light in reach
[2019-08-13] MEDS ORDERED: ALBUTEROL SULFATE 2.5 MG/3 ML NEBU IH PRN (20:00)
[2019-08-13 20:59] VITALS: BP 160/71
[2019-08-13] MEDS: ATORVASTATIN 10 MG TABLET PO SCH (21:08)
[2019-08-13] MEDS: DIVALPROEX 500 MG TABLET.DR PO SCH (21:08)
[2019-08-13] MEDS: MONTELUKAST SODIUM 10 MG TABLET PO SCH (21:08)
[2019-08-13] MEDS: ONDANSETRON 4 MG/2 ML VIAL IV PRN (22:49)
--- NOTE | 2019-08-13 23:00 | NUR ---
Patient complained of 9/10 chest pain and abdominal pain, VS checked BP-156/79, P-81, RR-18, Temp- 98.5, O2 sat- 97% at 2lpm, informed Dr. Barker w/ n.o for Nitroglycerin 0.4mg SL [id number] x 3 doses. Patient asked for his PRN Dilaudid and stated his chest pain was relieved. Will continue to monitor
[2019-08-14] VITALS: BP 145/62
[2019-08-14] MEDS ORDERED: NITROGLYCERIN 0.4 MG/TAB BOTTLE SL PRN (01:15)
[2019-08-14] MEDS: HYDROMORPHONE 1 MG/1 ML DISP.SYRIN IV PRN ×6 (03:02→21:46)
[2019-08-14 04:00] VITALS: BP 143/71
[2019-08-14] MEDS: PANTOPRAZOLE SODIUM 40 MG TABLET.DR PO SCH (06:22)
[2019-08-14] MEDS: LEVOTHYROXINE SODIUM 100 MCG TABLET PO SCH (06:22)
[2019-08-14 06:26] LABS: BASOPHILS # (AUTO) 0.1 K/uL (0.0-8.0); BASOPHILS % (AUTO) 0.9 % (0.0-2.0); EOSINOPHILS # (AUTO) 0.6 K/uL (0.0-0.7); EOSINOPHILS % (AUTO) 9.6 % (0.0-7.0); HEMATOCRIT 26.2 % (36.7-47.1); HEMOGLOBIN 8.6 g/dL (12.5-16.3); LYMPHOCYTES # (AUTO) 1.8 K/uL (20.0-40.0); LYMPHOCYTES % (AUTO) 31.6 % (20.5-51.5); MEAN CORPUSCULAR HEMOGLOBIN 30.9 uug (23.8-33.4); MEAN CORPUSCULAR HGB CONC 33 g/dL (32.5-36.3); MEAN CORPUSCULAR VOLUME 93.9 fL (73.0-96.2); MONOCYTES # (AUTO) 0.5 K/uL (2.0-10.0); MONOCYTES % (AUTO) 8.8 % (0.0-11.0); NEUTROPHILS # (AUTO) 2.8 K/uL (1.8-8.9); NEUTROPHILS % (AUTO) 49.1 % (38.5-71.5); PLATELET COUNT (AUTO) 326 K/uL (152-348); RED BLOOD CELL COUNT(AUTO) 2.79 MIL/uL (4.06-5.63); WHITE BLOOD COUNT (AUTO) 5.8 K/uL (3.6-10.2)
--- NOTE | 2019-08-14 06:52 | NUR ---
Patient slept intermittently. No complaints of chest pain at this time. SR on Tele monitor. All needs attended. Will endorse accordingly
[2019-08-14 07:37] LABS: BILIRUBIN,TOTAL 0.4 mg/dL (0.2-1.0); CREATININE 2.6 mg/dL (0.6-1.3); MAGNESIUM 2.2 mg/dL (1.8-2.4); PHOSPHOROUS 3.4 mg/dL (2.5-4.9); POTASSIUM 4.7 mmol/L (3.5-5.1); TOTAL PROTEIN, SERUM 6.1 g/dL (6.4-8.2)
--- NOTE | 2019-08-14 08:00 | NUR ---
AWAKE ALERT AND RESTING COMFORTABLY IN BED, STILL C/O LOWER ABDOMEN AND SPINE MEDICATED WITH PRN MEDS DILAUDID WITH TEMPORARY RELIEF. NO CP, NO N/V SR ON MONITOR
[2019-08-14] MEDS: ISOSORBIDE MONONITRATE 60 MG TAB.SR.24H PO SCH (08:23)
[2019-08-14] MEDS: DIVALPROEX 500 MG TABLET.DR PO SCH ×2 (08:23→12:11)
[2019-08-14] MEDS: CARVEDILOL 6.25 MG TABLET PO SCH ×2 (08:23→17:21)
[2019-08-14] MEDS: FUROSEMIDE 20 MG/2 ML VIAL IV SCH (08:23)
[2019-08-14] MEDS: ZINC SULFATE 220 MG CAPSULE PO SCH (08:24)
[2019-08-14] MEDS: DULOXETINE 20 MG CAPSULE.DR PO SCH (08:24)
[2019-08-14] MEDS: RANOLAZINE 500 MG TAB.ER.12H PO SCH ×2 (08:24→17:20)
[2019-08-14] MEDS: ASCORBIC ACID 500 MG TABLET PO SCH (08:24)
[2019-08-14] MEDS: APIXABAN 5 MG TABLET PO SCH ×2 (08:51→17:21)
[2019-08-14] MEDS ORDERED: Medication Not On Formulary EA (Ascorbic Acid (Vitamin C) 500 MG) PO SCH (09:00)
[2019-08-14] MEDS ORDERED: APIXABAN 5 MG TABLET PO SCH (09:00)
[2019-08-14 11:56] VITALS: BP 140/77
--- NOTE | 2019-08-14 12:00 | NUR ---
NO CHANGE OF STATUS FROM AM ASSESSMENT
--- NOTE | 2019-08-14 14:09 | NUR ---
SEEN BY DR GUEVARA PATIENT STATUS CHANGED TO MEDSURG. CONTINUE WITH PAIN MANAGEMENT
[2019-08-14 16:00] VITALS: BP 138/70
[2019-08-14] MEDS ORDERED: LEVETIRACETAM 250 MG TABLET PO SCH (17:00)
[2019-08-14] MEDS ORDERED: DIVALPROEX 500 MG TABLET.DR PO SCH (17:00)
[2019-08-14] MEDS: DIVALPROEX 250 MG TABLET.DR PO SCH (17:31)
--- NOTE | 2019-08-14 19:30 | NUR ---
Received patient in bed awake, A&Ox3. No SOB noted, not in distress. No complaints of chest pain at this time. Heplock on R wrist intact and patent. Safety measures observed. Call light in reach
[2019-08-14 20:32] VITALS: BP 146/70
[2019-08-14] MEDS: ATORVASTATIN 10 MG TABLET PO SCH (20:57)
[2019-08-14] MEDS: TAMSULOSIN HCL 0.4 MG CAP.SR.24H PO SCH (20:57)
[2019-08-14] MEDS: MONTELUKAST SODIUM 10 MG TABLET PO SCH (20:57)
[2019-08-14] MEDS: ONDANSETRON 4 MG/2 ML VIAL IV PRN (21:47)
[2019-08-14] MEDS ORDERED: Z GUARD REMEDY PASTE 57 GM TUBE TOP PRN (22:15)
[2019-08-15] MEDS: HYDROMORPHONE 1 MG/1 ML DISP.SYRIN IV PRN ×6 (01:55→22:41)
[2019-08-15] MEDS: NITROGLYCERIN 0.4 MG/TAB BOTTLE SL PRN ×2 (04:49→04:55)
--- NOTE | 2019-08-15 04:55 | NUR ---
Patient complained of chest pain, PRN Nitroglycerin 0.4mg SL given x 2 doses only. Will continue to monitor
[2019-08-15 06:03] LABS: BASOPHILS % (AUTO) 0.9 % (0.0-2.0); EOSINOPHILS # (AUTO) 0.6 K/uL (0.0-0.7); EOSINOPHILS % (AUTO) 10.9 % (0.0-7.0); HEMATOCRIT 28.2 % (36.7-47.1); HEMOGLOBIN 9.1 g/dL (12.5-16.3); LYMPHOCYTES # (AUTO) 1.7 K/uL (20.0-40.0); LYMPHOCYTES % (AUTO) 31.8 % (20.5-51.5); MEAN CORPUSCULAR HEMOGLOBIN 30.8 uug (23.8-33.4); MEAN CORPUSCULAR HGB CONC 32 g/dL (32.5-36.3); MEAN CORPUSCULAR VOLUME 95.3 fL (73.0-96.2); MONOCYTES # (AUTO) 0.4 K/uL (2.0-10.0); MONOCYTES % (AUTO) 7.7 % (0.0-11.0); NEUTROPHILS # (AUTO) 2.6 K/uL (1.8-8.9); NEUTROPHILS % (AUTO) 48.7 % (38.5-71.5); PLATELET COUNT (AUTO) 339 K/uL (152-348); RED BLOOD CELL COUNT(AUTO) 2.96 MIL/uL (4.06-5.63); WHITE BLOOD COUNT (AUTO) 5.3 K/uL (3.6-10.2)
[2019-08-15 06:12] LABS: CREATININE 2.5 mg/dL (0.6-1.3); MAGNESIUM 1.9 mg/dL (1.8-2.4); POTASSIUM 4.8 mmol/L (3.5-5.1)
[2019-08-15] MEDS: LEVOTHYROXINE SODIUM 100 MCG TABLET PO SCH (06:29)
[2019-08-15] MEDS: PANTOPRAZOLE SODIUM 40 MG TABLET.DR PO SCH (06:29)
--- NOTE | 2019-08-15 06:50 | NUR ---
Patient slept intermittently. No complaints of chest pain at this time. All needs attended. Will endorse accordingly
--- NOTE | 2019-08-15 07:30 | NUR ---
RECEIVED PATIENT RESTING IN BED, ASLEEP. NO ACUTE DISTRESS NOTED. BED IN LOWEST POSITION, SIDE RAILS UP X2, CALL LIGHT WITHIN REACH. WILL CONTINUE TO MONITOR.
[2019-08-15] MEDS: DIVALPROEX 250 MG TABLET.DR PO SCH ×3 (08:29→17:21)
[2019-08-15] MEDS: DULOXETINE 20 MG CAPSULE.DR PO SCH (08:29)
[2019-08-15] MEDS: FUROSEMIDE 20 MG/2 ML VIAL IV SCH (08:29)
[2019-08-15] MEDS: CARVEDILOL 6.25 MG TABLET PO SCH (08:29)
[2019-08-15] MEDS: APIXABAN 5 MG TABLET PO SCH ×2 (08:30→17:22)
[2019-08-15] MEDS: ISOSORBIDE MONONITRATE 60 MG TAB.SR.24H PO SCH ×2 (08:30→17:21)
[2019-08-15] MEDS: RANOLAZINE 500 MG TAB.ER.12H PO SCH ×2 (08:30→17:21)
[2019-08-15] MEDS: ZINC SULFATE 220 MG CAPSULE PO SCH (08:30)
[2019-08-15] MEDS: ASCORBIC ACID 500 MG TABLET PO SCH (08:30)
[2019-08-15 11:10] VITALS: BP 145/74
[2019-08-15 15:08] VITALS: BP 134/64
[2019-08-15] MEDS: CARVEDILOL 12.5 MG TABLET PO SCH (17:22)
[2019-08-15] MEDS ORDERED: CARVEDILOL 6.25 MG TABLET PO SCH (18:00)
--- NOTE | 2019-08-15 18:28 | NUR ---
PATIENT RESTED INTERMITTENTLY THROUGHOUT DAY. NO ACUTE DISTRESS NOTED THROUGHOUT THE SHIFT. PATIENT REPORTING PAIN, PAIN MEDICATIONS GIVEN THROUGHOUT SHIFT. WILL ENDORSE TO ONCOMING NURSE.
[2019-08-15 20:00] VITALS: BP 106/61
[2019-08-15] MEDS: ATORVASTATIN 10 MG TABLET PO SCH (20:24)
[2019-08-15] MEDS: GUAIFENESIN/DEXTROMETHORPHAN 5 ML UDC PO PRN (20:24)
[2019-08-15] MEDS: MONTELUKAST SODIUM 10 MG TABLET PO SCH (20:24)
[2019-08-15] MEDS: TAMSULOSIN HCL 0.4 MG CAP.SR.24H PO SCH (20:24)
[2019-08-15] MEDS: HYDROCORTISONE 1% CREAM 30 GM TUBE TP SCH (20:25)
[2019-08-16] MEDS: HYDROMORPHONE 1 MG/1 ML DISP.SYRIN IV PRN ×6 (02:43→23:27)
[2019-08-16 04:00] VITALS: BP 144/74
[2019-08-16] MEDS: PANTOPRAZOLE SODIUM 40 MG TABLET.DR PO SCH (06:07)
[2019-08-16] MEDS: LEVOTHYROXINE SODIUM 100 MCG TABLET PO SCH (06:07)
--- NOTE | 2019-08-16 06:30 | NUR ---
Patient slept intermittently. No complaints of chest pain at this time. c/o 05/07 generalized body pain, PRN pain medication given as ordered. All needs attended. Will endorse accordingly
--- NOTE | 2019-08-16 07:25 | NUR ---
RECEIVED PATIENT RESTING IN BED. PATIENT AWAKE AND ALERT. PATIENT DENIES PAIN AND DISCOMFORT. NO SIGNS OF ACUTE DISTRESS. BED IN LOWEST POSITION, SIDE RAILS UP X2, AND CALL LIGHT WITHIN REACH. WILL CONTINUE TO MONITOR.
[2019-08-16] MEDS: FUROSEMIDE 20 MG/2 ML VIAL IV SCH (08:31)
[2019-08-16] MEDS: CARVEDILOL 12.5 MG TABLET PO SCH ×2 (08:31→17:44)
[2019-08-16] MEDS: DIVALPROEX 250 MG TABLET.DR PO SCH ×3 (08:32→17:44)
[2019-08-16] MEDS: DULOXETINE 20 MG CAPSULE.DR PO SCH (08:32)
[2019-08-16] MEDS: RANOLAZINE 500 MG TAB.ER.12H PO SCH ×2 (08:32→17:44)
[2019-08-16] MEDS: ISOSORBIDE MONONITRATE 60 MG TAB.SR.24H PO SCH ×2 (08:32→17:43)
[2019-08-16] MEDS: ASCORBIC ACID 500 MG TABLET PO SCH (08:32)
[2019-08-16] MEDS: ZINC SULFATE 220 MG CAPSULE PO SCH (08:32)
[2019-08-16] MEDS: APIXABAN 5 MG TABLET PO SCH ×2 (08:34→17:43)
[2019-08-16] MEDS: HYDROCORTISONE 1% CREAM 30 GM TUBE TP SCH ×2 (08:36→20:09)
[2019-08-16] MEDS: GUAIFENESIN/DEXTROMETHORPHAN 5 ML UDC PO PRN (09:35)
[2019-08-16 11:10] VITALS: BP 144/68
--- NOTE | 2019-08-16 13:10 | NUR ---
DISCHARGED PATIENT HOME. REVIEWED D/C INSTRUCTIONS WITH PATIENT. PATIENT VERBALLY UNDERSTANDS DISCHARGE INSTRUCTIONS. REMOVED IV WITHOUT ANY COMPLICATIONS. PATIENT STEADY IN HER FEET, TRANSFERRED TO WHEELCHAIR AND ESCORTED DOWN TO CAR.
[2019-08-16 15:05] VITALS: BP 135/66
--- NOTE | 2019-08-16 18:32 | NUR ---
PATIENT RESTED INTERMITTENTLY THROUGHOUT DAY. NO ACUTE DISTRESS NOTED THROUGHOUT THE SHIFT. PATIENT REPORTING PAIN, PAIN MEDICATIONS GIVEN THROUGHOUT SHIFT. PATIENT REPORTING COUGH COUGH MEDICATION ADMINISTERED. WILL ENDORSE TO ONCOMING NURSE.
[2019-08-16 20:00] VITALS: BP 138/64
[2019-08-16] MEDS: ATORVASTATIN 10 MG TABLET PO SCH (20:08)
[2019-08-16] MEDS: MONTELUKAST SODIUM 10 MG TABLET PO SCH (20:08)
[2019-08-16] MEDS: TAMSULOSIN HCL 0.4 MG CAP.SR.24H PO SCH (20:08)
[2019-08-17 04:00] VITALS: BP 140/69
[2019-08-17] MEDS: HYDROMORPHONE 1 MG/1 ML DISP.SYRIN IV PRN ×4 (04:36→17:06)
[2019-08-17] MEDS: PANTOPRAZOLE SODIUM 40 MG TABLET.DR PO SCH (06:16)
[2019-08-17] MEDS: LEVOTHYROXINE SODIUM 100 MCG TABLET PO SCH (06:16)
--- NOTE | 2019-08-17 06:57 | NUR ---
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 IN NO ACUTE DISTRESS, NO ACUTE CHANGES, VITAL SIGNS STABLE. PAIN MANAGED WITH DILAUDID THROUGHOUT SHIFT. ENDORSED TO AM NURSE.
--- NOTE | 2019-08-17 07:20 | NUR ---
RECEIVED PATIENT RESTING IN BED , AWAKE AND ALERT. BED IN LOWEST POSITION, SIDE RAILS UP X2, CALL LIGHT WITHIN REACH. WILL CONTINUE TO MONITOR.
[2019-08-17 08:04] LABS: BASOPHILS % (AUTO) 0.6 % (0.0-2.0); EOSINOPHILS # (AUTO) 0.4 K/uL (0.0-0.7); EOSINOPHILS % (AUTO) 7.3 % (0.0-7.0); HEMATOCRIT 26.4 % (36.7-47.1); HEMOGLOBIN 8.5 g/dL (12.5-16.3); LYMPHOCYTES # (AUTO) 1.5 K/uL (20.0-40.0); LYMPHOCYTES % (AUTO) 24.9 % (20.5-51.5); MEAN CORPUSCULAR HEMOGLOBIN 30.6 uug (23.8-33.4); MEAN CORPUSCULAR HGB CONC 32 g/dL (32.5-36.3); MEAN CORPUSCULAR VOLUME 94.6 fL (73.0-96.2); MONOCYTES # (AUTO) 0.4 K/uL (2.0-10.0); MONOCYTES % (AUTO) 7.6 % (0.0-11.0); NEUTROPHILS # (AUTO) 3.5 K/uL (1.8-8.9); NEUTROPHILS % (AUTO) 59.6 % (38.5-71.5); PLATELET COUNT (AUTO) 295 K/uL (152-348); RED BLOOD CELL COUNT(AUTO) 2.79 MIL/uL (4.06-5.63); WHITE BLOOD COUNT (AUTO) 5.9 K/uL (3.6-10.2)
[2019-08-17 08:24] LABS: BILIRUBIN,TOTAL 0.5 mg/dL (0.2-1.0); CREATININE 2.5 mg/dL (0.6-1.3); MAGNESIUM 1.8 mg/dL (1.8-2.4); PHOSPHOROUS 4.3 mg/dL (2.5-4.9); POTASSIUM 5.4 mmol/L (3.5-5.1)
[2019-08-17] MEDS: ISOSORBIDE MONONITRATE 60 MG TAB.SR.24H PO SCH ×2 (08:48→17:07)
[2019-08-17] MEDS: DIVALPROEX 250 MG TABLET.DR PO SCH ×3 (08:48→17:01)
[2019-08-17] MEDS: ZINC SULFATE 220 MG CAPSULE PO SCH (08:49)
[2019-08-17] MEDS: CARVEDILOL 12.5 MG TABLET PO SCH ×2 (08:49→17:07)
[2019-08-17] MEDS: ASCORBIC ACID 500 MG TABLET PO SCH (08:49)
[2019-08-17] MEDS: RANOLAZINE 500 MG TAB.ER.12H PO SCH ×2 (08:49→17:01)
[2019-08-17] MEDS: DULOXETINE 20 MG CAPSULE.DR PO SCH (08:49)
[2019-08-17] MEDS: FUROSEMIDE 20 MG/2 ML VIAL IV SCH (08:49)
[2019-08-17] MEDS: HYDROCORTISONE 1% CREAM 30 GM TUBE TP SCH (08:50)
[2019-08-17] MEDS: APIXABAN 5 MG TABLET PO SCH ×2 (08:50→17:03)
[2019-08-17] MEDS ORDERED: SODIUM POLYSTYRENE SULFONATE 15 G/60 ML LIQUID UDC PO ONE (10:00)
[2019-08-17] MEDS ORDERED: TAMS-3 PO (13:22)
[2019-08-17] MEDS ORDERED: APIX5TAB PO (13:22)
[2019-08-17] MEDS ORDERED: CARV12.52 PO (13:22)
[2019-08-17] MEDS ORDERED: DIVA250T4 PO (13:22)
[2019-08-17] MEDS ORDERED: GUAI5SYR4 PO (13:25)
[2019-08-17] MEDS ORDERED: ACID1TAB4 PO (13:25)
[2019-08-17] MEDS ORDERED: EPOE200012 IJ (13:25)
[2019-08-17] MEDS ORDERED: GLIM1TAB PO (13:33)
[2019-08-17 17:07] VITALS: BP 171/84
--- NOTE | 2019-08-17 18:52 | NUR ---
PATIENT PICKED UP BY AMBULANCE. REVIEWED D/C INSTRUCTIONS WITH PATIENT, PATIENT VERBALLY UNDERSTANDS. REMOVED IV WITHOUT ANY COMPLICATIONS.
== END 2019-08-17 18:45 | DRG 291 ==
LOC: ER 09:33 → TELE3 10:58 → MEDSURG3 08-14 12:00
PROVIDERS: ADMIT Internal Medicine; ATTEND Internal Medicine
DX: I13.0 Hypertensive heart and chronic kidney disease with heart failure and stage 1 through stage 4 chronic kidney disease, or unspecified chronic kidney disease (principal); N17.0 Acute kidney failure with tubular necrosis; I50.31 Acute diastolic (congestive) heart failure; E43 Unspecified severe protein-calorie malnutrition; L97.418 Non-pressure chronic ulcer of right heel and midfoot with other specified severity; G40.109 Localization-related (focal) (partial) symptomatic epilepsy and epileptic syndromes with simple partial seizures, not intractable, without status epilepticus; J96.11 Chronic respiratory failure with hypoxia; D68.59 Other primary thrombophilia; K92.2 Gastrointestinal hemorrhage, unspecified; L97.518 Non-pressure chronic ulcer of other part of right foot with other specified severity; K21.0 Gastro-esophageal reflux disease with esophagitis; E11.22 Type 2 diabetes mellitus with diabetic chronic kidney disease; E11.621 Type 2 diabetes mellitus with foot ulcer; E11.51 Type 2 diabetes mellitus with diabetic peripheral angiopathy without gangrene; Z89.512 Acquired absence of left leg below knee; F95.2 Tourette's disorder; N18.9 Chronic kidney disease, unspecified; E11.65 Type 2 diabetes mellitus with hyperglycemia; E11.42 Type 2 diabetes mellitus with diabetic polyneuropathy; I25.10 Atherosclerotic heart disease of native coronary artery without angina pectoris; Z95.5 Presence of coronary angioplasty implant and graft; Z74.09 Other reduced mobility; E66.9 Obesity, unspecified; Z68.35 Body mass index [BMI] 35.0-35.9, adult; N40.0 Benign prostatic hyperplasia without lower urinary tract symptoms; G89.4 Chronic pain syndrome; G25.0 Essential tremor; J44.9 Chronic obstructive pulmonary disease, unspecified; I48.0 Paroxysmal atrial fibrillation; F90.9 Attention-deficit hyperactivity disorder, unspecified type; Z79.899 Other long term (current) drug therapy; Z79.891 Long term (current) use of opiate analgesic; Z79.890 Hormone replacement therapy; Z79.4 Long term (current) use of insulin; Z79.02 Long term (current) use of antithrombotics/antiplatelets; R13.10 Dysphagia, unspecified; K21.9 Gastro-esophageal reflux disease without esophagitis; F32.9 Major depressive disorder, single episode, unspecified; E87.5 Hyperkalemia; E78.5 Hyperlipidemia, unspecified; E86.1 Hypovolemia; E03.9 Hypothyroidism, unspecified; D63.8 Anemia in other chronic diseases classified elsewhere; L21.9 Seborrheic dermatitis, unspecified; R04.0 Epistaxis; M54.10 Radiculopathy, site unspecified; Z87.81 Personal history of (healed) traumatic fracture; Z86.19 Personal history of other infectious and parasitic diseases
CPT/HCPCS: 36415; 70030-TC; 71045; 74018; 80164; 83735; 84100; 85025; 93005; 93307; 95819; A4663; G0378; J1170; J1940; J2405; J3490

== ENCOUNTER 2019-08-19 01:20 | Emergency (ER) | payer MEDICARE, OTHER ==
[~2019-08-19] VITALS: Ht 177.8 cm; Wt 101.7 kg
[~2019-08-19 01:20] MED LIST changes: +ACID1TAB4 PO; -ALBU2.5V38 IH; -BLOO-140 IN; +CARV12.52 PO; -CARV6.25 PO; -CARV6.252 PO; -CHOL10005 PO; -CLOP75TA33 PO; -DEXT50DI8 IV; -DIVA-78 PO; +DIVA250T4 PO; -DULO20CA PO; +EPOE200012 IJ; -GABA-534 PO; +GLIM1TAB PO; -GLUC1KIT IJ; +GUAI5SYR4 PO; -MERO500V3 IV; -MONT10TA25 PO; +ONDA4TAB5 PO; +OXYC10TA49 PO; -[UNRECOGNIZED DRUG - OTHER]
--- NOTE | 2019-08-19 01:32 | NUR ---
WEPT WAS BROUGHT IN [facility] BY [facility] VIA GURNEY C/O COUGHING FOR <1WK PTIS AOX4, ABLE TO SPEAK CLEAR AND COMPLETE SENTENCES, +DIFFICULTY CLEARING SECRETIONS DENIES RECENT TRAVELS DENIES JOINT PAIN/NVD/SOB/FEVERS/CHILLS +L BKA, +SOFT SUPPORTIVE BOOT TO R LOWER LEG AND FOOT (HEALING PRESSURE ULCERS) MONITORED ACCORDINGLY SIDERAILSX2 UP BED AT LOWEST POSITION MD AT BEDSIDE FOR HX AND PHYSICAL
[2019-08-19 01:42] LABS: BASOPHILS % (AUTO) 0.5 % (0.0-2.0); EOSINOPHILS # (AUTO) 0.3 K/uL (0.0-0.7); EOSINOPHILS % (AUTO) 5.3 % (0.0-7.0); HEMATOCRIT 31.9 % (36.7-47.1); HEMOGLOBIN 10.3 g/dL (12.5-16.3); LYMPHOCYTES % (AUTO) 16.7 % (20.5-51.5); MEAN CORPUSCULAR HEMOGLOBIN 30.4 uug (23.8-33.4); MEAN CORPUSCULAR HGB CONC 32 g/dL (32.5-36.3); MEAN CORPUSCULAR VOLUME 94.3 fL (73.0-96.2); MONOCYTES # (AUTO) 0.4 K/uL (2.0-10.0); MONOCYTES % (AUTO) 5.7 % (0.0-11.0); NEUTROPHILS # (AUTO) 4.5 K/uL (1.8-8.9); NEUTROPHILS % (AUTO) 71.8 % (38.5-71.5); PLATELET COUNT (AUTO) 278 K/uL (152-348); RED BLOOD CELL COUNT(AUTO) 3.38 MIL/uL (4.06-5.63); WHITE BLOOD COUNT (AUTO) 6.3 K/uL (3.6-10.2)
[2019-08-19 01:52] LABS: CREATININE 2.7 mg/dL (0.6-1.3); POTASSIUM 5.7 mmol/L (3.5-5.1)
--- NOTE | 2019-08-19 02:16 | NUR ---
Called [facility] for transport. ETA [id number] crop picker. back to [facility] Trip #: [id number]
--- NOTE | 2019-08-19 02:21 | NUR ---
called [facility]. Informed of transfer back to facility. Nurse is aware.
--- NOTE | 2019-08-19 02:50 | NUR ---
Bharathi- EMT from [facility] received report for patient at discharge. Patient in stable condition for discharge. [facility]. VSS.
--- NOTE | 2019-08-19 03:04 | NUR ---
Patient discharged to home in stable conditon. Written and verbal after care instructions given. Patient verbalizes understanding of instructions. Patient taken back to facility via [facility]. report given to EMT. all personal belongings taken with the patient at discharge. VSS. Patient a/o x3.
[2019-08-19 03:05] VITALS: BP 155/84
== END 2019-08-19 03:05 | disposition home or self-care (01) ==
LOC: ER 01:21
DX: F11.90 Opioid use, unspecified, uncomplicated (principal); I25.10 Atherosclerotic heart disease of native coronary artery without angina pectoris; J44.9 Chronic obstructive pulmonary disease, unspecified; K21.9 Gastro-esophageal reflux disease without esophagitis; E11.9 Type 2 diabetes mellitus without complications; F41.9 Anxiety disorder, unspecified; E03.9 Hypothyroidism, unspecified; Z88.8 Allergy status to other drugs, medicaments and biological substances; Z91.013 Allergy to seafood; Z79.899 Other long term (current) drug therapy
CPT/HCPCS: 36415; 70030-TC; 71045; 85025; 93005; A4663

== ENCOUNTER 2019-09-30 03:56 | Inpatient (IN) | payer MEDICARE, OTHER ==
[~2019-09-30] VITALS: Ht 177.8 cm; Wt 92.5 kg
[2019-09-30] VITALS (16 sets, daily range): BP systolic 106–129; BP diastolic 36–55
--- NOTE | 2019-09-30 04:09 | NUR ---
Dr. Juarez at bedside for MSE.
[2019-09-30] MEDS ORDERED: ONDANSETRON 4 MG/2 ML VIAL IV ONE (04:30)
[2019-09-30] MEDS ORDERED: ONDANSETRON 4 MG/2 ML VIAL ONE (04:35)
--- NOTE | 2019-09-30 04:44 | NUR ---
Xray at bedside.
[2019-09-30 04:48] LABS: EOSINOPHILS # (AUTO) 0.1 K/uL (0.0-0.7); LYMPHOCYTES # (AUTO) 0.4 K/uL (20.0-40.0); MONOCYTES # (AUTO) 0.4 K/uL (2.0-10.0)
[2019-09-30 04:50] LABS: BASOPHILS % (AUTO) 0.2 % (0.0-2.0); EOSINOPHILS % (AUTO) 0.6 % (0.0-7.0); LYMPHOCYTES % (AUTO) 3.2 % (20.5-51.5); MEAN CORPUSCULAR HEMOGLOBIN 31.7 uug (23.8-33.4); MEAN CORPUSCULAR HGB CONC 35 g/dL (32.5-36.3); MEAN CORPUSCULAR VOLUME 90.7 fL (73.0-96.2); MONOCYTES % (AUTO) 3.5 % (0.0-11.0); NEUTROPHILS # (AUTO) 11.9 K/uL (1.8-8.9); NEUTROPHILS % (AUTO) 92.5 % (38.5-71.5); PLATELET COUNT (AUTO) 115 K/uL (152-348); WHITE BLOOD COUNT (AUTO) 12.8 K/uL (3.6-10.2)
[2019-09-30 04:58] LABS: RED BLOOD CELL COUNT(AUTO) 1.93 MIL/uL (4.06-5.63)
[2019-09-30 05:00] LABS: HEMATOCRIT 17.5 % (36.7-47.1); HEMOGLOBIN 6.1 g/dL (12.5-16.3)
[2019-09-30 05:19] LABS: *BILIRUBIN,URIN NEGATIVE (NEGATIVE); *BLOOD, URINE 3+ (NEGATIVE); *CLARITY,URINE CLEAR (CLEAR); *COLOR,URINE YELLOW (YELLOW); *KETONES,URINE NEGATIVE (NEGATIVE); *UROBILINOGEN,URINE 0.2 E.U./dl (NORMAL); LEUKOCYTE ESTERASE ,URINE NEGATIVE (NEGATIVE); NITRITE, URINE NEGATIVE (NEGATIVE); UGLUCOSE NEGATIVE (NEGATIVE)
[2019-09-30 05:27] LABS: CREATININE 6.4 mg/dL (0.6-1.3); POTASSIUM 3.9 mmol/L (3.5-5.1)
--- NOTE | 2019-09-30 05:33 | NUR ---
Called [facility] to page Dr. Hayden Barker.
[2019-09-30 05:36] LABS: BAND % (MANUAL) 2 % (0-10); LYMPHOCYTES % (MANUAL) 2 % (20-40); MONOCYTES % (MANUAL) 3 % (2-10); NEUTROPHILS % (MANUAL) 93 % (42-75)
[2019-09-30 05:40] LABS: BILIRUBIN,DIRECT 0.2 mg/dL (0.0-0.2); BILIRUBIN,TOTAL 0.6 mg/dL (0.2-1.0); TOTAL PROTEIN, SERUM 7.1 g/dL (6.4-8.2)
[2019-09-30 05:41] LABS: BACTERIA,URINE FEW /HPF (NONE SEEN); RBC,URINE 80-100 /HPF (0-3); SQUAMOUS EPITHELIAL CELL,UR FEW /HPF (NONE SEEN)
--- NOTE | 2019-09-30 05:51 | NUR ---
Dr. Juarez on panel call with Dr. Hayden Barker. Patient accepted for admission to [facility], diagnosis: severe anemia.
--- NOTE | 2019-09-30 06:15 | NUR ---
Report given to Zen STARKEY Tele.
--- NOTE | 2019-09-30 07:10 | NUR ---
Notified prior charge nurse to return blood back to lab due to policy of 30 mins rule of BLOOD infusion wont be met.
[2019-09-30] MEDS ORDERED: ACETAMINOPHEN 650 MG SUPP.RECT RC PRN (07:15)
[2019-09-30] MEDS ORDERED: IV D5/ 0.9% NACL 1,000 ML IV PRN (07:15)
[2019-09-30] MEDS ORDERED: PIPERACILLIN/TAZO 2.25 G in IV DEXTROSE 5% 50 ML IV SCH (08:00)
--- NOTE | 2019-09-30 08:00 | NUR ---
Pt lethargic arousable to touch and name. Kept pt NPO for safety. IV on left fa #22 gauge intact. Monitor shows snr @65. Consent signed for blood. Got order from Dr gamez to give total of 2 units of prbc today. Plan of care implemented for fall risk, seizure precautions, and monitor pt for any s/s of bleeding. Call light is within reach. Multiple pictures taken and charted on chart and initial assessment.
[2019-09-30] MEDS: PANTOPRAZOLE SODIUM 40 MG VIAL IV SCH (09:39)
--- NOTE | 2019-09-30 12:00 | NUR ---
PRBC 1 unit done no reaction noted. Lung sounds no wheezing and congestion noted. Pt is for multiple abx and test ordered per hospitalist and Food Service Ambassador. Will attempt to give 2nd unit when able.
[2019-09-30] MEDS ORDERED: EPOETIN ALFA 20,000 UNIT/ML ML SQ SCH (14:00)
[2019-09-30] MEDS: DEXTROSE 5% IV SCH ×2 (14:24→21:52)
[2019-09-30] MEDS: VALPROATE SODIUM IV SCH ×2 (14:24→21:52)
[2019-09-30] MEDS ORDERED: EPOETIN ALFA 20,000 UNIT/ML ML SQ ONE (14:45)
[2019-09-30] MEDS ORDERED: PANTOPRAZOLE SODIUM 40 MG VIAL IV SCH (14:45)
[2019-09-30] MEDS: PIPERACILLIN/TAZO 2.25 G in IV DEXTROSE 5% 50 ML IV SCH ×2 (15:55→21:11)
--- NOTE | 2019-09-30 18:30 | NUR ---
PT more awake alert and oriented. Pt has more color on face. Discussed code status. Pt wants cpr but does not want to be intubated. Notified Dr Heller of pts wishes and bruising of abd found on assessment. Ct abd done awaiting results. PT is in no acute distress. Plan of care effective no fal, no seizure no s/s of bleeding noted this shift.
[2019-09-30] MEDS: HYDROMORPHONE 1 MG/1 ML DISP.SYRIN IV PRN (18:44)
--- NOTE | 2019-09-30 19:30 | NUR ---
RECEIVED PT AWAKE, ALERT AND ORIENTEDX3. PT IN NO ACUTE DISTRESS. IV INTACT. SAFETY AND COMFORT PROVIDED. WILL CONTINUE TO MONITOR.
[2019-10-01] VITALS (11 sets, daily range): BP systolic 112–130; BP diastolic 49–66
--- NOTE | 2019-10-01 02:44 | NUR ---
PRBC 1 unit done no reaction noted. Lung sounds no wheezing and congestion noted
[2019-10-01] MEDS: ONDANSETRON 4 MG/2 ML VIAL IV PRN ×3 (02:49→16:40)
[2019-10-01] MEDS: HYDROMORPHONE 1 MG/1 ML DISP.SYRIN IV PRN ×4 (02:49→21:10)
[2019-10-01 03:10] LABS: *BILIRUBIN,URIN NEGATIVE (NEGATIVE); *BLOOD, URINE 2+ (NEGATIVE); *CLARITY,URINE CLEAR (CLEAR); *COLOR,URINE YELLOW (YELLOW); *KETONES,URINE NEGATIVE (NEGATIVE); *UROBILINOGEN,URINE 0.2 E.U./dl (NORMAL); LEUKOCYTE ESTERASE ,URINE NEGATIVE (NEGATIVE); NITRITE, URINE NEGATIVE (NEGATIVE); UGLUCOSE NEGATIVE (NEGATIVE)
[2019-10-01 05:01] LABS: RBC,URINE 50-80 /HPF (0-3)
[2019-10-01 05:02] LABS: BACTERIA,URINE NONE SEEN /HPF (NONE SEEN); SQUAMOUS EPITHELIAL CELL,UR FEW /HPF (NONE SEEN); WBC,URINE 0-3 /HPF (0-3)
[2019-10-01] MEDS: DEXTROSE 5% IV SCH ×3 (05:24→21:43)
[2019-10-01] MEDS: VALPROATE SODIUM IV SCH ×3 (05:24→21:43)
[2019-10-01 05:32] LABS: *CREATININE,URINE 85.7 mg/dL (30-125)
--- NOTE | 2019-10-01 06:16 | NUR ---
PT SLEPT INTERMITTENTLY. PT IN NO ACUTE DISTRESS. IV INTACT. PT GIVEN DILAUDID FOR GENERALIZED PAIN. PT TOLERATED IT WELL. PRESCRIBED MEDICATION GIVEN AND PT TOLERATED IT WELL. ALL NEEDS ARE MET. WILL ENDORSE TO INCOMING NURSE FOR CONTINUITY OF CARE.
[2019-10-01] MEDS: PIPERACILLIN/TAZO 2.25 G in IV DEXTROSE 5% 50 ML IV SCH ×3 (06:30→22:32)
[2019-10-01 07:02] LABS: BILIRUBIN,TOTAL 0.5 mg/dL (0.2-1.0); CREATININE 6.1 mg/dL (0.6-1.3); MAGNESIUM 1.7 mg/dL (1.8-2.4); PHOSPHOROUS 3.9 mg/dL (2.5-4.9); POTASSIUM 3.8 mmol/L (3.5-5.1); TOTAL PROTEIN, SERUM 6.1 g/dL (6.4-8.2)
[2019-10-01 07:18] LABS: BASOPHILS % (AUTO) 0.2 % (0.0-2.0); EOSINOPHILS # (AUTO) 0.1 K/uL (0.0-0.7); LYMPHOCYTES # (AUTO) 0.6 K/uL (20.0-40.0); LYMPHOCYTES % (AUTO) 4.6 % (20.5-51.5); MEAN CORPUSCULAR HEMOGLOBIN 31.4 uug (23.8-33.4); MEAN CORPUSCULAR HGB CONC 35 g/dL (32.5-36.3); MEAN CORPUSCULAR VOLUME 90.6 fL (73.0-96.2); MONOCYTES # (AUTO) 0.5 K/uL (2.0-10.0); NEUTROPHILS # (AUTO) 11.2 K/uL (1.8-8.9); NEUTROPHILS % (AUTO) 90.2 % (38.5-71.5); PLATELET COUNT (AUTO) 100 K/uL (152-348); WHITE BLOOD COUNT (AUTO) 12.5 K/uL (3.6-10.2)
[2019-10-01 07:30] LABS: RED BLOOD CELL COUNT(AUTO) 2.35 MIL/uL (4.06-5.63)
--- NOTE | 2019-10-01 07:32 | NUR ---
critical lab reported by WANDY hgb 7.4 and hct 21.3. Charge nurse aware. oncoming nurse Aware.Pt stable. in no acute distress. will continue to monitor.
[2019-10-01 07:35] LABS: HEMOGLOBIN 7.4 g/dL (12.5-16.3)
[2019-10-01 07:36] LABS: HEMATOCRIT 21.3 % (36.7-47.1)
[2019-10-01 07:58] LABS: *URINE TOTAL PROTEIN RANDOM 54.7 mg/dL (<150/24HR)
[2019-10-01] MEDS: PANTOPRAZOLE SODIUM 40 MG VIAL IV SCH (10:15)
[2019-10-01] MEDS ORDERED: METOCLOPRAMIDE HCL 10 MG/2 ML VIAL IV PRN (11:00)
[2019-10-01] MEDS ORDERED: INSULIN REGULAR, HUMAN 300 UNIT/3 ML VIAL SQ PRN (11:00)
[2019-10-01] MEDS ORDERED: DEXTROSE 50% 50 ML DISP.SYRIN IV PRN (11:00)
[2019-10-01] MEDS: BLOOD SUGAR DIAGNOSTIC 1 EACH STRIP VI SCH ×3 (11:30→21:28)
[2019-10-01] MEDS ORDERED: PIPERACILLIN/TAZO 0.75 G in IV DEXTROSE 5% 50 ML IV PRN (14:00)
--- NOTE | 2019-10-01 14:24 | NUR ---
SS consultation: 2:00pm: SW met with patient, who was in bed in his assigned room. Patient is awake, alert, oriented x 4. Patient is a 64 year old male who was brought to the hospital for vomiting and nausea. Patient lives at [facility], located at [address] [place] [address]. Patient states he has been living at [facility] for the past 1 1/2 years. Per SS consultation and nursing report, Patient has a couple of wounds on his right foot, which patient feels he has been getting appropriate and ongoing treatment for at [facility]. Patient has expressed no concerns for his care at [facility]. Discharge plans are for patient to return back to [facility]. This SW met with trimming caser Denise and Elena, who will coordinate all discharge plans for the patient. No further SS interventions are needed at this time, however SW will be available to the patient if necessary.
[2019-10-01] MEDS: IV NS 1000 ML 1,000 ML IV PRN (14:58)
[2019-10-01] MEDS ORDERED: MAGNESIUM SULFATE/D5W 100 ML IV SCH (15:00)
--- NOTE | 2019-10-01 20:00 | NUR ---
Patient received from AM nurse. Patient awake and alert x3 and in bed in stable condition. Bed in lowest position with 3 side rails up and brake on with bed alarm on. Call light and frequently used items within near reach. No signs of acute distress noted. Will continue to monitor patient.
--- NOTE | 2019-10-01 20:20 | NUR ---
Obtained consent from patient for permacatheter placement for dialysis for tomrrow October 02, 2019. Patient aware of procedure to be done.
[2019-10-01] MEDS: METOCLOPRAMIDE HCL 10 MG/2 ML VIAL IV PRN (20:24)
[2019-10-02] MEDS: ONDANSETRON 4 MG/2 ML VIAL IV PRN ×3 (02:12→17:31)
[2019-10-02] MEDS: PIPERACILLIN/TAZO 2.25 G in IV DEXTROSE 5% 50 ML IV SCH ×2 (05:28→15:54)
[2019-10-02 06:06] LABS: HEPATITIS B SURFACE AB Non Reactive (.); HEPATITIS B SURFACE AG Negative (Negative)
[2019-10-02] MEDS: HYDROMORPHONE 1 MG/1 ML DISP.SYRIN IV PRN ×4 (06:17→22:06)
[2019-10-02] MEDS: VALPROATE SODIUM IV SCH ×3 (06:19→21:07)
[2019-10-02] MEDS: DEXTROSE 5% IV SCH ×3 (06:19→21:07)
[2019-10-02 06:33] LABS: BASOPHILS % (AUTO) 0.3 % (0.0-2.0); EOSINOPHILS # (AUTO) 0.2 K/uL (0.0-0.7); HEMATOCRIT 24.3 % (36.7-47.1); HEMOGLOBIN 8.2 g/dL (12.5-16.3); LYMPHOCYTES # (AUTO) 0.7 K/uL (20.0-40.0); LYMPHOCYTES % (AUTO) 5.5 % (20.5-51.5); MEAN CORPUSCULAR HEMOGLOBIN 30.9 uug (23.8-33.4); MEAN CORPUSCULAR HGB CONC 34 g/dL (32.5-36.3); MONOCYTES # (AUTO) 0.5 K/uL (2.0-10.0); MONOCYTES % (AUTO) 4.1 % (0.0-11.0); NEUTROPHILS # (AUTO) 10.5 K/uL (1.8-8.9); NEUTROPHILS % (AUTO) 88.1 % (38.5-71.5); PLATELET COUNT (AUTO) 123 K/uL (152-348); RED BLOOD CELL COUNT(AUTO) 2.67 MIL/uL (4.06-5.63); WHITE BLOOD COUNT (AUTO) 11.9 K/uL (3.6-10.2)
[2019-10-02] MEDS: BLOOD SUGAR DIAGNOSTIC 1 EACH STRIP VI SCH ×4 (06:34→20:25)
[2019-10-02 06:52] LABS: CREATININE 5.9 mg/dL (0.6-1.3); MAGNESIUM 2.1 mg/dL (1.8-2.4); PHOSPHOROUS 3.9 mg/dL (2.5-4.9); POTASSIUM 3.8 mmol/L (3.5-5.1)
--- NOTE | 2019-10-02 08:00 | NUR ---
RECEIVED PATIENT IN BED RESTING, NO SOB NOTED AT THIS TIME, NO C/O PAIN NOTED AT THIS TIME. PATIENT FEELING NAUSEA AND ZOFRAN WILL BE GIVEN AT DUE TIME. IV INTACT AND PATENT. PATIENT NPO AND WILL BE HAVING PROCEDURE DONE AT 12PM, CONSENT SIGNED.
[2019-10-02] MEDS: PANTOPRAZOLE SODIUM 40 MG VIAL IV SCH (08:32)
[2019-10-02] MEDS: IV NS 1000 ML 1,000 ML IV PRN (11:11)
[2019-10-02] MEDS: MUPIROCIN 2% OINT 22 GM TUBE NS SCH ×2 (11:30→20:19)
[2019-10-02 11:39] VITALS: BP 134/59
[2019-10-02] MEDS ORDERED: LIDOCAINE HCL 1% 20 ML VIAL ONE (11:55)
--- NOTE | 2019-10-02 11:55 | NUR ---
patient left the unit with nurse bashir via bed for procedure.
[2019-10-02] MEDS ORDERED: IOHEXOL 300MG/ML 50 ML VIAL ONE (11:56)
[2019-10-02] MEDS ORDERED: HEPARIN/NS 500 ML ONE (11:56)
[2019-10-02] MEDS ORDERED: HEPARIN SODIUM,PORCINE 1,000 UNITS/ML VIAL ONE (11:57)
[2019-10-02] MEDS ORDERED: FENTANYL CITRATE 100 MCG/2 ML AMPUL ONE (12:57)
[2019-10-02] MEDS ORDERED: ONDANSETRON 4 MG/2 ML VIAL ONE (13:24)
--- NOTE | 2019-10-02 13:31 | NUR ---
patient back fro procedure ,with order to resume diet
[2019-10-02] MEDS: METOCLOPRAMIDE HCL 10 MG/2 ML VIAL IV PRN (14:00)
[2019-10-02 14:35] VITALS: BP 133/58
--- NOTE | 2019-10-02 16:00 | NUR ---
patient had dialysis and 400ml taken out
--- NOTE | 2019-10-02 18:15 | NUR ---
Patient in bed with HOB elevated , watching TV, no sob noted. c/o pain and PRN pain meds given as order. iv intact and paten , safety and comfort provided. will continue to monitor.
--- NOTE | 2019-10-02 19:20 | NUR ---
Received patient lying in bed. AAOx3. In no acute distress. NSR on tele at 77/min. Denies any pain or SOB at this time. IV site on right AC and left FA intact and patent. IVF infusing. Permacath on right upper chest with dressing intact. Safety measure initiated and call cortez within reached.
[2019-10-02 20:10] VITALS: BP 152/59
[2019-10-03] VITALS: BP 133/66
[2019-10-03] MEDS: ONDANSETRON 4 MG/2 ML VIAL IV PRN ×2 (01:01→08:51)
[2019-10-03 04:42] VITALS: BP 132/65
[2019-10-03] MEDS: VALPROATE SODIUM IV SCH ×3 (05:10→23:44)
[2019-10-03] MEDS: DEXTROSE 5% IV SCH ×3 (05:10→23:44)
[2019-10-03] MEDS: IV NS 1000 ML 1,000 ML IV PRN (05:10)
--- NOTE | 2019-10-03 05:24 | NUR ---
AAOx3. In no acute distress. NSR on tele at 60/min. Denies any SOB. generalized pain manage with Dilaudid PRN per order. IV site on right AC and left FA intact and patent. IVF continue to infuse. Perma cath on right upper chest. Isolation precaution maintained. Safety measure maintained and call cortez within reached.
[2019-10-03] MEDS: METOCLOPRAMIDE HCL 10 MG/2 ML VIAL IV PRN ×2 (06:00→21:20)
[2019-10-03] MEDS: HYDROMORPHONE 1 MG/1 ML DISP.SYRIN IV PRN ×2 (06:04→10:12)
--- NOTE | 2019-10-03 06:06 | NUR ---
Patient receiving dialysis at this time.
[2019-10-03] MEDS: BLOOD SUGAR DIAGNOSTIC 1 EACH STRIP VI SCH ×4 (06:35→23:42)
--- NOTE | 2019-10-03 08:00 | NUR ---
Received patient awake in bed, receiving dialysis. AAOx4. In no acute distress. IV on L FA and R AC intact and patent. Contact precautions observed. Safety measures implemented. Call light within reach. Will continue to monitor.
[2019-10-03] MEDS: PANTOPRAZOLE SODIUM 40 MG VIAL IV SCH (08:37)
[2019-10-03] MEDS: MUPIROCIN 2% OINT 22 GM TUBE NS SCH ×2 (08:42→21:28)
[2019-10-03] MEDS ORDERED: DEXTROSE 50% 50 ML DISP.SYRIN IV PRN (11:15)
[2019-10-03 11:30] VITALS: BP 141/59
[2019-10-03] MEDS: LOSARTAN POTASSIUM 25 MG TABLET PO SCH (11:46)
[2019-10-03 11:52] LABS: BASOPHILS % (AUTO) 0.4 % (0.0-2.0); EOSINOPHILS # (AUTO) 0.3 K/uL (0.0-0.7); EOSINOPHILS % (AUTO) 3.9 % (0.0-7.0); HEMATOCRIT 23.5 % (36.7-47.1); HEMOGLOBIN 8.1 g/dL (12.5-16.3); LYMPHOCYTES # (AUTO) 0.5 K/uL (20.0-40.0); LYMPHOCYTES % (AUTO) 6.8 % (20.5-51.5); MEAN CORPUSCULAR HEMOGLOBIN 31.2 uug (23.8-33.4); MEAN CORPUSCULAR HGB CONC 34 g/dL (32.5-36.3); MEAN CORPUSCULAR VOLUME 91.1 fL (73.0-96.2); MONOCYTES # (AUTO) 0.5 K/uL (2.0-10.0); MONOCYTES % (AUTO) 6.5 % (0.0-11.0); NEUTROPHILS % (AUTO) 82.4 % (38.5-71.5); PLATELET COUNT (AUTO) 137 K/uL (152-348); RED BLOOD CELL COUNT(AUTO) 2.58 MIL/uL (4.06-5.63); WHITE BLOOD COUNT (AUTO) 7.3 K/uL (3.6-10.2)
[2019-10-03 12:03] LABS: BILIRUBIN,TOTAL 0.4 mg/dL (0.2-1.0); CREATININE 2.7 mg/dL (0.6-1.3); POTASSIUM 3.6 mmol/L (3.5-5.1)
[2019-10-03] MEDS: INSULIN REGULAR, HUMAN 300 UNIT/3 ML VIAL SQ PRN ×3 (12:26→23:51)
[2019-10-03 15:45] VITALS: BP 151/64
--- NOTE | 2019-10-03 18:13 | NUR ---
Patient resting in bed comfortably at this time. In no acute distress. Complained of generalized pain of 10/10; medicated appropriately with PRN Dilaudid 1mg x1. All needs attended. Will endorse care accordingly.
--- NOTE | 2019-10-03 20:00 | NUR ---
PATIENT ALERT ORIENTED, NO SOB NO CHEST PAIN. PATIENT ON TELE MONITOR SINUS RHYTHM AT THIS TIME. 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 CONT TO MONITOR.
[2019-10-04] VITALS: BP 147/66
[2019-10-04] MEDS: ONDANSETRON 4 MG/2 ML VIAL IV PRN ×2 (04:27→21:15)
[2019-10-04 04:42] VITALS: BP 154/66
[2019-10-04] MEDS: VALPROATE SODIUM IV SCH (05:12)
[2019-10-04] MEDS: DEXTROSE 5% IV SCH (05:12)
[2019-10-04] MEDS: PANTOPRAZOLE SODIUM 40 MG TABLET.DR PO SCH (05:46)
[2019-10-04] MEDS: BLOOD SUGAR DIAGNOSTIC 1 EACH STRIP VI SCH ×4 (05:50→22:00)
--- NOTE | 2019-10-04 06:46 | NUR ---
PATIENT ALERT ORIENTED, TELE MONITOR SINUS RHYTHM AT THIS TIME, PERMA CATH ON R CHEST DRESSING INTACT,NO BLEEDING NOTED. PATIENT STILL HAVE EPISODE OF NAUSEA BUT NO VOMITING NOTED, REMAINS ON CONTACT ISOLATION MRSA OF NARES. CONT TO MONITOR.
[2019-10-04 07:18] LABS: BASOPHILS # (AUTO) 0.1 K/uL (0.0-8.0); BASOPHILS % (AUTO) 0.6 % (0.0-2.0); EOSINOPHILS # (AUTO) 0.3 K/uL (0.0-0.7); EOSINOPHILS % (AUTO) 4.1 % (0.0-7.0); HEMATOCRIT 22.5 % (36.7-47.1); HEMOGLOBIN 7.8 g/dL (12.5-16.3); LYMPHOCYTES # (AUTO) 1.1 K/uL (20.0-40.0); LYMPHOCYTES % (AUTO) 13.1 % (20.5-51.5); MEAN CORPUSCULAR HEMOGLOBIN 31.7 uug (23.8-33.4); MEAN CORPUSCULAR HGB CONC 35 g/dL (32.5-36.3); MEAN CORPUSCULAR VOLUME 91.1 fL (73.0-96.2); MONOCYTES # (AUTO) 0.4 K/uL (2.0-10.0); NEUTROPHILS # (AUTO) 6.3 K/uL (1.8-8.9); NEUTROPHILS % (AUTO) 77.2 % (38.5-71.5); PLATELET COUNT (AUTO) 170 K/uL (152-348); WHITE BLOOD COUNT (AUTO) 8.1 K/uL (3.6-10.2)
[2019-10-04 07:26] LABS: RED BLOOD CELL COUNT(AUTO) 2.47 MIL/uL (4.06-5.63)
[2019-10-04 08:10] LABS: MAGNESIUM 1.6 mg/dL (1.8-2.4); PHOSPHOROUS 1.9 mg/dL (2.5-4.9); POTASSIUM 3.4 mmol/L (3.5-5.1)
[2019-10-04] MEDS: HYDROMORPHONE 1 MG/1 ML DISP.SYRIN IV PRN ×3 (08:44→21:15)
[2019-10-04] MEDS: METOCLOPRAMIDE HCL 10 MG/2 ML VIAL IV PRN (08:45)
[2019-10-04] MEDS: INSULIN REGULAR, HUMAN 300 UNIT/3 ML VIAL SQ PRN ×3 (08:46→17:51)
[2019-10-04] MEDS: MUPIROCIN 2% OINT 22 GM TUBE NS SCH ×2 (08:46→21:23)
[2019-10-04] MEDS: LOSARTAN POTASSIUM 25 MG TABLET PO SCH (08:50)
[2019-10-04 09:24] LABS: EOSINOPHILS % (MANUAL) 7 % (0-8); LYMPHOCYTES % (MANUAL) 24 % (20-40); MONOCYTES % (MANUAL) 6 % (2-10); NEUTROPHILS % (MANUAL) 63 % (42-75)
[2019-10-04 11:33] VITALS: BP 168/69
[2019-10-04] MEDS ORDERED: LOSARTAN POTASSIUM 25 MG TABLET PO ONE (11:45)
[2019-10-04] MEDS ORDERED: VALPROIC ACID 250 MG CAPSULE PO SCH (14:00)
[2019-10-04] MEDS: DIVALPROEX 250 MG TABLET.DR PO SCH ×2 (15:23→22:54)
[2019-10-04 15:31] VITALS: BP 176/85
[2019-10-04] MEDS: hydrALAZINE HCL 10 MG TABLET PO PRN (17:04)
[2019-10-04 20:14] VITALS: BP 152/68
[2019-10-04] MEDS ORDERED: MUPIROCIN 2% OINT 22 GM TUBE NS SCH (21:00)
[2019-10-04] MEDS: DOXYCYCLINE HYCLATE 100 MG TABLET PO SCH (21:15)
[2019-10-04] MEDS ORDERED: ISOSORBIDE MONONITRATE 60 MG TAB.SR.24H PO ONE (23:15)
--- NOTE | 2019-10-04 23:44 | NUR ---
Dr Carrizales ordered a one time dose of Imdur 60 SR for BP management.
[2019-10-05 00:11] VITALS: BP 173/84
[2019-10-05] MEDS: hydrALAZINE HCL 10 MG TABLET PO PRN ×2 (00:25→08:22)
--- NOTE | 2019-10-05 00:31 | NUR ---
[facility] d/t increased BP. PRN meds for nausea, pain, and BP were given. Still trending around 170 systolic.
[2019-10-05 04:48] VITALS: BP 163/75
[2019-10-05] MEDS: DIVALPROEX 250 MG TABLET.DR PO SCH (06:37)
[2019-10-05] MEDS: PANTOPRAZOLE SODIUM 40 MG TABLET.DR PO SCH (06:37)
[2019-10-05] MEDS: BLOOD SUGAR DIAGNOSTIC 1 EACH STRIP VI SCH (06:45)
[2019-10-05 07:01] LABS: BASOPHILS # (AUTO) 0.1 K/uL (0.0-8.0); BASOPHILS % (AUTO) 0.7 % (0.0-2.0); EOSINOPHILS # (AUTO) 0.4 K/uL (0.0-0.7); EOSINOPHILS % (AUTO) 4.4 % (0.0-7.0); HEMATOCRIT 23.6 % (36.7-47.1); HEMOGLOBIN 8.1 g/dL (12.5-16.3); LYMPHOCYTES # (AUTO) 1.5 K/uL (20.0-40.0); LYMPHOCYTES % (AUTO) 15.8 % (20.5-51.5); MEAN CORPUSCULAR HEMOGLOBIN 31.4 uug (23.8-33.4); MEAN CORPUSCULAR HGB CONC 34 g/dL (32.5-36.3); MEAN CORPUSCULAR VOLUME 91.3 fL (73.0-96.2); MONOCYTES # (AUTO) 0.6 K/uL (2.0-10.0); MONOCYTES % (AUTO) 6.7 % (0.0-11.0); NEUTROPHILS # (AUTO) 6.9 K/uL (1.8-8.9); NEUTROPHILS % (AUTO) 72.4 % (38.5-71.5); PLATELET COUNT (AUTO) 217 K/uL (152-348); RED BLOOD CELL COUNT(AUTO) 2.59 MIL/uL (4.06-5.63); WHITE BLOOD COUNT (AUTO) 9.6 K/uL (3.6-10.2)
[2019-10-05 07:09] LABS: CREATININE 1.9 mg/dL (0.6-1.3); MAGNESIUM 1.4 mg/dL (1.8-2.4); POTASSIUM 3.7 mmol/L (3.5-5.1)
[2019-10-05] MEDS: DOXYCYCLINE HYCLATE 100 MG TABLET PO SCH (08:21)
[2019-10-05] MEDS: INSULIN REGULAR, HUMAN 300 UNIT/3 ML VIAL SQ PRN (08:23)
[2019-10-05] MEDS: MUPIROCIN 2% OINT 22 GM TUBE NS SCH (08:24)
[2019-10-05] MEDS ORDERED: LOSARTAN POTASSIUM 25 MG TABLET PO SCH (09:00)
[2019-10-05] MEDS ORDERED: LOSARTAN POTASSIUM 50 MG TABLET PO SCH (09:00)
[2019-10-05 10:00] VITALS: BP 161/70
--- NOTE | 2019-10-05 10:11 | NUR ---
0930 Called [facility] to inform of patient scrap picker scheduled for 1000 and patient being discharged. Patient report was given yesterday, updates given today. 1000 [facility] transport arrived Unit #[id number] report given to AA. Patient being transported. Wound photos taken prior to d/c. Belongings accounted for, no IV access. ID wristband removed. D/C packet sent with patient.
[2019-10-05] MEDS ORDERED: EPOETIN ALFA 10,000 UNITS/ML VIAL IVP ONE (11:15)
[2019-10-05] MEDS ORDERED: EPOETIN ALFA 10,000 UNITS/ML VIAL IV ONE (11:15)
[2019-10-05] MEDS ORDERED: LIDOCAINE-MPF 2% 5 ML VIAL IJ ONE (12:39)
[2019-10-05] MEDS ORDERED: ONDANSETRON 4 MG/2 ML VIAL IV ONE (12:39)
[2019-10-05] MEDS ORDERED: CEFAZOLIN 1 G VIAL IM ONE (12:39)
[2019-10-05] MEDS ORDERED: METOCLOPRAMIDE HCL 10 MG/2 ML VIAL IV ONE (12:39)
[2019-10-05] MEDS ORDERED: PROPOFOL 200 MG/20 ML BOTTLE IV ONE (12:39)
[2019-10-05] MEDS ORDERED: HEPARIN SODIUM,PORCINE 1,000 UNITS/ML VIAL IV ONE ×2 (12:39)
[2019-10-07] MEDS ORDERED: EPOETIN ALFA 20,000 UNIT/ML ML SQ SCH (14:00)
== END 2019-10-05 10:45 | DRG 673 ==
LOC: ER 03:58 → TELE3 06:16 → MEDSURG3 10-04 12:30
PROVIDERS: ADMIT Internal Medicine; ATTEND Hospitalist
PROC: 30233N1 Transfusion of Nonautologous Red Blood Cells into Peripheral Vein, Percutaneous Approach (ICD-10-PCS; principal; 2019-09-30)
PROC: 0JH63XZ Insertion of Tunneled Vascular Access Device into Chest Subcutaneous Tissue and Fascia, Percutaneous Approach (ICD-10-PCS; 2019-10-02)
PROC: 02HV33Z Insertion of Infusion Device into Superior Vena Cava, Percutaneous Approach (ICD-10-PCS; 2019-10-02)
PROC: B518ZZA Fluoroscopy of Superior Vena Cava, Guidance (ICD-10-PCS; 2019-10-02)
PROC: 5A1D70Z Performance of Urinary Filtration, Intermittent, Less than 6 Hours Per Day (ICD-10-PCS; 2019-10-02)
DX: N17.0 Acute kidney failure with tubular necrosis (principal); G93.41 Metabolic encephalopathy; I50.43 Acute on chronic combined systolic (congestive) and diastolic (congestive) heart failure; J15.6 Pneumonia due to other Gram-negative bacteria; E43 Unspecified severe protein-calorie malnutrition; I13.2 Hypertensive heart and chronic kidney disease with heart failure and with stage 5 chronic kidney disease, or end stage renal disease; E87.1 Hypo-osmolality and hyponatremia; J44.0 Chronic obstructive pulmonary disease with (acute) lower respiratory infection; J98.11 Atelectasis; I48.20 Chronic atrial fibrillation, unspecified; N18.6 End stage renal disease; D63.1 Anemia in chronic kidney disease; G40.909 Epilepsy, unspecified, not intractable, without status epilepticus; E11.22 Type 2 diabetes mellitus with diabetic chronic kidney disease; Z79.84 Long term (current) use of oral hypoglycemic drugs; Z79.01 Long term (current) use of anticoagulants; E11.51 Type 2 diabetes mellitus with diabetic peripheral angiopathy without gangrene; E11.42 Type 2 diabetes mellitus with diabetic polyneuropathy; A49.02 Methicillin resistant Staphylococcus aureus infection, unspecified site; D69.6 Thrombocytopenia, unspecified; F41.9 Anxiety disorder, unspecified; F95.2 Tourette's disorder; Z89.512 Acquired absence of left leg below knee; K21.9 Gastro-esophageal reflux disease without esophagitis; I25.10 Atherosclerotic heart disease of native coronary artery without angina pectoris; Z95.5 Presence of coronary angioplasty implant and graft; Z79.899 Other long term (current) drug therapy; Z79.890 Hormone replacement therapy; Z88.6 Allergy status to analgesic agent; Z91.011 Allergy to milk products; Z91.013 Allergy to seafood; N40.0 Benign prostatic hyperplasia without lower urinary tract symptoms; I44.7 Left bundle-branch block, unspecified; H40.9 Unspecified glaucoma; E03.9 Hypothyroidism, unspecified; K80.20 Calculus of gallbladder without cholecystitis without obstruction
CPT/HCPCS: 36415; 70030-TC; 71045; 73630; 76770; 80164; 83550; 83605; 83735; 84100; 84153; 84156; 84300; 85025; 85730; 86704; 86706; 86850; 86900; 86901; 86920; 87040; 87086; 87340; 93005; A4649; A4663; C1750; C9113; G0378; J0690; J0885; J1170; J1644; J1815; J2405; J2543; J2765; J3010; J3475; J3490; J7030; J7042; J7050; J7060; P9016-BL; P9021; Q9967

== ENCOUNTER 2020-01-19 13:46 | Inpatient (IN) | payer MEDICARE, OTHER ==
[~2020-01-19] VITALS: Ht 177.8 cm; Wt 92.5 kg
[~2020-01-19 13:46] MED LIST changes: -CARV12.52 PO; +CLON0.1T PO; +DOXY100C2 PO; -FURO-152 PO; -GUAI5SYR4 PO; +LOSA50TA3 PO; +MUPI22OI2 NS; -OXYC10TA49 PO
--- NOTE | 2020-01-19 14:09 | NUR ---
PT IS IN ROOM #3. DR CAIN EVALUATED THE PT.
[2020-01-19] MEDS ORDERED: NA P230E RC (14:40)
[2020-01-19] MEDS ORDERED: MINE133E RC (14:40)
[2020-01-19] MEDS ORDERED: COLL30OI TOP (14:40)
[2020-01-19] MEDS ORDERED: PROT946L PO (14:40)
[2020-01-19] MEDS ORDERED: ISOS60TA4 PO (14:40)
[2020-01-19] MEDS ORDERED: OXYC10TA49 PO (14:40)
[2020-01-19 15:08] LABS: CREATINE KINASE, TOTAL 37 U/L (39-308); LACTATE DEHYDROGENASE 154 U/L (85-227)
--- NOTE | 2020-01-19 15:12 | NUR ---
PT REFUSED I/O CATHETER . DR CANI NOTIFIED.
[2020-01-19 15:23] LABS: BASOPHILS % (AUTO) 0.6 % (0.0-2.0); EOSINOPHILS # (AUTO) 0.3 K/uL (0.0-0.7); EOSINOPHILS % (AUTO) 5.3 % (0.0-7.0); HEMATOCRIT 34.2 % (36.7-47.1); LYMPHOCYTES % (AUTO) 21.4 % (20.5-51.5); MEAN CORPUSCULAR HEMOGLOBIN 29.4 uug (23.8-33.4); MEAN CORPUSCULAR HGB CONC 32 g/dL (32.5-36.3); MEAN CORPUSCULAR VOLUME 91.2 fL (73.0-96.2); MONOCYTES # (AUTO) 0.5 K/uL (2.0-10.0); MONOCYTES % (AUTO) 9.3 % (0.0-11.0); NEUTROPHILS # (AUTO) 3.1 K/uL (1.8-8.9); NEUTROPHILS % (AUTO) 63.4 % (38.5-71.5); PLATELET COUNT (AUTO) 102 K/uL (152-348); RED BLOOD CELL COUNT(AUTO) 3.75 MIL/uL (4.06-5.63); WHITE BLOOD COUNT (AUTO) 4.9 K/uL (3.6-10.2)
[2020-01-19 15:31] LABS: BILIRUBIN,DIRECT 0.1 mg/dL (0.0-0.2); BILIRUBIN,TOTAL 0.3 mg/dL (0.2-1.0); CREATININE 3.5 mg/dL (0.6-1.3); MAGNESIUM 1.9 mg/dL (1.8-2.4); POTASSIUM 5.4 mmol/L (3.5-5.1); TOTAL PROTEIN, SERUM 7.3 g/dL (6.4-8.2)
[2020-01-19 15:42] LABS: FERRITIN 829 ng/mL (26-388)
[2020-01-19] MEDS ORDERED: levoFLOXacin 750 MG/D5W 150 ML PIGGYBACK IV ONE (15:45)
[2020-01-19] MEDS ORDERED: VANCOMYCIN IV 1,000 MG in IV DEXTROSE 5% 250 ML IV ONE (15:45)
[2020-01-19 15:51] LABS: THYROID STIMULATING HORMONE 2.804 mIU/mL (0.358-3.740)
[2020-01-19] MEDS ORDERED: ALBUTEROL SULFATE 8 GM HFA.AER.AD IH STA (16:11)
[2020-01-19] MEDS ORDERED: levoFLOXacin 750MG/D5W 150 ML IV ONE (16:12)
[2020-01-19] MEDS ORDERED: VANCOMYCIN IV 200 ML ONE (16:12)
[2020-01-19] MEDS ORDERED: INSULIN REGULAR, HUMAN 300 UNIT/3 ML VIAL IV ONE (16:15)
[2020-01-19] MEDS ORDERED: SODIUM BICARBONATE 8.4% 50 MEQ/50 ML DISP.SYRIN IV ONE ×2 (16:15→16:27)
[2020-01-19] MEDS ORDERED: DEXTROSE 50% 50 ML DISP.SYRIN IV ONE ×2 (16:15)
[2020-01-19] MEDS ORDERED: SODIUM POLYSTYRENE SULFONATE 15 G/60 ML LIQUID UDC PO ONE (16:15)
[2020-01-19] MEDS ORDERED: DEXTROSE 50% 50 ML DISP.SYRIN ONE (16:27)
[2020-01-19] MEDS ORDERED: SODIUM POLYSTYRENE SULFONATE 15 G/60 ML LIQUID UDC ONE (16:29)
[2020-01-19] MEDS ORDERED: INSULIN REGULAR, HUMAN 300 UNIT/3 ML VIAL ONE (16:29)
[2020-01-19] MEDS ORDERED: Medication Not On Formulary EA (Protein Supplement (Promod) 30 ML) PO SCH (17:30)
[2020-01-19] MEDS ORDERED: EPOETIN ALFA 20,000 UNIT/ML ML IJ SCH (17:30)
[2020-01-19] MEDS ORDERED: ONDANSETRON 4 MG/2 ML VIAL IV ONE (17:45)
[2020-01-19] MEDS ORDERED: ACETAMINOPHEN 325 MG TABLET PO PRN (17:45)
[2020-01-19] MEDS ORDERED: DEXTROSE 50% 50 ML DISP.SYRIN IV PRN (17:45)
[2020-01-19] MEDS ORDERED: HYDROMORPHONE 1 MG/1 ML DISP.SYRIN IV ONE (17:45)
--- NOTE | 2020-01-19 18:37 | NUR ---
dr Jimenez was called according to dr Mi request.
--- NOTE | 2020-01-19 19:06 | NUR ---
report was given to shift boss rn.
--- NOTE | 2020-01-19 19:38 | NUR ---
PLACE CALLED TO DR VALENTINO.
[2020-01-19 20:15] VITALS: BP 129/66
--- NOTE | 2020-01-19 20:31 | NUR ---
DR. VALENTINO CALLED BACK, INFORMED PATIENT IS BEING ADMITTED TO [facility].
--- NOTE | 2020-01-19 20:31 | NUR ---
Pt. admitted to [facility] , under care of Dr. GALVAN Belongs List completed. REPORT GIVEN TO JAKY LOAIZA
[2020-01-19] MEDS: BLOOD SUGAR DIAGNOSTIC 1 EACH STRIP VI SCH (21:00)
--- NOTE | 2020-01-19 21:00 | NUR ---
Received patient awake and alert. Patient shows no signs or symptoms of distress at this time. Denies having any shortness of breath and is afebrile at this time. Vital signs are stable. Patient has wound on right lateral foot and picture was taken. NSR on tele monitor. Will continue to monitor patient.
--- NOTE | 2020-01-19 22:00 | NUR ---
Blood sugar checked and is 68. Patient denies feeling any symptoms of hypoglycemia at this time. Patient given cranberry juice and tuna sandwich. Will reassess blood sugar.
[2020-01-19] MEDS: TAMSULOSIN HCL 0.4 MG CAP.SR.24H PO SCH (22:04)
[2020-01-19] MEDS: ATORVASTATIN 10 MG TABLET PO SCH (22:04)
[2020-01-19] MEDS: HYDROMORPHONE 1 MG/1 ML DISP.SYRIN IV PRN (22:19)
[2020-01-19] MEDS ORDERED: MONTELUKAST SODIUM 10 MG TABLET ONE (22:46)
[2020-01-19] MEDS: MONTELUKAST SODIUM 10 MG TABLET PO SCH (23:10)
[2020-01-19] MEDS: ONDANSETRON 4 MG/2 ML VIAL IV PRN (23:38)
[2020-01-20 00:04] VITALS: BP 129/56
[2020-01-20 00:06] LABS: *BILIRUBIN,URIN NEGATIVE (NEGATIVE); *BLOOD, URINE 1+ (NEGATIVE); *CLARITY,URINE CLEAR (CLEAR); *COLOR,URINE YELLOW (YELLOW); *KETONES,URINE NEGATIVE (NEGATIVE); *UROBILINOGEN,URINE 0.2 E.U./dl (NORMAL); LEUKOCYTE ESTERASE ,URINE NEGATIVE (NEGATIVE); NITRITE, URINE NEGATIVE (NEGATIVE); UGLUCOSE NEGATIVE (NEGATIVE)
[2020-01-20 00:23] LABS: BACTERIA,URINE NONE SEEN /HPF (NONE SEEN); RBC,URINE 50-80 /HPF (0-3); SQUAMOUS EPITHELIAL CELL,UR FEW /HPF (NONE SEEN); WBC,URINE 0-3 /HPF (0-3)
--- NOTE | 2020-01-20 01:42 | NUR ---
0058 - Blood sugar rechecked and is 39. Second fingerstick is 37. Patient shows no signs or symptoms of hypoglycemia at this time. Encouraged patient to drink juice to correct hypoglycemia. 0115 - Blood sugar rechecked and is 40. Patient complains of feeling shaky at this time. Will give D50 0140 - D50 out of stock and must give 10% dextrose 250ml. As per pharmacy note, D50 = 10% dextrose 250ml. Received okay from charge nurse to give. Will continue to monitor patient.
--- NOTE | 2020-01-20 02:03 | NUR ---
Blood sugar rechecked and is 103. Patient declines having any symptoms of hypoglycemia at this time. Will continue to monitor patient.
[2020-01-20] MEDS: HYDROMORPHONE 1 MG/1 ML DISP.SYRIN IV PRN ×5 (02:21→22:02)
[2020-01-20 04:04] VITALS: BP 147/69
[2020-01-20] MEDS: ONDANSETRON 4 MG/2 ML VIAL IV PRN ×3 (06:31→21:06)
[2020-01-20] MEDS: BLOOD SUGAR DIAGNOSTIC 1 EACH STRIP VI SCH ×4 (07:04→21:20)
--- NOTE | 2020-01-20 07:06 | NUR ---
Blood sugar checked and is 68. Patient denies feeling any symptoms of hypoglycemia at this time. Patient provided juice. Will endorse patient to day shift nurse for follow up.
[2020-01-20 07:13] LABS: BASOPHILS % (AUTO) 0.3 % (0.0-2.0); EOSINOPHILS # (AUTO) 0.2 K/uL (0.0-0.7); EOSINOPHILS % (AUTO) 4.4 % (0.0-7.0); HEMATOCRIT 31.1 % (36.7-47.1); HEMOGLOBIN 10.1 g/dL (12.5-16.3); LYMPHOCYTES # (AUTO) 0.7 K/uL (20.0-40.0); LYMPHOCYTES % (AUTO) 14.2 % (20.5-51.5); MEAN CORPUSCULAR HEMOGLOBIN 29.5 uug (23.8-33.4); MEAN CORPUSCULAR HGB CONC 32 g/dL (32.5-36.3); MEAN CORPUSCULAR VOLUME 91.2 fL (73.0-96.2); MONOCYTES # (AUTO) 0.4 K/uL (2.0-10.0); MONOCYTES % (AUTO) 8.9 % (0.0-11.0); NEUTROPHILS # (AUTO) 3.3 K/uL (1.8-8.9); NEUTROPHILS % (AUTO) 72.2 % (38.5-71.5); PLATELET COUNT (AUTO) 79 K/uL (152-348); RED BLOOD CELL COUNT(AUTO) 3.41 MIL/uL (4.06-5.63); WHITE BLOOD COUNT (AUTO) 4.6 K/uL (3.6-10.2)
[2020-01-20 07:15] LABS: BILIRUBIN,TOTAL 0.3 mg/dL (0.2-1.0); MAGNESIUM 1.9 mg/dL (1.8-2.4); PHOSPHOROUS 4.7 mg/dL (2.5-4.9); POTASSIUM 5.7 mmol/L (3.5-5.1); TOTAL PROTEIN, SERUM 6.7 g/dL (6.4-8.2)
[2020-01-20 07:59] LABS: THYROID STIMULATING HORMONE 3.16 mIU/mL (0.358-3.740)
[2020-01-20 08:02] LABS: EOSINOPHILS % (MANUAL) 3 % (0-8); LYMPHOCYTES % (MANUAL) 25 % (20-40); MONOCYTES % (MANUAL) 10 % (2-10); NEUTROPHILS % (MANUAL) 62 % (42-75)
[2020-01-20] MEDS: GLIMEPIRIDE 2 MG TABLET PO SCH (09:00)
[2020-01-20] MEDS: LEVOTHYROXINE SODIUM 100 MCG TABLET PO SCH (09:56)
[2020-01-20] MEDS: PANTOPRAZOLE SODIUM 40 MG TABLET.DR PO SCH (09:57)
[2020-01-20] MEDS: ZINC SULFATE 220 MG CAPSULE PO SCH (09:57)
[2020-01-20] MEDS: CHOLECALCIFEROL 1,000 UNIT TABLET PO SCH (09:57)
[2020-01-20] MEDS: ASCORBIC ACID 500 MG TABLET PO SCH (09:57)
[2020-01-20] MEDS: DULOXETINE 20 MG CAPSULE.DR PO SCH (09:58)
[2020-01-20] MEDS: ACIDOPHILUS/BULGARICUS CHEW TAB PO SCH (09:58)
[2020-01-20] MEDS: RANOLAZINE 500 MG TAB.ER.12H PO SCH ×2 (09:58→17:19)
[2020-01-20] MEDS: DIVALPROEX 250 MG TABLET.DR PO SCH ×3 (09:58→17:19)
[2020-01-20] MEDS: FOLIC ACID/VITAMIN B COMP W-C TABLET PO SCH (09:59)
[2020-01-20] MEDS: ISOSORBIDE MONONITRATE 60 MG TAB.SR.24H PO SCH (10:05)
[2020-01-20] MEDS: LOSARTAN POTASSIUM 50 MG TABLET PO SCH (10:13)
[2020-01-20] MEDS ORDERED: ALBUTEROL SULFATE 2.5 MG/3 ML NEBU NEB PRN (10:15)
[2020-01-20 12:00] VITALS: BP 115/59
--- NOTE | 2020-01-20 13:40 | NUR ---
Pt received resting in bed, no acute distress, and no SOB. Pt compliant with routine medications. Pt signed consent form for inpatient dialysis, 2L removed. VSS, 138/65, 72 hr. BS 108 at 1130am, orange juice provided. Pt c/o nausea and emesis x2, PRN Zofran administered. Pt repositioned for comfort. Pt c/o pain 9/10, Dilaudid administered per PRN orders for pain management. Pt states neither PRN medications have been effective this afternoon. Comfort measures implemented at this time. Call light within reach, will continue to monitor.
[2020-01-20 16:00] VITALS: BP 167/70
[2020-01-20] MEDS: CLONIDINE HCL 0.1 MG TABLET PO PRN (17:20)
[2020-01-20] MEDS: INSULIN REGULAR, HUMAN 300 UNIT/3 ML VIAL SQ PRN ×2 (17:34→22:00)
[2020-01-20 20:00] VITALS: BP 158/74
--- NOTE | 2020-01-20 20:00 | NUR ---
Received patient awake and alert. Patient shows no signs or symptoms of distress at this time. Vital signs stable. Patient has dry cough but does not expectorate the sputum. NSR 80s on tele monitor. Call light within reach. Side rails X2 are up. Bed set to lowest position. Will continue to monitor patient.
[2020-01-20] MEDS: ATORVASTATIN 10 MG TABLET PO SCH (21:06)
[2020-01-20] MEDS: TAMSULOSIN HCL 0.4 MG CAP.SR.24H PO SCH (21:06)
[2020-01-20] MEDS: MONTELUKAST SODIUM 10 MG TABLET PO SCH (21:06)
[2020-01-21] VITALS: BP 117/59
[2020-01-21] MEDS: HYDROMORPHONE 1 MG/1 ML DISP.SYRIN IV PRN ×5 (02:05→23:15)
[2020-01-21 04:00] VITALS: BP 115/52
[2020-01-21] MEDS: BLOOD SUGAR DIAGNOSTIC 1 EACH STRIP VI SCH ×4 (06:46→21:18)
--- NOTE | 2020-01-21 07:02 | NUR ---
Patient shows no signs or symptoms distress at this time. NSR on tele monitor. Vital signs stable. Patient titrated off of O2 and is 100% on RA. Afebrile throughout the shift. Patient to be endorsed to day shift nurse in stable condition.
[2020-01-21] MEDS: PANTOPRAZOLE SODIUM 40 MG TABLET.DR PO SCH (08:12)
[2020-01-21] MEDS: ACIDOPHILUS/BULGARICUS CHEW TAB PO SCH (08:12)
[2020-01-21] MEDS: DULOXETINE 20 MG CAPSULE.DR PO SCH (08:12)
[2020-01-21] MEDS: FOLIC ACID/VITAMIN B COMP W-C TABLET PO SCH (08:12)
[2020-01-21] MEDS: ZINC SULFATE 220 MG CAPSULE PO SCH (08:12)
[2020-01-21] MEDS: RANOLAZINE 500 MG TAB.ER.12H PO SCH ×2 (08:12→16:50)
[2020-01-21] MEDS: CHOLECALCIFEROL 1,000 UNIT TABLET PO SCH (08:12)
[2020-01-21] MEDS: DIVALPROEX 250 MG TABLET.DR PO SCH ×3 (08:13→16:50)
[2020-01-21] MEDS: LEVOTHYROXINE SODIUM 100 MCG TABLET PO SCH (08:13)
[2020-01-21] MEDS: ASCORBIC ACID 500 MG TABLET PO SCH (08:13)
[2020-01-21] MEDS: GLIMEPIRIDE 2 MG TABLET PO SCH (08:14)
[2020-01-21] MEDS: PROTEIN SUPPLEMENT (PROSTAT) 30 ML LIQUID PO SCH (08:14)
[2020-01-21] MEDS: LOSARTAN POTASSIUM 50 MG TABLET PO SCH (08:32)
[2020-01-21] MEDS: ISOSORBIDE MONONITRATE 60 MG TAB.SR.24H PO SCH (08:33)
[2020-01-21] MEDS: ONDANSETRON 4 MG/2 ML VIAL IV PRN ×3 (08:38→23:15)
[2020-01-21 09:19] VITALS: BP 119/50
--- NOTE | 2020-01-21 11:13 | NUR ---
Patient noted resting in bed, took all AM medications, complaints of pain and nausea, PRN Dilaudid and Zofran given, no signs of distress noted, call light in reach, bed locked and in lowest position, all needs met at this time
[2020-01-21 12:20] LABS: BASOPHILS % (AUTO) 0.2 % (0.0-2.0); EOSINOPHILS # (AUTO) 0.1 K/uL (0.0-0.7); EOSINOPHILS % (AUTO) 1.3 % (0.0-7.0); LYMPHOCYTES # (AUTO) 0.7 K/uL (20.0-40.0); LYMPHOCYTES % (AUTO) 12.3 % (20.5-51.5); MEAN CORPUSCULAR HEMOGLOBIN 29.9 uug (23.8-33.4); MEAN CORPUSCULAR HGB CONC 33 g/dL (32.5-36.3); MEAN CORPUSCULAR VOLUME 91.2 fL (73.0-96.2); MONOCYTES # (AUTO) 0.4 K/uL (2.0-10.0); MONOCYTES % (AUTO) 7.4 % (0.0-11.0); NEUTROPHILS # (AUTO) 4.5 K/uL (1.8-8.9); NEUTROPHILS % (AUTO) 78.8 % (38.5-71.5); RED BLOOD CELL COUNT(AUTO) 3.01 MIL/uL (4.06-5.63); WHITE BLOOD COUNT (AUTO) 5.7 K/uL (3.6-10.2)
[2020-01-21 12:22] LABS: HEMATOCRIT 27.4 % (36.7-47.1); PLATELET COUNT (AUTO) 76 K/uL (152-348)
[2020-01-21 12:27] LABS: MAGNESIUM 1.7 mg/dL (1.8-2.4); POTASSIUM 4.5 mmol/L (3.5-5.1)
--- NOTE | 2020-01-21 12:38 | NUR ---
WOUND CARE CONSULT: REVIEWED CHART, NURSING DOCUMENTATION AND PHOTOS. PER NURSING DOCUMENTATION THERE ARE SACRAL SCARS, HIP SCABS AND RT FOOT WOUND, PRESENT ON ADMISSION. RECOMMEND DPM AND SURGICAL CONSULT. DR SAINI AND DR ORTEGA NOTIFIED OF CONSULT REQUESTS. RECOMMENDATIONS MADE FOR SKIN PROTECTION. DISCUSSED WITH NURSING STAFF. WILL SEE PRN. NOVAK IN AGREEMENT WITH PLAN OF CARE.
[2020-01-21] MEDS ORDERED: Z GUARD REMEDY PASTE 57 GM TUBE TOP PRN (12:45)
[2020-01-21 13:54] LABS: BAND % (MANUAL) 11 % (0-10); BASOPHILS % (MANUAL) 1 % (0-2); EOSINOPHILS % (MANUAL) 1 % (0-8); LYMPHOCYTES % (MANUAL) 13 % (20-40); MONOCYTES % (MANUAL) 11 % (2-10); NEUTROPHILS % (MANUAL) 63 % (42-75)
--- NOTE | 2020-01-21 17:00 | NUR ---
Patient receiving dialysis at this time
[2020-01-21 18:09] VITALS: BP 106/53
[2020-01-21 20:00] VITALS: BP 136/62
[2020-01-21] MEDS: TAMSULOSIN HCL 0.4 MG CAP.SR.24H PO SCH (21:17)
[2020-01-21] MEDS: Z GUARD REMEDY PASTE 57 GM TUBE TOP SCH (21:17)
[2020-01-21] MEDS: MONTELUKAST SODIUM 10 MG TABLET PO SCH (21:17)
[2020-01-21] MEDS: ATORVASTATIN 10 MG TABLET PO SCH (21:17)
[2020-01-22] VITALS: BP 122/57
[2020-01-22] MEDS: CLONIDINE HCL 0.1 MG TABLET PO PRN ×2 (03:52→16:29)
[2020-01-22 04:00] VITALS: BP 177/89
[2020-01-22 04:06] LABS: HEPATITIS B SURFACE AB Reactive (.); HEPATITIS B SURFACE AG Negative (Negative)
[2020-01-22] MEDS: BLOOD SUGAR DIAGNOSTIC 1 EACH STRIP VI SCH ×4 (06:44→21:00)
[2020-01-22 08:20] VITALS: BP 143/59
[2020-01-22] MEDS: ISOSORBIDE MONONITRATE 60 MG TAB.SR.24H PO SCH (08:41)
[2020-01-22] MEDS: ACIDOPHILUS/BULGARICUS CHEW TAB PO SCH (08:42)
[2020-01-22] MEDS: ZINC SULFATE 220 MG CAPSULE PO SCH (08:42)
[2020-01-22] MEDS: RANOLAZINE 500 MG TAB.ER.12H PO SCH ×2 (08:42→16:29)
[2020-01-22] MEDS: DIVALPROEX 250 MG TABLET.DR PO SCH ×3 (08:42→16:29)
[2020-01-22] MEDS: PANTOPRAZOLE SODIUM 40 MG TABLET.DR PO SCH (08:43)
[2020-01-22] MEDS: LOSARTAN POTASSIUM 50 MG TABLET PO SCH (08:43)
[2020-01-22] MEDS: ONDANSETRON 4 MG/2 ML VIAL IV PRN ×2 (08:43→22:54)
[2020-01-22] MEDS: ASCORBIC ACID 500 MG TABLET PO SCH (08:43)
[2020-01-22] MEDS: CHOLECALCIFEROL 1,000 UNIT TABLET PO SCH (08:43)
[2020-01-22] MEDS: DULOXETINE 20 MG CAPSULE.DR PO SCH (08:43)
[2020-01-22] MEDS: FOLIC ACID/VITAMIN B COMP W-C TABLET PO SCH (08:43)
[2020-01-22] MEDS: Z GUARD REMEDY PASTE 57 GM TUBE TOP SCH ×2 (08:44→21:00)
[2020-01-22] MEDS: LEVOTHYROXINE SODIUM 100 MCG TABLET PO SCH (08:45)
[2020-01-22] MEDS: GLIMEPIRIDE 2 MG TABLET PO SCH (08:57)
--- NOTE | 2020-01-22 08:57 | NUR ---
Blood sugar follow up of 130mmhg. Addendum: 01/22/20 at 0908 by FRANKLYN SOTO RN Patient not eating with c/of nausea and as stated was vomiting this early childhood education coordinator. Patient also stating that he hasn't received a menu from kitchen to choose which foods to eat. Patient educated on the importance to follow a renal diet. At this time refusing his morning tray.
--- NOTE | 2020-01-22 09:08 | NUR ---
PT. with c/of sob and chest pain rr of 12-16. sbp of 152/86, Hr of 88, saturation of 98% on RA. Chest pain non-radiating in nature, pt. refusing any pain medication at this time, when inquire if this is something new patient stating "not the first time this is chronic chest pain for me all I need is to be on oxygen. At this time educated on saturation on RA.Pt placed on NC 1L as requested.
--- NOTE | 2020-01-22 10:40 | NUR ---
Patient swabb for Oliveira-V at this time and specimen drop to lab by Jaylene.
[2020-01-22 15:57] VITALS: BP 168/85
[2020-01-22] MEDS: INSULIN REGULAR, HUMAN 300 UNIT/3 ML VIAL SQ PRN (16:42)
[2020-01-22 18:30] VITALS: BP 148/88
--- NOTE | 2020-01-22 19:30 | NUR ---
RECEIVED PT AWAKE,ALERT AND ORIENTEDX4. PT IN NO ACUTE DISTRESS. IV INTACT. SAFETY AND COMFORT PROVIDED. WILL CONTINUE TO MONITOR.
[2020-01-22 20:00] VITALS: BP 159/78
[2020-01-22] MEDS: ATORVASTATIN 10 MG TABLET PO SCH (22:13)
[2020-01-22] MEDS: TAMSULOSIN HCL 0.4 MG CAP.SR.24H PO SCH (22:16)
[2020-01-22] MEDS ORDERED: MONTELUKAST SODIUM 10 MG TABLET ONE (22:30)
[2020-01-22] MEDS: HYDROMORPHONE 1 MG/1 ML DISP.SYRIN IV PRN (22:54)
[2020-01-22] MEDS: MONTELUKAST SODIUM 10 MG TABLET PO SCH (22:54)
[2020-01-23] VITALS: BP 135/61
[2020-01-23 04:00] VITALS: BP 160/59
[2020-01-23] MEDS: ONDANSETRON 4 MG/2 ML VIAL IV PRN ×2 (05:13→05:59)
[2020-01-23] MEDS: HYDROMORPHONE 1 MG/1 ML DISP.SYRIN IV PRN ×2 (05:13→13:40)
[2020-01-23] MEDS: CLONIDINE HCL 0.1 MG TABLET PO PRN (05:14)
[2020-01-23 05:30] VITALS: BP 138/76
[2020-01-23] MEDS: BLOOD SUGAR DIAGNOSTIC 1 EACH STRIP VI SCH ×2 (06:13→06:48)
--- NOTE | 2020-01-23 06:50 | NUR ---
AT 2324H PT WAS GIVEN DILAUDID FOR PAIN ON HIS BACK AND ZOFRAN TO PREVENT NAUSEA. AFTER AN HOUR PT SAID THERE'S A BIT RELIEF ON HIS PAIN. AT 0513 PT GIVEN DILAUDID AGAIN FOR BACK PAIN AND ZOFRAN FOR NAUSEA. PT TOLERATED IT WELL. AT 0613H PT BLOOD SUGAR WAS 60.PT WAS HYPOGLYCEMIC BUT ASYMPTOMATIC. PT GIVEN APPLE JUICE PER PROTOCOL AND GAVE DEXTROSE 50% AFTER AN HOUR PT BLOOD SUGAR WAS 148H. PT IN NO ACUTE DISTRESS. CHARGE NURSE AWARE. PT WAS GIVEN CATAPRESS FOR 160/59 BLOOD PRESSURE. AFTER AN HOUR IT BECAME 138/76. PRESCRIBED MEDICATION GIVEN AND PT TOLERATED IT WELL. SAFETY AND COMFORT PROVIDED. ALL NEEDS ARE MET. WILL ENDORSE TO INCOMING NURSE FOR CONTINUITY OF CARE.
[2020-01-23 07:10] LABS: BASOPHILS % (AUTO) 0.2 % (0.0-2.0); EOSINOPHILS # (AUTO) 0.2 K/uL (0.0-0.7); EOSINOPHILS % (AUTO) 3.4 % (0.0-7.0); HEMATOCRIT 27.1 % (36.7-47.1); HEMOGLOBIN 8.8 g/dL (12.5-16.3); LYMPHOCYTES # (AUTO) 0.5 K/uL (20.0-40.0); MEAN CORPUSCULAR HEMOGLOBIN 29.6 uug (23.8-33.4); MEAN CORPUSCULAR HGB CONC 33 g/dL (32.5-36.3); MEAN CORPUSCULAR VOLUME 91.1 fL (73.0-96.2); MONOCYTES # (AUTO) 0.3 K/uL (2.0-10.0); MONOCYTES % (AUTO) 6.9 % (0.0-11.0); NEUTROPHILS # (AUTO) 3.4 K/uL (1.8-8.9); NEUTROPHILS % (AUTO) 77.5 % (38.5-71.5); PLATELET COUNT (AUTO) 87 K/uL (152-348); RED BLOOD CELL COUNT(AUTO) 2.98 MIL/uL (4.06-5.63); WHITE BLOOD COUNT (AUTO) 4.4 K/uL (3.6-10.2)
[2020-01-23 07:41] LABS: CREATININE 2.6 mg/dL (0.6-1.3); MAGNESIUM 1.7 mg/dL (1.8-2.4); PHOSPHOROUS 2.3 mg/dL (2.5-4.9); POTASSIUM 4.5 mmol/L (3.5-5.1)
[2020-01-23 07:50] LABS: BAND % (MANUAL) 3 % (0-10); EOSINOPHILS % (MANUAL) 3 % (0-8); LYMPHOCYTES % (MANUAL) 9 % (20-40); MONOCYTES % (MANUAL) 6 % (2-10); NEUTROPHILS % (MANUAL) 79 % (42-75)
[2020-01-23] MEDS: GLIMEPIRIDE 2 MG TABLET PO SCH (09:38)
[2020-01-23] MEDS: LOSARTAN POTASSIUM 50 MG TABLET PO SCH (09:39)
[2020-01-23] MEDS: DIVALPROEX 250 MG TABLET.DR PO SCH ×2 (09:39→14:08)
[2020-01-23] MEDS: DULOXETINE 20 MG CAPSULE.DR PO SCH (09:39)
[2020-01-23] MEDS: ISOSORBIDE MONONITRATE 60 MG TAB.SR.24H PO SCH (09:40)
[2020-01-23] MEDS: ACIDOPHILUS/BULGARICUS CHEW TAB PO SCH (09:40)
[2020-01-23] MEDS: PROTEIN SUPPLEMENT (PROSTAT) 30 ML LIQUID PO SCH (09:41)
[2020-01-23] MEDS: FOLIC ACID/VITAMIN B COMP W-C TABLET PO SCH (09:41)
[2020-01-23] MEDS: PANTOPRAZOLE SODIUM 40 MG TABLET.DR PO SCH (09:41)
[2020-01-23] MEDS: RANOLAZINE 500 MG TAB.ER.12H PO SCH (09:42)
[2020-01-23] MEDS: LEVOTHYROXINE SODIUM 100 MCG TABLET PO SCH (09:43)
[2020-01-23] MEDS: ZINC SULFATE 220 MG CAPSULE PO SCH (09:44)
[2020-01-23] MEDS: CHOLECALCIFEROL 1,000 UNIT TABLET PO SCH (09:44)
[2020-01-23] MEDS: ASCORBIC ACID 500 MG TABLET PO SCH (09:44)
[2020-01-23] MEDS: Z GUARD REMEDY PASTE 57 GM TUBE TOP SCH (09:45)
[2020-01-23 13:00] VITALS: BP 122/67
--- NOTE | 2020-01-23 14:29 | NUR ---
[facility] per clinic receptionist the rn will call me back. i informed him pt is to leave at 1500
--- NOTE | 2020-01-23 14:58 | NUR ---
REPORT GIVEN TO REANNA AT [facility]
== END 2020-01-23 16:30 | DRG 177 ==
LOC: ER 13:55 → TELE 20:28
PROVIDERS: ADMIT Internal Medicine; ATTEND Internal Medicine
PROC: 5A1D70Z Performance of Urinary Filtration, Intermittent, Less than 6 Hours Per Day (ICD-10-PCS; principal; 2020-01-20)
DX: U07.1 COVID-19 (principal); N18.6 End stage renal disease; E43 Unspecified severe protein-calorie malnutrition; I50.31 Acute diastolic (congestive) heart failure; J12.89 Other viral pneumonia; I13.2 Hypertensive heart and chronic kidney disease with heart failure and with stage 5 chronic kidney disease, or end stage renal disease; J96.11 Chronic respiratory failure with hypoxia; D68.69 Other thrombophilia; J98.11 Atelectasis; D69.6 Thrombocytopenia, unspecified; E03.9 Hypothyroidism, unspecified; E78.5 Hyperlipidemia, unspecified; E86.1 Hypovolemia; F32.9 Major depressive disorder, single episode, unspecified; F41.9 Anxiety disorder, unspecified; K21.0 Gastro-esophageal reflux disease with esophagitis; J44.9 Chronic obstructive pulmonary disease, unspecified; Z79.01 Long term (current) use of anticoagulants; Z79.4 Long term (current) use of insulin; Z99.2 Dependence on renal dialysis; E11.51 Type 2 diabetes mellitus with diabetic peripheral angiopathy without gangrene; Z89.512 Acquired absence of left leg below knee; E11.40 Type 2 diabetes mellitus with diabetic neuropathy, unspecified; Z79.891 Long term (current) use of opiate analgesic; I25.10 Atherosclerotic heart disease of native coronary artery without angina pectoris; Z95.5 Presence of coronary angioplasty implant and graft; G89.4 Chronic pain syndrome; F95.2 Tourette's disorder; G40.909 Epilepsy, unspecified, not intractable, without status epilepticus; E11.65 Type 2 diabetes mellitus with hyperglycemia; I48.91 Unspecified atrial fibrillation; E66.9 Obesity, unspecified; E11.42 Type 2 diabetes mellitus with diabetic polyneuropathy; E11.22 Type 2 diabetes mellitus with diabetic chronic kidney disease; H40.9 Unspecified glaucoma; S70.311A Abrasion, right thigh, initial encounter; X58.XXXA Exposure to other specified factors, initial encounter; Y93.9 Activity, unspecified; Y92.129 Unspecified place in nursing home as the place of occurrence of the external cause; L90.5 Scar conditions and fibrosis of skin; E11.621 Type 2 diabetes mellitus with foot ulcer; L97.519 Non-pressure chronic ulcer of other part of right foot with unspecified severity; Z68.29 Body mass index [BMI] 29.0-29.9, adult; D63.1 Anemia in chronic kidney disease; F90.9 Attention-deficit hyperactivity disorder, unspecified type; M54.10 Radiculopathy, site unspecified; N40.0 Benign prostatic hyperplasia without lower urinary tract symptoms; R13.10 Dysphagia, unspecified; Z86.14 Personal history of Methicillin resistant Staphylococcus aureus infection
CPT/HCPCS: 36415; 70030-TC; 71045; 82785; 83550; 83605; 83615; 83690; 83735; 84100; 84443; 85025; 85730; 86140; 86706; 87040; 87340; 90937; 93005; G0378; J1170; J1815; J1956; J2405; J3370; J3490; J3535; U0003-CS

== ENCOUNTER 2020-03-23 13:12 | Inpatient (IN) | payer MEDICARE, OTHER ==
[~2020-03-23] VITALS: Ht 177.8 cm; Wt 86.2 kg
[~2020-03-23 13:12] MED LIST changes: +COLL30OI TOP; -DOXY100C2 PO; -MUPI22OI2 NS; +NA P230E RC; +OXYC10TA49 PO; -PANT40TA4 PO; +PANT40TA49 PO; +PROT946L PO
--- NOTE | 2020-03-23 13:25 | NUR ---
DR Cummings at the bedside for MSE.
[2020-03-23 14:07] LABS: BASOPHILS % (AUTO) 0.6 % (0.0-2.0); EOSINOPHILS # (AUTO) 0.5 K/uL (0.0-0.7); EOSINOPHILS % (AUTO) 7.8 % (0.0-7.0); HEMATOCRIT 23.6 % (36.7-47.1); HEMOGLOBIN 7.7 g/dL (12.5-16.3); LYMPHOCYTES # (AUTO) 1.3 K/uL (20.0-40.0); MEAN CORPUSCULAR HEMOGLOBIN 31.3 uug (23.8-33.4); MEAN CORPUSCULAR HGB CONC 33 g/dL (32.5-36.3); MEAN CORPUSCULAR VOLUME 96.2 fL (73.0-96.2); MONOCYTES # (AUTO) 0.4 K/uL (2.0-10.0); MONOCYTES % (AUTO) 6.8 % (0.0-11.0); NEUTROPHILS # (AUTO) 3.7 K/uL (1.8-8.9); NEUTROPHILS % (AUTO) 62.8 % (38.5-71.5); PLATELET COUNT (AUTO) 205 K/uL (152-348); WHITE BLOOD COUNT (AUTO) 5.9 K/uL (3.6-10.2)
[2020-03-23 14:10] LABS: RED BLOOD CELL COUNT(AUTO) 2.46 MIL/uL (4.06-5.63)
[2020-03-23] MEDS ORDERED: PANT40TA2 PO (14:10)
[2020-03-23] MEDS ORDERED: ALBU2.5V38 NEB (14:10)
[2020-03-23] MEDS ORDERED: DOCU-141 PO (14:10)
[2020-03-23] MEDS ORDERED: FERR325T28 PO (14:10)
[2020-03-23] MEDS ORDERED: ACID1TAB4 PO (14:10)
[2020-03-23] MEDS ORDERED: DULO20CA PO (14:10)
[2020-03-23] MEDS ORDERED: ACET-2154 PO (14:10)
[2020-03-23] MEDS ORDERED: OXYC-128 PO ×2 (14:11)
[2020-03-23] MEDS ORDERED: OXYC10TA49 PO (14:11)
[2020-03-23] MEDS ORDERED: NITR0.4T48 SL (14:11)
[2020-03-23] MEDS ORDERED: BISA10SU61 RC (14:11)
[2020-03-23] MEDS ORDERED: ONDA4TAB5 PO (14:11)
--- NOTE | 2020-03-23 14:15 | NUR ---
Pt requested to have HL removed on hand and placed another place.
[2020-03-23 14:21] LABS: BILIRUBIN,DIRECT 0.1 mg/dL (0.0-0.2); BILIRUBIN,TOTAL 0.4 mg/dL (0.2-1.0); CREATININE 3.2 mg/dL (0.6-1.3); POTASSIUM 4.8 mmol/L (3.5-5.1); TOTAL PROTEIN, SERUM 7.1 g/dL (6.4-8.2)
[2020-03-23] MEDS ORDERED: NITROGLYCERIN OINT 1 GM PACKET TP ONE ×2 (15:00→15:01)
[2020-03-23] MEDS ORDERED: ASPIRIN 81 MG TAB.CHEW PO ONE (15:00)
[2020-03-23] MEDS ORDERED: ASPIRIN 81 MG TAB.CHEW ONE (15:01)
--- NOTE | 2020-03-23 15:25 | NUR ---
COVID nasal swab collected and sent to LAB.
[2020-03-23] MEDS ORDERED: ALBUTEROL SULFATE 2.5 MG/3 ML NEBU NEB PRN (15:45)
[2020-03-23] MEDS ORDERED: BISACODYL 10 MG SUPP.RECT RC PRN (15:45)
[2020-03-23] MEDS ORDERED: ACETAMINOPHEN 325 MG TABLET PO SCH (15:45)
[2020-03-23] MEDS ORDERED: CLONIDINE HCL 0.1 MG TABLET PO PRN (15:45)
[2020-03-23] MEDS ORDERED: ONDANSETRON HCL 4 MG TABLET PO PRN (15:45)
[2020-03-23] MEDS ORDERED: Medication Not On Formulary EA (Protein Supplement (Promod) 30 ML) PO SCH (15:45)
[2020-03-23] MEDS ORDERED: OXYCODONE/APAP 5-325 MG TABLET PO SCH (15:45)
[2020-03-23] MEDS ORDERED: NITROGLYCERIN 0.4 MG/TAB BOTTLE SL PRN (15:45)
[2020-03-23] MEDS ORDERED: Medication Not On Formulary EA (Oxycodone Hcl 20 MG) PO SCH (15:45)
[2020-03-23] MEDS ORDERED: MAGNESIUM HYDROXIDE 30 ML LIQUID UDC PO PRN (16:15)
[2020-03-23] MEDS ORDERED: Z GUARD REMEDY PASTE 57 GM TUBE TOP PRN (16:15)
[2020-03-23] MEDS ORDERED: DEXTROSE 50% 50 ML DISP.SYRIN IV PRN (16:15)
[2020-03-23] MEDS ORDERED: INSULIN REGULAR, HUMAN 300 UNITS/3 ML VIAL SQ PRN (16:15)
[2020-03-23] MEDS ORDERED: ACETAMINOPHEN 325 MG TABLET PO PRN (16:15)
[2020-03-23] MEDS ORDERED: ONDANSETRON 4 MG/2 ML VIAL IV PRN (16:15)
[2020-03-23] MEDS ORDERED: HYDROCODONE/APAP 5-325MG TABLET PO PRN ×2 (16:15→16:45)
[2020-03-23 16:29] VITALS: BP 134/67
[2020-03-23 16:29] LABS: IRON, SERUM 26 ug/dL (50-175)
--- NOTE | 2020-03-23 16:30 | NUR ---
RECEIVED PATIENT FOR ADMISSION 65 YEARS OLD MALE BY TRESA TO ROOM 324 WITH DX OF CHEST PAIN PATIENT IS ALS PUI PENDING THE RESULT OF THE COVID 19 TEST DONE TODAY HE IS ALERT AND ORIENTED NO S/S OF PAIN OR DISCOMFORTS AT THIS TIME HE IS ON ROOM AIR WITH NO SHORTNESS OF BREATH HE HAS RIGHT CHEST RADHA CATH AND AV SHUNT ON HIS LEFT ARM WHICH IS NOT IN USE AT THIS TIME.RIGHT AC HEPLOCK IS INTACT LEFT BELOW KNEE AMPUTATION NOTED MADE COMFORTABLE WILL CONTINUE TO OBSERVE
[2020-03-23] MEDS ORDERED: EPOETIN ALFA 10,000 UNITS/ML VIAL SQ ONE (17:00)
[2020-03-23] MEDS: RANOLAZINE 500 MG TAB.ER.12H PO SCH (17:38)
[2020-03-23] MEDS: BLOOD SUGAR DIAGNOSTIC 1 EACH STRIP VI SCH ×2 (17:38→20:30)
[2020-03-23] MEDS: DIVALPROEX 250 MG TABLET.DR PO SCH (17:38)
--- NOTE | 2020-03-23 18:29 | NUR ---
DIALYSIS IS IN PROGRESS ORDERED AND TOLERATING WELL WILL CONTINUE TO OBSERVE.
--- NOTE | 2020-03-23 19:30 | NUR ---
Patient in bed, awake. Patient denies any SOB but complains of mild chest pain. Will assess and give prescribed PRN medication. Otherwise vitals stable, on room air saturating WNL. Patient has a R. Chest maria r cath, intact, dry and no s/s of infection noted. Pt has a new and never used AGATHA AV shunt and
--- NOTE | 2020-03-23 19:30 | NUR ---
Patient has a new and never used AGATHA AV shunt, intact, with teresa, and has no s/s of infection noted. Patient is afebrile. RAC 20G IV is intact and patent. Safety measures in place. Call light within reach. Bed low and locked in position. Will continue with the plan of care.
[2020-03-23] MEDS: MONTELUKAST SODIUM 10 MG TABLET PO SCH (20:15)
[2020-03-23] MEDS: TAMSULOSIN HCL 0.4 MG CAP.SR.24H PO SCH (20:15)
[2020-03-23] MEDS: DOCUSATE SODIUM 100 MG CAPSULE PO SCH (20:15)
[2020-03-23] MEDS: MORPHINE SULFATE 2 MG/1 ML DISP.SYRIN IV PRN (20:17)
[2020-03-23 20:47] VITALS: BP 140/68
[2020-03-23] MEDS ORDERED: ATORVASTATIN 10 MG TABLET PO SCH (21:00)
[2020-03-24] VITALS: BP 138/65
[2020-03-24] MEDS: MORPHINE SULFATE 2 MG/1 ML DISP.SYRIN IV PRN ×2 (01:42→05:54)
[2020-03-24 04:54] VITALS: BP 132/55
[2020-03-24] MEDS: PANTOPRAZOLE SODIUM 40 MG TABLET.DR PO SCH (05:54)
[2020-03-24 06:05] LABS: BASOPHILS % (AUTO) 0.4 % (0.0-2.0); EOSINOPHILS # (AUTO) 0.4 K/uL (0.0-0.7); EOSINOPHILS % (AUTO) 6.8 % (0.0-7.0); HEMATOCRIT 23.6 % (36.7-47.1); HEMOGLOBIN 7.8 g/dL (12.5-16.3); LYMPHOCYTES # (AUTO) 1.2 K/uL (20.0-40.0); LYMPHOCYTES % (AUTO) 20.6 % (20.5-51.5); MEAN CORPUSCULAR HEMOGLOBIN 31.8 uug (23.8-33.4); MEAN CORPUSCULAR HGB CONC 33 g/dL (32.5-36.3); MEAN CORPUSCULAR VOLUME 96.3 fL (73.0-96.2); MONOCYTES # (AUTO) 0.5 K/uL (2.0-10.0); MONOCYTES % (AUTO) 9.3 % (0.0-11.0); NEUTROPHILS # (AUTO) 3.6 K/uL (1.8-8.9); NEUTROPHILS % (AUTO) 62.9 % (38.5-71.5); PLATELET COUNT (AUTO) 167 K/uL (152-348); WHITE BLOOD COUNT (AUTO) 5.7 K/uL (3.6-10.2)
[2020-03-24 06:11] LABS: RED BLOOD CELL COUNT(AUTO) 2.45 MIL/uL (4.06-5.63)
[2020-03-24 06:14] LABS: CREATININE 2.5 mg/dL (0.6-1.3); POTASSIUM 5.1 mmol/L (3.5-5.1)
[2020-03-24] MEDS: BLOOD SUGAR DIAGNOSTIC 1 EACH STRIP VI SCH ×4 (06:32→20:52)
[2020-03-24] MEDS: LEVOTHYROXINE SODIUM 100 MCG TABLET PO SCH (06:32)
--- NOTE | 2020-03-24 06:46 | NUR ---
Pt slept throughout the night. Patient is awake and denies any acute distress or pain at this time. Vitals stable, on room air. Pt is NSR 85 on tele monitor. Blood sugar is 88, offered snacks, pt tolerated. Comfort care and needs attended. Pain managed effectively. Safety measures in place. Bed low and locked in position. Call light within reach. Will endorse to the oncoming nurse accordingly.
--- NOTE | 2020-03-24 07:30 | NUR ---
COLOR IS GOOD. SPEECH IS CLEAR. MOVES UPPER EXTREMETIES WITHOUT ANY PROBLEM. BEDBOUND FOR NOW, PT HAS LEFT BKA AND RIGHT LEG APPEARS TO MILDY WEAK. SKIN IS DRY AND INTACT. HR-SR. RADHA CATH ON RIGHT SUBCLAVIAN INTACT, USE ACCESS FO HD. LEFT AV SHUNT IS INTACT WITH GOOD BRUIT AND THRILL. AND HAS A HEPLOCK ON THE RT AC INTACT. NO APPARENT RESPIRATORY DISTRESS NOTED.
--- NOTE | 2020-03-24 07:30 | NUR ---
RECIEVED PT LYING IN BED AWAKE, ALERT AND ORIENTEDX4.
--- NOTE | 2020-03-24 08:30 | NUR ---
PT IS EATING WELL AND INDEPENDENT
[2020-03-24] MEDS: ACIDOPHILUS/BULGARICUS CHEW TAB PO SCH (09:43)
[2020-03-24] MEDS: RANOLAZINE 500 MG TAB.ER.12H PO SCH ×2 (09:43→17:35)
[2020-03-24] MEDS: DIVALPROEX 250 MG TABLET.DR PO SCH ×3 (09:44→17:35)
[2020-03-24] MEDS: ISOSORBIDE MONONITRATE 60 MG TAB.SR.24H PO SCH (09:44)
[2020-03-24] MEDS: ASCORBIC ACID 500 MG TABLET PO SCH (09:44)
[2020-03-24] MEDS: ZINC SULFATE 220 MG CAPSULE PO SCH (09:44)
[2020-03-24] MEDS: DULOXETINE 20 MG CAPSULE.DR PO SCH (09:52)
[2020-03-24] MEDS: LOSARTAN POTASSIUM 50 MG TABLET PO SCH (09:54)
--- NOTE | 2020-03-24 10:00 | NUR ---
PT IS COVID NEGATIVE. OK TO TRANSFER OUT OF ISOLATION. REPORT GIVEN TO JAKY HERNANDEZ.
[2020-03-24] MEDS: HYDROMORPHONE 1 MG/1 ML DISP.SYRIN IV PRN ×3 (11:10→20:51)
[2020-03-24] MEDS: INSULIN REGULAR, HUMAN 300 UNIT/3 ML VIAL SQ PRN (11:41)
[2020-03-24 11:42] VITALS: BP 128/52
[2020-03-24 16:00] VITALS: BP 130/60
[2020-03-24] MEDS: METOPROLOL SUCCINATE XL 25 MG TAB.SR.24H PO SCH (17:41)
--- NOTE | 2020-03-24 18:31 | NUR ---
pt. had hypoglycemic episode of blood sugar 52. Providing pt. with juice will recheck in 15 minutes. pt. is stable watching tv no sweating, light headedness, confusion, or shakiness notes.
--- NOTE | 2020-03-24 19:02 | NUR ---
blood sugar is 75 pt. is stable
[2020-03-24 20:00] VITALS: BP 121/51
[2020-03-24] MEDS: MONTELUKAST SODIUM 10 MG TABLET PO SCH (20:31)
[2020-03-24] MEDS: DOCUSATE SODIUM 100 MG CAPSULE PO SCH (20:31)
[2020-03-24] MEDS: TAMSULOSIN HCL 0.4 MG CAP.SR.24H PO SCH (20:31)
[2020-03-24] MEDS ORDERED: ATORVASTATIN 40 MG TABLET PO SCH (21:00)
[2020-03-25 00:01] VITALS: BP 117/51
[2020-03-25] MEDS: HYDROMORPHONE 1 MG/1 ML DISP.SYRIN IV PRN ×5 (01:29→19:38)
[2020-03-25 04:00] VITALS: BP 119/46
[2020-03-25] MEDS: PANTOPRAZOLE SODIUM 40 MG TABLET.DR PO SCH (05:57)
[2020-03-25] MEDS: LEVOTHYROXINE SODIUM 100 MCG TABLET PO SCH (06:34)
[2020-03-25] MEDS: BLOOD SUGAR DIAGNOSTIC 1 EACH STRIP VI SCH ×3 (06:35→17:49)
[2020-03-25 07:58] LABS: HEPATITIS B SURFACE AB Reactive (.); HEPATITIS B SURFACE AG Negative (Negative)
--- NOTE | 2020-03-25 08:00 | NUR ---
Pt. is resting in bed and getting dialysis done at this time . pt. stable. no complaints. will continue to monitor pt. and give AM medication after dialysis is completed
[2020-03-25 08:29] LABS: BASOPHILS % (AUTO) 0.9 % (0.0-2.0); EOSINOPHILS # (AUTO) 0.4 K/uL (0.0-0.7); HEMATOCRIT 24.4 % (36.7-47.1); LYMPHOCYTES % (AUTO) 22.5 % (20.5-51.5); MEAN CORPUSCULAR HEMOGLOBIN 31.6 uug (23.8-33.4); MEAN CORPUSCULAR HGB CONC 33 g/dL (32.5-36.3); MEAN CORPUSCULAR VOLUME 96.5 fL (73.0-96.2); MONOCYTES # (AUTO) 0.3 K/uL (2.0-10.0); MONOCYTES % (AUTO) 7.3 % (0.0-11.0); NEUTROPHILS # (AUTO) 2.7 K/uL (1.8-8.9); NEUTROPHILS % (AUTO) 61.3 % (38.5-71.5); PLATELET COUNT (AUTO) 163 K/uL (152-348); RED BLOOD CELL COUNT(AUTO) 2.53 MIL/uL (4.06-5.63); WHITE BLOOD COUNT (AUTO) 4.4 K/uL (3.6-10.2)
[2020-03-25 08:40] LABS: CREATININE 2.1 mg/dL (0.6-1.3); POTASSIUM 3.9 mmol/L (3.5-5.1)
[2020-03-25 08:52] VITALS: BP 138/67
[2020-03-25] MEDS: ISOSORBIDE MONONITRATE 60 MG TAB.SR.24H PO SCH (09:00)
[2020-03-25] MEDS: LOSARTAN POTASSIUM 50 MG TABLET PO SCH (09:00)
[2020-03-25] MEDS: METOPROLOL SUCCINATE XL 25 MG TAB.SR.24H PO SCH (09:00)
[2020-03-25] MEDS: ACIDOPHILUS/BULGARICUS CHEW TAB PO SCH (10:24)
[2020-03-25] MEDS: RANOLAZINE 500 MG TAB.ER.12H PO SCH ×2 (10:24→17:35)
[2020-03-25] MEDS: DIVALPROEX 250 MG TABLET.DR PO SCH ×3 (10:24→17:36)
[2020-03-25] MEDS: DULOXETINE 20 MG CAPSULE.DR PO SCH (10:24)
[2020-03-25] MEDS: ZINC SULFATE 220 MG CAPSULE PO SCH (10:24)
[2020-03-25] MEDS: ASCORBIC ACID 500 MG TABLET PO SCH (10:25)
[2020-03-25] MEDS ORDERED: SOD FERRIC GLUC COMPLX/SUCROSE 125 MG in IV NORMAL SALINE 100 ML IV SCH (14:00)
[2020-03-25 16:13] VITALS: BP 158/55
[2020-03-25] MEDS: INSULIN REGULAR, HUMAN 300 UNIT/3 ML VIAL SQ PRN (17:51)
--- NOTE | 2020-03-25 18:00 | NUR ---
Dr. Salazar wanted teresa removed on L hand. teresa removed on L hand by Angela STARKEY. Addendum: 03/25/20 at 1927 by DAVE SHANKS RN [facility]
--- NOTE | 2020-03-25 18:31 | NUR ---
[facility] called Derek Sampson RN to give report. Pt. signed all discharge paperwork. Pt. signed belongings list. pt. does not want IV removed until last minute so he can get his pain medication. pain medication not due until 1930.
--- NOTE | 2020-03-25 19:47 | NUR ---
PATIENT ALERT ORIENTED, COMPLAIN OF GEN BODY PAIN, DILAUDID 0.5 MG VIA IV FOR PAIN. 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 GIVEN REPORT TO AMBULANCE, TOOK ALL BELONGINGS.
[2020-06-03] MEDS ORDERED: HYDR2TAB4 PO (02:28)
[2020-06-03] MEDS ORDERED: LACT1CAP69 PO (02:28)
[2020-06-03] MEDS ORDERED: GLIM1TAB18 PO (02:28)
[2020-06-03] MEDS ORDERED: ATOR10TA PO (02:28)
[2020-06-03] MEDS ORDERED: VIT1TABL46 PO (02:28)
[2020-06-03] MEDS ORDERED: GABA-532 PO (02:28)
[2020-06-08] MEDS ORDERED: ATOR40TA PO (10:44)
[2020-06-08] MEDS ORDERED: METO-356 PO (10:44)
[2020-06-08] MEDS ORDERED: MUPI22OI2 NS (10:51)
[2020-06-08] MEDS ORDERED: FLUO10CA27 PO (10:51)
== END 2020-03-25 20:05 | DRG 302 ==
LOC: ER 13:12 → TELE3 16:12
PROVIDERS: ADMIT Internal Medicine; ATTEND Nurse Practitioner Acute Care
PROC: 5A1D70Z Performance of Urinary Filtration, Intermittent, Less than 6 Hours Per Day (ICD-10-PCS; principal; 2020-03-23)
DX: I25.10 Atherosclerotic heart disease of native coronary artery without angina pectoris (principal); N18.6 End stage renal disease; I50.33 Acute on chronic diastolic (congestive) heart failure; I13.2 Hypertensive heart and chronic kidney disease with heart failure and with stage 5 chronic kidney disease, or end stage renal disease; E11.22 Type 2 diabetes mellitus with diabetic chronic kidney disease; Z99.2 Dependence on renal dialysis; E11.51 Type 2 diabetes mellitus with diabetic peripheral angiopathy without gangrene; E11.42 Type 2 diabetes mellitus with diabetic polyneuropathy; G40.909 Epilepsy, unspecified, not intractable, without status epilepticus; E03.9 Hypothyroidism, unspecified; D63.8 Anemia in other chronic diseases classified elsewhere; F90.9 Attention-deficit hyperactivity disorder, unspecified type; F32.9 Major depressive disorder, single episode, unspecified; F95.2 Tourette's disorder; G89.4 Chronic pain syndrome; J44.9 Chronic obstructive pulmonary disease, unspecified; K21.9 Gastro-esophageal reflux disease without esophagitis; I48.0 Paroxysmal atrial fibrillation; Z79.4 Long term (current) use of insulin; Z79.891 Long term (current) use of opiate analgesic; Z79.01 Long term (current) use of anticoagulants; Z95.5 Presence of coronary angioplasty implant and graft; Z89.512 Acquired absence of left leg below knee; R07.89 Other chest pain; M54.10 Radiculopathy, site unspecified; E83.9 Disorder of mineral metabolism, unspecified; Z79.84 Long term (current) use of oral hypoglycemic drugs
CPT/HCPCS: 36415; 70030-TC; 71045; 83550; 85025; 86706; 87340; 90937; 93005; 93307; A4663; G0378; J0885; J1170; J1815; J2270; J2916; J3490; J7050; Q0162

== ENCOUNTER 2020-06-28 20:42 | Inpatient (IN) | payer MEDICARE, OTHER ==
[~2020-06-28] VITALS: Ht 182.9 cm; Wt 97.7 kg
[~2020-06-28 20:42] MED LIST changes: -ACID1TAB4 PO; -APIX5TAB PO; -ASCO500C18 PO; -ATOR10TA33 PO; +ATOR40TA PO; -CHOL10002 PO; -CLON0.1T PO; -COLL30OI TOP; +DOCU-141 PO; +DULO20CA PO; -DULO20CA19 PO; -EPOE200012 IJ; +FERR325T28 PO; +FLUO10CA29 PO; -FOLI0.8T2 PO; +GABA-532 PO; -GLIM1TAB PO; +GLIM1TAB18 PO; +HYDR2TAB4 PO; +LACT1CAP69 PO; +METO-356 PO; +MUPI22OI2 NS; -NA P230E RC; +NITR0.4T48 SL; +OXYC-128 PO; -OXYC10TA49 PO; +PANT40TA2 PO; -PANT40TA49 PO; +VIT1TABL46 PO; -ZINC1CAP2 PO
[2020-06-28] MEDS ORDERED: COLL30OI TOP (21:21)
[2020-06-28] MEDS ORDERED: CARI350T PO (21:21)
[2020-06-28] MEDS ORDERED: ALBU2.5V13 NEB (21:21)
[2020-06-28] MEDS ORDERED: OXYC-128 PO (21:21)
[2020-06-28] MEDS ORDERED: HYDR4TAB4 PO (21:21)
[2020-06-28 21:34] LABS: BASOPHILS % (AUTO) 0.4 % (0.0-2.0); EOSINOPHILS # (AUTO) 0.8 K/uL (0.0-0.7); EOSINOPHILS % (AUTO) 12.6 % (0.0-7.0); HEMATOCRIT 32.5 % (36.7-47.1); HEMOGLOBIN 10.6 g/dL (12.5-16.3); LYMPHOCYTES # (AUTO) 1.2 K/uL (20.0-40.0); LYMPHOCYTES % (AUTO) 18.7 % (20.5-51.5); MEAN CORPUSCULAR HEMOGLOBIN 30.8 uug (23.8-33.4); MEAN CORPUSCULAR HGB CONC 33 g/dL (32.5-36.3); MONOCYTES # (AUTO) 0.5 K/uL (2.0-10.0); MONOCYTES % (AUTO) 7.2 % (0.0-11.0); NEUTROPHILS % (AUTO) 61.1 % (38.5-71.5); PLATELET COUNT (AUTO) 175 K/uL (152-348); RED BLOOD CELL COUNT(AUTO) 3.46 MIL/uL (4.06-5.63); WHITE BLOOD COUNT (AUTO) 6.6 K/uL (3.6-10.2)
[2020-06-28 21:44] LABS: BILIRUBIN,DIRECT 0.1 mg/dL (0.0-0.2); BILIRUBIN,TOTAL 0.4 mg/dL (0.2-1.0); CREATININE 5.4 mg/dL (0.6-1.3); POTASSIUM 5.3 mmol/L (3.5-5.1); TOTAL PROTEIN, SERUM 7.5 g/dL (6.4-8.2)
[2020-06-28] MEDS ORDERED: DIVALPROEX 250 MG TABLET.DR PO ONE ×2 (22:14→22:15)
[2020-06-28] MEDS ORDERED: ACETAMINOPHEN 325 MG TABLET PO PRN (22:45)
[2020-06-28] MEDS ORDERED: MAGNESIUM HYDROXIDE 30 ML LIQUID UDC PO PRN (22:45)
[2020-06-28] MEDS ORDERED: ONDANSETRON HCL 4 MG TABLET PO PRN (22:45)
[2020-06-28] MEDS ORDERED: Z GUARD REMEDY PASTE 57 GM TUBE TOP PRN (22:45)
[2020-06-28] MEDS ORDERED: HYDROCODONE/APAP 5-325MG TABLET PO PRN (22:45)
[2020-06-28] MEDS ORDERED: LORAZEPAM 2 MG/1 ML VIAL IV ONE (23:15)
[2020-06-28] MEDS ORDERED: ONDANSETRON 4 MG/2 ML VIAL IV ONE (23:15)
[2020-06-28] MEDS ORDERED: LORAZEPAM 2 MG/1 ML VIAL ONE (23:22)
[2020-06-29] MEDS ORDERED: IV D5 1/2 NS 1000 ML 1,000 ML IV ONE (00:15)
[2020-06-29 04:40] VITALS: BP 141/59
[2020-06-29] MEDS ORDERED: PROTEIN SUPPLEMENT (PROSTAT) 30 ML LIQUID PO SCH (06:15)
[2020-06-29 06:56] LABS: BASOPHILS % (AUTO) 0.5 % (0.0-2.0); EOSINOPHILS # (AUTO) 0.8 K/uL (0.0-0.7); EOSINOPHILS % (AUTO) 13.3 % (0.0-7.0); HEMATOCRIT 29.6 % (36.7-47.1); HEMOGLOBIN 9.8 g/dL (12.5-16.3); LYMPHOCYTES # (AUTO) 1.4 K/uL (20.0-40.0); LYMPHOCYTES % (AUTO) 24.6 % (20.5-51.5); MEAN CORPUSCULAR HEMOGLOBIN 31.4 uug (23.8-33.4); MEAN CORPUSCULAR HGB CONC 33 g/dL (32.5-36.3); MEAN CORPUSCULAR VOLUME 94.2 fL (73.0-96.2); MONOCYTES # (AUTO) 0.5 K/uL (2.0-10.0); MONOCYTES % (AUTO) 8.1 % (0.0-11.0); NEUTROPHILS # (AUTO) 3.1 K/uL (1.8-8.9); NEUTROPHILS % (AUTO) 53.5 % (38.5-71.5); PLATELET COUNT (AUTO) 151 K/uL (152-348); RED BLOOD CELL COUNT(AUTO) 3.14 MIL/uL (4.06-5.63); WHITE BLOOD COUNT (AUTO) 5.8 K/uL (3.6-10.2)
[2020-06-29 07:28] LABS: CREATININE 5.4 mg/dL (0.6-1.3); MAGNESIUM 2.6 mg/dL (1.8-2.4); PHOSPHOROUS 5.6 mg/dL (2.5-4.9); POTASSIUM 5.3 mmol/L (3.5-5.1)
[2020-06-29] MEDS: ACIDOPHILUS/BULGARICUS CHEW TAB PO SCH (08:51)
[2020-06-29] MEDS: ISOSORBIDE MONONITRATE 60 MG TAB.SR.24H PO SCH (08:51)
[2020-06-29] MEDS: GLIMEPIRIDE 2 MG TABLET PO SCH (08:51)
[2020-06-29] MEDS: PANTOPRAZOLE SODIUM 40 MG TABLET.DR PO SCH (08:52)
[2020-06-29] MEDS: CARISOPRODOL 350 MG TABLET PO SCH ×2 (08:52→16:50)
[2020-06-29] MEDS: METOPROLOL SUCCINATE XL 25 MG TAB.SR.24H PO SCH (08:53)
[2020-06-29] MEDS: LOSARTAN POTASSIUM 50 MG TABLET PO SCH (08:53)
[2020-06-29] MEDS: LEVOTHYROXINE SODIUM 100 MCG TABLET PO SCH (08:53)
[2020-06-29] MEDS ORDERED: DEXTROSE 50% 50 ML DISP.SYRIN IV PRN (11:30)
[2020-06-29 11:37] VITALS: BP 140/54
[2020-06-29] MEDS: BLOOD SUGAR DIAGNOSTIC 1 EACH STRIP VI SCH ×3 (12:40→21:38)
[2020-06-29] MEDS: INSULIN REGULAR, HUMAN 300 UNIT/3 ML VIAL SQ PRN (12:41)
[2020-06-29 16:00] VITALS: BP 117/48
[2020-06-29 20:49] VITALS: BP 107/47
[2020-06-29] MEDS ORDERED: GABAPENTIN 100 MG CAPSULE PO SCH (21:00)
[2020-06-29] MEDS: FOLIC ACID/VITAMIN B COMP W-C TABLET PO SCH (21:38)
[2020-06-29] MEDS: ATORVASTATIN 40 MG TABLET PO SCH (21:38)
[2020-06-29] MEDS: MONTELUKAST SODIUM 10 MG TABLET PO SCH (21:38)
[2020-06-29] MEDS: DOCUSATE SODIUM 100 MG CAPSULE PO SCH (21:38)
[2020-06-29] MEDS: OXYCODONE/APAP 5-325 MG TABLET PO PRN (22:16)
[2020-06-30 00:30] VITALS: BP 116/43
[2020-06-30 04:23] VITALS: BP 119/45
[2020-06-30] MEDS: BLOOD SUGAR DIAGNOSTIC 1 EACH STRIP VI SCH ×4 (06:22→21:10)
[2020-06-30] MEDS: OXYCODONE/APAP 5-325 MG TABLET PO PRN ×2 (06:29→21:10)
[2020-06-30] MEDS: ISOSORBIDE MONONITRATE 60 MG TAB.SR.24H PO SCH (09:26)
[2020-06-30] MEDS: ACIDOPHILUS/BULGARICUS CHEW TAB PO SCH (09:26)
[2020-06-30] MEDS: CARISOPRODOL 350 MG TABLET PO SCH (09:27)
[2020-06-30] MEDS: LOSARTAN POTASSIUM 50 MG TABLET PO SCH (09:27)
[2020-06-30] MEDS: PANTOPRAZOLE SODIUM 40 MG TABLET.DR PO SCH (09:27)
[2020-06-30] MEDS: METOPROLOL SUCCINATE XL 25 MG TAB.SR.24H PO SCH (09:28)
[2020-06-30] MEDS: LEVOTHYROXINE SODIUM 100 MCG TABLET PO SCH (09:28)
[2020-06-30] MEDS: GLIMEPIRIDE 2 MG TABLET PO SCH (09:29)
[2020-06-30] MEDS: PROTEIN SUPPLEMENT (PROSTAT) 30 ML LIQUID PO SCH (09:29)
[2020-06-30 11:30] VITALS: BP 124/44
[2020-06-30] MEDS: INSULIN REGULAR, HUMAN 300 UNIT/3 ML VIAL SQ PRN ×2 (11:38→16:08)
[2020-06-30 12:06] LABS: HEPATITIS B SURFACE AB Reactive (.); HEPATITIS B SURFACE AG Negative (Negative)
[2020-06-30 15:06] VITALS: BP 121/46
[2020-06-30 20:14] VITALS: BP 110/44
[2020-06-30] MEDS: DOCUSATE SODIUM 100 MG CAPSULE PO SCH (21:00)
[2020-06-30] MEDS: MONTELUKAST SODIUM 10 MG TABLET PO SCH (21:05)
[2020-06-30] MEDS: ATORVASTATIN 40 MG TABLET PO SCH (21:05)
[2020-06-30] MEDS: FOLIC ACID/VITAMIN B COMP W-C TABLET PO SCH (21:05)
[2020-06-30] MEDS: DIVALPROEX 500 MG TABLET.DR PO SCH (21:05)
[2020-06-30] MEDS: INSULIN REGULAR, HUMAN 300 UNITS/3 ML VIAL SQ PRN (21:17)
[2020-07-01 00:02] VITALS: BP 135/55
[2020-07-01] MEDS ORDERED: HYDROCORTISONE 1% CREAM 30 GM TUBE TP ONE ×2 (02:30→03:38)
[2020-07-01] MEDS: HYDROCORTISONE 1% CREAM 30 GM TUBE TP PRN ×4 (03:37→21:00)
[2020-07-01 04:14] VITALS: BP 134/54
[2020-07-01] MEDS: BLOOD SUGAR DIAGNOSTIC 1 EACH STRIP VI SCH ×4 (06:33→20:33)
[2020-07-01 07:42] LABS: BASOPHILS # (AUTO) 0.1 K/uL (0.0-8.0); BASOPHILS % (AUTO) 0.8 % (0.0-2.0); EOSINOPHILS # (AUTO) 0.8 K/uL (0.0-0.7); HEMATOCRIT 29.2 % (36.7-47.1); HEMOGLOBIN 9.5 g/dL (12.5-16.3); LYMPHOCYTES # (AUTO) 2.1 K/uL (20.0-40.0); LYMPHOCYTES % (AUTO) 32.3 % (20.5-51.5); MEAN CORPUSCULAR HEMOGLOBIN 30.7 uug (23.8-33.4); MEAN CORPUSCULAR HGB CONC 33 g/dL (32.5-36.3); MONOCYTES # (AUTO) 0.6 K/uL (2.0-10.0); MONOCYTES % (AUTO) 9.6 % (0.0-11.0); NEUTROPHILS # (AUTO) 2.9 K/uL (1.8-8.9); NEUTROPHILS % (AUTO) 45.3 % (38.5-71.5); PLATELET COUNT (AUTO) 141 K/uL (152-348); WHITE BLOOD COUNT (AUTO) 6.4 K/uL (3.6-10.2)
[2020-07-01 07:44] LABS: CREATININE 4.6 mg/dL (0.6-1.3); MAGNESIUM 2.3 mg/dL (1.8-2.4); PHOSPHOROUS 5.3 mg/dL (2.5-4.9); POTASSIUM 4.5 mmol/L (3.5-5.1)
[2020-07-01] MEDS: INSULIN REGULAR, HUMAN 300 UNIT/3 ML VIAL SQ PRN ×2 (07:51→17:07)
[2020-07-01 09:00] VITALS: BP 141/68
[2020-07-01] MEDS: DIVALPROEX 500 MG TABLET.DR PO SCH ×2 (10:06→20:33)
[2020-07-01] MEDS: ACIDOPHILUS/BULGARICUS CHEW TAB PO SCH (10:06)
[2020-07-01] MEDS: ISOSORBIDE MONONITRATE 60 MG TAB.SR.24H PO SCH (10:06)
[2020-07-01] MEDS: PANTOPRAZOLE SODIUM 40 MG TABLET.DR PO SCH (10:07)
[2020-07-01] MEDS: LEVOTHYROXINE SODIUM 100 MCG TABLET PO SCH (10:07)
[2020-07-01] MEDS: GLIMEPIRIDE 2 MG TABLET PO SCH (10:25)
[2020-07-01] MEDS: LOSARTAN POTASSIUM 50 MG TABLET PO SCH (10:26)
[2020-07-01] MEDS: METOPROLOL SUCCINATE XL 25 MG TAB.SR.24H PO SCH (10:26)
[2020-07-01 11:51] VITALS: BP 160/59
[2020-07-01] MEDS ORDERED: LIDOCAINE 1%-EPI 1:100,000 20 ML VIAL IJ ONE (15:45)
[2020-07-01 16:11] VITALS: BP 147/56
[2020-07-01] MEDS: NEPRO (VANILLA) 237 ML CAN PO SCH (17:46)
[2020-07-01 20:30] VITALS: BP 144/63
[2020-07-01] MEDS: DOCUSATE SODIUM 100 MG CAPSULE PO SCH (20:32)
[2020-07-01] MEDS: ATORVASTATIN 40 MG TABLET PO SCH (20:33)
[2020-07-01] MEDS: MONTELUKAST SODIUM 10 MG TABLET PO SCH (20:33)
[2020-07-01] MEDS: FOLIC ACID/VITAMIN B COMP W-C TABLET PO SCH (20:33)
[2020-07-01] MEDS: INSULIN REGULAR, HUMAN 300 UNITS/3 ML VIAL SQ PRN (20:54)
[2020-07-01] MEDS: HYDROMORPHONE HCL 2 MG TABLET PO PRN (20:58)
[2020-07-02] VITALS: BP 144/50
[2020-07-02] MEDS: ONDANSETRON 4 MG/2 ML VIAL IV PRN ×4 (00:33→21:44)
[2020-07-02] MEDS: HYDROMORPHONE HCL 2 MG TABLET PO PRN ×2 (03:03→11:35)
[2020-07-02 04:56] VITALS: BP 140/64
[2020-07-02] MEDS: BLOOD SUGAR DIAGNOSTIC 1 EACH STRIP VI SCH ×4 (06:43→20:14)
[2020-07-02 07:19] LABS: BASOPHILS # (AUTO) 0.1 K/uL (0.0-8.0); BASOPHILS % (AUTO) 1.1 % (0.0-2.0); EOSINOPHILS # (AUTO) 0.6 K/uL (0.0-0.7); EOSINOPHILS % (AUTO) 11.9 % (0.0-7.0); HEMATOCRIT 28.9 % (36.7-47.1); HEMOGLOBIN 9.4 g/dL (12.5-16.3); LYMPHOCYTES # (AUTO) 1.6 K/uL (20.0-40.0); LYMPHOCYTES % (AUTO) 33.1 % (20.5-51.5); MEAN CORPUSCULAR HEMOGLOBIN 30.6 uug (23.8-33.4); MEAN CORPUSCULAR HGB CONC 33 g/dL (32.5-36.3); MEAN CORPUSCULAR VOLUME 94.1 fL (73.0-96.2); MONOCYTES # (AUTO) 0.4 K/uL (2.0-10.0); MONOCYTES % (AUTO) 8.9 % (0.0-11.0); NEUTROPHILS # (AUTO) 2.2 K/uL (1.8-8.9); PLATELET COUNT (AUTO) 142 K/uL (152-348); RED BLOOD CELL COUNT(AUTO) 3.07 MIL/uL (4.06-5.63); WHITE BLOOD COUNT (AUTO) 4.9 K/uL (3.6-10.2)
[2020-07-02 08:06] LABS: BILIRUBIN,TOTAL 0.6 mg/dL (0.2-1.0); CREATININE 3.9 mg/dL (0.6-1.3); MAGNESIUM 1.9 mg/dL (1.8-2.4); PHOSPHOROUS 4.5 mg/dL (2.5-4.9); POTASSIUM 4.5 mmol/L (3.5-5.1); TOTAL PROTEIN, SERUM 6.5 g/dL (6.4-8.2)
[2020-07-02] MEDS: ACIDOPHILUS/BULGARICUS CHEW TAB PO SCH (08:19)
[2020-07-02] MEDS: DIVALPROEX 500 MG TABLET.DR PO SCH ×2 (08:19→20:07)
[2020-07-02] MEDS: PANTOPRAZOLE SODIUM 40 MG TABLET.DR PO SCH (08:19)
[2020-07-02] MEDS: LEVOTHYROXINE SODIUM 100 MCG TABLET PO SCH (08:29)
[2020-07-02] MEDS: NEPRO (VANILLA) 237 ML CAN PO SCH ×2 (08:30→17:25)
[2020-07-02] MEDS: PROTEIN SUPPLEMENT (PROSTAT) 30 ML LIQUID PO SCH (08:30)
[2020-07-02] MEDS: ISOSORBIDE MONONITRATE 60 MG TAB.SR.24H PO SCH (08:30)
[2020-07-02] MEDS: INSULIN REGULAR, HUMAN 300 UNIT/3 ML VIAL SQ PRN ×4 (08:39→20:19)
[2020-07-02] MEDS: METOPROLOL SUCCINATE XL 25 MG TAB.SR.24H PO SCH (08:39)
[2020-07-02] MEDS: LOSARTAN POTASSIUM 50 MG TABLET PO SCH (08:40)
[2020-07-02] MEDS: GLIMEPIRIDE 2 MG TABLET PO SCH (08:51)
[2020-07-02 11:25] VITALS: BP 149/62
[2020-07-02 16:00] VITALS: BP 147/59
[2020-07-02] MEDS: HYDROMORPHONE 1 MG/1 ML DISP.SYRIN IV PRN ×2 (18:56→20:10)
[2020-07-02 20:00] VITALS: BP 140/56
[2020-07-02] MEDS: DOCUSATE SODIUM 100 MG CAPSULE PO SCH (20:07)
[2020-07-02] MEDS: FOLIC ACID/VITAMIN B COMP W-C TABLET PO SCH (20:07)
[2020-07-02] MEDS: ATORVASTATIN 40 MG TABLET PO SCH (20:07)
[2020-07-02] MEDS: MONTELUKAST SODIUM 10 MG TABLET PO SCH (20:07)
[2020-07-02] MEDS: HYDROCORTISONE 1% CREAM 30 GM TUBE TP PRN (20:20)
[2020-07-02] MEDS ORDERED: PRIMIDONE 50 MG TABLET PO SCH (21:00)
[2020-07-03] MEDS: HYDROMORPHONE 1 MG/1 ML DISP.SYRIN IV PRN (00:03)
[2020-07-03 04:00] VITALS: BP 155/64
[2020-07-03] MEDS: BLOOD SUGAR DIAGNOSTIC 1 EACH STRIP VI SCH ×2 (06:58→12:15)
[2020-07-03] MEDS: ONDANSETRON 4 MG/2 ML VIAL IV PRN (08:38)
[2020-07-03 08:42] VITALS: BP 170/77
[2020-07-03] MEDS: NEPRO (VANILLA) 237 ML CAN PO SCH (09:00)
[2020-07-03] MEDS: HYDROCORTISONE 1% CREAM 30 GM TUBE TP PRN (09:23)
[2020-07-03] MEDS: ACIDOPHILUS/BULGARICUS CHEW TAB PO SCH (10:35)
[2020-07-03] MEDS: METOPROLOL SUCCINATE XL 25 MG TAB.SR.24H PO SCH (10:36)
[2020-07-03] MEDS: PANTOPRAZOLE SODIUM 40 MG TABLET.DR PO SCH (10:36)
[2020-07-03] MEDS: LEVOTHYROXINE SODIUM 100 MCG TABLET PO SCH (10:36)
[2020-07-03] MEDS: LOSARTAN POTASSIUM 50 MG TABLET PO SCH (10:36)
[2020-07-03] MEDS: GLIMEPIRIDE 2 MG TABLET PO SCH (10:37)
[2020-07-03] MEDS: ISOSORBIDE MONONITRATE 60 MG TAB.SR.24H PO SCH (10:37)
[2020-07-03] MEDS: DIVALPROEX 500 MG TABLET.DR PO SCH (10:37)
[2020-07-03] MEDS ORDERED: METOPROLOL SUCCINATE XL 25 MG TAB.SR.24H PO ONE (11:21)
[2020-07-03 11:54] VITALS: BP 151/61
[2020-07-03 12:16] VITALS: BP 138/68
[2020-07-03] MEDS ORDERED: DIVA500T2 PO (12:38)
[2020-07-03] MEDS ORDERED: PRIM50TA10 PO (12:38)
[2020-07-03] MEDS ORDERED: HYDR2TAB4 PO (12:38)
[2020-07-03] MEDS ORDERED: GLIM2TAB PO (12:38)
[2020-07-03] MEDS ORDERED: METO-357 PO (12:38)
[2020-07-03 15:12] VITALS: BP 158/55
[2020-07-03] MEDS: OXYCODONE/APAP 5-325 MG TABLET PO PRN (15:20)
[2020-07-03 15:37] VITALS: BP 158/64
[2020-07-04] MEDS ORDERED: METOPROLOL SUCCINATE XL 50 MG TAB.SR.24H PO SCH (09:00)
== END 2020-07-03 16:30 | DRG 100 ==
LOC: ER 20:42 → TELE3 06-29 03:19 → MEDSURG3 07-03 08:19
PROVIDERS: ADMIT Nurse Practitioner Acute Care; ATTEND Internal Medicine
PROC: 5A1D70Z Performance of Urinary Filtration, Intermittent, Less than 6 Hours Per Day (ICD-10-PCS; principal; 2020-06-29)
PROC: 5A1D70Z Performance of Urinary Filtration, Intermittent, Less than 6 Hours Per Day (ICD-10-PCS; 2020-06-29)
PROC: 05PYX3Z Removal of Infusion Device from Upper Vein, External Approach (ICD-10-PCS; 2020-07-01)
DX: G40.909 Epilepsy, unspecified, not intractable, without status epilepticus (principal); E43 Unspecified severe protein-calorie malnutrition; I50.33 Acute on chronic diastolic (congestive) heart failure; N18.6 End stage renal disease; I13.2 Hypertensive heart and chronic kidney disease with heart failure and with stage 5 chronic kidney disease, or end stage renal disease; I50.32 Chronic diastolic (congestive) heart failure; D68.69 Other thrombophilia; E87.1 Hypo-osmolality and hyponatremia; L97.419 Non-pressure chronic ulcer of right heel and midfoot with unspecified severity; J96.11 Chronic respiratory failure with hypoxia; E11.22 Type 2 diabetes mellitus with diabetic chronic kidney disease; Z99.2 Dependence on renal dialysis; E11.42 Type 2 diabetes mellitus with diabetic polyneuropathy; E11.51 Type 2 diabetes mellitus with diabetic peripheral angiopathy without gangrene; Z89.512 Acquired absence of left leg below knee; Z86.19 Personal history of other infectious and parasitic diseases; D63.8 Anemia in other chronic diseases classified elsewhere; E03.9 Hypothyroidism, unspecified; E11.621 Type 2 diabetes mellitus with foot ulcer; E11.65 Type 2 diabetes mellitus with hyperglycemia; E88.09 Other disorders of plasma-protein metabolism, not elsewhere classified; E78.5 Hyperlipidemia, unspecified; E87.5 Hyperkalemia; F32.9 Major depressive disorder, single episode, unspecified; F90.9 Attention-deficit hyperactivity disorder, unspecified type; F95.2 Tourette's disorder; G89.4 Chronic pain syndrome; I25.10 Atherosclerotic heart disease of native coronary artery without angina pectoris; Z79.4 Long term (current) use of insulin; N40.0 Benign prostatic hyperplasia without lower urinary tract symptoms; E11.43 Type 2 diabetes mellitus with diabetic autonomic (poly)neuropathy; K31.84 Gastroparesis; J44.9 Chronic obstructive pulmonary disease, unspecified; K21.00 Gastro-esophageal reflux disease with esophagitis, without bleeding; Z95.5 Presence of coronary angioplasty implant and graft; Z68.29 Body mass index [BMI] 29.0-29.9, adult; R07.89 Other chest pain; R13.10 Dysphagia, unspecified; Z79.891 Long term (current) use of opiate analgesic; H40.9 Unspecified glaucoma; K59.00 Constipation, unspecified; M54.10 Radiculopathy, site unspecified; I48.0 Paroxysmal atrial fibrillation; Z83.3 Family history of diabetes mellitus
CPT/HCPCS: 36415; 70030-TC; 70450; 71045; 80164; 83735; 84100; 85025; 85730; 86706; 87340; 93005; 95819; A4663; G0378; J1170; J1815; J2060; J2405; J3490; Q0162

== ENCOUNTER 2020-11-25 15:16 | Emergency (ER) | payer OTHER ==
[~2020-11-25] VITALS: Ht 165.1 cm; Wt 127.0 kg
[~2020-11-25 15:16] MED LIST changes: +ALBU2.5V13 NEB; -ATOR40TA PO; +CARI350T PO; -DIVA250T4 PO; +DIVA500T2 PO; -DULO20CA PO; -GLIM1TAB18 PO; +GLIM2TAB PO; -ISOS60TA4 PO; +ISOS60TA72 PO; -METO-356 PO; +METO-357 PO; -MUPI22OI2 NS; -OXYC-128 PO; +PRIM50TA10 PO; -RANO500T3 PO; -TAMS-3 PO
[2020-11-25] MEDS ORDERED: IV NORMAL SALINE 500 ML BAG IV ONE (15:30)
[2020-11-25 16:01] LABS: BASOPHILS % (AUTO) 0.3 % (0.0-2.0); EOSINOPHILS # (AUTO) 0.3 K/uL (0.0-0.7); HEMATOCRIT 26.5 % (36.7-47.1); HEMOGLOBIN 8.7 g/dL (12.5-16.3); LYMPHOCYTES # (AUTO) 0.9 K/uL (20.0-40.0); LYMPHOCYTES % (AUTO) 10.6 % (20.5-51.5); MEAN CORPUSCULAR HEMOGLOBIN 30.1 uug (23.8-33.4); MEAN CORPUSCULAR HGB CONC 33 g/dL (32.5-36.3); MEAN CORPUSCULAR VOLUME 92.1 fL (73.0-96.2); MONOCYTES # (AUTO) 0.6 K/uL (2.0-10.0); MONOCYTES % (AUTO) 7.1 % (0.0-11.0); PLATELET COUNT (AUTO) 135 K/uL (152-348); RED BLOOD CELL COUNT(AUTO) 2.88 MIL/uL (4.06-5.63); WHITE BLOOD COUNT (AUTO) 8.9 K/uL (3.6-10.2)
[2020-11-25 16:11] LABS: CREATININE 3.5 mg/dL (0.6-1.3); POTASSIUM 5.2 mmol/L (3.5-5.1)
[2020-11-25] MEDS ORDERED: INSU100V28 SQ (16:14)
[2020-11-25] MEDS ORDERED: LIDO1ADH43 TP (16:14)
[2020-11-25] MEDS ORDERED: METH5TAB2 PO (16:14)
[2020-11-25] MEDS ORDERED: TRIA80OI TP (16:14)
[2020-11-25] MEDS ORDERED: CALC300T4 PO (16:14)
[2020-11-25] MEDS ORDERED: GLIM4TAB37 PO (16:14)
[2020-11-25] MEDS ORDERED: LOSA100T31 PO (16:14)
[2020-11-25] MEDS ORDERED: DIPH25CA83 PO (16:14)
[2020-11-25 16:25] LABS: BILIRUBIN,DIRECT 0.1 mg/dL (0.0-0.2); BILIRUBIN,TOTAL 0.5 mg/dL (0.2-1.0); TOTAL PROTEIN, SERUM 7.6 g/dL (6.4-8.2)
[2020-11-25] MEDS ORDERED: CEFEPIME HCL 1 G in IV DEXTROSE 5% 50 ML IV ONE (16:45)
[2020-11-25] MEDS ORDERED: VANCOMYCIN IV 1,000 MG in IV DEXTROSE 5% 250 ML IV ONE (16:45)
[2020-11-25] MEDS ORDERED: HYDROMORPHONE 1 MG/1 ML DISP.SYRIN IV ONE ×2 (18:30→22:15)
[2020-11-25] MEDS ORDERED: HYDROMORPHONE 1 MG/1 ML DISP.SYRIN ONE ×2 (18:33→22:24)
--- NOTE | 2020-11-25 19:15 | NUR ---
Assumed care of patient at this time. Pending transfer info. Patient to be transferred for pneumonia. Stable. Patient is resting comfortably in bed watching television & eating dinner. Patient currently on 2L O2 via NC, SpO2 100%. Vitals are stable. Will continue to monitor.
--- NOTE | 2020-11-25 22:35 | NUR ---
Transfer info: Patient being transferred to [facility]. Rm 419. Phone# for report is [phone]. [facility] ETA 9732
--- NOTE | 2020-11-25 23:33 | NUR ---
Transport delay. new ETA 0000
--- NOTE | 2020-11-26 00:49 | NUR ---
Called [facility] for update for pickup. States transport pickup delayed again. New ETA 0145.
--- NOTE | 2020-11-26 01:42 | NUR ---
[facility] called states there is another delay with pickup. another 45 min. will call piano case and bench assembler from insurance to see if we can get authorization for another transportation
--- NOTE | 2020-11-26 02:37 | NUR ---
[facility] Unit [facility] here to transport patient to [facility] in [place] to Room 419. All belongings with patient. Vitals stable. Transfer paperwork given to transport staff.
== END 2020-11-26 02:41 | disposition short-term general hospital (02) ==
LOC: ER 15:17
DX: J18.9 Pneumonia, unspecified organism (principal); Z20.822 Contact with and (suspected) exposure to COVID-19; D64.9 Anemia, unspecified; E11.22 Type 2 diabetes mellitus with diabetic chronic kidney disease; I13.2 Hypertensive heart and chronic kidney disease with heart failure and with stage 5 chronic kidney disease, or end stage renal disease; I50.32 Chronic diastolic (congestive) heart failure; N18.6 End stage renal disease; Z99.2 Dependence on renal dialysis; Z79.84 Long term (current) use of oral hypoglycemic drugs; Z88.8 Allergy status to other drugs, medicaments and biological substances; Z88.6 Allergy status to analgesic agent; Z88.1 Allergy status to other antibiotic agents; Z91.011 Allergy to milk products; Z89.512 Acquired absence of left leg below knee; J44.0 Chronic obstructive pulmonary disease with (acute) lower respiratory infection; K21.9 Gastro-esophageal reflux disease without esophagitis; E11.42 Type 2 diabetes mellitus with diabetic polyneuropathy; E87.5 Hyperkalemia; R77.8 Other specified abnormalities of plasma proteins
CPT/HCPCS: 71045; 80048; 80076; 83605; 84145; 84484; 85025; 85730; 87040 ×2; 87400; 87426; 93005; 96361; 96365; 96366; 96367; 96375; 96376; 99285; J0692; J1170 ×2; J3370; J7060 ×2; U0003; 70030-TC; A4663; J7040

== ENCOUNTER 2021-04-20 11:49 | Inpatient (IN) | payer MEDICARE, OTHER ==
[~2021-04-20] VITALS: Ht 182.9 cm; Wt 105.7 kg
[~2021-04-20 11:49] MED LIST changes: +CALC300T4 PO; -CARI350T PO; +DIPH25CA83 PO; -GLIM2TAB PO; +GLIM4TAB37 PO; -HYDR2TAB4 PO; +INSU100V28 SQ; +LIDO1ADH43 TP; +LOSA100T31 PO; -LOSA50TA3 PO; +METH5TAB2 PO; -PRIM50TA10 PO; +PRIM50TA5 PO; -PROT946L PO; +TRIA80OI TP
--- NOTE | 2021-04-20 12:00 | NUR ---
Dr Balderas at the bedside for MSE.
[2021-04-20] MEDS ORDERED: PIPERACILLIN SODIUM/TAZOBACTAM 3.375 G in IV DEXTROSE 5% 50 ML IV ONE (12:15)
[2021-04-20] MEDS ORDERED: VANCOMYCIN IV 1,000 MG in IV DEXTROSE 5% 250 ML IV ONE (12:15)
[2021-04-20] MEDS ORDERED: IOHEXOL 300MG/ML 100 ML INFUS..BTL ONE (12:20)
[2021-04-20] MEDS ORDERED: SWABABLE VALVE TRANSFER SET EA MC ONE (12:20)
[2021-04-20] MEDS ORDERED: IV NORMAL SALINE 250 ML IV ONE (12:20)
[2021-04-20 12:24] LABS: HEMATOCRIT 37.7 % (36.7-47.1); MEAN CORPUSCULAR VOLUME 98.5 fL (73.0-96.2); PLATELET COUNT (AUTO) 241 K/uL (152-348)
[2021-04-20] MEDS ORDERED: PIPERACILLIN/TAZOBACTAM/D5W 50 ML IV ONE (12:30)
[2021-04-20] MEDS ORDERED: VANCOMYCIN IV 200 ML ONE (12:30)
[2021-04-20 12:35] LABS: ALANINE AMINOTRANSFERASE < 6 U/L (16-63); ALKALINE PHOSPHATASE 63 U/L (50-136); ASPARTATE AMINOTRANSFERASE 27 U/L (15-37); BILIRUBIN,TOTAL 0.4 mg/dL (0.2-1.0); CARBON DIOXIDE 27 mmol/L (21-32); CHLORIDE 97 mmol/L (98-107); CREATININE 6.7 mg/dL (0.6-1.3); GLUCOSE 108 mg/dL (74-106); POTASSIUM 5.9 mmol/L (3.5-5.1); TOTAL PROTEIN, SERUM 7.6 g/dL (6.4-8.2)
[2021-04-20 12:38] LABS: UREA NITROGEN, BLOOD 83 mg/dL (7-18)
[2021-04-20 12:58] LABS: THYROID STIMULATING HORMONE 4.164 mIU/mL (0.358-3.740)
[2021-04-20] MEDS ORDERED: SODIUM POLYSTYRENE SULFONATE 15 G/60 ML LIQUID UDC PO ONE (13:30)
[2021-04-20] MEDS ORDERED: FUROSEMIDE 20 MG/2 ML VIAL IV ONE (13:30)
[2021-04-20] MEDS ORDERED: FUROSEMIDE 20 MG/2 ML VIAL IVP ONE (13:30)
[2021-04-20] MEDS ORDERED: CALCIUM CHLORIDE 1 GM/10 ML DISP.SYRIN IVP ONE ×2 (13:30→14:03)
[2021-04-20] MEDS ORDERED: INSULIN REGULAR, HUMAN 300 UNIT/3 ML VIAL IV ONE (13:30)
[2021-04-20] MEDS ORDERED: DEXTROSE 50% 50 ML DISP.SYRIN IV ONE (13:30)
--- NOTE | 2021-04-20 14:00 | NUR ---
Dr Balderas spoke to DR Fisher regarding IV contrasted CT.
[2021-04-20] MEDS ORDERED: SODIUM POLYSTYRENE SULFONATE 15 G/60 ML LIQUID UDC ONE (14:01)
[2021-04-20] MEDS ORDERED: FUROSEMIDE 20 MG/2 ML VIAL ONE ×2 (14:02→14:03)
[2021-04-20] MEDS ORDERED: DEXTROSE 50% 50 ML DISP.SYRIN ONE (14:02)
[2021-04-20] MEDS ORDERED: INSULIN REGULAR, HUMAN 300 UNIT/3 ML VIAL ONE (14:04)
[2021-04-20] MEDS ORDERED: IV NORMAL SALINE 50 ML BAG IV ONE (14:45)
[2021-04-20] MEDS ORDERED: ONDANSETRON 4 MG/2 ML VIAL IV ONE (14:45)
[2021-04-20] MEDS ORDERED: APIX2.5T PO (15:03)
[2021-04-20] MEDS ORDERED: INSU100V7 SQ (15:03)
[2021-04-20] MEDS ORDERED: LACT1CAP7 PO (15:03)
[2021-04-20] MEDS ORDERED: LACT10SO3 PO (15:03)
[2021-04-20] MEDS ORDERED: BISA-79 PO (15:03)
[2021-04-20] MEDS ORDERED: CLON0.1T PO (15:03)
--- NOTE | 2021-04-20 15:10 | NUR ---
ER MD changed CT w/o contrast. Patient is resting comfortably in bed with eyes closed.
[2021-04-20 16:36] LABS: CREATININE 7.4 mg/dL (0.6-1.3); POTASSIUM 5.4 mmol/L (3.5-5.1)
--- NOTE | 2021-04-20 17:55 | NUR ---
Patient is resting comfortably in bed with eyes closed, NAD noted.
--- NOTE | 2021-04-20 18:06 | NUR ---
Dinner tray provided, Pt ate w/ moderate appetite.
[2021-04-20 18:48] LABS: *BILIRUBIN,URIN NEGATIVE (NEGATIVE); *BLOOD, URINE TRACE INTACT (NEGATIVE); *CLARITY,URINE CLEAR (CLEAR); *COLOR,URINE YELLOW (YELLOW); *KETONES,URINE NEGATIVE (NEGATIVE); *UROBILINOGEN,URINE 0.2 E.U./dl (NORMAL); LEUKOCYTE ESTERASE ,URINE NEGATIVE (NEGATIVE); NITRITE, URINE NEGATIVE (NEGATIVE); UGLUCOSE NEGATIVE (NEGATIVE)
[2021-04-20 20:00] VITALS: BP 128/50
[2021-04-20] MEDS ORDERED: ACETAMINOPHEN 325 MG TABLET PO PRN (20:45)
[2021-04-20] MEDS ORDERED: NITROGLYCERIN 0.4 MG/TAB BOTTLE SL PRN (21:00)
[2021-04-20] MEDS ORDERED: BISACODYL 5 MG TABLET.DR PO PRN (21:00)
[2021-04-20] MEDS ORDERED: METHADONE PO PRN (21:00)
[2021-04-20] MEDS ORDERED: CLONIDINE HCL 0.1 MG TABLET PO PRN (21:00)
[2021-04-20] MEDS ORDERED: ALBUMIN HUMAN 25% 100 ML IV PRN (22:15)
[2021-04-21] VITALS: BP 88/74
[2021-04-21] MEDS: DIVALPROEX 500 MG TABLET.DR PO SCH ×3 (01:21→21:18)
[2021-04-21] MEDS: MONTELUKAST SODIUM 10 MG TABLET PO SCH ×2 (01:21→21:18)
[2021-04-21] MEDS: PIPERACILLIN/TAZO 2.25 G in IV DEXTROSE 5% 50 ML IV SCH ×4 (01:21→17:00)
[2021-04-21] MEDS: DOCUSATE SODIUM 100 MG CAPSULE PO SCH ×2 (01:21→02:00)
[2021-04-21] MEDS: GABAPENTIN 100 MG CAPSULE PO SCH ×2 (01:21→21:18)
[2021-04-21] MEDS: PRIMIDONE 50 MG TABLET PO SCH ×2 (01:21→21:19)
[2021-04-21 03:48] VITALS: BP 160/48
[2021-04-21] MEDS: HYDROMORPHONE 1 MG/1 ML DISP.SYRIN IV PRN ×5 (03:52→21:34)
--- NOTE | 2021-04-21 05:23 | NUR ---
Pt slept throughout the night. Dialysis done 04/20, removed 2200cc. Pt tolerated well. Pt placed on PUI precautions. PCR pending. No distress noted. Safety and comfort provided. No other issues or concerns at this time, will endorse to day shift.
[2021-04-21 07:04] LABS: HEMATOCRIT 34.5 % (36.7-47.1); MEAN CORPUSCULAR HEMOGLOBIN 32.5 uug (23.8-33.4); MEAN CORPUSCULAR VOLUME 98.2 fL (73.0-96.2); PLATELET COUNT (AUTO) 198 K/uL (152-348)
[2021-04-21 07:31] LABS: THYROID STIMULATING HORMONE 3.387 mIU/mL (0.358-3.740)
[2021-04-21 07:37] LABS: BILIRUBIN,TOTAL 0.5 mg/dL (0.2-1.0); CREATININE 5.4 mg/dL (0.6-1.3); MAGNESIUM 2.2 mg/dL (1.8-2.4); PHOSPHOROUS 4.8 mg/dL (2.5-4.9); POTASSIUM 4.2 mmol/L (3.5-5.1); TOTAL PROTEIN, SERUM 7.3 g/dL (6.4-8.2)
[2021-04-21] MEDS: LOSARTAN POTASSIUM 50 MG TABLET PO SCH (08:26)
[2021-04-21] MEDS: CULTURELLE CAPSULE PO SCH (08:26)
[2021-04-21] MEDS: PANTOPRAZOLE SODIUM 40 MG TABLET.DR PO SCH (08:26)
[2021-04-21] MEDS: METOPROLOL SUCCINATE XL 50 MG TAB.SR.24H PO SCH (08:26)
[2021-04-21] MEDS: LEVOTHYROXINE SODIUM 100 MCG TABLET PO SCH (08:26)
[2021-04-21] MEDS: ISOSORBIDE MONONITRATE 60 MG TAB.SR.24H PO SCH (08:27)
[2021-04-21] MEDS: APIXABAN 2.5 MG TABLET PO SCH ×2 (08:29→17:32)
[2021-04-21 12:03] VITALS: BP 128/61
[2021-04-21 16:23] VITALS: BP 154/68
[2021-04-21] MEDS: ONDANSETRON 4 MG/2 ML VIAL IV PRN (16:32)
--- NOTE | 2021-04-21 17:37 | NUR ---
1700 ZOSYN NOT GIVEN RECEIVING DIALYSIS.
--- NOTE | 2021-04-21 17:51 | NUR ---
RECEIVED CALL FROM LAB POSITIVE FOR MRSA BOTH NARES BACTROBAN ORDERED
[2021-04-21] MEDS: MUPIROCIN 2% OINT 22 GM TUBE NS SCH (17:58)
[2021-04-21 20:00] VITALS: BP 136/56
[2021-04-21] MEDS ORDERED: ALBUMIN HUMAN 25% 100 ML IV PRN (20:00)
[2021-04-21] MEDS: VANCOMYCIN IV 1,000 MG in IV DEXTROSE 5% 250 ML IV ONE ×2 (20:00→21:33)
[2021-04-21] MEDS: FOLIC ACID/VITAMIN B COMP W-C TABLET PO SCH (21:18)
--- NOTE | 2021-04-21 23:11 | NUR ---
Patient dialysis done with output of 1670 ml .Patient was given albumin IV by HD nurse.AVF on left UA with good thrill and bruit .Dressing intact . No active bleeding.Patient IV on right AC came out. Unable to start new Iv line after multiple attempts. Patient c/o lower back pain.Started to gets irritated.Unable to administered IV ATb .Charge nurse and made aware. Per Doctor ok to missed his ATB . Dilaudid IM and Zofran IM given as ordered.Will continue to monitor.
[2021-04-21] MEDS ORDERED: ONDANSETRON 4 MG/2 ML VIAL IM PRN (23:45)
[2021-04-22] MEDS: HYDROMORPHONE 1 MG/1 ML DISP.SYRIN IM PRN ×3 (00:03→10:41)
[2021-04-22] MEDS: ONDANSETRON 4 MG/2 ML VIAL IV PRN (00:28)
[2021-04-22 00:29] VITALS: BP 127/65
[2021-04-22] MEDS: PIPERACILLIN/TAZO 2.25 G in IV DEXTROSE 5% 50 ML IV SCH ×4 (01:00→17:41)
[2021-04-22 04:27] VITALS: BP 132/50
[2021-04-22 06:31] LABS: HEMATOCRIT 32.8 % (36.7-47.1); MEAN CORPUSCULAR HEMOGLOBIN 32.7 uug (23.8-33.4); MEAN CORPUSCULAR VOLUME 98.5 fL (73.0-96.2); PLATELET COUNT (AUTO) 200 K/uL (152-348)
[2021-04-22 06:58] LABS: BILIRUBIN,TOTAL 0.5 mg/dL (0.2-1.0); CREATININE 4.2 mg/dL (0.6-1.3); MAGNESIUM 2.2 mg/dL (1.8-2.4); PHOSPHOROUS 4.8 mg/dL (2.5-4.9); POTASSIUM 4.4 mmol/L (3.5-5.1); TOTAL PROTEIN, SERUM 7.4 g/dL (6.4-8.2)
--- NOTE | 2021-04-22 08:00 | NUR ---
awake, alert and oriented, still awaiting for an iv access- midline nurse to place one, o room air, no sob noted, no cough noted, in need of sputum specimen- pt aware, informed of plan of care- verbalized understanding, PCR still pending- on isolation for now, safety mesures in place, call light within reach
[2021-04-22] MEDS: MUPIROCIN 2% OINT 22 GM TUBE NS SCH ×3 (08:57→17:41)
[2021-04-22] MEDS: PANTOPRAZOLE SODIUM 40 MG TABLET.DR PO SCH (08:58)
[2021-04-22] MEDS: LOSARTAN POTASSIUM 50 MG TABLET PO SCH (08:58)
[2021-04-22] MEDS: LEVOTHYROXINE SODIUM 100 MCG TABLET PO SCH (08:58)
[2021-04-22] MEDS: METOPROLOL SUCCINATE XL 50 MG TAB.SR.24H PO SCH (08:59)
[2021-04-22] MEDS: CULTURELLE CAPSULE PO SCH (08:59)
[2021-04-22] MEDS: ISOSORBIDE MONONITRATE 60 MG TAB.SR.24H PO SCH (09:00)
[2021-04-22] MEDS: DIVALPROEX 500 MG TABLET.DR PO SCH ×2 (09:00→20:33)
[2021-04-22] MEDS: APIXABAN 2.5 MG TABLET PO SCH ×2 (09:00→18:07)
--- NOTE | 2021-04-22 10:00 | NUR ---
midline nurse here and placed right upper arm midline, left arm with av fistula with good bruit/thrill
[2021-04-22 12:00] VITALS: BP 128/66
[2021-04-22] MEDS: HYDROMORPHONE 1 MG/1 ML DISP.SYRIN IV PRN ×2 (14:49→19:06)
[2021-04-22 16:14] VITALS: BP 132/70
--- NOTE | 2021-04-22 18:59 | NUR ---
no distress noted, no sob, no coughing, still in need of sputum, all needs attended and met, call light within reach
[2021-04-22 19:56] VITALS: BP 124/54
[2021-04-22] MEDS: DOCUSATE SODIUM 100 MG CAPSULE PO SCH (20:32)
[2021-04-22] MEDS: GABAPENTIN 100 MG CAPSULE PO SCH (20:32)
[2021-04-22] MEDS: FOLIC ACID/VITAMIN B COMP W-C TABLET PO SCH (20:32)
[2021-04-22] MEDS: PRIMIDONE 50 MG TABLET PO SCH (20:33)
[2021-04-22] MEDS: MONTELUKAST SODIUM 10 MG TABLET PO SCH (20:33)
[2021-04-23 00:14] VITALS: BP 134/68
[2021-04-23] MEDS: PIPERACILLIN/TAZO 2.25 G in IV DEXTROSE 5% 50 ML IV SCH ×3 (00:33→16:55)
[2021-04-23] MEDS: HYDROMORPHONE 1 MG/1 ML DISP.SYRIN IV PRN ×2 (00:33→06:44)
[2021-04-23 04:45] VITALS: BP 102/72
--- NOTE | 2021-04-23 07:04 | NUR ---
Pt denies SOB or chest pain. Pt is hyperverbal, able to make needs known. Tolerated all medications given. Safety and comfort provided. No other issues or concerns at this time, will endorse to day shift.
--- NOTE | 2021-04-23 08:00 | NUR ---
Awake, alert, oriented x 4, on moderate high back rest. No SOB noted. With fair appetite
[2021-04-23] MEDS: CULTURELLE CAPSULE PO SCH (09:46)
[2021-04-23] MEDS: PANTOPRAZOLE SODIUM 40 MG TABLET.DR PO SCH (09:46)
[2021-04-23] MEDS: DIVALPROEX 500 MG TABLET.DR PO SCH ×2 (09:46→20:52)
[2021-04-23] MEDS: LEVOTHYROXINE SODIUM 100 MCG TABLET PO SCH (09:46)
[2021-04-23] MEDS: APIXABAN 2.5 MG TABLET PO SCH ×2 (09:47→16:13)
[2021-04-23] MEDS: ISOSORBIDE MONONITRATE 60 MG TAB.SR.24H PO SCH (10:00)
[2021-04-23] MEDS: MUPIROCIN 2% OINT 22 GM TUBE NS SCH ×3 (10:03→16:55)
[2021-04-23] MEDS: diphenhydrAMINE 25 MG CAP PO PRN ×2 (10:08→20:58)
--- NOTE | 2021-04-23 10:13 | NUR ---
WOUND CARE CONSULT: REVIEWED CHART, NURSING DOCUMENTATION AND PHOTOS WHICH INDICATE DRY FOOT WOUNDS AND SACRAL SCARRING, PRESENT ON ADMISSION. DR SAINI NOTIFIED OF DPM CONSULT REQUEST. RECOMMENDATIONS MADE FOR SKIN PROTECTION. DISCUSSED WITH NURSING STAFF. IN AGREEMENT WITH PLAN OF CARE.
[2021-04-23 10:26] VITALS: BP 143/73
[2021-04-23] MEDS ORDERED: Z GUARD REMEDY PASTE 57 GM TUBE TOP PRN (10:30)
[2021-04-23] MEDS: HYDROMORPHONE 1 MG/1 ML DISP.SYRIN IM PRN ×3 (11:14→21:56)
--- NOTE | 2021-04-23 11:15 | NUR ---
Complained of back pain. Repositioned comfortably in bed. Dilaudid given as ordered with relief.
[2021-04-23 15:20] VITALS: BP 102/73
[2021-04-23] MEDS ORDERED: VANCOMYCIN IV 1,000 MG in IV DEXTROSE 5% 250 ML IV ONE (16:00)
[2021-04-23] MEDS: METOPROLOL SUCCINATE XL 50 MG TAB.SR.24H PO SCH (17:01)
[2021-04-23] MEDS: LOSARTAN POTASSIUM 50 MG TABLET PO SCH (17:01)
--- NOTE | 2021-04-23 17:30 | NUR ---
Hemodialysis done with 2500 ml output. Vancomycin IV given post HD. Repositioned in bed comfortably
--- NOTE | 2021-04-23 18:53 | NUR ---
Tele removed. Transferred to [facility]. Covid PCR test negative. Transferred out to room 321
[2021-04-23 20:00] VITALS: BP 95/59
[2021-04-23] MEDS: MONTELUKAST SODIUM 10 MG TABLET PO SCH (20:52)
[2021-04-23] MEDS: DOCUSATE SODIUM 100 MG CAPSULE PO SCH (20:52)
[2021-04-23] MEDS: FOLIC ACID/VITAMIN B COMP W-C TABLET PO SCH (20:52)
[2021-04-23] MEDS: GABAPENTIN 100 MG CAPSULE PO SCH (20:53)
[2021-04-23] MEDS: PRIMIDONE 50 MG TABLET PO SCH (21:49)
[2021-04-23] MEDS: Z GUARD REMEDY PASTE 57 GM TUBE TOP SCH (21:49)
[2021-04-24 04:00] VITALS: BP 99/56
[2021-04-24 05:42] LABS: HEMATOCRIT 33.6 % (36.7-47.1); MEAN CORPUSCULAR HEMOGLOBIN 31.9 uug (23.8-33.4); MEAN CORPUSCULAR VOLUME 99.1 fL (73.0-96.2); PLATELET COUNT (AUTO) 143 K/uL (152-348)
[2021-04-24 05:59] LABS: CREATININE 5.3 mg/dL (0.6-1.3); MAGNESIUM 2.1 mg/dL (1.8-2.4); PHOSPHOROUS 4.2 mg/dL (2.5-4.9); POTASSIUM 4.3 mmol/L (3.5-5.1)
--- NOTE | 2021-04-24 06:38 | NUR ---
PATIENT ALERT ORIENTED, NO SOB NO CHEST PAIN. PATIENT AV SHUNT ON LEFT ARM DRESSING WAS REMOVED REQUESTED, NO BLEEDING NOTED, CONT ABX FOR PNA, NO ADVERSE REACTION NOTED. CONT PAIN MANAGEMENT DUE BACK, HEAD, SHOULDER PAIN. RIGHT UPPER ARM MIDLINE INTACT PATENT. CONT TO MONITOR.
--- NOTE | 2021-04-24 07:30 | NUR ---
Patient received in bed with eyes closed, but easily arousable. Patient is on RA with no SOB or difficulties breathing. No acute distress noted at this time. Right UA midline is patent with no redness or swelling. No c/o pain or discomforts at this time. Call light within easy reach. Will continue to monitor.
[2021-04-24] MEDS: PANTOPRAZOLE SODIUM 40 MG TABLET.DR PO SCH (08:11)
[2021-04-24] MEDS: CULTURELLE CAPSULE PO SCH (08:11)
[2021-04-24] MEDS: PIPERACILLIN/TAZO 2.25 G in IV DEXTROSE 5% 50 ML IV SCH ×2 (08:11)
[2021-04-24] MEDS: DIVALPROEX 500 MG TABLET.DR PO SCH (08:11)
[2021-04-24] MEDS: ISOSORBIDE MONONITRATE 60 MG TAB.SR.24H PO SCH (08:12)
[2021-04-24] MEDS: LOSARTAN POTASSIUM 50 MG TABLET PO SCH (08:12)
[2021-04-24] MEDS: LEVOTHYROXINE SODIUM 100 MCG TABLET PO SCH (08:12)
[2021-04-24] MEDS: METOPROLOL SUCCINATE XL 50 MG TAB.SR.24H PO SCH (08:13)
[2021-04-24] MEDS: APIXABAN 2.5 MG TABLET PO SCH (08:14)
[2021-04-24] MEDS: Z GUARD REMEDY PASTE 57 GM TUBE TOP SCH (09:00)
[2021-04-24] MEDS: MUPIROCIN 2% OINT 22 GM TUBE NS SCH ×2 (09:00→12:07)
--- NOTE | 2021-04-24 09:41 | NUR ---
Patient declines bactroban and z-guard this AM. He did take all his PO medications, but became upset when I further stated that I will apply the medications. He states he does not want to be bothered at this time.
[2021-04-24 10:55] VITALS: BP 118/63
[2021-04-24] MEDS ORDERED: METO-356 PO (12:15)
[2021-04-24] MEDS ORDERED: METH5TAB2 PO (12:15)
[2021-04-24] MEDS ORDERED: PIPE2.257 IV (12:15)
[2021-04-24] MEDS ORDERED: RXVAN XX (12:15)
[2021-04-24] MEDS ORDERED: DOCU100C36 PO (12:15)
--- NOTE | 2021-04-24 13:53 | NUR ---
CALLED [facility] AND NO ONE AVAILABLE TO TAKE REPORT (LINE KEEPS RINGING). TRIED [phone] AND [phone]. WILL TRY AGAIN LATER.
[2021-04-24] MEDS: HYDROMORPHONE 1 MG/1 ML DISP.SYRIN IV PRN (14:08)
--- NOTE | 2021-04-24 15:00 | NUR ---
Report given to JAKY Avila blood donor recruiter supervisor at [facility]. Updated wound pictures taken and placed in chart. Patient expresses understanding of plan and states he is excited to go back.
[2021-04-24 15:24] VITALS: BP 124/57
--- NOTE | 2021-04-24 16:45 | NUR ---
Patient picked up by ambulance in satisfactory condition. Discharged with all his personal belongings.
== END 2021-04-24 17:04 | DRG 871 ==
LOC: ER 11:49 → TELE3 19:55 → MEDSURG3 04-23 17:30
PROVIDERS: ADMIT Internal Medicine; ATTEND Internal Medicine
PROC: 5A1D70Z Performance of Urinary Filtration, Intermittent, Less than 6 Hours Per Day (ICD-10-PCS; principal; 2021-04-20)
PROC: 5A1D70Z Performance of Urinary Filtration, Intermittent, Less than 6 Hours Per Day (ICD-10-PCS; 2021-04-21)
PROC: 05HC33Z Insertion of Infusion Device into Left Basilic Vein, Percutaneous Approach (ICD-10-PCS; 2021-04-22)
PROC: 5A1D70Z Performance of Urinary Filtration, Intermittent, Less than 6 Hours Per Day (ICD-10-PCS; 2021-04-23)
DX: A41.9 Sepsis, unspecified organism (principal); N18.6 End stage renal disease; E43 Unspecified severe protein-calorie malnutrition; J69.0 Pneumonitis due to inhalation of food and vomit; I50.32 Chronic diastolic (congestive) heart failure; I13.2 Hypertensive heart and chronic kidney disease with heart failure and with stage 5 chronic kidney disease, or end stage renal disease; D68.59 Other primary thrombophilia; L97.419 Non-pressure chronic ulcer of right heel and midfoot with unspecified severity; L97.429 Non-pressure chronic ulcer of left heel and midfoot with unspecified severity; I48.20 Chronic atrial fibrillation, unspecified; J44.0 Chronic obstructive pulmonary disease with (acute) lower respiratory infection; M48.54XA Collapsed vertebra, not elsewhere classified, thoracic region, initial encounter for fracture; G40.909 Epilepsy, unspecified, not intractable, without status epilepticus; Z20.822 Contact with and (suspected) exposure to COVID-19; E11.22 Type 2 diabetes mellitus with diabetic chronic kidney disease; Z86.16 Personal history of COVID-19; D63.8 Anemia in other chronic diseases classified elsewhere; E03.9 Hypothyroidism, unspecified; E11.42 Type 2 diabetes mellitus with diabetic polyneuropathy; E11.51 Type 2 diabetes mellitus with diabetic peripheral angiopathy without gangrene; E11.621 Type 2 diabetes mellitus with foot ulcer; Z68.30 Body mass index [BMI] 30.0-30.9, adult; E78.5 Hyperlipidemia, unspecified; F95.2 Tourette's disorder; F90.9 Attention-deficit hyperactivity disorder, unspecified type; G25.0 Essential tremor; F32.9 Major depressive disorder, single episode, unspecified; G89.4 Chronic pain syndrome; H40.9 Unspecified glaucoma; I25.10 Atherosclerotic heart disease of native coronary artery without angina pectoris; Z99.2 Dependence on renal dialysis; Z95.5 Presence of coronary angioplasty implant and graft; Z99.3 Dependence on wheelchair; I70.8 Atherosclerosis of other arteries; K21.9 Gastro-esophageal reflux disease without esophagitis; K59.00 Constipation, unspecified; K80.20 Calculus of gallbladder without cholecystitis without obstruction; M19.90 Unspecified osteoarthritis, unspecified site; M54.10 Radiculopathy, site unspecified; N40.0 Benign prostatic hyperplasia without lower urinary tract symptoms; R13.10 Dysphagia, unspecified; S92.309D Fracture of unspecified metatarsal bone(s), unspecified foot, subsequent encounter for fracture with routine healing; X58.XXXD Exposure to other specified factors, subsequent encounter; Z79.01 Long term (current) use of anticoagulants; Z79.4 Long term (current) use of insulin; Z79.890 Hormone replacement therapy; Z79.891 Long term (current) use of opiate analgesic; Z86.14 Personal history of Methicillin resistant Staphylococcus aureus infection; Z87.01 Personal history of pneumonia (recurrent); Z89.512 Acquired absence of left leg below knee; L21.9 Seborrheic dermatitis, unspecified; E66.01 Morbid (severe) obesity due to excess calories; Z87.440 Personal history of urinary (tract) infections; R25.3 Fasciculation; Z88.8 Allergy status to other drugs, medicaments and biological substances; Z91.011 Allergy to milk products; Z88.5 Allergy status to narcotic agent; Z91.013 Allergy to seafood
CPT/HCPCS: 36415; 70030-TC; 71045; 80164; 83550; 83605; 83735; 84100; 84443; 85025; 86803; 87040; 87806; 90937; 93005; A4663; A6209; G0378; J1170; J1815; J1940; J2405; J2543; J3370; J3490; J7030; J7040; J7050; J7060; P9047; Q0163; Q9967; U0003

== ENCOUNTER 2021-05-25 22:29 | Emergency (ER) | payer MEDICARE, OTHER ==
[~2021-05-25] VITALS: Ht 182.9 cm; Wt 100.3 kg
[~2021-05-25 22:29] MED LIST changes: -ALBU2.5V13 NEB; +APIX2.5T PO; +BISA-79 PO; -CALC300T4 PO; +CLON0.1T PO; +DOCU100C36 PO; -FERR325T28 PO; -FLUO10CA29 PO; +INSU100V7 SQ; -LACT1CAP69 PO; +LACT1CAP7 PO; +METH-815 PO; -METH5TAB2 PO; +METO-356 PO; -METO-357 PO; +PIPE2.257 IV; +RXVAN XX; -TRIA80OI TP
--- NOTE | 2021-05-25 22:40 | NUR ---
[facility] bib to room 2A, pt hooked up to monitor, EKG NSR, VSS, PE WNL except for LT BKA and moderate complaint of abd pain 8/10 and Rt sided burning sensation.
--- NOTE | 2021-05-25 22:55 | NUR ---
EDMD at pt bedside for assessment and examination.
[2021-05-25] MEDS ORDERED: METO-358 PO (23:01)
[2021-05-25] MEDS ORDERED: NYST15CR TP (23:01)
[2021-05-25] MEDS ORDERED: ONDANSETRON 4 MG/2 ML VIAL IV ONE (23:15)
[2021-05-25] MEDS ORDERED: HYDROMORPHONE 1 MG/1 ML DISP.SYRIN IV ONE (23:15)
[2021-05-25 23:29] LABS: HEMATOCRIT 31.7 % (36.7-47.1); MEAN CORPUSCULAR HEMOGLOBIN 33.7 uug (23.8-33.4); MEAN CORPUSCULAR VOLUME 101.5 fL (73.0-96.2); PLATELET COUNT (AUTO) 181 K/uL (152-348)
[2021-05-25 23:32] LABS: CREATININE 5.8 mg/dL (0.6-1.3)
[2021-05-25 23:38] LABS: BILIRUBIN,DIRECT 0.1 mg/dL (0.0-0.2); BILIRUBIN,TOTAL 0.3 mg/dL (0.2-1.0); TOTAL PROTEIN, SERUM 7.9 g/dL (6.4-8.2)
[2021-05-26] MEDS ORDERED: HYDROMORPHONE 2 MG/1 ML DISP.SYRIN ONE (00:10)
[2021-05-26] MEDS ORDERED: ONDANSETRON 4 MG/2 ML VIAL ONE (00:11)
[2021-05-26] MEDS ORDERED: OXYC-128 PO (01:49)
--- NOTE | 2021-05-26 02:43 | NUR ---
DC home per EDMD. ambulance company [email or web address] called for transport back to [facility]. ETA of 1 hr given. booked ride and confirmed. Pt informed and waiting patiently for ride back to facility.
--- NOTE | 2021-05-26 02:48 | NUR ---
Pt has good color and appearance, oxygenating and perfusing well. VSS, PE WNL, strong and reg pulses x4ext, strong and equal plant and instrument engineer strength bilat. Lungs clear bilat. Pt good to go back to facility as soon as ambulance arrives.
--- NOTE | 2021-05-26 04:31 | NUR ---
Pt DCed back to facility ([facility]) via ambulance. Pt acknowledged understanding of aftercare instruction. Pt AAOx4 with good color and appearance, VSS, PE WNL, complaints of moderate pain without any symptoms of pain. DC instructions signed by pt. No s/sx of pain, discomfort, or distress of any kind.
[2021-05-26 04:36] VITALS: BP 138/60
== END 2021-05-26 04:30 ==
LOC: ER 22:30
DX: G89.4 Chronic pain syndrome (principal); E11.22 Type 2 diabetes mellitus with diabetic chronic kidney disease; N18.6 End stage renal disease; Z99.2 Dependence on renal dialysis; Z79.4 Long term (current) use of insulin; E11.42 Type 2 diabetes mellitus with diabetic polyneuropathy; Z89.512 Acquired absence of left leg below knee; G40.909 Epilepsy, unspecified, not intractable, without status epilepticus; K80.20 Calculus of gallbladder without cholecystitis without obstruction; I25.10 Atherosclerotic heart disease of native coronary artery without angina pectoris; I50.32 Chronic diastolic (congestive) heart failure; Z79.01 Long term (current) use of anticoagulants; E03.9 Hypothyroidism, unspecified; Z79.890 Hormone replacement therapy; D64.9 Anemia, unspecified; R94.31 Abnormal electrocardiogram [ECG] [EKG]
CPT/HCPCS: 36415; 74176; 80048; 80076; 85025; 93005; 96374; 96375; 99285; J1170; J2405

== ENCOUNTER 2021-07-07 11:10 | Inpatient (IN) | payer MEDICARE, OTHER ==
[~2021-07-07] VITALS: Ht 182.9 cm; Wt 98.0 kg
[~2021-07-07 11:10] MED LIST changes: -DOCU100C36 PO; -METO-356 PO; +METO-358 PO; +NYST15CR TP; +OXYC-128 PO; -PIPE2.257 IV; -RXVAN XX
--- NOTE | 2021-07-07 11:52 | NUR ---
GIA LAFLydia. PATIENT IS AWAKE AND ALERT. HE IS ANSWERING QUESTIONS WELL BUT SPEECH IS SLOW.
[2021-07-07] MEDS ORDERED: IV NORMAL SALINE 500 ML BAG IV ONE (12:15)
--- NOTE | 2021-07-07 13:04 | NUR ---
COVID ANTIGEN SWAB SENT TO LAB
--- NOTE | 2021-07-07 13:06 | NUR ---
PATIENT STAQTES HE IS UNABLE TO MAKE URINE (ON DIALYSIS)
[2021-07-07] MEDS ORDERED: INSULIN GLARGINE SQ (13:30)
[2021-07-07] MEDS ORDERED: AMIN1CAP5 PO (13:30)
[2021-07-07] MEDS ORDERED: MORP15TA PO (13:30)
[2021-07-07 13:40] LABS: HEMATOCRIT 26.1 % (36.7-47.1); MEAN CORPUSCULAR HEMOGLOBIN 34.4 uug (23.8-33.4); PLATELET COUNT (AUTO) 240 K/uL (152-348)
[2021-07-07 13:48] LABS: ALANINE AMINOTRANSFERASE 12 U/L (16-63); ALKALINE PHOSPHATASE 51 U/L (50-136); ASPARTATE AMINOTRANSFERASE 20 U/L (15-37); BILIRUBIN,DIRECT 0.2 mg/dL (0.0-0.2); BILIRUBIN,TOTAL 0.4 mg/dL (0.2-1.0); CARBON DIOXIDE 26 mmol/L (21-32); CHLORIDE 97 mmol/L (98-107); GLUCOSE 83 mg/dL (74-106); TOTAL PROTEIN, SERUM 7.4 g/dL (6.4-8.2); UREA NITROGEN, BLOOD 61 mg/dL (7-18)
[2021-07-07 13:52] LABS: ETHANOL < 3 MG/DL (0-0)
[2021-07-07 13:58] LABS: CREATININE 9.2 mg/dL (0.6-1.3)
[2021-07-07] MEDS ORDERED: POTASSIUM CHLORIDE 20 MEQ TAB.PRT.SR PO ONE (15:15)
[2021-07-07] MEDS ORDERED: POTASSIUM CHLORIDE 20 MEQ TAB.PRT.SR ONE (15:40)
[2021-07-07] MEDS ORDERED: ACETAMINOPHEN 325 MG TABLET PO PRN (15:45)
[2021-07-07] MEDS ORDERED: DEXTROSE 50% 50 ML DISP.SYRIN IV PRN (15:45)
[2021-07-07] MEDS ORDERED: CLONIDINE HCL 0.1 MG TABLET PO PRN (15:45)
[2021-07-07] MEDS ORDERED: Z GUARD REMEDY PASTE 57 GM TUBE TOP PRN (15:45)
[2021-07-07] MEDS ORDERED: BISACODYL 5 MG TABLET.DR PO PRN (15:45)
[2021-07-07] MEDS ORDERED: ONDANSETRON HCL 4 MG TABLET PO PRN (15:45)
[2021-07-07] MEDS ORDERED: INSULIN REGULAR, HUMAN 300 UNITS/3 ML VIAL SQ PRN (15:45)
[2021-07-07] MEDS ORDERED: MAGNESIUM HYDROXIDE 30 ML LIQUID UDC PO PRN (15:45)
[2021-07-07 16:17] LABS: EOSINOPHILS % (MANUAL) 1 % (0-8); LYMPHOCYTES % (MANUAL) 15 % (20-40); MONOCYTES % (MANUAL) 14 % (2-10); NEUTROPHILS % (MANUAL) 70 % (42-75)
--- NOTE | 2021-07-07 17:05 | NUR ---
patient had some runny stool in his diaper. We washed it and changed him
[2021-07-07] MEDS: MIDODRINE HCL 5 MG TABLET PO SCH ×2 (17:30→22:07)
[2021-07-07] MEDS: BLOOD SUGAR DIAGNOSTIC 1 EACH STRIP VI SCH ×2 (17:43→17:45)
--- NOTE | 2021-07-07 17:48 | NUR ---
accucheck was 35, we repeated it and it was 31. notified dr townsend and then gave him 1 amp d50 per MD. Will recheck soon. patient is sleepy but arouses easy
[2021-07-07] MEDS ORDERED: DEXTROSE 50% 50 ML DISP.SYRIN ONE (17:53)
[2021-07-07] MEDS ORDERED: DEXTROSE 50% 50 ML DISP.SYRIN IV ONE (18:00)
--- NOTE | 2021-07-07 18:05 | NUR ---
blood sugar recheck is at 97. pt responds to verbal opens eyes and then goes back to sleep.
[2021-07-07] MEDS ORDERED: IV D5/ 0.9% NACL 1,000 ML IV ONE (19:00)
[2021-07-07] MEDS: GLIMEPIRIDE 4 MG TABLET PO SCH (20:00)
--- NOTE | 2021-07-07 20:00 | NUR ---
AMARYL 4 MG HELD PER DANIEL CRISTINA'S ORDERS DUE TO BLOOD GLUCOSE LEVEL OF 97.
[2021-07-07] MEDS: CEFTRIAXONE 1 G in IV DEXTROSE 5% 50 ML IV SCH (20:08)
[2021-07-07] MEDS ORDERED: CEFTRIAXONE /D5W 50ML IVPB **ER PYXIS IV ONE (20:14)
[2021-07-07] MEDS: DOCUSATE SODIUM 100 MG CAPSULE PO SCH (21:00)
[2021-07-07] MEDS ORDERED: Medication Not On Formulary EA (Vit B Cmplx 3/Fa/Vit C/Biotin (Rena-Vite Rx Tablet) 1 EA PO SCH (21:00)
--- NOTE | 2021-07-07 21:00 | NUR ---
GAVE REPORT TO JAKY MARLEY.
--- NOTE | 2021-07-07 21:15 | NUR ---
Admitted a 66 years old male with Dx of Fluid Overload and ESRD. Patient AAOx3 at time of admission. Falls asleep abruptly but arousable to verbal stimuli. In no apparent distress. Complain of abdominal pain. Will provide pain medication per order. IV site on left AC intact and patent. Sinus jazlyn on tele with HR of 58/min. AV fistula on left upper arm. Routine admission care done. Plan of care initiated. Safety measure initiated and call cortez within reached.
[2021-07-07] MEDS: GABAPENTIN 100 MG CAPSULE PO SCH (22:03)
[2021-07-07] MEDS: HYDROMORPHONE 1 MG/1 ML DISP.SYRIN IV PRN (22:03)
[2021-07-07] MEDS: MONTELUKAST SODIUM 10 MG TABLET PO SCH (22:04)
[2021-07-07] MEDS: DIVALPROEX 500 MG TABLET.DR PO SCH (22:04)
[2021-07-07] MEDS: PRIMIDONE 50 MG TABLET PO SCH (22:05)
--- NOTE | 2021-07-07 22:05 | NUR ---
Patient getting hemodialysis at bedside.
[2021-07-07 22:07] VITALS: BP 106/44
[2021-07-07] MEDS: APIXABAN 2.5 MG TABLET PO SCH (22:07)
[2021-07-08 00:06] VITALS: BP 118/56
--- NOTE | 2021-07-08 01:09 | NUR ---
Hemodialysis completed. 3L out per dialysis nurse.
[2021-07-08 04:30] VITALS: BP 104/43
[2021-07-08] MEDS: HYDROMORPHONE 1 MG/1 ML DISP.SYRIN IV PRN ×3 (04:33→23:32)
[2021-07-08 05:54] LABS: *AMPHETAMINE, URINE NEGATIVE (NEGATIVE); *CANNABINOID, URINE NEGATIVE (NEGATIVE); *COCCAINE, URINE NEGATIVE (NEGATIVE); *OPIATE, URINE POSITIVE (NEGATIVE); *PHENCYCLIDINE SCREEN,URINE NEGATIVE (NEGATIVE)
[2021-07-08] MEDS: LEVOTHYROXINE SODIUM 100 MCG TABLET PO SCH (06:03)
--- NOTE | 2021-07-08 06:14 | NUR ---
Patient remains AAOx3 with periods of confusion. Dosing off and on. Arouse to verbal stimuli. Dilaudid 1mg IV given for complain of abdominal pain and effective. NSR on tele with HR of 86/min. IV site on right AC intact and patent. Needs attended to and met. Safety measure maintained and call cortez within reached.
[2021-07-08] MEDS: BLOOD SUGAR DIAGNOSTIC 1 EACH STRIP VI SCH ×4 (06:30→20:39)
[2021-07-08 07:38] LABS: CREATININE 6.3 mg/dL (0.6-1.3); PHOSPHOROUS 3.4 mg/dL (2.5-4.9); POTASSIUM 3.3 mmol/L (3.5-5.1)
[2021-07-08] MEDS: INSULIN REGULAR, HUMAN 300 UNIT/3 ML VIAL SQ PRN (08:01)
[2021-07-08] MEDS: CULTURELLE CAPSULE PO SCH (08:41)
[2021-07-08] MEDS: PANTOPRAZOLE SODIUM 40 MG TABLET.DR PO SCH (08:43)
[2021-07-08] MEDS: DIVALPROEX 500 MG TABLET.DR PO SCH ×2 (08:43→20:31)
[2021-07-08] MEDS: APIXABAN 2.5 MG TABLET PO SCH ×2 (08:43→17:54)
[2021-07-08] MEDS: VITAMIN B COMPLEX 1 TABLET PO SCH (08:46)
[2021-07-08] MEDS: GLIMEPIRIDE 4 MG TABLET PO SCH ×2 (08:46→17:54)
[2021-07-08] MEDS ORDERED: Medication Not On Formulary EA (Lactobacillus Acidophilus/Pect (Acidophilus-Pectin Capsu PO SCH (09:00)
[2021-07-08] MEDS: METOPROLOL SUCCINATE XL 50 MG TAB.SR.24H PO SCH (09:00)
[2021-07-08] MEDS: MIDODRINE HCL 5 MG TABLET PO SCH ×2 (09:00→20:32)
[2021-07-08 11:48] VITALS: BP 105/49
[2021-07-08] MEDS ORDERED: POTASSIUM CHLORIDE 20 MEQ TAB.PRT.SR PO ONE (14:45)
[2021-07-08 15:28] LABS: HEMATOCRIT 25.7 % (36.7-47.1); MEAN CORPUSCULAR HEMOGLOBIN 33.9 uug (23.8-33.4); MEAN CORPUSCULAR VOLUME 103.9 fL (73.0-96.2); PLATELET COUNT (AUTO) 228 K/uL (152-348)
[2021-07-08 16:01] VITALS: BP 104/56
[2021-07-08] MEDS: CEFTRIAXONE 1 G in IV DEXTROSE 5% 50 ML IV SCH (19:02)
[2021-07-08 20:13] VITALS: BP 126/55
[2021-07-08] MEDS: GABAPENTIN 100 MG CAPSULE PO SCH (20:31)
[2021-07-08] MEDS: MONTELUKAST SODIUM 10 MG TABLET PO SCH (20:31)
[2021-07-08] MEDS: PRIMIDONE 50 MG TABLET PO SCH (20:31)
[2021-07-08] MEDS: DOCUSATE SODIUM 100 MG CAPSULE PO SCH (20:46)
[2021-07-09 00:07] VITALS: BP 115/60
[2021-07-09 04:10] VITALS: BP 120/70
[2021-07-09] MEDS: BLOOD SUGAR DIAGNOSTIC 1 EACH STRIP VI SCH ×5 (06:17→20:33)
[2021-07-09] MEDS: LEVOTHYROXINE SODIUM 100 MCG TABLET PO SCH (06:23)
[2021-07-09] MEDS: HYDROMORPHONE 1 MG/1 ML DISP.SYRIN IV PRN ×4 (06:27→23:29)
--- NOTE | 2021-07-09 06:51 | NUR ---
Pt rested well in between care; hypoglycemic this am at 54; D50 given then rechecked and now in the 120s; AM care done; MD to be informed; continue to monitor;
[2021-07-09 07:13] LABS: CREATININE 6.7 mg/dL (0.6-1.3); HEMATOCRIT 27.1 % (36.7-47.1); MEAN CORPUSCULAR HEMOGLOBIN 33.8 uug (23.8-33.4); MEAN CORPUSCULAR VOLUME 103.3 fL (73.0-96.2); PLATELET COUNT (AUTO) 245 K/uL (152-348)
[2021-07-09 08:06] LABS: HEPATITIS B SURFACE AG Negative (Negative)
[2021-07-09] MEDS: MIDODRINE HCL 5 MG TABLET PO SCH ×2 (09:00→20:19)
[2021-07-09] MEDS: METOPROLOL SUCCINATE XL 50 MG TAB.SR.24H PO SCH (09:00)
--- NOTE | 2021-07-09 09:58 | NUR ---
WOUND CARE CONSULT: PT PRESENTS WITH SCARRING TO RT HEEL, DRY WOUNDS TO RT FOOT, SACRAL SCARRING AND SCARRING TO RT BUTTOCK WITH INCONTINENCE ASSOCIATED SKIN DAMAGE OVER SCARRING, ALL PRESENT ON ADMISSION. DPM CONSULT CALLED TO DR SAINI. RECOMMENDATIONS MADE FOR SKIN PROTECTION. DISCUSSED WITH NURSING STAFF. MD IN AGREEMENT WITH PLAN OF CARE.
[2021-07-09] MEDS: CULTURELLE CAPSULE PO SCH (10:19)
[2021-07-09] MEDS: PANTOPRAZOLE SODIUM 40 MG TABLET.DR PO SCH (10:20)
[2021-07-09] MEDS: DIVALPROEX 500 MG TABLET.DR PO SCH ×2 (10:20→20:18)
[2021-07-09] MEDS: APIXABAN 2.5 MG TABLET PO SCH ×2 (10:20→17:14)
[2021-07-09] MEDS: GLIMEPIRIDE 4 MG TABLET PO SCH ×2 (10:32→17:10)
[2021-07-09] MEDS: VITAMIN B COMPLEX 1 TABLET PO SCH (10:32)
[2021-07-09] MEDS ORDERED: POTASSIUM CHLORIDE 20 MEQ TAB.PRT.SR PO ONE (11:00)
[2021-07-09 11:15] VITALS: BP 103/42
[2021-07-09 15:39] VITALS: BP 117/42
[2021-07-09] MEDS: INSULIN REGULAR, HUMAN 300 UNIT/3 ML VIAL SQ PRN (17:34)
--- NOTE | 2021-07-09 18:16 | NUR ---
Pt is a/o x 3-4, has been intermittently sleeping throughout day. Pt is on room air, bed bound, no longer on tele. Pt had dialysis today from 4623-4693 with 2L removed, tolerated dialysis well. Pt takes medications orally, has a 1.2 L fluid restriction. Currently is not complaining of pain, comfort measures provided, call light within reach. Will endorse pt to slot shift supervisor.
[2021-07-09] MEDS: CEFTRIAXONE 1 G in IV DEXTROSE 5% 50 ML IV SCH (19:31)
[2021-07-09] MEDS: PRIMIDONE 50 MG TABLET PO SCH (20:18)
[2021-07-09] MEDS: MONTELUKAST SODIUM 10 MG TABLET PO SCH (20:18)
[2021-07-09] MEDS: GABAPENTIN 100 MG CAPSULE PO SCH (20:18)
[2021-07-09] MEDS: DOCUSATE SODIUM 100 MG CAPSULE PO SCH (20:18)
[2021-07-09 20:30] VITALS: BP 140/41
--- NOTE | 2021-07-10 02:28 | NUR ---
Received pt awake on bed with no respiratory distress noted, on room air. He is alert and oriented x3-4, able to make needs known. IV on RAC remains patent and intact. Medicated pain x1, noted effective. Due medications given and Accucheck done, BS 157 with insulin sliding scale. All needs attended. Call light placed within reach. Will continue to monitor.
[2021-07-10 04:17] VITALS: BP 135/52
[2021-07-10] MEDS: LEVOTHYROXINE SODIUM 100 MCG TABLET PO SCH (06:10)
[2021-07-10] MEDS: BLOOD SUGAR DIAGNOSTIC 1 EACH STRIP VI SCH ×3 (06:40→17:16)
--- NOTE | 2021-07-10 06:58 | NUR ---
Pt slept throughout the night, easily arousable for care. Due medications given and accucheck done, BS 71. [place] Juice given. Pt is alert and oriented x3-4, able to make needs known. Will endorse to next shift for continuity of care.
[2021-07-10 08:43] LABS: CREATININE 5.4 mg/dL (0.6-1.3); POTASSIUM 3.3 mmol/L (3.5-5.1)
[2021-07-10] MEDS: MIDODRINE HCL 5 MG TABLET PO SCH (09:00)
[2021-07-10] MEDS: DIVALPROEX 500 MG TABLET.DR PO SCH (09:56)
[2021-07-10] MEDS: CULTURELLE CAPSULE PO SCH (09:56)
[2021-07-10] MEDS: PANTOPRAZOLE SODIUM 40 MG TABLET.DR PO SCH (09:56)
[2021-07-10] MEDS: METOPROLOL SUCCINATE XL 50 MG TAB.SR.24H PO SCH (09:57)
[2021-07-10] MEDS: HYDROMORPHONE 1 MG/1 ML DISP.SYRIN IV PRN (10:00)
[2021-07-10] MEDS: APIXABAN 2.5 MG TABLET PO SCH ×2 (10:00→17:20)
[2021-07-10] MEDS: VITAMIN B COMPLEX 1 TABLET PO SCH (10:02)
[2021-07-10] MEDS: GLIMEPIRIDE 4 MG TABLET PO SCH ×2 (10:02→17:20)
[2021-07-10] MEDS ORDERED: POTASSIUM CHLORIDE 20 MEQ TAB.PRT.SR PO ONE (10:15)
[2021-07-10] MEDS ORDERED: METO-357 PO (10:35)
[2021-07-10] MEDS ORDERED: LACT1CAP57 PO (10:35)
[2021-07-10] MEDS ORDERED: MIDO5TAB4 PO (10:35)
[2021-07-10 11:39] VITALS: BP 135/64
[2021-07-10] MEDS: INSULIN REGULAR, HUMAN 300 UNIT/3 ML VIAL SQ PRN ×2 (12:13→17:19)
[2021-07-10 15:15] VITALS: BP 120/49
--- NOTE | 2021-07-10 17:58 | NUR ---
Pt is being discharged back to [facility]. Called and gave report to Nicki (RN at [place]). Pt was picked up at 1710 and transferred via ambulance. Pt is a/o x 3. 1700 medications given to pt, blood glucose coverage also given. Pt does not complain of any pain or discomfort at this time. Wound pictures taken and placed in chart, discharge information given to pt, verbalized understanding. All personal belongings and educational materials were sent with pt.
[2021-07-10] MEDS ORDERED: MUPIROCIN 2% OINT 22 GM TUBE NS SCH (21:00)
== END 2021-07-10 17:30 | DRG 291 ==
LOC: ER 11:10 → OBSER 17:43 → TRANSITION 18:11 → TELE3 20:24 → MEDSURG3 07-09 08:32
PROVIDERS: ADMIT Nurse Practitioner Acute Care; ATTEND Nurse Practitioner Acute Care
PROC: 5A1D70Z Performance of Urinary Filtration, Intermittent, Less than 6 Hours Per Day (ICD-10-PCS; principal; 2021-07-07)
DX: I13.2 Hypertensive heart and chronic kidney disease with heart failure and with stage 5 chronic kidney disease, or end stage renal disease (principal); I50.33 Acute on chronic diastolic (congestive) heart failure; G93.41 Metabolic encephalopathy; N18.6 End stage renal disease; J15.6 Pneumonia due to other Gram-negative bacteria; D68.59 Other primary thrombophilia; E44.0 Moderate protein-calorie malnutrition; L97.419 Non-pressure chronic ulcer of right heel and midfoot with unspecified severity; K56.7 Ileus, unspecified; E11.22 Type 2 diabetes mellitus with diabetic chronic kidney disease; Z99.2 Dependence on renal dialysis; Z79.4 Long term (current) use of insulin; E11.51 Type 2 diabetes mellitus with diabetic peripheral angiopathy without gangrene; G89.4 Chronic pain syndrome; G40.909 Epilepsy, unspecified, not intractable, without status epilepticus; D63.8 Anemia in other chronic diseases classified elsewhere; E03.9 Hypothyroidism, unspecified; E11.40 Type 2 diabetes mellitus with diabetic neuropathy, unspecified; E88.09 Other disorders of plasma-protein metabolism, not elsewhere classified; E11.649 Type 2 diabetes mellitus with hypoglycemia without coma; E11.621 Type 2 diabetes mellitus with foot ulcer; E78.5 Hyperlipidemia, unspecified; K80.20 Calculus of gallbladder without cholecystitis without obstruction; Z79.01 Long term (current) use of anticoagulants; Z86.16 Personal history of COVID-19; Z89.512 Acquired absence of left leg below knee; Z98.61 Coronary angioplasty status; I25.10 Atherosclerotic heart disease of native coronary artery without angina pectoris; R07.89 Other chest pain; K52.9 Noninfective gastroenteritis and colitis, unspecified; I48.0 Paroxysmal atrial fibrillation; L97.519 Non-pressure chronic ulcer of other part of right foot with unspecified severity; Z22.322 Carrier or suspected carrier of Methicillin resistant Staphylococcus aureus; Z68.29 Body mass index [BMI] 29.0-29.9, adult; Z79.890 Hormone replacement therapy; Z20.822 Contact with and (suspected) exposure to COVID-19
CPT/HCPCS: 36415; 70030-TC; 71045; 83605; 83735; 84100; 85025; 86706; 87040; 87046; 87340; 90937; 93005; A4663; A6209; G0378; G0480; J0696; J1170; J3490; J7030; J7040; J7042; J7060

== ENCOUNTER 2022-02-03 00:31 | Inpatient (IN) | payer MEDICARE, OTHER ==
[~2022-02-03] VITALS: Ht 182.9 cm; Wt 104.3 kg
[~2022-02-03 00:31] MED LIST changes: +AMIN1CAP5 PO; -INSU100V7 SQ; +INSULIN GLARGINE SQ; +LACT1CAP57 PO; -METH-815 PO; +METO-357 PO; +MIDO5TAB4 PO; +MORP15TA PO; -NYST15CR TP; -OXYC-128 PO
[2022-02-03 00:56] LABS: HEMATOCRIT 23.8 % (36.7-47.1); MEAN CORPUSCULAR HEMOGLOBIN 34.4 uug (23.8-33.4); MEAN CORPUSCULAR VOLUME 102.1 fL (73.0-96.2); PLATELET COUNT (AUTO) 120 K/uL (152-348)
[2022-02-03 01:03] LABS: CARBON DIOXIDE 32 mmol/L (21-32); CHLORIDE 95 mmol/L (98-107); CREATININE 5.9 mg/dL (0.6-1.3); GLUCOSE 266 mg/dL (74-106); POTASSIUM 5.2 mmol/L (3.5-5.1); UREA NITROGEN, BLOOD 60 mg/dL (7-18)
[2022-02-03] MEDS ORDERED: HYDROMORPHONE 1 MG/1 ML DISP.SYRIN IV ONE (01:45)
[2022-02-03] MEDS ORDERED: VANCOMYCIN 1G/D5W 200 ML PIGGYBACK IV ONE (01:45)
[2022-02-03] MEDS ORDERED: PIPERACILLIN SODIUM/TAZOBACTAM 3.375 G in IV DEXTROSE 5% 50 ML IV ONE (01:45)
[2022-02-03] MEDS ORDERED: AZITHROMYCIN 250 MG TABLET PO ONE (01:45)
[2022-02-03 02:12] LABS: BILIRUBIN,DIRECT 0.1 mg/dL (0.0-0.2); BILIRUBIN,TOTAL 0.3 mg/dL (0.2-1.0)
[2022-02-03] MEDS ORDERED: VANCOMYCIN IV 200 ML ONE (03:09)
[2022-02-03] MEDS ORDERED: AZITHROMYCIN 250 MG TABLET ONE (03:09)
[2022-02-03] MEDS ORDERED: PIPERACILLIN/TAZOBACTAM/D5W 50 ML IV ONE (03:09)
[2022-02-03] MEDS ORDERED: HYDROMORPHONE 1 MG/1 ML DISP.SYRIN ONE (03:10)
--- NOTE | 2022-02-03 03:21 | NUR ---
Called [facility] for panel call.
--- NOTE | 2022-02-03 03:42 | NUR ---
Called [facility] for 2nd panel call
[2022-02-03] MEDS ORDERED: MAGNESIUM HYDROXIDE 30 ML LIQUID UDC PO PRN (04:15)
[2022-02-03] MEDS ORDERED: ONDANSETRON 4 MG/2 ML VIAL IV PRN (04:15)
[2022-02-03] MEDS ORDERED: REMEDY ESSENTIAL ZINC PASTE 113 GM TP PRN (04:15)
[2022-02-03] MEDS ORDERED: ACETAMINOPHEN 325 MG TABLET PO PRN (04:15)
[2022-02-03] MEDS ORDERED: PIPERACILLIN SODIUM/TAZOBACTAM 3.375 G in IV DEXTROSE 5% 50 ML IV SCH (06:00)
--- NOTE | 2022-02-03 06:16 | NUR ---
Dr Sal inserted external jugular line on the left neck. pt tolerated well.
[2022-02-03] MEDS ORDERED: SODIUM POLYSTYRENE SULFONATE 15 G/60 ML LIQUID UDC PO ONE (06:30)
--- NOTE | 2022-02-03 07:40 | NUR ---
PATIENT IS AWAKE AND ALERT WITH NO COMPLAINTS. HE ASKED FOR WATER WHICH I GAVE HIM. AWAITING FOR BED PLACEMENT ON TELE FLOOR. VSS
[2022-02-03] MEDS: PANTOPRAZOLE SODIUM 40 MG TABLET.DR PO SCH (08:30)
[2022-02-03] MEDS ORDERED: PANTOPRAZOLE SODIUM 40 MG TABLET.DR PO ONE (08:34)
[2022-02-03] MEDS ORDERED: SODIUM POLYSTYRENE SULFONATE 15 G/60 ML LIQUID UDC ONE (08:34)
--- NOTE | 2022-02-03 08:54 | NUR ---
Patient is requesting for neck IV to be removed because "it is really hurting me and I dont want it". I placed a new IV in his right fellow.
--- NOTE | 2022-02-03 09:03 | NUR ---
JUGULAR IV REMOVED, CATHETER TIP INTACT, PRESSURE APPLIED, STERILE DRESSING APPLIED. PATIENT AWARE OF PENDING ADMISSION TO HOSPITAL. REPORT GIVEN TO NOAH
[2022-02-03] MEDS ORDERED: HEPARIN SODIUM,PORCINE 5,000 UNITS/ML VIAL ONE (09:20)
[2022-02-03] MEDS: HEPARIN SODIUM,PORCINE 5,000 UNITS/ML VIAL SQ SCH ×2 (09:21→21:17)
[2022-02-03] MEDS: ASPIRIN 81 MG TAB.CHEW PO SCH (09:26)
[2022-02-03 12:00] VITALS: BP 109/55
--- NOTE | 2022-02-03 12:16 | NUR ---
Received patient report from Elena STARKEY. Patient originally assigned to her, but taken from her due to Telemetry status. Patient admitted into unit. Asking to take pictures at a later time. Will attempt to take pictures again later during shift.
[2022-02-03] MEDS ORDERED: PIPERACILLIN/TAZO 2.25 G in IV DEXTROSE 5% 50 ML IV SCH (14:00)
[2022-02-03] MEDS: KETOCONAZOLE 2% CREAM 30 GM TUBE TP SCH (14:28)
[2022-02-03] MEDS: HYDROMORPHONE 1 MG/1 ML DISP.SYRIN IV PRN ×2 (14:29→19:53)
[2022-02-03 16:00] VITALS: BP 105/46
--- NOTE | 2022-02-03 18:39 | NUR ---
Patient tolerated care well throughout shift. Pain managed with pharmacological means. Patient seen by LATHA Ames. Fungal infection noted on patients perineum, and rectal area. Ointment administered and left at patient's bedside. IV site patent and intact. Patient no longer to receive antibiotics IV according to LATHA Ames. Bed left in lowest position with call light within reach. Admission process complete. Will endorse information to PM nurse.
--- NOTE | 2022-02-03 19:45 | NUR ---
Informed hospitalist to reconcile home meds.
[2022-02-03 20:00] VITALS: BP 118/54
[2022-02-03] MEDS: MELATONIN 3 MG TABLET PO SCH (23:14)
[2022-02-04] VITALS: BP 111/56
[2022-02-04] MEDS: HYDROMORPHONE 1 MG/1 ML DISP.SYRIN IV PRN ×4 (01:26→20:54)
[2022-02-04 04:00] VITALS: BP 117/60
[2022-02-04 05:57] LABS: HEMATOCRIT 23.6 % (36.7-47.1); MEAN CORPUSCULAR HEMOGLOBIN 34.3 uug (23.8-33.4); MEAN CORPUSCULAR VOLUME 101.9 fL (73.0-96.2); PLATELET COUNT (AUTO) 104 K/uL (152-348)
[2022-02-04 06:30] LABS: CREATININE 6.2 mg/dL (0.6-1.3); MAGNESIUM 2.3 mg/dL (1.8-2.4); PHOSPHOROUS 4.9 mg/dL (2.5-4.9); POTASSIUM 4.8 mmol/L (3.5-5.1)
[2022-02-04] MEDS: PANTOPRAZOLE SODIUM 40 MG TABLET.DR PO SCH (06:50)
--- NOTE | 2022-02-04 06:50 | NUR ---
ppo meds not given; pt is for HD
[2022-02-04 07:21] LABS: THYROID STIMULATING HORMONE 8.998 mIU/mL (0.358-3.740)
[2022-02-04] MEDS: ASPIRIN 81 MG TAB.CHEW PO SCH (08:33)
[2022-02-04] MEDS: ISOSORBIDE MONONITRATE 30 MG TAB.SR.24H PO SCH (08:37)
[2022-02-04] MEDS: METOPROLOL SUCCINATE XL 25 MG TAB.SR.24H PO SCH (08:38)
[2022-02-04] MEDS: HEPARIN SODIUM,PORCINE 5,000 UNITS/ML VIAL SQ SCH ×2 (08:40→21:07)
[2022-02-04] MEDS: KETOCONAZOLE 2% CREAM 30 GM TUBE TP SCH (08:45)
[2022-02-04] MEDS ORDERED: VANCOMYCIN IV 500 MG in IV DEXTROSE 5% 100 ML IV PRN (10:00)
[2022-02-04 12:00] VITALS: BP 113/50
--- NOTE | 2022-02-04 15:10 | NUR ---
Patient completed dialysis, 2.5L removed, tolerated well, b/p at end of session is 119/60, patient resting comfortably.
[2022-02-04] MEDS ORDERED: TAMS-3 PO (15:40)
[2022-02-04] MEDS ORDERED: PRIM50TA27 PO (15:40)
[2022-02-04] MEDS ORDERED: ALBU2.5V13 IH (15:40)
[2022-02-04] MEDS ORDERED: OXYC10TA49 PO (15:40)
[2022-02-04] MEDS ORDERED: BACL10TA PO (15:40)
[2022-02-04] MEDS ORDERED: POLY17PO4 PO (15:40)
[2022-02-04] MEDS ORDERED: VIT1TABL46 PO (15:40)
[2022-02-04] MEDS ORDERED: SENN-261 PO (15:40)
[2022-02-04] MEDS ORDERED: ATOR40TA PO (15:40)
[2022-02-04] MEDS ORDERED: FLUT16SP NS (15:40)
[2022-02-04] MEDS ORDERED: MELA10TA PO (15:40)
[2022-02-04 16:07] VITALS: BP 117/56
--- NOTE | 2022-02-04 18:53 | NUR ---
Patient consented to ultrasound guided thoracentesis. Consent in chart.
--- NOTE | 2022-02-04 19:00 | NUR ---
Received patient on bed, no complaint of pain, not in respiratory distress, alert and oriented x4. Safety precautions provided, call light placed within reach.
[2022-02-04 20:14] VITALS: BP 103/54
[2022-02-04] MEDS: MELATONIN 3 MG TABLET PO SCH (20:52)
--- NOTE | 2022-02-04 21:00 | NUR ---
Dressing at left AV fistula removed, no bleeding noted.
--- NOTE | 2022-02-05 | NUR ---
Instructed patient on NPO for USD Guided Thoracenthesis
[2022-02-05 00:31] VITALS: BP 114/52
[2022-02-05 04:00] VITALS: BP 120/58
[2022-02-05] MEDS: PANTOPRAZOLE SODIUM 40 MG TABLET.DR PO SCH (06:13)
--- NOTE | 2022-02-05 06:39 | NUR ---
Patient slept intermittently, not in labored breathing, Pantoprazole, given with sips of water. Patient in fair condition.
[2022-02-05 07:06] LABS: HEPATITIS B SURFACE AG Negative (Negative)
--- NOTE | 2022-02-05 08:10 | NUR ---
Received patient with no complaint of pain, not in respiratory distress, alert and oriented x4. Safety precautions provided, call light placed within reach. Patient is sleeping right now
[2022-02-05] MEDS: ASPIRIN 81 MG TAB.CHEW PO SCH (09:29)
[2022-02-05] MEDS: HEPARIN SODIUM,PORCINE 5,000 UNITS/ML VIAL SQ SCH ×2 (09:33→20:28)
[2022-02-05] MEDS: METOPROLOL SUCCINATE XL 25 MG TAB.SR.24H PO SCH (09:37)
[2022-02-05] MEDS: ISOSORBIDE MONONITRATE 30 MG TAB.SR.24H PO SCH (09:39)
[2022-02-05] MEDS: KETOCONAZOLE 2% CREAM 30 GM TUBE TP SCH (09:51)
[2022-02-05] MEDS: HYDROMORPHONE 1 MG/1 ML DISP.SYRIN IV PRN ×2 (10:32→18:44)
--- NOTE | 2022-02-05 16:11 | NUR ---
patient had HD today and got 2 L removed. BP post HD 108/70. Patient tolerated well, no distress noted. Patient is resting in bed now.
--- NOTE | 2022-02-05 18:50 | NUR ---
Consent for ultrasound guided thoracenteses is signed for the procedure tomorrow. Dilauded was given at 1845. patient is sleeping now
[2022-02-05] MEDS: MELATONIN 3 MG TABLET PO SCH (20:18)
[2022-02-05 22:31] VITALS: BP 108/45
[2022-02-06] MEDS: PANTOPRAZOLE SODIUM 40 MG TABLET.DR PO SCH (06:01)
--- NOTE | 2022-02-06 06:14 | NUR ---
Patient asleep but arousable, no sob no chest pain, complain of sob, but oxygen sat 99% in room air, given 2 liters oxygen for comfort only, left upper arm av shunt dressing was removed per patient request, no bleeding noted. still voids with 400 cc of urine. cont to monitor.
[2022-02-06] MEDS: ASPIRIN 81 MG TAB.CHEW PO SCH ×2 (09:00→12:55)
[2022-02-06] MEDS: HEPARIN SODIUM,PORCINE 5,000 UNITS/ML VIAL SQ SCH ×3 (09:00→20:59)
[2022-02-06] MEDS: ISOSORBIDE MONONITRATE 30 MG TAB.SR.24H PO SCH (09:36)
[2022-02-06] MEDS: METOPROLOL SUCCINATE XL 25 MG TAB.SR.24H PO SCH (09:36)
[2022-02-06] MEDS: KETOCONAZOLE 2% CREAM 30 GM TUBE TP SCH (09:37)
--- NOTE | 2022-02-06 09:53 | NUR ---
alert and oriented x3, denies sob. iv access intact. lav shunt positive for bruit and thrill. on 4lpm nasal cannula satting 95%. comfortable watching tv. needs attended. communicated with geetha us tech re thoracentesis. per geetha, coordinating with radiologist and will let me know, okayed for pt to have breakfast. per donald cordova, hold blood thinners at this time for procedure. pt aware.
[2022-02-06] MEDS: HYDROMORPHONE 1 MG/1 ML DISP.SYRIN IV PRN ×3 (09:57→23:42)
--- NOTE | 2022-02-06 12:19 | NUR ---
geetha irizarry is on the floor and informed me radiologist is not available to do thoracentesis today, will do it tomorrow and will let me know the exact time once confirmed. patient is aware. dr delgado aware.
--- NOTE | 2022-02-06 12:48 | NUR ---
per dr. delgado, give heparin and aspirin that were held this morning. per dr. delgado, there's strong likelihood pt won't have thoracentesis bec pleural effusions too small and getting smaller with hemodialysis. will give medications as ordered.
[2022-02-06 12:57] LABS: HEMATOCRIT 24.2 % (36.7-47.1); MEAN CORPUSCULAR HEMOGLOBIN 33.6 uug (23.8-33.4); MEAN CORPUSCULAR VOLUME 103.3 fL (73.0-96.2); PLATELET COUNT (AUTO) 116 K/uL (152-348)
[2022-02-06 12:59] LABS: CREATININE 4.2 mg/dL (0.6-1.3); POTASSIUM 4.5 mmol/L (3.5-5.1)
[2022-02-06 16:00] VITALS: BP 113/57
--- NOTE | 2022-02-06 19:30 | NUR ---
Received pt awake and alert, repositoned pt as per his request, needs attended, explained pt to call if need any assistance, verbalized understanding, call cortez within reach.
[2022-02-06 20:27] VITALS: BP 120/57
[2022-02-06] MEDS: MELATONIN 3 MG TABLET PO SCH (20:57)
--- NOTE | 2022-02-06 21:00 | NUR ---
Repositioned patient and needs attended.
--- NOTE | 2022-02-06 23:42 | NUR ---
c/o generalized pain, medicated for pain, safety precaution maintained. Will monitor closely. Repositioned to side.
--- NOTE | 2022-02-07 00:12 | NUR ---
Pt calm and relax, respiration even and unlabored.
[2022-02-07 04:24] VITALS: BP 130/60
[2022-02-07] MEDS: PANTOPRAZOLE SODIUM 40 MG TABLET.DR PO SCH (06:07)
[2022-02-07] MEDS: HYDROMORPHONE 1 MG/1 ML DISP.SYRIN IV PRN ×3 (07:30→19:52)
--- NOTE | 2022-02-07 08:01 | NUR ---
pt awake, grouchy, requested for pain medication for c/o 9/10 generalized body pain prior to hemodialysis. dilaudid given with relief.
[2022-02-07] MEDS: HEPARIN SODIUM,PORCINE 5,000 UNITS/ML VIAL SQ SCH ×2 (09:00→20:46)
[2022-02-07] MEDS: ASPIRIN 81 MG TAB.CHEW PO SCH (09:00)
[2022-02-07] MEDS: KETOCONAZOLE 2% CREAM 30 GM TUBE TP SCH (09:39)
--- NOTE | 2022-02-07 09:49 | NUR ---
Per Juan Evestra tech they will be here at 2pm for thoracentesis. Dr. Ames is informed. Held asa and heparin at this time. Addendum: 02/07/22 at 0951 by BRETT ELIZABETH RN Also held bp meds due to getting dialysis at this time.
[2022-02-07] MEDS: ISOSORBIDE MONONITRATE 30 MG TAB.SR.24H PO SCH (10:58)
[2022-02-07] MEDS: METOPROLOL SUCCINATE XL 25 MG TAB.SR.24H PO SCH (11:00)
--- NOTE | 2022-02-07 11:06 | NUR ---
hemodialysis done. abida av shunt with dry dressing. no bleeding noted. post dialysis bp 128/61 hr 63. output- 2 liters.
[2022-02-07 12:03] VITALS: BP 114/59
[2022-02-07] MEDS ORDERED: KETO15CR2 TP (15:28)
[2022-02-07] MEDS ORDERED: METO-356 PO (15:28)
--- NOTE | 2022-02-07 16:00 | NUR ---
s/p thoracentesis tolerated well. dressing in place. pt verbalized he can breathe much better no sob. 800ml output sent to lab.
[2022-02-07 16:18] VITALS: BP 112/55
--- NOTE | 2022-02-07 19:55 | NUR ---
RECEIVED REPORT THAT PATIENT IS TO BE TRANSFERRED BACK TO [facility]. PATIENT IS A/O X4. C/O PAIN, PATIENT GIVEN DILAUDID 1MG IV PRN PER COMPONENTS ENGINEER. VS WNL. NO RESP. DISTRESS NOTED. BED ALARM ON. CALL LIGHT IN REACH. ALL NEEDS ATTENDED. WILL CONTINUE TO MONITOR AND ASSESS.
[2022-02-07] MEDS: MELATONIN 3 MG TABLET PO SCH (20:45)
[2022-02-07 20:47] VITALS: BP 119/50
--- NOTE | 2022-02-07 21:30 | NUR ---
REPORT GIVEN TO NURSE AT [facility].
--- NOTE | 2022-02-07 22:45 | NUR ---
AMBULANCE TRANSPORT AT BEDSIDE TO [facility] PATIENT AND TRANSPORT PATIENT BACK TO [facility]. VS WNL. ALL NEEDS ATTENDED.
--- NOTE | 2022-02-07 23:31 | NUR ---
PATIENT LEFT FACILITY IN STABLE CONDITION. ALL NEEDS ATTENDED.
== END 2022-02-07 23:30 | DRG 291 ==
LOC: ER 00:34 → TELE3 09:19 → MEDSURG3 02-05 10:40
PROVIDERS: ADMIT Nurse Practitioner Acute Care; ATTEND Nurse Practitioner Acute Care
PROC: 5A1D70Z Performance of Urinary Filtration, Intermittent, Less than 6 Hours Per Day (ICD-10-PCS; principal; 2022-02-04)
PROC: 0W9B3ZZ Drainage of Left Pleural Cavity, Percutaneous Approach (ICD-10-PCS; 2022-02-07)
DX: I13.2 Hypertensive heart and chronic kidney disease with heart failure and with stage 5 chronic kidney disease, or end stage renal disease (principal); I50.33 Acute on chronic diastolic (congestive) heart failure; N18.6 End stage renal disease; J15.9 Unspecified bacterial pneumonia; J90 Pleural effusion, not elsewhere classified; J44.0 Chronic obstructive pulmonary disease with (acute) lower respiratory infection; J98.11 Atelectasis; D63.8 Anemia in other chronic diseases classified elsewhere; E03.9 Hypothyroidism, unspecified; E11.22 Type 2 diabetes mellitus with diabetic chronic kidney disease; E86.0 Dehydration; E78.5 Hyperlipidemia, unspecified; G40.909 Epilepsy, unspecified, not intractable, without status epilepticus; I27.20 Pulmonary hypertension, unspecified; Z99.2 Dependence on renal dialysis; Z89.512 Acquired absence of left leg below knee; I25.10 Atherosclerotic heart disease of native coronary artery without angina pectoris; Z79.4 Long term (current) use of insulin; Z79.01 Long term (current) use of anticoagulants; Z79.84 Long term (current) use of oral hypoglycemic drugs; Z86.16 Personal history of COVID-19; I48.0 Paroxysmal atrial fibrillation; G89.4 Chronic pain syndrome; D64.9 Anemia, unspecified; E11.51 Type 2 diabetes mellitus with diabetic peripheral angiopathy without gangrene; Z79.890 Hormone replacement therapy; Z98.61 Coronary angioplasty status
CPT/HCPCS: 32555; 36415; 71045; 83735; 84100; 84443; 84484; 85025; 85730; 86706; 87340; 90937; 93005; 93307; A4663; A6209; G0378; J1170; J1644; J2543; J3370; J7040; Q0144

== ENCOUNTER 2022-07-06 06:12 | Inpatient (IN) | payer MEDICARE, OTHER ==
[~2022-07-06] VITALS: Ht 172.7 cm; Wt 94.8 kg
[~2022-07-06 06:12] MED LIST changes: +ALBU2.5V13 IH; -AMIN1CAP5 PO; +ATOR40TA PO; -BISA-79 PO; +FLUT16SP NS; -GABA-532 PO; -GLIM4TAB37 PO; -INSULIN GLARGINE SQ; +KETO15CR2 TP; -LACT1CAP57 PO; -LIDO1ADH43 TP; -LOSA100T31 PO; +METO-356 PO; -METO-357 PO; -METO-358 PO; -MIDO5TAB4 PO; -MORP15TA PO; -NITR0.4T48 SL; +OXYC10TA49 PO; +POLY17PO4 PO; +PRIM50TA27 PO; -PRIM50TA5 PO; +SENN-261 PO; +TAMS-3 PO
--- NOTE | 2022-07-06 06:35 | NUR ---
Dr Villegas at bedside. MSE in progress
--- NOTE | 2022-07-06 06:40 | NUR ---
Patient is saturating at 90% on RA. Dr. Villegas informed.
[2022-07-06] MEDS ORDERED: ASPI81TA31 PO (06:41)
[2022-07-06] MEDS ORDERED: AMLO2.5T4 PO (06:41)
[2022-07-06] MEDS ORDERED: AMOX-427 PO (06:41)
[2022-07-06] MEDS ORDERED: BISA5TAB10 PO (06:41)
[2022-07-06] MEDS ORDERED: PEG15DRO5 OP (06:41)
[2022-07-06] MEDS ORDERED: CLON0.1T PO (06:41)
[2022-07-06] MEDS ORDERED: DIPH28.33 TP (06:41)
[2022-07-06] MEDS ORDERED: CALC215T PO (06:41)
[2022-07-06] MEDS ORDERED: ACET-2154 PO (06:41)
[2022-07-06] MEDS ORDERED: CLOP75TA33 PO (06:41)
[2022-07-06] MEDS ORDERED: EPOE4000 IJ (06:42)
[2022-07-06] MEDS ORDERED: MELA5TAB PO (06:42)
[2022-07-06] MEDS ORDERED: MECL-159 PO (06:42)
[2022-07-06] MEDS ORDERED: METO-357 PO (06:42)
[2022-07-06] MEDS ORDERED: DIVA-78 PO (06:42)
[2022-07-06] MEDS ORDERED: POLY17PO4 PO (06:42)
[2022-07-06] MEDS ORDERED: PANT40TA49 PO (06:42)
[2022-07-06] MEDS ORDERED: OXCA150T5 PO (06:42)
[2022-07-06] MEDS ORDERED: METO-295 PO (06:42)
[2022-07-06] MEDS ORDERED: LOSA25TA27 PO (06:42)
[2022-07-06] MEDS ORDERED: GABA-532 PO (06:42)
[2022-07-06] MEDS ORDERED: DIPH25CA83 PO (06:42)
--- NOTE | 2022-07-06 07:17 | NUR ---
change of shift report to Stephanie STARKEY
[2022-07-06 07:21] LABS: HEMATOCRIT 29.2 % (36.7-47.1); MEAN CORPUSCULAR HEMOGLOBIN 33.8 uug (23.8-33.4); MEAN CORPUSCULAR VOLUME 102.8 fL (73.0-96.2); PLATELET COUNT (AUTO) 342 K/uL (152-348)
[2022-07-06 07:57] LABS: ALKALINE PHOSPHATASE 52 U/L (50-136); ASPARTATE AMINOTRANSFERASE 10 U/L (15-37); BILIRUBIN,TOTAL 0.4 mg/dL (0.2-1.0); CARBON DIOXIDE 25 mmol/L (21-32); CHLORIDE 106 mmol/L (98-107); CREATININE 6.4 mg/dL (0.6-1.3); GLUCOSE 136 mg/dL (74-106); TOTAL PROTEIN, SERUM 7.8 g/dL (6.4-8.2); UREA NITROGEN, BLOOD 71 mg/dL (7-18)
[2022-07-06 08:11] LABS: POTASSIUM 7.7 mmol/L (3.5-5.1)
[2022-07-06] MEDS ORDERED: DEXTROSE 50% 50 ML DISP.SYRIN IV ONE (08:15)
[2022-07-06] MEDS ORDERED: ALBUTEROL SULFATE 2.5 MG/3 ML NEBU NEB ONE (08:15)
[2022-07-06] MEDS ORDERED: FUROSEMIDE 20 MG/2 ML VIAL IV ONE (08:15)
[2022-07-06] MEDS ORDERED: INSULIN REGULAR, HUMAN 300 UNIT/3 ML VIAL IV ONE (08:15)
[2022-07-06] MEDS ORDERED: ALBUTEROL SULFATE 2.5 MG/3 ML NEBU ONE (08:35)
[2022-07-06 08:43] LABS: ALANINE AMINOTRANSFERASE < 6 U/L (16-63)
[2022-07-06] MEDS ORDERED: FUROSEMIDE 20 MG/2 ML VIAL ONE (08:45)
[2022-07-06] MEDS ORDERED: DEXTROSE 50% 50 ML DISP.SYRIN ONE (08:45)
[2022-07-06] MEDS ORDERED: INSULIN REGULAR, HUMAN 300 UNIT/3 ML VIAL ONE (08:46)
[2022-07-06 09:08] LABS: *BILIRUBIN,URIN NEGATIVE (NEGATIVE); *BLOOD, URINE 1+ (NEGATIVE); *CLARITY,URINE CLEAR (CLEAR); *COLOR,URINE YELLOW (YELLOW); *KETONES,URINE NEGATIVE (NEGATIVE); *UROBILINOGEN,URINE 0.2 E.U./dl (NORMAL); LEUKOCYTE ESTERASE ,URINE TRACE (NEGATIVE); NITRITE, URINE NEGATIVE (NEGATIVE); UGLUCOSE NEGATIVE (NEGATIVE)
[2022-07-06 10:00] VITALS: BP 128/56
[2022-07-06] MEDS ORDERED: CALCIUM CARBONATE PO PRN (10:00)
[2022-07-06] MEDS ORDERED: REMEDY ESSENTIAL ZINC PASTE 113 GM TP PRN (10:00)
[2022-07-06] MEDS ORDERED: ACETAMINOPHEN 325 MG TABLET-SA PATIENTS-PAIN ONLY PO PRN (10:00)
[2022-07-06] MEDS ORDERED: ONDANSETRON HCL 4 MG TABLET PO PRN (10:00)
[2022-07-06] MEDS ORDERED: diphenhydrAMINE 25 MG CAP PO PRN (10:00)
[2022-07-06] MEDS ORDERED: EPOETIN ALFA 10,000 UNITS/ML VIAL SQ SCH (10:00)
[2022-07-06] MEDS ORDERED: Medication Not On Formulary EA (Melatonin 5 MG) PO PRN (10:00)
[2022-07-06] MEDS ORDERED: ACETAMINOPHEN 325 MG TABLET PO PRN (10:00)
[2022-07-06] MEDS ORDERED: CLONIDINE HCL 0.1 MG TABLET PO PRN (10:00)
[2022-07-06] MEDS ORDERED: BISACODYL 5 MG TABLET.DR PO PRN (10:00)
[2022-07-06] MEDS ORDERED: diphenhydrAMINE 1% CREAM 28.3 GM TUBE TP PRN (10:00)
[2022-07-06] MEDS ORDERED: MAGNESIUM HYDROXIDE 30 ML LIQUID UDC PO PRN (10:00)
[2022-07-06] MEDS ORDERED: ALBUTEROL SULFATE 2.5 MG/ 0.5 ML NEBU IH PRN (10:00)
[2022-07-06] MEDS ORDERED: ONDANSETRON 4 MG/2 ML VIAL IV PRN (10:00)
[2022-07-06] MEDS ORDERED: CALCIUM CARBONATE 500 MG TAB.CHEW PO PRN (10:30)
[2022-07-06] MEDS ORDERED: ALBUTEROL SULFATE 2.5 MG/3 ML NEBU NEB PRN (10:30)
[2022-07-06] MEDS ORDERED: POLYVINYL ALCOHOL OPHT DROPS 15 ML BOTTLE EACHEYE PRN (10:30)
[2022-07-06] MEDS ORDERED: [UNRECOGNIZED DRUG - OTHER] OP SCH (12:00)
[2022-07-06] MEDS ORDERED: PEG OP SCH (12:00)
[2022-07-06] MEDS ORDERED: GLYCERIN OP SCH (12:00)
[2022-07-06] MEDS ORDERED: HYPROMELLOSE OP SCH (12:00)
[2022-07-06] MEDS: METOCLOPRAMIDE HCL 10 MG TABLET PO SCH ×2 (12:01→16:40)
[2022-07-06] MEDS: CEFTRIAXONE 1 G in IV DEXTROSE 5% 50 ML IV SCH (12:01)
[2022-07-06 12:52] LABS: BACTERIA,URINE NONE SEEN /HPF (NONE SEEN); SQUAMOUS EPITHELIAL CELL,UR NONE SEEN /HPF (NONE SEEN); WBC,URINE 0-3 /HPF (0-3)
--- NOTE | 2022-07-06 13:14 | NUR ---
10:000-Rec'd report from Stephanie STARKEY from ER dept. for this 67 Y/O male patient coming to third floor under telemetry observation from ER dept & under the care of Jennifer May Patient was brought via hospital bed, accompanied by 2 person. Patient is A/Ox4, [place] speaking, verbally communicative and able to hold a concrete conversation. Body check assessment done as per protocol with FF: Patient is A/Ox4, [place], per patient's statement he wears hearing aids giselle. ears, devices left behind in his living location: [facility]. Patient states to feel SOB, and on oxygen at 3LPM via NC, impaired vision, wears eye glasses & present upon admission. Abdomen is soft and non distended with regular BS present in all quadrants, per patient last BM 07/05/22 and denies GI discomfort. Has a large skin discoloration to left groin side, fading away. Large coccyx/buttocks skin excoriation. LT knee skin scrape no actual bleeding noted, LT BKA heeled; RT foot with flaky scaly skin to plantar sole and all toes necrotic appearance. Pictures taken of affected skin areas and placed in chart. Oriented patient to facility and surroundings; safety precautions explained with good verbal understanding in return, educated on use of call light, telephone, TV/Remote control. AGATHA dialysis fistula with skin intact. Patient with orders and consent to be dialyzed today. Per patient he has been refusing his dialysis sessions as ordered by his italian lecturer. 1:12PM-Spoke to Rosenda from [facility] at [address] [place] [address], Per Rosenda, patient was last dialysed on June 28 with 1. 3 liter out, " unable to get more due to low bp readings 80/59, 99/54, pre-weight=91.4 kg and post weight=90.6 kg"
[2022-07-06] MEDS ORDERED: MECLIZINE HCL 25 MG TABLET PO PRN (14:00)
[2022-07-06 15:08] LABS: CREATININE 3.6 mg/dL (0.6-1.3); POTASSIUM 4.1 mmol/L (3.5-5.1)
[2022-07-06 16:00] VITALS: BP 109/44
[2022-07-06] MEDS: DIVALPROEX 500 MG TABLET.DR PO SCH (16:40)
[2022-07-06] MEDS: HYDROMORPHONE 1 MG/1 ML DISP.SYRIN IV PRN ×2 (16:43→22:35)
--- NOTE | 2022-07-06 17:03 | NUR ---
Patient has the following food/drug allergies listed from upon admission history: Fish containing products, acetaminophen, chlorpromazine, imipramine, Ibuprofen, Lactose, Methsuximide and Methylphenidate. Patient requested pain medication, SOCIAL WORKER DELINQUENCY PREVENTION Vanna May suggested [place] 10/325 PRN Q6HRs, per patient's history he is allergic to this medication and has taken Dilaudid in the past and prefers Dilaudid medication for pain., Jennifer May Was made aware and gave orders for Dilaudid 1mg Q6HRS PRN. Per patient he has taken Dilaudid, "ovet 240 times and never has had any allergies" and ok per patient to proceed with order for Dilaudid and administer it for his pain level needs.
[2022-07-06] MEDS: OXCARBAZEPINE 150 MG TABLET PO SCH (17:15)
[2022-07-06] MEDS ORDERED: INSULIN REGULAR, HUMAN 300 UNITS/3 ML VIAL SQ PRN (18:15)
[2022-07-06] MEDS ORDERED: DEXTROSE 50% 50 ML DISP.SYRIN IV PRN (18:15)
--- NOTE | 2022-07-06 18:17 | NUR ---
Patient was dialyzed today at bedside with 1.5 L out, royer. well. BP105/50 post dialysis., Dialysis access site to AGATHA with no s/s of bleeding. Patient alert and able to communicate his needs. No respiratory distress/cough/congestion noted.
[2022-07-06 20:00] VITALS: BP 116/49
[2022-07-06] MEDS: GABAPENTIN 100 MG CAPSULE PO SCH (20:58)
[2022-07-06] MEDS: DOCUSATE SODIUM 100 MG CAPSULE PO SCH (20:58)
[2022-07-06] MEDS: REMEDY ESSENTIAL ZINC PASTE 113 GM TOP SCH (20:59)
[2022-07-06] MEDS: BLOOD SUGAR DIAGNOSTIC 1 EACH STRIP VI SCH (21:04)
[2022-07-06] MEDS: ZOLPIDEM 5 MG TABLET PO PRN ×2 (21:27→21:38)
[2022-07-06] MEDS: MELATONIN 3 MG TABLET PO PRN (21:39)
[2022-07-06] MEDS: GUAIFENESIN/DEXTROMETHORPHAN 5 ML UDC PO PRN (22:34)
[2022-07-07] VITALS: BP 140/92
[2022-07-07 04:00] VITALS: BP 138/76
[2022-07-07] MEDS: METOCLOPRAMIDE HCL 10 MG TABLET PO SCH ×3 (06:15→12:50)
[2022-07-07] MEDS: PANTOPRAZOLE SODIUM 40 MG TABLET.DR PO SCH (06:15)
[2022-07-07] MEDS: LEVOTHYROXINE SODIUM 125 MCG TABLET PO SCH (06:15)
[2022-07-07] MEDS: BLOOD SUGAR DIAGNOSTIC 1 EACH STRIP VI SCH ×4 (06:20→21:13)
[2022-07-07] MEDS: INSULIN REGULAR, HUMAN 300 UNIT/3 ML VIAL SQ PRN ×2 (06:21→23:55)
[2022-07-07] MEDS: HYDROMORPHONE 1 MG/1 ML DISP.SYRIN IV PRN ×3 (06:25→21:17)
[2022-07-07 08:03] LABS: CREATININE 4.8 mg/dL (0.6-1.3); PHOSPHOROUS 5.3 mg/dL (2.5-4.9); POTASSIUM 6.1 mmol/L (3.5-5.1)
--- NOTE | 2022-07-07 08:25 | NUR ---
received pt on bed relax and comfortable. no acute distress noted. no complain of pain; no sob noted. vitals wnl. sacral wound noted. applied Mepilex and zguard for protection.
[2022-07-07 08:26] LABS: HEMATOCRIT 24.7 % (36.7-47.1); MEAN CORPUSCULAR HEMOGLOBIN 33.6 uug (23.8-33.4); MEAN CORPUSCULAR VOLUME 101.5 fL (73.0-96.2); PLATELET COUNT (AUTO) 249 K/uL (152-348)
--- NOTE | 2022-07-07 08:45 | NUR ---
SHIFTNOTE; RECEIVED REPORT FROM AM NURSE JEOVANY PT WAS GIVEN HD HAD 1.5 LITERS OUT NO SIGNS OF RESPIRATORY.DISTRESS NOTED. PT GIVEN MEDICATION FOR PAIN Q6H NO SIGNS OF LOWERED B/P FROM DILAUDID. PT HS BLOOD SUGAR WAS 174 GAVE 3 UNITS OF REG INSULIN AND AC BLOOD SUGAR 67 AND CHECKED IN 30 MIN AFTER GIVING PUDDING IS 83 NO SIGNS OF DIABETIC REACTION NOTED. WILL CONTINUE TO MONITOR.
[2022-07-07] MEDS ORDERED: AMLODIPINE 2.5 MG TABLET PO SCH (09:00)
[2022-07-07] MEDS ORDERED: LEVOTHYROXINE SODIUM 100 MCG TABLET PO SCH (09:00)
[2022-07-07] MEDS: CLOPIDOGREL 75 MG TABLET PO SCH (09:32)
[2022-07-07] MEDS: MIRALAX 17 GM POWD.PACK PO SCH (09:32)
[2022-07-07] MEDS: DIVALPROEX 500 MG TABLET.DR PO SCH ×2 (09:32→17:33)
[2022-07-07] MEDS: ASPIRIN 81 MG TAB.CHEW PO SCH (09:32)
[2022-07-07] MEDS: REMEDY ESSENTIAL ZINC PASTE 113 GM TOP SCH ×2 (09:38→21:15)
[2022-07-07] MEDS: OXCARBAZEPINE 150 MG TABLET PO SCH ×2 (09:38→17:33)
[2022-07-07] MEDS: METOPROLOL SUCCINATE XL 50 MG TAB.SR.24H PO SCH (09:38)
[2022-07-07] MEDS: CEFTRIAXONE 1 G in IV DEXTROSE 5% 50 ML IV SCH (10:33)
[2022-07-07 11:32] VITALS: BP 123/56
--- NOTE | 2022-07-07 14:40 | NUR ---
pt tolerated dialysis well. took out 1.1L dialysate. vitals wnl after dialysis.
[2022-07-07 16:12] VITALS: BP 138/63
[2022-07-07 20:00] VITALS: BP 119/41
[2022-07-07] MEDS: GABAPENTIN 100 MG CAPSULE PO SCH (21:14)
[2022-07-07] MEDS: DOCUSATE SODIUM 100 MG CAPSULE PO SCH (21:19)
[2022-07-07] MEDS: GUAIFENESIN/DEXTROMETHORPHAN 5 ML UDC PO PRN (23:53)
[2022-07-07] MEDS: MELATONIN 3 MG TABLET PO PRN (23:53)
[2022-07-08] VITALS: BP 125/45
[2022-07-08] MEDS: HYDROMORPHONE 1 MG/1 ML DISP.SYRIN IV PRN ×3 (03:46→16:36)
[2022-07-08 04:00] VITALS: BP 100/48
[2022-07-08] MEDS: PANTOPRAZOLE SODIUM 40 MG TABLET.DR PO SCH (06:00)
[2022-07-08] MEDS: LEVOTHYROXINE SODIUM 125 MCG TABLET PO SCH (06:00)
[2022-07-08] MEDS: BLOOD SUGAR DIAGNOSTIC 1 EACH STRIP VI SCH ×3 (06:06→16:21)
[2022-07-08 07:28] LABS: HEMATOCRIT 23.8 % (36.7-47.1); MEAN CORPUSCULAR HEMOGLOBIN 33.9 uug (23.8-33.4); MEAN CORPUSCULAR VOLUME 100.8 fL (73.0-96.2); PLATELET COUNT (AUTO) 212 K/uL (152-348)
[2022-07-08 07:41] LABS: CREATININE 4.4 mg/dL (0.6-1.3); POTASSIUM 4.8 mmol/L (3.5-5.1)
[2022-07-08] MEDS: DIVALPROEX 500 MG TABLET.DR PO SCH ×2 (08:56→16:43)
[2022-07-08] MEDS: METOCLOPRAMIDE HCL 10 MG TABLET PO SCH ×3 (08:56→16:44)
[2022-07-08] MEDS: ASPIRIN 81 MG TAB.CHEW PO SCH (08:57)
[2022-07-08] MEDS ORDERED: CEFTRIAXONE 2 G in IV DEXTROSE 5% 100 ML IV SCH (09:00)
[2022-07-08] MEDS: OXCARBAZEPINE 150 MG TABLET PO SCH ×3 (09:00→16:41)
[2022-07-08] MEDS: METOPROLOL SUCCINATE XL 50 MG TAB.SR.24H PO SCH (09:02)
[2022-07-08] MEDS: CLOPIDOGREL 75 MG TABLET PO SCH (09:03)
[2022-07-08] MEDS: MIRALAX 17 GM POWD.PACK PO SCH (09:03)
[2022-07-08] MEDS: REMEDY ESSENTIAL ZINC PASTE 113 GM TOP SCH (09:13)
--- NOTE | 2022-07-08 09:14 | NUR ---
Patient refused medication due to refusal and states does not need it.
[2022-07-08 11:49] VITALS: BP 94/38
[2022-07-08] MEDS ORDERED: POLY15DR27 EACHEYE (11:57)
[2022-07-08] MEDS ORDERED: Nepro PO (11:57)
[2022-07-08] MEDS ORDERED: LEVO125T8 PO (11:57)
[2022-07-08 15:50] VITALS: BP 94/46
[2022-07-08] MEDS ORDERED: NEPRO (VANILLA) 237 ML CAN PO SCH (17:00)
--- NOTE | 2022-07-08 18:00 | NUR ---
Patient discharged from unit. IV site removed. ID band removed. Discharge education provided. Report given to Nicki of [facility].
[2022-07-11] MEDS ORDERED: EPOETIN ALFA-EPBX 10,000 UNIT/ML VIAL SQ SCH (16:00)
== END 2022-07-08 18:00 | DRG 640 ==
LOC: ER 06:16 → TELE3 09:37 → MEDSURG3 07-08 08:40
PROVIDERS: ADMIT Nurse Practitioner Acute Care; ATTEND Nurse Practitioner Acute Care
PROC: 5A1D70Z Performance of Urinary Filtration, Intermittent, Less than 6 Hours Per Day (ICD-10-PCS; principal; 2022-07-06)
DX: E87.5 Hyperkalemia (principal); I50.33 Acute on chronic diastolic (congestive) heart failure; N18.6 End stage renal disease; J96.01 Acute respiratory failure with hypoxia; J15.9 Unspecified bacterial pneumonia; I13.2 Hypertensive heart and chronic kidney disease with heart failure and with stage 5 chronic kidney disease, or end stage renal disease; E44.0 Moderate protein-calorie malnutrition; E11.22 Type 2 diabetes mellitus with diabetic chronic kidney disease; Z91.15 Patient's noncompliance with renal dialysis; Z99.2 Dependence on renal dialysis; D63.8 Anemia in other chronic diseases classified elsewhere; E03.9 Hypothyroidism, unspecified; E78.5 Hyperlipidemia, unspecified; E88.09 Other disorders of plasma-protein metabolism, not elsewhere classified; I48.0 Paroxysmal atrial fibrillation; G40.909 Epilepsy, unspecified, not intractable, without status epilepticus; I25.10 Atherosclerotic heart disease of native coronary artery without angina pectoris; Z79.82 Long term (current) use of aspirin; Z86.16 Personal history of COVID-19; Z79.899 Other long term (current) drug therapy; G89.29 Other chronic pain; N40.0 Benign prostatic hyperplasia without lower urinary tract symptoms; Z79.01 Long term (current) use of anticoagulants; I27.20 Pulmonary hypertension, unspecified; Z79.890 Hormone replacement therapy; Z89.512 Acquired absence of left leg below knee; Z95.5 Presence of coronary angioplasty implant and graft; R07.89 Other chest pain; E11.51 Type 2 diabetes mellitus with diabetic peripheral angiopathy without gangrene; Z68.31 Body mass index [BMI] 31.0-31.9, adult; Z79.4 Long term (current) use of insulin; Z91.199 Patient's noncompliance with other medical treatment and regimen due to unspecified reason
CPT/HCPCS: 36415; 71045; 83735; 84100; 84484; 85025; 87040; 87400; 90937; 93005; 94664; A4663; A6209; G0378; J0696; J1170; J1815; J1940; J2405; J3490; J8597; Q0163

== ENCOUNTER 2022-08-05 19:39 | Inpatient (IN) | payer MEDICARE, OTHER ==
[~2022-08-05] VITALS: Ht 172.7 cm; Wt 84.0 kg
[~2022-08-05 19:39] MED LIST changes: +ACET-2154 PO; +AMLO2.5T4 PO; +AMOX-427 PO; -APIX2.5T PO; +ASPI81TA31 PO; -ATOR40TA PO; +BISA5TAB10 PO; +CALC215T PO; +CLOP75TA33 PO; +DIPH28.33 TP; +DIVA-78 PO; -DIVA500T2 PO; +EPOE4000 IJ; -FLUT16SP NS; +GABA-532 PO; -ISOS60TA72 PO; -KETO15CR2 TP; -LACT1CAP7 PO; +LEVO125T8 PO; +LOSA25TA27 PO; +MECL-159 PO; +MELA5TAB PO; +METO-295 PO; -METO-356 PO; +METO-357 PO; -MONT10TA22 PO; +Nepro PO; +OXCA150T5 PO; -OXYC10TA49 PO; -PANT40TA2 PO; +PANT40TA49 PO; +PEG15DRO5 OP; +POLY15DR27 EACHEYE; -PRIM50TA27 PO; -SENN-261 PO; -TAMS-3 PO; -VIT1TABL46 PO
[2022-08-05] MEDS ORDERED: HYDROMORPHONE 1 MG/1 ML DISP.SYRIN IV ONE (20:00)
[2022-08-05] MEDS ORDERED: ONDANSETRON 4 MG/2 ML VIAL IV ONE (20:00)
--- NOTE | 2022-08-05 20:00 | NUR ---
Pt. in bed, laying down
--- NOTE | 2022-08-05 20:39 | NUR ---
covid and mrsa collected, sent to lab
--- NOTE | 2022-08-05 20:48 | NUR ---
ct scan in progress
[2022-08-05 20:57] LABS: HEMATOCRIT 25.5 % (36.7-47.1); PLATELET COUNT (AUTO) 293 K/uL (152-348)
[2022-08-05 21:18] LABS: ALANINE AMINOTRANSFERASE < 6 U/L (16-63); ALKALINE PHOSPHATASE 69 U/L (50-136); ASPARTATE AMINOTRANSFERASE 7 U/L (15-37); BILIRUBIN,DIRECT 0.2 mg/dL (0.0-0.2); BILIRUBIN,TOTAL 0.4 mg/dL (0.2-1.0); CARBON DIOXIDE 31 mmol/L (21-32); CHLORIDE 96 mmol/L (98-107); CREATININE 5.1 mg/dL (0.6-1.3); GLUCOSE 73 mg/dL (74-106); LIPASE 89 U/L (73-393); POTASSIUM 4.1 mmol/L (3.5-5.1); TOTAL PROTEIN, SERUM 8.6 g/dL (6.4-8.2); UREA NITROGEN, BLOOD 44 mg/dL (7-18)
[2022-08-05 21:28] LABS: MAGNESIUM 1.8 mg/dL (1.8-2.4); PHOSPHOROUS 3.7 mg/dL (2.5-4.9)
[2022-08-05] MEDS ORDERED: AMOXICILLIN-CLAVUL 875-125MG TABLET PO ONE (22:45)
[2022-08-05] MEDS ORDERED: HYDROMORPHONE HCL 2 MG TABLET PO ONE (22:45)
[2022-08-05] MEDS ORDERED: AMOXICILLIN-CLAVUL 875-125MG TABLET ONE (22:57)
[2022-08-05] MEDS ORDERED: HYDROMORPHONE HCL 2 MG TABLET ONE (22:57)
[2022-08-05] MEDS ORDERED: MAGNESIUM HYDROXIDE 30 ML LIQUID UDC PO PRN (23:30)
[2022-08-05] MEDS ORDERED: INSULIN REGULAR, HUMAN 300 UNIT/3 ML VIAL SQ PRN (23:30)
[2022-08-05] MEDS ORDERED: ACETAMINOPHEN 325 MG TABLET PO PRN (23:30)
[2022-08-05] MEDS ORDERED: ONDANSETRON 4 MG/2 ML VIAL IV PRN (23:30)
[2022-08-05] MEDS ORDERED: DEXTROSE 50% 50 ML DISP.SYRIN IV PRN (23:30)
[2022-08-06] MEDS ORDERED: TRAM50TA2 PO (00:21)
[2022-08-06] MEDS ORDERED: NITR0.4T48 SL (00:21)
[2022-08-06] MEDS ORDERED: ATOR20TA PO (00:21)
[2022-08-06] MEDS ORDERED: FLUT16SP16 BNOSTRILS (00:21)
[2022-08-06] MEDS ORDERED: CHOL10005 PO (00:21)
[2022-08-06] MEDS ORDERED: SITA50TA PO (00:21)
[2022-08-06] MEDS ORDERED: FURO40TA5 PO (00:21)
[2022-08-06] MEDS ORDERED: DULO30CA2 PO (00:21)
[2022-08-06] MEDS ORDERED: METF-494 PO (00:21)
[2022-08-06] MEDS ORDERED: TAMS-3 PO (00:21)
[2022-08-06] MEDS ORDERED: METO-356 PO (00:21)
[2022-08-06] MEDS ORDERED: PANT40TA49 PO (00:21)
[2022-08-06 05:41] VITALS: BP 131/53
[2022-08-06 05:53] LABS: CREATININE 5.3 mg/dL (0.6-1.3); MAGNESIUM 1.7 mg/dL (1.8-2.4); PHOSPHOROUS 3.6 mg/dL (2.5-4.9); POTASSIUM 3.9 mmol/L (3.5-5.1)
[2022-08-06 06:00] LABS: MEAN CORPUSCULAR HEMOGLOBIN 33.1 uug (23.8-33.4); MEAN CORPUSCULAR VOLUME 98.2 fL (73.0-96.2); PLATELET COUNT (AUTO) 254 K/uL (152-348)
[2022-08-06 06:42] LABS: HEMATOCRIT 19.3 % (36.7-47.1)
--- NOTE | 2022-08-06 07:01 | NUR ---
New admission fron other Rehab for fluid overload. Assessment complete Pictures taken Pt pending Dialysis.
[2022-08-06] MEDS: BLOOD SUGAR DIAGNOSTIC 1 EACH STRIP VI SCH ×4 (07:30→21:00)
[2022-08-06] MEDS ORDERED: MAGNESIUM OXIDE 400 MG TABLET PO ONE (10:00)
[2022-08-06 10:05] LABS: EOSINOPHILS % (MANUAL) 4 % (0-8); LYMPHOCYTES % (MANUAL) 24 % (20-40); MONOCYTES % (MANUAL) 5 % (2-10); NEUTROPHILS % (MANUAL) 67 % (42-75)
[2022-08-06 12:00] VITALS: BP 133/46
[2022-08-06] MEDS ORDERED: METF-441 PO (13:13)
[2022-08-06 16:00] VITALS: BP 146/42
[2022-08-06 20:00] VITALS: BP 157/61
[2022-08-06] MEDS ORDERED: TRAMADOL HCL 50 MG TABLET PO PRN (23:00)
[2022-08-06] MEDS ORDERED: NITROGLYCERIN 0.4 MG/TAB BOTTLE SL PRN (23:00)
[2022-08-06] MEDS: DIVALPROEX 500 MG TABLET.DR PO SCH (23:00)
[2022-08-06] MEDS: AMOXICILLIN-CLAVUL 875-125MG TABLET PO SCH (23:15)
[2022-08-07] MEDS ORDERED: HYDROMORPHONE 2 MG/1 ML DISP.SYRIN IV PRN (00:45)
[2022-08-07] MEDS: DIVALPROEX 500 MG TABLET.DR PO SCH ×3 (01:05→18:07)
[2022-08-07] MEDS: AMOXICILLIN-CLAVUL 875-125MG TABLET PO SCH (01:05)
[2022-08-07 04:00] VITALS: BP 145/72
[2022-08-07 05:34] LABS: PLATELET COUNT (AUTO) 211 K/uL (152-348)
[2022-08-07 05:36] LABS: MEAN CORPUSCULAR HEMOGLOBIN 32.6 uug (23.8-33.4); MEAN CORPUSCULAR VOLUME 98.3 fL (73.0-96.2)
[2022-08-07 05:47] LABS: CREATININE 3.9 mg/dL (0.6-1.3); MAGNESIUM 1.8 mg/dL (1.8-2.4); PHOSPHOROUS 2.9 mg/dL (2.5-4.9); POTASSIUM 4.1 mmol/L (3.5-5.1)
--- NOTE | 2022-08-07 06:00 | NUR ---
--PT IS A/OX3-4. VS HAVE BEEN STABLE. PT HAS BEEN ON O2 2L/NC. IV IS I/P VIA RIGHT ARM M.L. PT ALSO HAS LEFT ARM AVG WITH GOOD BRUIT/THRILL. PT HAD H.DIALYSIS AT APROX 2100. 2200CC TAKEN BY H.MANAGER APPLE. PT PATRICK WELL PT SLEEPING QUIETLY THRU MOST OF THE NIGHT. PT HAS ORD FOR BLOOD TRANSFUSION FOR H/H OF 6.6. PT LOOKS PALE BUT SHOWS NO S/S OF BLEEDING. BLD BANK CONTACTED SEVERAL TIMES AND STATED THE BLOOD WASN'T READY YET DUE TO PT HAVING ANTIBODY ISSUES. NATALIA FRITZ INFORMED. PT C/O GEN PAIN EARIER BUT WENT BACK TO SLEEP AFTER H.DIALYSIS. PT ENDORSED TO JAKY CHUNG. GEN. COND HAS BEEN STABLE BUT GUARDED DUE TO LOW H/H. IS AWARE. AM LABS DONE. JESÚS STARKEY
[2022-08-07 06:02] LABS: NEUTROPHILS % (MANUAL) 0 % (42-75)
[2022-08-07] MEDS ORDERED: HYDROMORPHONE 1 MG/1 ML DISP.SYRIN IV PRN (07:00)
[2022-08-07] MEDS: BLOOD SUGAR DIAGNOSTIC 1 EACH STRIP VI SCH ×4 (07:30→21:00)
[2022-08-07] MEDS ORDERED: AMOXICILLIN-CLAVUL 875-125MG TABLET PO SCH (09:00)
[2022-08-07] MEDS ORDERED: METOPROLOL SUCCINATE XL 25 MG TAB.SR.24H PO SCH (09:00)
[2022-08-07] MEDS: PANTOPRAZOLE SODIUM 40 MG TABLET.DR PO SCH (09:00)
[2022-08-07] MEDS ORDERED: TAMSULOSIN HCL 0.4 MG CAP.SR.24H PO SCH ×2 (09:00→21:00)
[2022-08-07] MEDS: LEVOTHYROXINE SODIUM 100 MCG TABLET PO SCH (09:00)
[2022-08-07] MEDS: FUROSEMIDE 40 MG TABLET PO SCH (09:37)
[2022-08-07] MEDS: DULOXETINE 30 MG CAPSULE.DR PO SCH (09:37)
[2022-08-07] MEDS: METOPROLOL SUCCINATE XL 25 MG TAB.SR.24H PO SCH (09:38)
[2022-08-07] MEDS: CLOPIDOGREL 75 MG TABLET PO SCH (09:38)
[2022-08-07] MEDS: FLUTICASONE PROP NASAL SPRAY 16 GM BOTTLE NS SCH (09:45)
[2022-08-07] MEDS: CHOLECALCIFEROL 1,000 UNIT TABLET PO SCH (09:46)
[2022-08-07 10:45] VITALS: BP 135/63
[2022-08-07 11:00] VITALS: BP 137/62
[2022-08-07 13:59] VITALS: BP 138/59
[2022-08-07 16:00] VITALS: BP 142/60
[2022-08-07 20:00] VITALS: BP 138/49
[2022-08-07] MEDS ORDERED: AMOXICILLIN-CLAVUL 500-125MG TABLET PO SCH (21:00)
[2022-08-07] MEDS ORDERED: ATORVASTATIN 20 MG TABLET PO SCH (21:00)
[2022-08-08 04:00] VITALS: BP 135/62
[2022-08-08] MEDS: PANTOPRAZOLE SODIUM 40 MG TABLET.DR PO SCH (06:20)
[2022-08-08] MEDS: BLOOD SUGAR DIAGNOSTIC 1 EACH STRIP VI SCH ×3 (06:21→16:30)
[2022-08-08] MEDS: LEVOTHYROXINE SODIUM 100 MCG TABLET PO SCH (06:21)
--- NOTE | 2022-08-08 06:47 | NUR ---
BG 75, FUNERAL CAR CHAUFFEUR GAVE PT ORANGE JUICE TO DRINK. 120CC CONSUMED. ARIES Esparza RN
[2022-08-08] MEDS: METOPROLOL SUCCINATE XL 25 MG TAB.SR.24H PO SCH (09:00)
[2022-08-08] MEDS: CHOLECALCIFEROL 1,000 UNIT TABLET PO SCH (09:04)
[2022-08-08] MEDS: DIVALPROEX 500 MG TABLET.DR PO SCH ×2 (09:05→18:25)
[2022-08-08] MEDS: DULOXETINE 30 MG CAPSULE.DR PO SCH (09:05)
[2022-08-08] MEDS: FUROSEMIDE 40 MG TABLET PO SCH (09:05)
[2022-08-08] MEDS: CLOPIDOGREL 75 MG TABLET PO SCH (09:05)
[2022-08-08] MEDS: FLUTICASONE PROP NASAL SPRAY 16 GM BOTTLE NS SCH (09:06)
--- NOTE | 2022-08-08 09:30 | NUR ---
Metoprolol held athis time patient will be dialysed at this time
[2022-08-08 10:25] LABS: HEMATOCRIT 22.3 % (36.7-47.1); MEAN CORPUSCULAR HEMOGLOBIN 32.6 uug (23.8-33.4); MEAN CORPUSCULAR VOLUME 95.6 fL (73.0-96.2); PLATELET COUNT (AUTO) 202 K/uL (152-348)
[2022-08-08 10:40] LABS: CREATININE 4.5 mg/dL (0.6-1.3); POTASSIUM 4.2 mmol/L (3.5-5.1)
[2022-08-08 11:38] VITALS: BP 129/59
[2022-08-08 16:04] VITALS: BP 141/57
--- NOTE | 2022-08-08 18:44 | NUR ---
Patient will be discharged , call placed to [facility] no answer left a message. will report to oncoming shift to followup
--- NOTE | 2022-08-08 19:41 | NUR ---
Patient discharged to [facility] with discharge papers in stable condition. Report given to Lorenzo STARKEY.
== END 2022-08-08 20:00 | DRG 291 ==
LOC: ER 19:40 → MEDSURG3 23:30
PROVIDERS: ADMIT Nurse Practitioner Acute Care; ATTEND Nurse Practitioner Acute Care
PROC: 5A1D70Z Performance of Urinary Filtration, Intermittent, Less than 6 Hours Per Day (ICD-10-PCS; principal; 2022-08-06)
PROC: 05H533Z Insertion of Infusion Device into Right Subclavian Vein, Percutaneous Approach (ICD-10-PCS; 2022-08-06)
PROC: B546ZZA Ultrasonography of Right Subclavian Vein, Guidance (ICD-10-PCS; 2022-08-06)
PROC: 30233N1 Transfusion of Nonautologous Red Blood Cells into Peripheral Vein, Percutaneous Approach (ICD-10-PCS; 2022-08-07)
DX: I13.2 Hypertensive heart and chronic kidney disease with heart failure and with stage 5 chronic kidney disease, or end stage renal disease (principal); I50.33 Acute on chronic diastolic (congestive) heart failure; J96.01 Acute respiratory failure with hypoxia; N18.6 End stage renal disease; J15.9 Unspecified bacterial pneumonia; E44.0 Moderate protein-calorie malnutrition; J44.0 Chronic obstructive pulmonary disease with (acute) lower respiratory infection; E11.22 Type 2 diabetes mellitus with diabetic chronic kidney disease; Z91.15 Patient's noncompliance with renal dialysis; Z99.2 Dependence on renal dialysis; D63.8 Anemia in other chronic diseases classified elsewhere; E03.9 Hypothyroidism, unspecified; E88.09 Other disorders of plasma-protein metabolism, not elsewhere classified; E78.5 Hyperlipidemia, unspecified; E87.5 Hyperkalemia; G40.909 Epilepsy, unspecified, not intractable, without status epilepticus; G89.4 Chronic pain syndrome; I48.0 Paroxysmal atrial fibrillation; N40.0 Benign prostatic hyperplasia without lower urinary tract symptoms; Z86.16 Personal history of COVID-19; Z89.512 Acquired absence of left leg below knee; Z79.4 Long term (current) use of insulin; Z91.199 Patient's noncompliance with other medical treatment and regimen due to unspecified reason; Z79.82 Long term (current) use of aspirin; Z95.5 Presence of coronary angioplasty implant and graft; J44.9 Chronic obstructive pulmonary disease, unspecified; K59.00 Constipation, unspecified; K62.89 Other specified diseases of anus and rectum; E11.51 Type 2 diabetes mellitus with diabetic peripheral angiopathy without gangrene; F29 Unspecified psychosis not due to a substance or known physiological condition; I25.10 Atherosclerotic heart disease of native coronary artery without angina pectoris; Z68.28 Body mass index [BMI] 28.0-28.9, adult; R07.89 Other chest pain; G43.909 Migraine, unspecified, not intractable, without status migrainosus; I27.20 Pulmonary hypertension, unspecified; Z20.822 Contact with and (suspected) exposure to COVID-19
CPT/HCPCS: 36415; 70030-TC; 71045; 83690; 83735; 84100; 85025; 86850; 86870; 86900; 86901; 86920; 93005; A4663; A6213; G0378; J1815; J3535; J7040; P9016

== ENCOUNTER 2022-08-25 19:52 | Emergency (ER) | END 2022-08-26 02:03 | DX: E11.22 Type 2 diabetes mellitus with diabetic chronic kidney disease (principal); N18.6 End stage renal disease; Z99.2 Dependence on renal dialysis; Z91.15 Patient's noncompliance with renal dialysis; Z79.84 Long term (current) use of oral hypoglycemic drugs; E11.65 Type 2 diabetes mellitus with hyperglycemia; G89.29 Other chronic pain; D64.9 Anemia, unspecified; J44.9 Chronic obstructive pulmonary disease, unspecified; Z20.822 Contact with and (suspected) exposure to COVID-19; F11.20 Opioid dependence, uncomplicated; R15.9 Full incontinence of feces; Z89.512 Acquired absence of left leg below knee; Z88.8 Allergy status to other drugs, medicaments and biological substances; Z91.011 Allergy to milk products; Z91.013 Allergy to seafood; E03.9 Hypothyroidism, unspecified; E78.5 Hyperlipidemia, unspecified; G40.909 Epilepsy, unspecified, not intractable, without status epilepticus; I48.91 Unspecified atrial fibrillation ==

== ENCOUNTER 2022-08-27 19:10 | Inpatient (IN) | payer MEDICARE, OTHER ==
[~2022-08-27] VITALS: Ht 182.9 cm; Wt 92.1 kg
[~2022-08-27 19:10] MED LIST changes: -ACET-2154 PO; -ALBU2.5V13 IH; -AMLO2.5T4 PO; -AMOX-427 PO; -ASPI81TA31 PO; +ATOR20TA PO; -BISA5TAB10 PO; -CALC215T PO; +CHOL10005 PO; -CLON0.1T PO; -DIPH25CA83 PO; -DIPH28.33 TP; -DOCU-141 PO; +DULO30CA2 PO; -EPOE4000 IJ; +FLUT16SP16 BNOSTRILS; +FURO40TA5 PO; -GABA-532 PO; -INSU100V28 SQ; -LEVO125T8 PO; -LOSA25TA27 PO; -MELA5TAB PO; -METO-295 PO; +METO-356 PO; -METO-357 PO; +NITR0.4T48 SL; -Nepro PO; -ONDA4TAB5 PO; -OXCA150T5 PO; -PEG15DRO5 OP; -POLY15DR27 EACHEYE; -POLY17PO4 PO; +SITA50TA PO; +TAMS-3 PO; +TRAM50TA2 PO
[2022-08-27] MEDS ORDERED: HYDROMORPHONE HCL 2 MG TABLET PO ONE (19:30)
[2022-08-27] MEDS ORDERED: HYDROMORPHONE HCL 2 MG TABLET ONE (19:34)
[2022-08-27 20:06] LABS: ALKALINE PHOSPHATASE 62 U/L (50-136); BILIRUBIN,TOTAL 0.3 mg/dL (0.2-1.0); CARBON DIOXIDE 32 mmol/L (21-32); CHLORIDE 98 mmol/L (98-107); CREATININE 5.7 mg/dL (0.6-1.3); GLUCOSE 116 mg/dL (74-106); PHOSPHOROUS 3.9 mg/dL (2.5-4.9); POTASSIUM 5.1 mmol/L (3.5-5.1); TOTAL PROTEIN, SERUM 8.3 g/dL (6.4-8.2); UREA NITROGEN, BLOOD 64 mg/dL (7-18)
[2022-08-27 20:12] LABS: HEMATOCRIT 22.6 % (36.7-47.1); MEAN CORPUSCULAR HEMOGLOBIN 32.1 uug (23.8-33.4); MEAN CORPUSCULAR VOLUME 96.7 fL (73.0-96.2); PLATELET COUNT (AUTO) 202 K/uL (152-348)
[2022-08-27 20:15] LABS: ALANINE AMINOTRANSFERASE < 6 U/L (16-63); ASPARTATE AMINOTRANSFERASE 15 U/L (15-37)
[2022-08-27] MEDS ORDERED: ONDANSETRON 4 MG/2 ML VIAL IV PRN (21:30)
[2022-08-27] MEDS ORDERED: NITROGLYCERIN 0.4 MG/TAB BOTTLE SL PRN (21:30)
[2022-08-27 22:44] VITALS: BP 110/52
[2022-08-27] MEDS: HYDROMORPHONE 1 MG/1 ML DISP.SYRIN IV PRN (23:13)
[2022-08-28] MEDS: HYDROMORPHONE 1 MG/1 ML DISP.SYRIN IV PRN ×4 (04:21→22:08)
[2022-08-28 04:40] VITALS: BP 108/47
[2022-08-28] MEDS: PANTOPRAZOLE SODIUM 40 MG TABLET.DR PO SCH ×2 (06:21→08:50)
[2022-08-28] MEDS: LEVOTHYROXINE SODIUM 100 MCG TABLET PO SCH ×2 (06:21→08:51)
[2022-08-28 07:03] LABS: IRON, SERUM 87 ug/dL (50-175)
[2022-08-28 07:21] LABS: ALANINE AMINOTRANSFERASE 6 U/L (16-63); ALKALINE PHOSPHATASE 78 U/L (50-136); ASPARTATE AMINOTRANSFERASE 21 U/L (15-37); BILIRUBIN,TOTAL 0.3 mg/dL (0.2-1.0); CARBON DIOXIDE 31 mmol/L (21-32); CHLORIDE 99 mmol/L (98-107); CHOLESTEROL 103 mg/dL (<200); CREATININE 5.9 mg/dL (0.6-1.3); GLUCOSE 94 mg/dL (74-106); HDL CHOLESTEROL 36 mg/dL (40-60); MAGNESIUM 2.1 mg/dL (1.8-2.4); PHOSPHOROUS 4.6 mg/dL (2.5-4.9); POTASSIUM 4.8 mmol/L (3.5-5.1); TRIGLYCERIDES 144 MG/DL (30-150); UREA NITROGEN, BLOOD 67 mg/dL (7-18)
[2022-08-28 07:41] LABS: MEAN CORPUSCULAR HEMOGLOBIN 31.8 uug (23.8-33.4); MEAN CORPUSCULAR VOLUME 98.1 fL (73.0-96.2); PLATELET COUNT (AUTO) 163 K/uL (152-348)
[2022-08-28 07:47] LABS: HEMATOCRIT 20.7 % (36.7-47.1); NEUTROPHILS % (MANUAL) 0 % (42-75)
[2022-08-28] MEDS: DULOXETINE 30 MG CAPSULE.DR PO SCH (08:50)
[2022-08-28] MEDS: CHOLECALCIFEROL 1,000 UNIT TABLET PO SCH (08:50)
[2022-08-28] MEDS: DIVALPROEX 500 MG TABLET.DR PO SCH ×2 (08:55→17:31)
[2022-08-28] MEDS ORDERED: Medication Not On Formulary EA (Cholecalciferol (Vitamin D3) (Vitamin D3) 1 CAP) PO SCH (09:00)
[2022-08-28] MEDS: METOPROLOL SUCCINATE XL 25 MG TAB.SR.24H PO SCH (09:00)
[2022-08-28] MEDS ORDERED: FLUTICASONE PROP NASAL SPRAY 16 GM BOTTLE NS SCH (09:00)
[2022-08-28] MEDS: CLOPIDOGREL 75 MG TABLET PO SCH (09:06)
[2022-08-28] MEDS: LINAGLIPTIN 5 MG TABLET PO SCH (09:13)
[2022-08-28 11:30] VITALS: BP 92/39
[2022-08-28] MEDS: FLUTICASONE PROP NASAL SPRAY 16 GM BOTTLE NS SCH (12:18)
[2022-08-28 15:58] VITALS: BP 96/47
[2022-08-28 16:56] LABS: THYROID STIMULATING HORMONE 20.772 mIU/mL (0.358-3.740)
[2022-08-28] MEDS ORDERED: ATORVASTATIN 40 MG TABLET PO SCH (21:00)
[2022-08-28] MEDS ORDERED: ATORVASTATIN 20 MG TABLET PO SCH (21:00)
[2022-08-28] MEDS: TAMSULOSIN HCL 0.4 MG CAP.SR.24H PO SCH (21:48)
[2022-08-28 22:00] VITALS: BP 106/67
[2022-08-29] MEDS: HYDROMORPHONE 1 MG/1 ML DISP.SYRIN IV PRN ×3 (01:34→19:24)
[2022-08-29 04:05] VITALS: BP 105/57
[2022-08-29 07:35] LABS: HEMATOCRIT 24.2 % (36.7-47.1); MEAN CORPUSCULAR HEMOGLOBIN 31.9 uug (23.8-33.4); MEAN CORPUSCULAR VOLUME 95.9 fL (73.0-96.2); PLATELET COUNT (AUTO) 152 K/uL (152-348)
[2022-08-29 07:52] LABS: MAGNESIUM 1.9 mg/dL (1.8-2.4); PHOSPHOROUS 4.2 mg/dL (2.5-4.9); POTASSIUM 4.7 mmol/L (3.5-5.1)
[2022-08-29] MEDS: METOPROLOL SUCCINATE XL 25 MG TAB.SR.24H PO SCH (09:00)
[2022-08-29] MEDS: FLUTICASONE PROP NASAL SPRAY 16 GM BOTTLE NS SCH (09:08)
[2022-08-29] MEDS: DULOXETINE 30 MG CAPSULE.DR PO SCH (09:11)
[2022-08-29] MEDS: LINAGLIPTIN 5 MG TABLET PO SCH (09:11)
[2022-08-29] MEDS: CLOPIDOGREL 75 MG TABLET PO SCH (09:11)
[2022-08-29] MEDS: CHOLECALCIFEROL 1,000 UNIT TABLET PO SCH (09:11)
[2022-08-29] MEDS: DIVALPROEX 500 MG TABLET.DR PO SCH ×2 (09:12→18:55)
[2022-08-29 11:30] VITALS: BP 114/54
[2022-08-29] MEDS ORDERED: SUMATRIPTAN SUCCINATE 50 MG TABLET PO ONE (13:45)
[2022-08-29 15:37] VITALS: BP 108/42
[2022-08-29 20:00] VITALS: BP 99/60
[2022-08-29] MEDS: ATORVASTATIN 10 MG TABLET PO SCH (20:09)
[2022-08-29] MEDS: TAMSULOSIN HCL 0.4 MG CAP.SR.24H PO SCH (20:09)
[2022-08-29] MEDS: TRAZODONE 50 MG TABLET PO SCH (20:10)
[2022-08-30] MEDS: ALBUMIN HUMAN 25% 100 ML IV PRN ×2 (02:33→02:43)
[2022-08-30 04:00] VITALS: BP 117/55
[2022-08-30] MEDS: HYDROMORPHONE 1 MG/1 ML DISP.SYRIN IV PRN ×4 (04:23→20:06)
[2022-08-30] MEDS: MECLIZINE HCL 25 MG TABLET PO PRN (04:33)
[2022-08-30] MEDS: LEVOTHYROXINE SODIUM 125 MCG TABLET PO SCH (06:19)
[2022-08-30] MEDS: PANTOPRAZOLE SODIUM 40 MG TABLET.DR PO SCH (06:19)
[2022-08-30] MEDS: FLUTICASONE PROP NASAL SPRAY 16 GM BOTTLE NS SCH (09:59)
[2022-08-30] MEDS: CHOLECALCIFEROL 1,000 UNIT TABLET PO SCH (09:59)
[2022-08-30] MEDS: CLOPIDOGREL 75 MG TABLET PO SCH (09:59)
[2022-08-30] MEDS: DULOXETINE 30 MG CAPSULE.DR PO SCH (09:59)
[2022-08-30] MEDS: DIVALPROEX 500 MG TABLET.DR PO SCH ×2 (09:59→17:58)
[2022-08-30] MEDS: METOPROLOL SUCCINATE XL 25 MG TAB.SR.24H PO SCH (09:59)
[2022-08-30] MEDS: LINAGLIPTIN 5 MG TABLET PO SCH (09:59)
[2022-08-30 11:34] VITALS: BP 93/42
[2022-08-30] MEDS ORDERED: REMEDY ESSENTIAL ZINC PASTE 113 GM TOP PRN (12:45)
[2022-08-30 15:43] VITALS: BP 110/51
[2022-08-30 20:00] VITALS: BP 111/51
[2022-08-30] MEDS: ATORVASTATIN 10 MG TABLET PO SCH (20:06)
[2022-08-30] MEDS: TAMSULOSIN HCL 0.4 MG CAP.SR.24H PO SCH (20:06)
[2022-08-30] MEDS: TRAZODONE 50 MG TABLET PO SCH ×2 (20:06→20:22)
[2022-08-31] MEDS: REMEDY ESSENTIAL ZINC PASTE 113 GM TOP SCH ×3 (00:50→23:05)
[2022-08-31 05:26] VITALS: BP 126/59
[2022-08-31] MEDS: HYDROMORPHONE 1 MG/1 ML DISP.SYRIN IV PRN ×4 (06:08→23:00)
[2022-08-31] MEDS: PANTOPRAZOLE SODIUM 40 MG TABLET.DR PO SCH (06:08)
[2022-08-31] MEDS: MECLIZINE HCL 25 MG TABLET PO PRN (06:08)
[2022-08-31] MEDS: LEVOTHYROXINE SODIUM 125 MCG TABLET PO SCH (06:08)
[2022-08-31] MEDS: LINAGLIPTIN 5 MG TABLET PO SCH (08:31)
[2022-08-31] MEDS: DIVALPROEX 500 MG TABLET.DR PO SCH ×2 (08:31→16:55)
[2022-08-31] MEDS: CHOLECALCIFEROL 1,000 UNIT TABLET PO SCH (08:31)
[2022-08-31] MEDS: DULOXETINE 30 MG CAPSULE.DR PO SCH ×2 (08:31→09:00)
[2022-08-31] MEDS: FLUTICASONE PROP NASAL SPRAY 16 GM BOTTLE NS SCH (08:31)
[2022-08-31] MEDS: CLOPIDOGREL 75 MG TABLET PO SCH (08:31)
[2022-08-31] MEDS: METOPROLOL SUCCINATE XL 25 MG TAB.SR.24H PO SCH (08:31)
[2022-08-31 08:47] LABS: HEMATOCRIT 22.7 % (36.7-47.1); MEAN CORPUSCULAR HEMOGLOBIN 32.3 uug (23.8-33.4); MEAN CORPUSCULAR VOLUME 96.9 fL (73.0-96.2); PLATELET COUNT (AUTO) 116 K/uL (152-348)
[2022-08-31 11:39] VITALS: BP 94/45
[2022-08-31 14:00] VITALS: BP 104/53
[2022-08-31] MEDS: ALBUMIN HUMAN 25% 100 ML IV PRN (18:04)
[2022-08-31 21:00] VITALS: BP 79/44
[2022-08-31] MEDS: TRAZODONE 50 MG TABLET PO SCH (23:03)
[2022-08-31] MEDS: ATORVASTATIN 10 MG TABLET PO SCH (23:03)
[2022-08-31] MEDS: TAMSULOSIN HCL 0.4 MG CAP.SR.24H PO SCH (23:04)
[2022-09-01 04:25] VITALS: BP 108/45
[2022-09-01] MEDS: LEVOTHYROXINE SODIUM 125 MCG TABLET PO SCH (06:47)
[2022-09-01] MEDS: PANTOPRAZOLE SODIUM 40 MG TABLET.DR PO SCH (06:47)
[2022-09-01] MEDS: LINAGLIPTIN 5 MG TABLET PO SCH (08:37)
[2022-09-01] MEDS: DIVALPROEX 500 MG TABLET.DR PO SCH (08:40)
[2022-09-01] MEDS: DULOXETINE 30 MG CAPSULE.DR PO SCH (08:40)
[2022-09-01] MEDS: CLOPIDOGREL 75 MG TABLET PO SCH (08:41)
[2022-09-01] MEDS: CHOLECALCIFEROL 1,000 UNIT TABLET PO SCH (08:41)
[2022-09-01] MEDS: METOPROLOL SUCCINATE XL 25 MG TAB.SR.24H PO SCH (08:42)
[2022-09-01] MEDS: FLUTICASONE PROP NASAL SPRAY 16 GM BOTTLE NS SCH (08:43)
[2022-09-01] MEDS: REMEDY ESSENTIAL ZINC PASTE 113 GM TOP SCH (08:44)
[2022-09-01] MEDS: HYDROMORPHONE 1 MG/1 ML DISP.SYRIN IV PRN (09:16)
[2022-09-01 12:10] VITALS: BP 118/56
[2022-09-01] MEDS ORDERED: NEPRO (VANILLA) 237 ML CAN PO SCH (17:00)
[2022-09-01] MEDS ORDERED: ARGININE/GLUTAMINE/CALCIUM BMB 1 EACH POWD.PACK PO SCH (17:00)
[2022-09-02] MEDS ORDERED: PROTEIN SUPPLEMENT (PROSTAT) 30 ML LIQUID PO SCH (08:00)
== END 2022-09-01 15:35 | DRG 264 ==
LOC: ER 19:22 → MEDSURG3 21:08
PROVIDERS: ADMIT Internal Medicine; ATTEND Internal Medicine
PROC: 30233N1 Transfusion of Nonautologous Red Blood Cells into Peripheral Vein, Percutaneous Approach (ICD-10-PCS; 2022-08-28)
PROC: 5A1D70Z Performance of Urinary Filtration, Intermittent, Less than 6 Hours Per Day (ICD-10-PCS; principal; 2022-08-29)
PROC: 0JBQ0ZZ Excision of Right Foot Subcutaneous Tissue and Fascia, Open Approach (ICD-10-PCS; 2022-08-31)
DX: I13.2 Hypertensive heart and chronic kidney disease with heart failure and with stage 5 chronic kidney disease, or end stage renal disease (principal); E43 Unspecified severe protein-calorie malnutrition; I50.33 Acute on chronic diastolic (congestive) heart failure; N18.6 End stage renal disease; L97.419 Non-pressure chronic ulcer of right heel and midfoot with unspecified severity; D68.59 Other primary thrombophilia; J98.11 Atelectasis; J96.11 Chronic respiratory failure with hypoxia; E11.22 Type 2 diabetes mellitus with diabetic chronic kidney disease; Z99.2 Dependence on renal dialysis; Z91.15 Patient's noncompliance with renal dialysis; D69.6 Thrombocytopenia, unspecified; E03.9 Hypothyroidism, unspecified; E11.51 Type 2 diabetes mellitus with diabetic peripheral angiopathy without gangrene; E11.42 Type 2 diabetes mellitus with diabetic polyneuropathy; E78.5 Hyperlipidemia, unspecified; E88.09 Other disorders of plasma-protein metabolism, not elsewhere classified; G25.0 Essential tremor; F20.9 Schizophrenia, unspecified; G40.909 Epilepsy, unspecified, not intractable, without status epilepticus; G43.909 Migraine, unspecified, not intractable, without status migrainosus; G89.4 Chronic pain syndrome; H40.9 Unspecified glaucoma; I25.10 Atherosclerotic heart disease of native coronary artery without angina pectoris; I48.0 Paroxysmal atrial fibrillation; Z89.512 Acquired absence of left leg below knee; K21.9 Gastro-esophageal reflux disease without esophagitis; Z79.84 Long term (current) use of oral hypoglycemic drugs; D63.8 Anemia in other chronic diseases classified elsewhere; F32.A Depression, unspecified; K59.00 Constipation, unspecified; Z86.16 Personal history of COVID-19; Z20.822 Contact with and (suspected) exposure to COVID-19; R13.10 Dysphagia, unspecified; Z95.5 Presence of coronary angioplasty implant and graft; Z74.09 Other reduced mobility; N40.0 Benign prostatic hyperplasia without lower urinary tract symptoms; Z79.891 Long term (current) use of opiate analgesic; K80.20 Calculus of gallbladder without cholecystitis without obstruction; E11.621 Type 2 diabetes mellitus with foot ulcer; Z68.27 Body mass index [BMI] 27.0-27.9, adult
CPT/HCPCS: 36415; 70030-TC; 71045; 83550; 83605; 83735; 84100; 84443; 84484; 85025; 85610; 86850; 86870; 86900; 86901; 86920; 90937; 93005; A4663; A6209; G0378; J1170; J2405; J3535; J7040; J8597; P9016; P9047